=== PATIENT | female | born 1965 | race Caucasian/White ===

== ENCOUNTER 2016-06-10 08:48 | Emergency (ER) | payer BC, OTHER ==
[~2016-06-10] VITALS: Ht 162.6 cm; Wt 107.7 kg
[~2016-06-10 08:48] MED LIST: ALBU0.5N2 NEB; ASPI81TA28 PO; CRAN1CAP15 PO; CRG25 PO; HYDR12.55 PO; LEVO175T PO; LSN40 PO; METF750T PO; OMEP20CA9 PO; VALA1TAB31 PO
[2016-06-10 08:51] VITALS: TEMP 37.2; Ht 162.6 cm; Wt 107.7 kg
[2016-06-10] MEDS ORDERED: LSN20 PO (09:28)
[2016-06-10] MEDS ORDERED: CARV12.5 PO (09:28)
[2016-06-10] MEDS ORDERED: HYDR25TA4 PO (09:28)
[2016-06-10] MEDS ORDERED: DSY/150 PO (09:28)
[2016-06-10] MEDS ORDERED: SERT50TA PO (09:28)
[2016-06-10] MEDS ORDERED: SULFAMETHOXAZOLE/TRIMETHOPRIM DS 800/160MG TAB PO ONE (09:30)
[2016-06-10] MEDS ORDERED: CEPHALEXIN MONOHYDRATE 250 MG CAP PO ONE (09:30)
[2016-06-10] MEDS ORDERED: SULF800T23 PO (09:39)
[2016-06-10] MEDS ORDERED: CEPH500C PO (09:39)
[2016-06-10 10:02] VITALS: BP 125/81; PULSE 73; O2SAT 95
[2016-06-10 10:13] LABS: URINE APPEARANCE CLEAR (CLEAR); URINE BILIRUBIN NEG (NEG); URINE COLOR DK YELLOW; URINE EPITHELIAL CELL AUTO >30 /lpf (0-5); URINE NITRITE NEG (NEG); URINE PH 8.5 (4.5-7.5); URINE SPECIFIC GRAVITY 1.024 (1.000-1.030); UROBILINOGEN NEG (NEG); ZZUR CULT IF INDIC CLEAN CATCH NO
[2016-06-10 10:14] LABS: MANUAL MICROSCOPIC REQUIRED? NO; REVIEW REQ? NO
[2016-06-10] MEDS ORDERED: PRED20TA PO (15:43)
[2016-06-10] MEDS ORDERED: DOXY100C PO (15:43)
--- NOTE | 2016-06-10 16:44 | EMERGENCY ROOM VISIT NOTE ---
History First contact with patient: 09:03 Chief Complaint: INFECTION Stated Complaint: OPEN CUT ON RIGHT SIDE Nursing Triage Summary: Pt presents with c/o abscess to right side of abd x 5-6 days, states open now. States she also has b/l flank pain and feels like she is getting a sinus infection. Pt states, "I've been having trouble getting rid of UTI's. I have been going more often. I just got done taking meds, but they don't seem to clear up." Pt states she does not think she has one currently, but states, "I've been having some blood on my panty liner. I have also been really tired and fatigued." History of Present Illness The patient is a 51 year old female who presents to the Emergency Room with several complaints. The patient states that she had a boil on the right side of her abdomen that broke open. She states this has been persistently uncomfortable and is now with increasing redness. The patient states that she has had sinus infection symptoms off and on for the past several weeks. She states that she completed a course of Bactrim for UTI about 3 or 4 weeks ago, but continues to have dysuria. The patient is diabetic, but states her sugar has been doing well. She has not taken anything [id number] for her symptoms. Review of Systems More than 10 systems were reviewed and otherwise negative with the exception of history of present illness. Past Medical/Surgical History Medical Problems: (1) Asthma (2) Diab Brit Wo Compl, Type Ii Or Unspec Type, Not Uncntrld (3) Esophageal Reflux (4) Hypertension Nos Family History Patient reports no known family medical history. Social History Smoking Status: Current Every Day Smoker Marital Status: Occupation Status: employed Current/Historical Medications Scheduled Aspirin (Aspirin Ec), 81 MG PO DAILY Carvedilol (Coreg), 12.5 MG PO BID Cephalexin Monohydrate (Keflex), 500 MG PO TID Cranberry-Vitamin C-Vitamin E (Cranberry), 3,600 MG PO DAILY Doxycycline Hyclate (Vibramycin), 100 MG PO BID Hydrochlorothiazide (Hctz), 25 MG PO DAILY Levothyroxine Sodium (Synthroid), 175 MCG PO DAILY Lisinopril (Lisinopril), 20 MG PO DAILY Metformin Hcl (Glucophage Er), 750 MG PO DAILY Omeprazole (Prilosec), 20 MG PO DAILY Prednisone (Prednisone), 0 PO DAILY Sertraline (Zoloft), 50 MG PO DAILY Sulfa/Trimethoprim (Bactrim Ds 800MG/160MG), 1 TAB PO BID Trazodone HCl (Trazodone HCl), 150 MG PO HS Allergies Coded Allergies: Ciprofloxacin (Verified Allergy, Severe, sob, 06/10/16) Quinolones (Verified Allergy, Severe, SOB, 06/10/16) Amoxicillin (Verified Allergy, Mild, HIVES, 06/10/16) Latex1 -Allergic Contact Dermititis (Verified Allergy, Unknown, LATEX GLOVE POWDER, 06/10/16) Sulfa Antibiotics (Unverified Allergy, Unknown, ., 06/10/16) Uncoded Allergies: [place] (Allergy, Unknown, Difficulty breathing., 02/16/14) Reported by PT Physical Exam Vital Signs Date Time Temp Pulse Resp B/P Pulse Ox O2 Delivery O2 Flow Rate FiO2 06/10/16 10:02 73 18 125/81 95 Room Air 06/10/16 08:51 37.2 87 18 142/88 94 Room Air Pain Rating (0-10): 0 Physical Exam VITALS: Vitals are noted on the nurse's note and reviewed by myself. Vital signs stable. GENERAL: Well-developed, well-nourished, white female, who is in no acute distress and resting comfortably. Patient is cooperative with the examination. HEAD: Normocephalic atraumatic. HEART: Regular rate and rhythm without murmurs gallops or rubs. LUNGS: Clear to auscultation bilaterally without wheezes, rales or rhonchi. No retractions or accessory muscle use. ABDOMEN: Positive normal bowel sounds x 4. Soft, nontender, without masses or organomegaly. No guarding or rebound tenderness. There is a small 1 x 1 cm ulceration with surrounding erythema measuring 5-6 cm in diameter around this ulceration. There is no drainage or discharge. No fluctuance. MUSCULOSKELETAL: No muscle atrophy, erythema, or edema noted. Full range of motion without joint tenderness in all extremities. Medical Decision & Procedures Laboratory Results Test 06/10/16 09:50 Urine Color DK YELLOW Urine Appearance CLEAR (CLEAR) Urine pH 8.5 (4.5-7.5) Urine Specific [place] 1.024 (1.000-1.030) Urine Protein NEG (NEG) Urine Glucose (UA) NEG (NEG) Urine Ketones NEG (NEG) Urine Occult Blood NEG (NEG) Urine Nitrite NEG (NEG) Urine Bilirubin NEG (NEG) Urine Urobilinogen NEG (NEG) Urine Leukocyte Esterase TRACE (NEG) Urine WBC (Auto) 1-5 /hpf (0-5) Urine RBC (Auto) 0-4 /hpf (0-4) Urine Hyaline Casts (Auto) 1-5 /lpf (0-5) Urine Epithelial Cells (Auto) >30 /lpf (0-5) Urine Bacteria (Auto) NEG (NEG) Medications Administered Medications (Trade) Dose Ordered Sig/Staci Route Start Time Stop Time Status Last Admin Dose Admin Trimethoprim/ Sulfamethoxazole (Septra Ds 800/ 160MG Tab) 1 tab NOW ONCE PO 06/10/16 09:30 4 09:31 DC 06/10/16 09:50 1 TAB Cephalexin Monohydrate (Keflex Cap) 500 mg NOW ONCE PO 06/10/16 09:30 06/10/16 09:31 DC 06/10/16 09:50 500 MG ED Course Physical exam and history were performed. Nursing notes and EMR were reviewed. Patient appears to have a few different complaints bring her to the ER today. On examination she does not appear to have an abscess, but she does have an ulceration of her right side abdominal wall. This does have a surrounding cellulitis. She reports these symptoms, and has had multiple UTIs in the past. She is diabetic and I discussed options of care with the patient. She will be given a prescription of Bactrim and Keflex the patient is evidently tolerated these medications in the past. The patient will need to follow with her primary care physician for further management. She was otherwise invited back to the ER with any new, worsening, or concerning symptoms. The chart was completed utilizing [employer] Speech Voice Recognition Software. Grammatical errors, random word insertions, pronoun errors, and incomplete sentences are an occasional consequence of this system due to software limitations, ambient noise, and hardware issues. Any formal questions or concerns about the content, text, or information contained within the body of this dictation should be directly addressed to the provider for clarification. . Medical Decision Differential diagnosis: Etiologies such as cellulitis, abscess, MRSA infection, DVT, necrotizing fasciitis, dermatitis, drug eruption, as well as others were entertained.. Impression Primary Impression: Abdominal wall cellulitis Additional Impression: UTI (urinary tract infection) Departure Information Dispostion Home / Self-Care Condition GOOD Prescriptions Cephalexin Monohydrate (Keflex) 500 Mg Cap 500 MG PO TID for 10 Days, #30 CAP Prov: Yon Ross PA-C 06/10/16 Sulfa/Trimethoprim (Bactrim Ds 800MG/160MG) Tab 1 TAB PO BID for 10 Days, #20 TAB Prov: Yon Ross PA-C 06/10/16 Forms HOME CARE DOCUMENTATION FORM, IMPORTANT VISIT INFORMATION Patient Instructions My [facility] Additional Instructions You were seen and evaluated today on an emergency basis only. This is not a substitute for, or an effort to provide, complete comprehensive medical care. It is not possible to recognize and treat all injuries or illnesses in a single emergency department visit. For this reason it is recommended that you followup with your primary care physician in the next 2-3 days for recheck of her condition. Trimethoprim-Sulfamethoxazole(Bactrim DS): Take one pill twice daily for 10 days for your skin infection. All antibiotics can cause diarrhea. If this occurs and you feel worse or it does not resolve in 1-2 days follow up with your doctor or return to the Emergency Department as this could be signs of serious underlying problems. Any medication can cause an allergic reaction, stop the pills immediately and return to the ER for rash, hives, breathing difficulties, or swelling. Cephalexin(Keflex) 500mg: Take one pill 3 times daily for 10 days for your skin infection. All antibiotics can cause diarrhea. If this occurs and you feel worse or it does not resolve in 1-2 days follow up with your doctor or return to the Emergency Department as this could be signs of serious underlying problems. Any medication can cause an allergic reaction, stop the pills immediately and return to the ER for rash, hives, breathing difficulties, or swelling. You are welcome to return to the emergency department anytime with new, worsening, or concerning symptoms. Problem Qualifiers
== END 2016-06-10 10:02 | disposition home or self-care (01) ==
LOC: C.EDB 08:49
DX: L03.311 Cellulitis of abdominal wall (principal); N39.0 Urinary tract infection, site not specified; J45.909 Unspecified asthma, uncomplicated; E11.9 Type 2 diabetes mellitus without complications; I10 Essential (primary) hypertension; K21.9 Gastro-esophageal reflux disease without esophagitis; F17.200 Nicotine dependence, unspecified, uncomplicated; Z79.82 Long term (current) use of aspirin

== ENCOUNTER 2016-06-10 10:19 | Emergency (ER) | payer OTHER ==
[~2016-06-10 10:19] MED LIST changes: +CARV12.5 PO; +CEPH500C PO; +DSY/150 PO; +HYDR25TA4 PO; +LSN20 PO; +SERT50TA PO; +SULF800T23 PO
[2016-06-10 10:23] VITALS: TEMP 36.6; Ht 162.6 cm
[2016-06-10] MEDS ORDERED: DiphenhydrAMINE HCL 50 MG/ML VIAL IV STA (10:29)
[2016-06-10] MEDS ORDERED: METHYLPREDNISOLONE 125 MG VIAL IV STA (10:29)
[2016-06-10] MEDS ORDERED: FAMOTIDINE IV INJ 20 MG in DEXTROSE 5% 100ML 100 ML IV ONE (10:30)
[2016-06-10] MEDS ORDERED: SODIUM CHLORIDE 0.9% 1000ML 1,000 ML IV ONE (10:30)
[2016-06-10 10:40] VITALS: O2SAT 86
[2016-06-10] MEDS ORDERED: EpINEphrine INJ 1MG/ML AMP 1 MG/ML AMP IM STA (10:44)
[2016-06-10] MEDS ORDERED: FAMOTIDINE 20MG/102 ML D5W ONE (10:52)
[2016-06-10] MEDS ORDERED: DOXY100C PO (15:43)
[2016-06-10] MEDS ORDERED: PRED20TA PO (15:43)
[2016-06-10 16:00] VITALS: BP 116/73; PULSE 81; O2SAT 95
--- NOTE | 2016-06-10 17:08 | EMERGENCY ROOM VISIT NOTE ---
History First contact with patient: 10:26 Chief Complaint: ALLERGIC REACTION Stated Complaint: ALLERGIC REACTION TO NEW MEDICATION IN ER Nursing Triage Summary: Pt just d/c from here. Now having lips are itching/numb, pain in vaginal area, nausea, lightheaded, difficulty breathing. Pt states, "we just got on the byass and I had to turn around." Pt states given abx. History of Present Illness The patient is a 51 year old female who presents to the Emergency Room with complaints of flushing, rash, lightheadedness, nausea, difficulty breathing. The patient was just seen and evaluated by myself for an abdominal wall ulceration and cellulitis. She was provided Bactrim and Keflex here in the department, and evidently has tolerated these medications before. The patient was discharged, got in her car, and essentially had immediate symptoms. The patient does appear to be experiencing an allergic reaction. She is able to speak in complete sentences and does not have swelling of her throat. She has not taken anything [id number], as her symptoms just started within the past 15 minutes. Review of Systems More than 10 systems were reviewed and otherwise negative with the exception of history of present illness. Past Medical/Surgical History Medical Problems: (1) Asthma (2) Diab Brit Wo Compl, Type Ii Or Unspec Type, Not Uncntrld (3) Esophageal Reflux (4) Hypertension Nos Family History Patient reports no known family medical history. Social History Smoking Status: Current Every Day Smoker Marital Status: Occupation Status: employed Current/Historical Medications Scheduled Aspirin (Aspirin Ec), 81 MG PO DAILY Carvedilol (Coreg), 12.5 MG PO BID Cephalexin Monohydrate (Keflex), 500 MG PO TID Cranberry-Vitamin C-Vitamin E (Cranberry), 3,600 MG PO DAILY Doxycycline Hyclate (Vibramycin), 100 MG PO BID Hydrochlorothiazide (Hctz), 25 MG PO DAILY Levothyroxine Sodium (Synthroid), 175 MCG PO DAILY Lisinopril (Lisinopril), 20 MG PO DAILY Metformin Hcl (Glucophage Er), 750 MG PO DAILY Omeprazole (Prilosec), 20 MG PO DAILY Prednisone (Prednisone), 0 PO DAILY Sertraline (Zoloft), 50 MG PO DAILY Sulfa/Trimethoprim (Bactrim Ds 800MG/160MG), 1 TAB PO BID Trazodone HCl (Trazodone HCl), 150 MG PO HS Allergies Coded Allergies: Ciprofloxacin (Verified Allergy, Severe, sob, 06/10/16) Quinolones (Verified Allergy, Severe, SOB, 06/10/16) Amoxicillin (Verified Allergy, Mild, HIVES, 06/10/16) Latex1 -Allergic Contact Dermititis (Verified Allergy, Unknown, LATEX GLOVE POWDER, 06/10/16) Sulfa Antibiotics (Unverified Allergy, Unknown, ., 06/10/16) Uncoded Allergies: [place] (Allergy, Unknown, Difficulty breathing., 02/16/14) Reported by PT Physical Exam Vital Signs Date Time Temp Pulse Resp B/P Pulse Ox O2 Delivery O2 Flow Rate FiO2 06/10/16 16:00 81 18 116/73 95 06/10/16 15:38 91 Room Air 06/10/16 15:26 85 06/10/16 14:30 83 16 105/74 91 Nasal Cannula 4.0 06/10/16 13:00 80 17 117/83 90 Nasal Cannula 4.0 06/10/16 11:56 70 17 128/87 93 Nasal Cannula 2.0 06/10/16 11:16 71 06/10/16 11:02 70 18 139/89 97 Nasal Cannula 6.0 06/10/16 10:59 62 20 138/90 Nasal Cannula 6.0 06/10/16 10:58 60 16 143/94 99 Nasal Cannula 6.0 06/10/16 10:46 86 18 118/79 92 Nasal Cannula 6.0 06/10/16 10:44 87 14 114/77 94 Nasal Cannula 6.0 06/10/16 10:40 Nasal Cannula 4.0 06/10/16 10:40 86 Nasal Cannula 2.0 06/10/16 10:39 96 18 114/86 83 Room Air 06/10/16 10:23 36.6 123 18 120/77 94 Room Air 06/10/16 10:22 93 Room Air Pain Rating (0-10): 0 Physical Exam VITALS: Vitals are noted on the nurse's note and reviewed by myself. Vital signs stable. GENERAL: Well-developed, well-nourished, white female who is in mild-to- moderate discomfort secondary to her stated complaint. Patient is cooperative with the examination. HEAD: Normocephalic atraumatic. EARS: External ear normal. External auditory canals clear, tympanic membranes pearly ibanez without erythema or effusion bilaterally. EYES: Pupils equal round and reactive to light and accommodation. Conjunctivae without injection, sclerae without icterus. Extraocular movements intact. NOSE: Patent, turbinates without inflammation or discharge. MOUTH: Mucous membranes moist. Tonsils are not enlarged. Pharynx without erythema, blood, or exudate. Uvula midline. Airway patent. NECK: Supple without nuchal rigidity. No lymphadenopathy. No thyromegaly. Cervical spine is nontender. HEART: Regular rate and rhythm without murmurs gallops or rubs. LUNGS: Coarse breath sounds with scattered wheezing that didn't improve under our care. ABDOMEN: Positive normal bowel sounds x 4. Soft, nontender, without masses or organomegaly. No guarding or rebound tenderness. MUSCULOSKELETAL: No muscle atrophy, erythema, or edema noted. Full range of motion without joint tenderness in all extremities. SKIN: The skin was with urticaria best appreciated on the back and abdomen Medical Decision & Procedures Medications Administered Medications (Trade) Dose Ordered Sig/Staci Route Start Time Stop Time Status Last Admin Dose Admin Diphenhydramine HCl 25 mg 25 mg NOW STAT IV 06/10/16 10:29 06/10/16 10:31 DC 06/10/16 10:29 25 MG Sodium Chloride (Nss 1000ml) 1,000 ml @ 999 mls/hr Q1H1M ONCE IV 06/10/16 10:30 06/10/16 11:30 DC 06/10/16 10:30 999 MLS/HR Methylprednisolone Sodium Succinate 125 mg 125 mg NOW STAT IV 06/10/16 10:29 06/10/16 10:31 DC 06/10/16 10:29 125 MG Famotidine/ Dextrose (Pepcid IV Inj/ D5 100ml) 102 ml @ 200 mls/hr NOW ONCE IV 06/10/16 10:30 06/10/16 11:00 DC 06/10/16 10:30 200 MLS/HR Epinephrine HCl (EpINEphrine INJ 1MG/ML AMP/VIAL) 0.3 mg NOW STAT IM 06/10/16 10:44 06/10/16 10:45 DC 06/10/16 10:44 0.3 MG Prednisone (PredniSONE TAB) 60 mg NOW STAT PO 06/10/16 15:54 06/10/16 15:55 DC 06/10/16 15:59 60 MG ED Course Physical exam and history were performed. Nursing notes and EMR were reviewed. Patient appears to have an allergic reaction to either Bactrim or Keflex that she was provided approximately 30 minutes ago here in the emergency department. On examination the patient does appear with an allergic reaction. IV access was established and the patient was medicated as above. She was given 0.3 mg IM epinephrine. She was placed on the radiographer cardiac catheterization. The patient was monitored very closely over the next 5-1/2 hours. Within the first 15 minutes of epinephrine administration she had almost complete resolution of her symptoms. She was able to rest very comfortably and remain in stable condition. After several hours the patient was able to ambulate without desaturating. She had almost complete resolution of her symptoms, and did not have any rebound reaction appreciated. I discussed options of care with the patient and she has a preference for discharge home. This does seem reasonable. The patient will be given a dose of prednisone to take tonight as well as a prescription for ongoing course. I have asked her to stop the Bactrim and Keflex, as I am unsure which of these caused her reaction. The patient will be given doxycycline for her abdominal wall cellulitis. The patient is to follow closely with her primary care physician in the next 1-2 days. She was otherwise invited back to the ER with any new, worsening, or concerning symptoms. The chart was completed utilizing [employer] Speech Voice Recognition Software. Grammatical errors, random word insertions, pronoun errors, and incomplete sentences are an occasional consequence of this system due to software limitations, ambient noise, and hardware issues. Any formal questions or concerns about the content, text, or information contained within the body of this dictation should be directly addressed to the provider for clarification. . Medical Decision Differential diagnosis: Etiologies such as allergic reaction, anaphylaxis, urticaria, Sanford-Mustapha syndrome, toxic epidermal necrolysis, erythema multiforme, cellulitis, as well as others were entertained. Impression Primary Impression: Adverse reaction to drug Departure Information Dispostion Home / Self-Care Condition GOOD Prescriptions Doxycycline Hyclate (VIBRAMYCIN) 100 Mg Cap 100 MG PO BID for 10 Days, #20 CAP Prov: Yon Ross PA-C 06/10/16 Prednisone (Prednisone) 20 Mg Tab 0 PO DAILY, #18 TAB 3 DAILY FOR 3 DAYS, THEN 2 DAILY FOR 3 DAYS, THEN 1 DAILY FOR 3 DAYS. Prov: Yon Ross PA-C 06/10/16 Referrals Nadine Bustillo PA-C (PCP) Forms HOME CARE DOCUMENTATION FORM, IMPORTANT VISIT INFORMATION Patient Instructions My [facility] Additional Instructions You were seen and evaluated today on an emergency basis only. This is not a substitute for, or an effort to provide, complete comprehensive medical care. It is not possible to recognize and treat all injuries or illnesses in a single emergency department visit. For this reason it is recommended that you followup with your primary care physician in the next 2-3 days for recheck of your condition. Take prednisone as prescribed. Take Benadryl 50 mg every 6-8 hours as needed. You may use gsmj-[id number] Zantac for additional relief of symptoms. Doxycycline twice a day for 10 days. Avoid exposure to the sun/UV light while on this medication or use frequent application of SPF 50 or higher due to increased sensitivity to UV rays and high risk for severe moran. You are welcome to return to the emergency department anytime with new, worsening, or concerning symptoms.
== END 2016-06-10 16:02 | disposition home or self-care (01) ==
LOC: C.EDB 10:21 → C.EDC 16:02
DX: T88.7XXA Unspecified adverse effect of drug or medicament, initial encounter (principal); X58.XXXA Exposure to other specified factors, initial encounter; J45.909 Unspecified asthma, uncomplicated; E11.9 Type 2 diabetes mellitus without complications; K21.9 Gastro-esophageal reflux disease without esophagitis; I10 Essential (primary) hypertension; F17.200 Nicotine dependence, unspecified, uncomplicated; Z79.82 Long term (current) use of aspirin

== ENCOUNTER 2016-11-07 09:43 | Emergency (ER) | payer SELFPAY ==
[~2016-11-07] VITALS: Ht 162.6 cm; Wt 107.9 kg
[~2016-11-07 09:43] MED LIST changes: -ALBU0.5N2 NEB; -CEPH500C PO; -CRG25 PO; -HYDR12.55 PO; -LSN40 PO; +PRED20TA PO; -SULF800T23 PO; -VALA1TAB31 PO
[2016-11-07 09:49] VITALS: TEMP 36.8; Ht 162.6 cm; Wt 107.9 kg
--- NOTE | 2016-11-07 10:49 | DIAGNOSTIC IMAGING REPORT ---
LEFT WRIST 5 VIEWS HISTORY: Left wrist pain. LEFT, FALL 6 WEEKS AGO COMPARISON: None. FINDINGS: There is no fracture or dislocation. Soft tissues are unremarkable. No radiopaque foreign bodies. IMPRESSION: No fractures. Electronically signed by: Wolf Damon M.D. 11/07/2016 10:47 AM Dictated Date/Time: 11/07/2016 10:46 AM
--- NOTE | 2016-11-07 11:34 | EMERGENCY ROOM VISIT NOTE ---
ED Visit Note First contact with patient: 09:53 CHIEF COMPLAINT: Left wrist injury 6 weeks ago Patient is a [id number] 51-year-old white female who presents emergency department for evaluation of left wrist pain 6 weeks. She tripped and fell, landing on her extended left wrist about 6 weeks ago. She noted swelling and bruising in the palmar aspect of her hand, with pain radiating into her wrist after the fall. She states that she applied ice to the area, took Tylenol, and tried to limit use of the wrist, but she continues to note pain. Pain is primarily in the wrist at the base of the thumb, and into the first metacarpal region. REVIEW OF SYSTEMS: Review of systems as per HPI. All other systems reviewed were negative. At least 6 systems reviewed. PMH: Electronic medical records are reviewed and summarized as above/below. See Problem List. SOCIAL HISTORY: Patient lives at home with her spouse. Smoker. PHYSICAL EXAM: Vital Signs: Reviewed Nurse's notes. MENTAL STATUS: Alert and oriented. MUSCULOSKELETAL: T examination of the left wrist does not reveal any obvious deformity. There is no soft tissue swelling, no ecchymosis or outward signs of trauma noted. She is tenderness over the distal radius, and has anatomic snuffbox tenderness. Pain extends into the first metacarpal. There is no pain over the dorsum of the wrist, she has pain with wrist extension and flexion. There is no pain over the proximal radial head. Finger range of motion is full. No deformity. SKIN: Normal and intact. The hand is warm and well perfused and the fingers move normally. EMERGENCY DEPARTMENT COURSE: X-rays of the left wrist were obtained, and did not note any obvious fracture, healing fracture or other bony abnormality. The patient was given a wrist lacer. Differential diagnosis includes fracture, sprain, contusion, among others. She was encouraged to wear a wrist splint for support, and was given contact information for orthopedics if she would like to follow up. Medication reconciliation: I attest that I have personally reviewed the patient' s current medication list. Blood pressure screening : Patient was found to have normal blood pressure on screening and does not require follow-up. LEFT WRIST 5 VIEWS HISTORY: Left wrist pain. LEFT, FALL 6 WEEKS AGO COMPARISON: None. FINDINGS: There is no fracture or dislocation. Soft tissues are unremarkable. No radiopaque foreign bodies. IMPRESSION: No fractures. Problem List Medical Problems: (1) Abdominal pain Status: Resolved (2) Abdominal wall cellulitis Status: Resolved (3) Abdominal wall cellulitis Status: Resolved (4) Adverse reaction to drug Status: Resolved (5) Adverse reaction to drug Status: Resolved (6) Asthma Status: Chronic (7) Asthma exacerbation Status: Resolved (8) Asthma with acute exacerbation Status: Resolved (9) Bronchitis Status: Resolved (10) Diab Brit Wo Compl, Type Ii Or Unspec Type, Not Uncntrld Status: Chronic (11) Esophageal Reflux Status: Chronic (12) Hypertension Nos Status: Chronic (13) Right elbow pain Status: Resolved (14) UTI (urinary tract infection) Status: Resolved (15) UTI (urinary tract infection) Status: Resolved (16) Vaginal pain Status: Resolved Current/Historical Medications Scheduled Aspirin (Aspirin Ec), 81 MG PO DAILY Carvedilol (Coreg), 12.5 MG PO BID Hydrochlorothiazide (Hctz), 25 MG PO DAILY Levothyroxine Sodium (Synthroid), 175 MCG PO DAILY Lisinopril (Lisinopril), 20 MG PO DAILY Metformin Hcl (Glucophage Er), 750 MG PO DAILY Omeprazole (Prilosec), 20 MG PO DAILY Sertraline (Zoloft), 50 MG PO DAILY Trazodone HCl (Trazodone HCl), 150 MG PO HS Allergies Coded Allergies: Ciprofloxacin (Verified Allergy, Severe, sob, 06/10/16) Quinolones (Verified Allergy, Severe, SOB, 06/10/16) Amoxicillin (Verified Allergy, Mild, HIVES, 06/10/16) Latex1 -Allergic Contact Dermititis (Verified Allergy, Unknown, LATEX GLOVE POWDER, 06/10/16) Sulfa Antibiotics (Unverified Allergy, Unknown, ., 06/10/16) Uncoded Allergies: [place] (Allergy, Unknown, Difficulty breathing., 02/16/14) Reported by PT Vital Signs Date Time Temp Pulse Resp B/P (MAP) Pulse Ox O2 Delivery O2 Flow Rate FiO2 11/07/16 11:40 73 20 126/82 95 11/07/16 09:49 36.8 77 18 146/91 92 Room Air Departure Information Impression Primary Impression: Left wrist sprain Referrals Nadine Bustillo PA-C (PCP) Patient Instructions My [facility] Additional Instructions Ibuprofen(Motrin, Advil) may be used for fever or pain. Use 600mg every six hours as needed. Take with food. Avoid using more than 2400mg in a 24 hour period. Do not use 2400mg per day for more than three consecutive days without physician direction. Prolonged inappropriate use can lead to stomach upset or ulcers. This medication can be taken if you need to drive, work, or perform activities which may be dangerous when taking narcotic pain medication. (AND/OR) Acetaminophen(Tylenol) may be used for fever or pain. Use 1000mg every six hours as needed. Avoid using more than 3000mg in a 24 hour period. This medication can be taken if you need to drive, work, or perform activities which may be dangerous when taking narcotic pain medication. Ice compresses for 20 minutes at a time four times daily for 2-3 days. Rest and elevate your injury. Wear the wrist lacer as needed for support. Continue current medications. Return to the ER immediately for any numbness, tingling, severe pain, extreme swelling in the extremity or as needed. Follow-up with orthopedics if you would like your wrist reevaluated. Problem Qualifiers Primary Impression: Left wrist sprain Encounter type: initial encounter Qualified Codes: S63.502A - Unspecified sprain of left wrist, initial encounter
[2016-11-07 11:40] VITALS: BP 126/82; PULSE 73; O2SAT 95
== END 2016-11-07 11:41 | disposition home or self-care (01) ==
LOC: C.EDB 09:43
DX: S63.502A Unspecified sprain of left wrist, initial encounter (principal); W01.0XXA Fall on same level from slipping, tripping and stumbling without subsequent striking against object, initial encounter; I10 Essential (primary) hypertension; E11.9 Type 2 diabetes mellitus without complications; K21.9 Gastro-esophageal reflux disease without esophagitis; J45.909 Unspecified asthma, uncomplicated; F17.200 Nicotine dependence, unspecified, uncomplicated; Z79.82 Long term (current) use of aspirin; Z79.84 Long term (current) use of oral hypoglycemic drugs; Z79.899 Other long term (current) drug therapy; Z88.1 Allergy status to other antibiotic agents; Z88.2 Allergy status to sulfonamides; Z88.8 Allergy status to other drugs, medicaments and biological substances; Z91.040 Latex allergy status

== ENCOUNTER 2022-07-08 13:41 | Inpatient (IN) ==
[2022-07-08] MEDS ORDERED: methylPREDNISolone 125 MG/2 ML VIAL IV STA (13:50)
[2022-07-08] MEDS ORDERED: ALBUT/IPRATROP 3MG/0.5MG NEB 3 ML VIAL NEB STA ×3 (13:50→15:35)
[2022-07-08 14:09] LABS: Base Excess VBG 3.5 mEq/L; HCO3 VBG 28 mmol/L; Oxygen Saturation VBG 87.9 %; PCO2 VBG 40 mmHg (38-50); PO2 VBG 55 mmHg; pH VBG 7.45 (7.36-7.41)
[2022-07-08 14:15] LABS: Basophils # (auto) 0.04 K/uL (0-0.2); Basophils % (auto) 0.7 %; Eosinophils # (auto) 0.01 K/uL (0-0.50); Eosinophils % (auto) 0.2 %; Hematocrit (blood only) 51.2 % (37.0-47.0); Hemoglobin 16.8 g/dl (12.0-16.0); Immature Granulocytes # (auto) 0.03 K/uL (0.01-0.20); Immature Granulocytes % (auto) 0.6 %; Lymphocytes % (auto) 26.2 %; Mean Corpuscular Hemoglobin 28.2 pg (25.0-34.0); Mean Corpuscular Hgb Conc 32.8 g/dL (32.0-36.0); Mean Corpuscular Volume 85.9 fL (80.0-100.0); Mean Platelet Volume 11.3 fL (9.4-12.4); Monocytes # (auto) 0.09 K/uL (0.11-0.59); Monocytes % (auto) 1.7 %; Neutrophils # (auto) 3.77 K/uL (1.40-6.50); Neutrophils % (auto) 70.6 %; Platelet Count 157 K/uL (130-400); RDW Coefficient of Variation 14.1 % (11.5-14.5); Red Blood Count 5.96 M/uL (4.20-5.40); White Blood Count 5.34 K/ul (4.8-10.8)
--- NOTE | 2022-07-08 14:21 | Emergency Department Note ---
History of Present Illness General Chief Complaint: Shortness of Breath/Dyspnea Time Seen by Provider: 07/08/22 13:45 History of Present Illness Provider Complaint: shortness of breath and cough Onset (ago): week(s) (1) Severity: moderate Consistency/Duration: + progressively worsening Relieved By: + rest and + bronchodilators Exacerbated By: + exertion and + coughing Context: no recent illness, no choking/aspiration, no medication noncompliance, no recent travel or no trauma/injury Known history of: COPD and asthma Associated symptoms: + fever, + cough, + wheezing, + sputum production, + syncope and + chest congestion; no hemoptysis Treatment prior to arrival: bronchodilator Related Data Home oxygen amount: none Home Medications Medication Instructions Recorded Confirmed Type albuterol sulfate 90 mcg/actuation 2 puff inhalation QID PRN 08/30/18 07/08/22 History aerosol inhaler (ProAir HFA) Shortness Of Breath aspirin 81 mg tablet,delayed 81 mg PO QAM 08/30/18 07/08/22 History release carvedilol 12.5 mg tablet 12.5 mg PO BID 08/30/18 07/08/22 History hydrochlorothiazide 25 mg tablet 25 mg PO QAM 08/30/18 07/08/22 History insulin glargine 100 unit/mL (3 15 unit subcut HS 08/30/18 07/08/22 History mL) subcutaneous pen (Basaglar KwikPen U-100 Insulin) lisinopril 20 mg tablet 20 mg PO QAM 08/30/18 07/08/22 History omeprazole 20 mg capsule,delayed 20 mg PO QPM 08/30/18 07/08/22 History release azithromycin 250 mg tablet See Rx Instructions .Route .COMPLEX 07/08/22 07/08/22 History cholecalciferol (vitamin D3) 125 5,000 unit PO DAILY 07/08/22 07/08/22 History mcg (5,000 unit) capsule cyanocobalamin (vitamin B-12) 1,000 mcg PO DAILY 07/08/22 07/08/22 History 1,000 mcg tablet empagliflozin 25 mg tablet 25 mg PO DAILY 07/08/22 07/08/22 History (Jardiance) levalbuterol HCl 1.25 mg/3 mL 1.25 mg inhalation Q4H PRN 07/08/22 07/08/22 History solution for nebulization Shortness Of Breath Or Wheezing levothyroxine 175 mcg tablet 175 mcg PO DAILY 07/08/22 07/08/22 History metformin 500 mg tablet,extended 1,000 mg PO DAILY 07/08/22 07/08/22 History release 24 hr prednisone 20 mg tablet 40 mg PO DAILY 07/08/22 07/08/22 History trazodone 150 mg tablet 150 mg PO HS 07/08/22 07/08/22 History venlafaxine 75 mg capsule,extended 75 mg PO DAILY 07/08/22 07/08/22 History release 24 hr Allergies Allergy/AdvReac Type Severity Reaction Status Date / Time Cipro Allergy Severe sob Verified 06/10/16 09:25 ciprofloxacin Allergy Severe sob Verified 08/30/18 14:22 Quinolones Allergy Severe SOB Verified 08/30/18 14:22 amoxicillin Allergy Mild HIVES Verified 08/30/18 14:22 latex Allergy Unknown LATEX Verified 08/30/18 14:22 GLOVE POWDER Sulfa (Sulfonamide Allergy Unknown . Unverified 08/30/18 14:22 Antibiotics) [place] Allergy Unknown Difficulty Uncoded 08/30/18 14:22 breathing. Past Med/Surg History Medical History (Updated 07/08/22 @ 17:28 by Keegan Titus MD) COPD (chronic obstructive pulmonary disease) Diabetes mellitus, type II Hypothyroidism Mood disorder Surgical History No pertinent past surgical history Family History Other No pertinent family history Social History Smoking Status: Current every day smoker Tobacco Type: Cigarettes Preferred Language: Russian marital status: current occupational status: unemployed Feels Safe at Home: Yes Physical Exam 2 Vital Signs: Vital Signs - 24 hr 07/08/22 13:29 07/08/22 13:29 07/08/22 13:29 Temperature 36.6 C Temperature Source Oral Pulse Rate 78 Pulse Rate [Apical ] 77 Pulse Rate from Sp O2 Sensor Respiratory Rate 18 16 Blood Pressure 125/82 Blood Pressure [Le ft Arm] 125/82 Blood Pressure Sherice n 96 Blood Pressure Sherice n [Left Arm] 96 Pulse Oximetry 92 91 Oxygen Delivery Me thod Room Air Room Air Room Air Oxygen Flow Rate Sepsis Recent Feve r Within 48 Hours No Sepsis New/Unexpla ined Change in Men deniz Status N/A Sepsis Action Take n by Nursing No Action Required Oxygen Flow Rate - Titration Pulse Oximetry Pos t Tiitration 07/08/22 13:51 07/08/22 14:30 07/08/22 14:55 Temperature Temperature Source Pulse Rate 76 75 Pulse Rate [Apical ] Pulse Rate from Sp O2 Sensor Respiratory Rate Blood Pressure Blood Pressure [Le ft Arm] Blood Pressure Sherice n Blood Pressure Sherice n [Left Arm] Pulse Oximetry 90 85 L Oxygen Delivery Me thod Nasal Cannula Oxygen Flow Rate 0 Sepsis Recent Feve r Within 48 Hours Sepsis New/Unexpla ined Change in Men deniz Status Sepsis Action Take n by Nursing Oxygen Flow Rate - Titration 2 Pulse Oximetry Pos t Tiitration 90 07/08/22 14:56 07/08/22 14:20 07/08/22 15:00 Temperature Temperature Source Pulse Rate 72 69 Pulse Rate [Apical ] 74 Pulse Rate from Sp O2 Sensor 71 Respiratory Rate 18 13 17 Blood Pressure 130/76 Blood Pressure [Le ft Arm] 110/76 Blood Pressure Sherice n 94 Blood Pressure Sherice n [Left Arm] 87 Pulse Oximetry 92 98 90 Oxygen Delivery Me thod Nasal Cannula Nasal Cannula Oxygen Flow Rate 2 2 Sepsis Recent Feve r Within 48 Hours Sepsis New/Unexpla ined Change in Men deniz Status Sepsis Action Take n by Nursing Oxygen Flow Rate - Titration Pulse Oximetry Pos t Tiitration 07/08/22 15:42 07/08/22 16:00 07/08/22 16:30 Temperature Temperature Source Pulse Rate 68 65 68 Pulse Rate [Apical ] Pulse Rate from Sp O2 Sensor Respiratory Rate 22 13 12 Blood Pressure 104/62 105/61 99/68 L Blood Pressure [Le ft Arm] Blood Pressure Sherice n 76 75 78 Blood Pressure Sherice n [Left Arm] Pulse Oximetry 92 94 98 Oxygen Delivery Me thod Nasal Cannula Nebulizer Nebulizer Oxygen Flow Rate 2 6 6 Sepsis Recent Feve r Within 48 Hours Sepsis New/Unexpla ined Change in Men deniz Status Sepsis Action Take n by Nursing Oxygen Flow Rate - Titration Pulse Oximetry Pos t Tiitration 07/08/22 17:02 07/08/22 17:11 07/08/22 17:00 Temperature Temperature Source Pulse Rate 67 Pulse Rate [Apical ] Pulse Rate from Sp O2 Sensor Respiratory Rate 15 Blood Pressure 116/64 Blood Pressure [Le ft Arm] Blood Pressure Sherice n 81 Blood Pressure Sherice n [Left Arm] Pulse Oximetry 83 L 88 L Oxygen Delivery Me thod Nasal Cannula Nasal Cannula Oxygen Flow Rate 0 2 Sepsis Recent Feve r Within 48 Hours Sepsis New/Unexpla ined Change in Men deniz Status Sepsis Action Take n by Nursing Oxygen Flow Rate - Titration 2 3 Pulse Oximetry Pos t Tiitration 90 92 Physical Exam: Physical Exam GENERAL: She is oriented to person, place, and time. She appears well-developed and well-nourished. HENT: Exam performed. -Head: Normocephalic and atraumatic. -Right Ear: External ear normal. No mastoid erythema -Left Ear: External ear normal. No mastoid erythema -Mouth/Throat: The oropharynx is clear and moist. No trismus in the jaw. No dental abscesses or uvula swelling. No oropharyngeal exudate or tonsillar abscesses. EYES: Conjunctivae and EOM are normal. Right eye exhibits no discharge. Left eye exhibits no discharge. No scleral icterus. NECK: Normal range of motion. Neck supple. No JVD present. No spinous process tenderness present. No tracheal deviation and normal range of motion present. CV: Normal rate, regular rhythm, normal heart sounds and intact distal pulses. There is no peripheral edema. Palpable radial pulses bue. PULM/CHEST: Expiratory wheezes bilaterally. Rhonchi bilaterally. ABD: The abdomen is soft. There is no tenderness. There is no rebound, no guard ing. MUSC/SKEL: Normal range of motion. There is no peripheral edema, tenderness or deformity. LYMPH: No cervical adenopathy. NEURO: She is alert and oriented to person, place, and time. She has normal strength. No cranial nerve deficit or sensory deficit. Coordination and gait normal. GCS eye subscore is 4. GCS verbal subscore is 5. GCS motor subscore is 6. Cerebellar tests wnl. SKIN: Skin is warm and dry. She is not diaphoretic. PSYCH: She has a normal mood and affect. Behavior is normal. Judgment and thought content normal. Course Course 1345: The patient was evaluated in room A2. A complete history and physical exam was performed Cardiac monitoring: An order was placed for continuous cardiac monitoring. The monitor shows a rate of 80 with sinus rhythm interpreted by me 1455: Patient was found to be hypoxic on room air placed on supplemental oxygen via nasal cannula. 1600: Vital signs stable on supplemental oxygen via nasal cannula. Patient still having wheezing status post breathing treatment. Patient will be admitted to the [facility] hospitalist team for COPD exacerbation. Administered Medications Discontinued Medications Albuterol (Albut/Ipratrop 3mg/0.5mg Neb 3 Ml Vial) 3 ml NEB NOW STA; Protocol Stop: 07/08/22 13:51 Last Admin: 07/08/22 14:12 Dose: 3 ml Documented By: YING Albuterol (Albut/Ipratrop 3mg/0.5mg Neb 3 Ml Vial) 3 ml NEB NOW STA; Protocol Stop: 07/08/22 15:35 Last Admin: 07/08/22 16:08 Dose: 3 ml Documented By: KELLY Albuterol (Albut/Ipratrop 3mg/0.5mg Neb 3 Ml Vial) 3 ml NEB NOW STA; Protocol Stop: 07/08/22 15:36 Last Admin: 07/08/22 15:42 Dose: 3 ml Documented By: KELLY Azithromycin (Azithromycin 250 Mg Tab) 500 mg PO NOW ONE Stop: 07/08/22 15:57 Last Admin: 07/08/22 16:07 Dose: 500 mg Documented By: KELLY Methylprednisolone (Methylprednisolone 125 Mg/2 Ml Vial) 125 mg IV NOW STA Stop: 07/08/22 13:51 Last Admin: 07/08/22 14:12 Dose: 125 mg Documented By: YING Medical Decision Making Laboratory Data Attestation: I reviewed the patient's lab results. 07/08/22 13:54 07/08/22 13:54 Lab Results 07/08/22 07/08/22 07/08/22 Range/Units 13:54 13:54 13:54 WBC 5.34 (4.8-10.8) K/ul RBC 5.96 H (4.20-5.40) M/uL Hgb 16.8 H (12.0-16.0) g/dl Hct 51.2 H (37.0-47.0) % MCV 85.9 (80.0-100.0) fL MCH 28.2 (25.0-34.0) pg MCHC 32.8 (32.0-36.0) g/dL RDW Std Deviation 44.0 (36.4-46.3) fL RDW Coeff of [place] 14.1 (11.5-14.5) % Plt Count 157 (130-400) K/uL MPV 11.3 (9.4-12.4) fL Immature Gran % (Auto) 0.6 % Neut % (Auto) 70.6 % Lymph % (Auto) 26.2 % [place] % (Auto) 1.7 % Eos % (Auto) 0.2 % Baso % (Auto) 0.7 % Neut # (Auto) 3.77 (1.40-6.50) K/uL Lymph # (Auto) 1.40 (1.2-3.4) K/uL [place] # (Auto) 0.09 L (0.11-0.59) K/uL Eos # (Auto) 0.01 (0-0.50) K/uL Baso # (Auto) 0.04 (0-0.2) K/uL Immature Gran # (Auto) 0.03 (0.01-0.20) K/uL VBG pH 7.45 H (7.36-7.41) VBG pCO2 40 (38-50) mmHg VBG pO2 55 mmHg VBG HCO3 28 mmol/L VBG O2 Saturation 87.9 % VBG Base Excess 3.5 mEq/L Sodium 138 (136-145) mmol/L Potassium 3.8 (3.5-5.1) mmol/L Chloride 101 (98-107) mmol/L Carbon Dioxide 28 (21-32) mmol/L Anion Gap 9 (3-11) BUN 14 (6-23) mg/dl Creatinine 0.99 (0.6-1.2) mg/dl Est Cr Clr Drug Dosing 69.9 ml/min Est GFR ( Amer) 74.4 ml/min Est GFR (Non-Af Amer) 64.2 ml/min BUN/Creatinine Ratio 14.1 (10-20) Glucose 256 H (70-99(Fasting)) mg/dl Calcium 9.8 (8.6-10.3) mg/dl Troponin I High Sens 2.7 (0-14) pg/ml Lipase 49 (11-82) U/L SARS-CoV-2 (PCR) (Negative) Influenza Type A (PCR) (Neg) Influenza Type B (PCR) (Neg) RSV (RT-PCR) (Neg) 07/08/22 Range/Units 13:54 WBC (4.8-10.8) K/ul RBC (4.20-5.40) M/uL Hgb (12.0-16.0) g/dl Hct (37.0-47.0) % MCV (80.0-100.0) fL MCH (25.0-34.0) pg MCHC (32.0-36.0) g/dL RDW Std Deviation (36.4-46.3) fL RDW Coeff of [place] (11.5-14.5) % Plt Count (130-400) K/uL MPV (9.4-12.4) fL Immature Gran % (Auto) % Neut % (Auto) % Lymph % (Auto) % [place] % (Auto) % Eos % (Auto) % Baso % (Auto) % Neut # (Auto) (1.40-6.50) K/uL Lymph # (Auto) (1.2-3.4) K/uL [place] # (Auto) (0.11-0.59) K/uL Eos # (Auto) (0-0.50) K/uL Baso # (Auto) (0-0.2) K/uL Immature Gran # (Auto) (0.01-0.20) K/uL VBG pH (7.36-7.41) VBG pCO2 (38-50) mmHg VBG pO2 mmHg VBG HCO3 mmol/L VBG O2 Saturation % VBG Base Excess mEq/L Sodium (136-145) mmol/L Potassium (3.5-5.1) mmol/L Chloride (98-107) mmol/L Carbon Dioxide (21-32) mmol/L Anion Gap (3-11) BUN (6-23) mg/dl Creatinine (0.6-1.2) mg/dl Est Cr Clr Drug Dosing ml/min Est GFR ( Amer) ml/min Est GFR (Non-Af Amer) ml/min BUN/Creatinine Ratio (10-20) Glucose (70-99(Fasting)) mg/dl Calcium (8.6-10.3) mg/dl Troponin I High Sens (0-14) pg/ml Lipase (11-82) U/L SARS-CoV-2 (PCR) NEGATIVE (Negative) Influenza Type A (PCR) Negative (Neg) Influenza Type B (PCR) Negative (Neg) RSV (RT-PCR) Negative (Neg) Imaging Data Attestation: I personally reviewed and interpreted this imaging study as follows: My Impression: Chest x-ray negative. Airway clear. No pneumothorax. No consolidation. No cardiomegaly or cephalization.. No free air under the diaphragm. No fractures of the skeletal structures. Radiologist's Impression: Chest X-Ray 07/08/22 13:51 SINGLE VIEW CHEST CLINICAL HISTORY: Atypical chest pain. FINDINGS: An AP, portable, upright chest radiograph is compared to study dated 08/30/2018 and correlated with chest CT dated 10/31/2017. The examination is d egraded by portable technique and apical lordotic positioning. The cardiomediastinal silhouette is unremarkable. Chronic interstitial thickening is similar to previous. There is bibasilar scarring/atelectasis. The lungs and pleural spaces are otherwise clear. No pneumothorax is seen. The skeletal st ructures are osteopenic. The bony thorax is grossly intact. IMPRESSION: No acute cardiopulmonary abnormality. ACT 112: Negative or not required by law. Electronically signed by: Abram Carter M.D. 07/08/2022 2:[address] 07/08/22 14:08 CT SCAN OF THE BRAIN WITHOUT IV CONTRAST CLINICAL HISTORY: Syncope. COMPARISON STUDY: CT of the brain dated 03/24/2019. TECHNIQUE: Unenhanced axial CT scan of the brain is performed from the vertex to the skull base. A dose lowering technique was utilized adhering to the principles of ALARA. CT DOSE: 625.80 mGy.cm FINDINGS: Brain parenchyma: There is minimal microangiopathic change. There is no hemor rhage, mass effect, or evidence of acute territorial ischemia by CT criteria. Mathew-white matter differentiation is preserved. No extra-axial fluid collection is seen. Ventricles, sulci, cisterns: Normal in configuration. Intracranial vasculature: The visualized intracranial vasculature at the skull base is normal in appearance. Calvarium: Unremarkable. Sinuses and mastoids: There is evidence of previous paranasal sinus surgery. Mild mucosal thickening is seen within the frontal and sphenoid sinuses. There is trace mucosal thickening within the ethmoid resection cavity. The mastoid air cells are well pneumatized. Orbits: The bony orbits are grossly intact. IMPRESSION: There is no hemorrhage, mass effect, or evidence of acute territorial ischemia by CT criteria. ACT 112: Negative or not required by law. Electronically signed by: Abram Carter M.D. 07/08/2022 3:27 PM ECG Data Attestation: I personally reviewed and interpreted this ECG as follows: Interpretation: Sinus rhythm with a rate of 79. [place] QRS and QTc intervals within normal limits. No ST elevation or ST depression. Baseline wander and artifact MDM Narrative 1345: The patient was evaluated in room A2. A complete history and physical exam was performed Cardiac monitoring: An order was placed for continuous cardiac monitoring. The monitor shows a rate of 80 with sinus rhythm interpreted by me 1455: Patient was found to be hypoxic on room air placed on supplemental oxygen via nasal cannula. 1600: Vital signs stable on supplemental oxygen via nasal cannula. Patient still having wheezing status post breathing treatment. [facility]. Impression & Plan Hypoxia, COPD exacerbation Critical Care Time Critical Care Time: Yes Total Critical Care Time: 52 I have personally spent greater than 52 minutes of critical care time in the direct management of this patient. This includes bedside care, interpretation of diagnostic studies, and testing, discussion with consultants, patient, and family members, and other required patient management activities. This 52 minutes is in excess of all separately billable procedures. Discharge Plan Visit Data Chief Complaint: Shortness of Breath/Dyspnea ED Provider: Keegan Titus Discharge Problem: Hypoxia, COPD exacerbation Patient Disposition: Admitted As Inpatient Forms Stand Alone Forms: Work/School Release (ED), My [facility] Prescriptions Prescriptions: No Action carvedilol 12.5 mg tablet 12.5 mg PO BID lisinopril 20 mg tablet 20 mg PO QAM aspirin 81 mg Tablet,Delayed Release (Dr/Ec) 81 mg PO QAM omeprazole 20 mg capsule,delayed release(DR/EC) 20 mg PO QPM hydrochlorothiazide 25 mg tablet 25 mg PO QAM albuterol sulfate [ProAir HFA] 90 mcg/actuation Hfa Aerosol Inhaler 2 puff INHALATION QID PRN (Reason: Shortness Of Breath) insulin glargine [Basaglar KwikPen U-100 Insulin] 100 unit/mL (3 mL) insulin pen 15 unit subcut HS levothyroxine 175 mcg tablet 175 mcg PO DAILY trazodone 150 mg tablet 150 mg PO HS metformin 500 mg tablet extended release 24 hr 1,000 mg PO DAILY cholecalciferol (vitamin D3) 125 mcg (5,000 unit) capsule 5,000 unit PO DAILY levalbuterol HCl 1.25 mg/3 mL solution for nebulization 1.25 mg INHALATION Q4H PRN (Reason: Shortness Of Breath Or Wheezing) Jardiance 25 mg tablet 25 mg PO DAILY venlafaxine 75 mg capsule,extended release 24hr 75 mg PO DAILY cyanocobalamin (vitamin B-12) 1,000 mcg tablet 1,000 mcg PO DAILY azithromycin 250 mg tablet See Rx Instructions .ROUTE .COMPLEX Rx Instructions: 500mg day 1 followed by 250mg x 4 day prednisone 20 mg tablet 40 mg PO DAILY Rx Instructions: prescribed prednisone 40mg x 5 day course Referrals Referrals: PCP,NO [Physician] -
[2022-07-08 14:40] LABS: BUN Creatinine Ratio 14.1 (10-20); Calcium 9.8 mg/dl (8.6-10.3); Creatinine Clr Calc Pharmacy 69.9 ml/min; Est GFR (African American) 74.4 ml/min; Est GFR (Non-African American) 64.2 ml/min; Potassium 3.8 mmol/L (3.5-5.1)
--- NOTE | 2022-07-08 14:40 | XRay Report ---
SINGLE VIEW CHEST CLINICAL HISTORY: Atypical chest pain. FINDINGS: An AP, portable, upright chest radiograph is compared to study dated 08/30/2018 and correlate d with chest CT dated 10/31/2017. The examination is degraded by portable technique and apical lordotic positioning. The cardiomediastinal silhouette is unremarkable. Chronic interstitial thickening is si milar to previous. There is bibasilar scarring/atelectasis. The lungs and pleural spaces are otherwis e clear. No pneumothorax is seen. The skeletal structures are osteopenic. The bony thorax is grossly intact. IMPRESSION: No acute cardiopulmonary abnormality. ACT 112: Negative or not required by law. Electronically signed by: Abram Carter M.D. 07/08/2022 2:39 PM
[2022-07-08 14:47] LABS: Troponin I High Sensitivity 2.7 pg/ml (0-14)
[2022-07-08 15:22] LABS: Influenza A virus by PCR Negative (Neg); Influenza B virus by PCR Negative (Neg); RSV by PCR Negative (Neg); SARS CoV2 RNA(COVID-19) Ceph NEGATIVE (Negative)
--- NOTE | 2022-07-08 15:28 | CT Scan Report ---
CT SCAN OF THE BRAIN WITHOUT IV CONTRAST CLINICAL HISTORY: Syncope. COMPARISON STUDY: CT of the brain dated 03/24/2019. TECHNIQUE: Unenhanced axial CT scan of the brain is performed from the vertex to the skull base. A d ose lowering technique was utilized adhering to the principles of ALARA. CT DOSE: 625.80 mGy.cm FINDINGS: Brain parenchyma: There is minimal microangiopathic change. There is no hemorrhage, mass effect, or e vidence of acute territorial ischemia by CT criteria. Mathew-white matter differentiation is preserved. No extra-axial fluid collection is seen. Ventricles, sulci, cisterns: Normal in configuration. Intracranial vasculature: The visualized intracranial vasculature at the skull base is normal in appe arance. Calvarium: Unremarkable. Sinuses and mastoids: There is evidence of previous paranasal sinus surgery. Mild mucosal thickening is seen within the frontal and sphenoid sinuses. There is trace mucosal thickening within the ethmoid resection cavity. The mastoid air cells are well pneumatized. Orbits: The bony orbits are grossly intact. IMPRESSION: There is no hemorrhage, mass effect, or evidence of acute territorial ischemia by CT kassandra hinton. ACT 112: Negative or not required by law. Electronically signed by: Abram Carter M.D. 07/08/2022 3:27 PM
[2022-07-08] MEDS ORDERED: AZITHROMYCIN 250 MG TAB PO ONE (15:56)
--- NOTE | 2022-07-08 16:08 | History & Physical Report ---
Date of Service July 08, 2022 Assessment & Plan (1) Acute respiratory failure with hypoxia: (2) COPD exacerbation: (3) Diabetes mellitus, type II: (4) HTN (hypertension): (5) Mood disorder: (6) Hypothyroidism: (7) HLD (hyperlipidemia): Plan This is a 57-year-old female with PMH of COPD, ongoing tobacco use, type 2 diabetes, hypothyroidism, dyslipidemia, hypertension, mood disorder and other medical problems listed below who presents with worsening shortness of breath and was found to have COPD exacerbation. Acute hypoxic respiratory failure COPD exacerbation Recent URI, started on prednisone and Z yasmin yesterday but found to be hypoxic, lethargic this AM Hypoxic at 85% on room air, improved to 94% on 2L NC Afebrile, no leukocytosis, no acidosis on VBG, PCR negative for covid, RSV, flu Continue prednisone taper, azithromycin, nebs QIDR, supplemental O2 as needed Possible Syncopal episodes Daughter states patient had unresponsive episodes during phone call, concern she was losing consciousness Has not recurred since arrival Monitor on tele, obtain, orthostatic vitals, no ECG changes or CP, will obtain 2D echo for completeness DM II A1c 8.5 in April 2022 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 Continue venlafaxine, trazodone HS Hypothyroidism Continue levothyroxine HLD Continue statin DVT Ppx: SQ lovenox Code status: FULL PCP: MACKENZIE Mayes Dispo: Admitted to PCU Patient seen in collaboration with Dr. Todd. Please see addendum. I spent a total of 75 minutes coordinating, documenting, and providing care for this patient excluding time spent in the performance of separately billed services. History of Present Illness Chief Complaint: Shortness of breath Primary Care Provider: NO PCP This is a 57-year-old female with PMH of COPD, ongoing tobacco use, type 2 diabetes, hypothyroidism, dyslipidemia, hypertension, mood disorder and other medical problems listed below who presents with worsening shortness of breath. Has been feeling extremely fatigued and slept most of the day yesterday. Had a virtual appointment with PCP yesterday for shortness of breath, cough and congestion and was started on prednisone and azithromycin course as well as continued Xopenex nebulizers every 4 as needed. Continued to feel poorly and daughter, who is a nurse, called her and stated she was "passing out" over the phone so ambulance was called. Uses as needed nebulizer but no daily inhalers. Still smoking 1/2 ppd. States she commonly has an exacerbation of COPD in setting of viral infection. No fever, chills, lightheadedness, CP, N/V, abdominal pain, dysuria, diarrhea or constipation. Allergies Allergy/AdvReac Type Severity Reaction Status Date / Time Cipro Allergy Severe sob Verified 06/10/16 09:25 ciprofloxacin Allergy Severe sob Verified 08/30/18 14:22 Quinolones Allergy Severe SOB Verified 08/30/18 14:22 amoxicillin Allergy Mild HIVES Verified 08/30/18 14:22 latex Allergy Unknown LATEX Verified 08/30/18 14:22 GLOVE POWDER Sulfa (Sulfonamide Allergy Unknown . Unverified 08/30/18 14:22 Antibiotics) [place] Allergy Unknown Difficulty Uncoded 08/30/18 14:22 breathing. Home Medications Medication Instructions Recorded Confirmed Type albuterol sulfate 90 mcg/actuation 2 puff inhalation QID PRN 08/30/18 07/08/22 History aerosol inhaler (ProAir HFA) Shortness Of Breath aspirin 81 mg tablet,delayed 81 mg PO QAM 08/30/18 07/08/22 History release carvedilol 12.5 mg tablet 12.5 mg PO BID 08/30/18 07/08/22 History hydrochlorothiazide 25 mg tablet 25 mg PO QAM 08/30/18 07/08/22 History insulin glargine 100 unit/mL (3 15 unit subcut HS 08/30/18 07/08/22 History mL) subcutaneous pen (Basaglar KwikPen U-100 Insulin) lisinopril 20 mg tablet 20 mg PO QAM 08/30/18 07/08/22 History omeprazole 20 mg capsule,delayed 20 mg PO QPM 08/30/18 07/08/22 History release azithromycin 250 mg tablet See Rx Instructions .Route .COMPLEX 07/08/22 07/08/22 History cholecalciferol (vitamin D3) 125 5,000 unit PO DAILY 07/08/22 07/08/22 History mcg (5,000 unit) capsule cyanocobalamin (vitamin B-12) 1,000 mcg PO DAILY 07/08/22 07/08/22 History 1,000 mcg tablet empagliflozin 25 mg tablet 25 mg PO DAILY 07/08/22 07/08/22 History (Jardiance) levalbuterol HCl 1.25 mg/3 mL 1.25 mg inhalation Q4H PRN 07/08/22 07/08/22 History solution for nebulization Shortness Of Breath Or Wheezing levothyroxine 175 mcg tablet 175 mcg PO DAILY 07/08/22 07/08/22 History metformin 500 mg tablet,extended 1,000 mg PO DAILY 07/08/22 07/08/22 History release 24 hr prednisone 20 mg tablet 40 mg PO DAILY 07/08/22 07/08/22 History trazodone 150 mg tablet 150 mg PO HS 07/08/22 07/08/22 History venlafaxine 75 mg capsule,extended 75 mg PO DAILY 07/08/22 07/08/22 History release 24 hr Past Med/Surg History Medical History (Updated 07/08/22 @ 17:44 by Gris Villasenor PA-C) COPD (chronic obstructive pulmonary disease) Diabetes mellitus, type II Hypothyroidism Mood disorder Surgical History (Updated 07/08/22 @ 17:42 by Gris Villasenor PA-C) S/P removal of left ovary S/P tonsillectomy and adenoidectomy Family History (Updated 07/08/22 @ 17:43 by Gris Villasenor PA-C) Other Cancer Diabetes Hypertension Social History (Updated 07/08/22 @ 17:43 by Gris Villasenor PA-C) Smoking Status: Current every day smoker Tobacco Type: Cigarettes packs per day: 0.5; Hx Alcohol Use: No Hx Substance Use: No Preferred Language: [place] marital status: current occupational status: unemployed Feels Safe at Home: Yes Review of Systems Review of Systems: At least ten systems reviewed and negative except as noted in the HPI. Physical Exam Physical Exam: Please see Dr. Todd's addendum for physical exam. Results & Data Results & Data Vital Signs (Past 12 Hours) Vital Signs Temp Pulse Pulse Resp BP BP Pulse Ox 07/08/22 15:42 68 22 104/62 92 07/08/22 15:00 69 17 130/76 90 07/08/22 14:20 72 13 98 07/08/22 14:56 74 18 110/76 92 07/08/22 14:55 85 L 07/08/22 14:30 75 07/08/22 13:51 76 90 07/08/22 13:29 07/08/22 13:29 77 16 125/82 91 07/08/22 13:29 36.6 C 78 18 125/82 92 O2 Del Method O2 Flow Rate 07/08/22 15:42 Nasal Cannula 2 07/08/22 15:00 Nasal Cannula 2 07/08/22 14:20 07/08/22 14:56 Nasal Cannula 2 07/08/22 14:55 Nasal Cannula 0 07/08/22 14:30 07/08/22 13:51 07/08/22 13:29 Room Air 07/08/22 13:29 Room Air 07/08/22 13:29 Room Air Laboratory Results Short CBC 07/08/22 Range/Units 13:54 WBC 5.34 (4.8-10.8) K/ul Hgb 16.8 H (12.0-16.0) g/dl Hct 51.2 H (37.0-47.0) % Plt Count 157 (130-400) K/uL BMP 07/08/22 13:54 Sodium 138 Potassium 3.8 Chloride 101 Carbon Dioxide 28 BUN 14 Creatinine 0.99 Glucose 256 H Calcium 9.8 Diagnostic Findings Chest X-Ray 07/08/22 13:51 SINGLE VIEW CHEST CLINICAL HISTORY: Atypical chest pain. FINDINGS: An AP, portable, upright chest radiograph is compared to study dated 08/30/2018 and correlated with chest CT dated 10/31/2017. The examination is degraded by portable technique and apical lordotic positioning. The cardiomediastinal silhouette is unremarkable. Chronic interstitial thickening is similar to previous. There is bibasilar scarring/atelectasis. The lungs and pleural spaces are otherwise clear. No pneumothorax is seen. The skeletal structures are osteopenic. The bony thorax is grossly intact. IMPRESSION: No acute cardiopulmonary abnormality. ACT 112: Negative or not required by law. Electronically signed by: Abram Carter M.D. 07/08/2022 2:[address] 07/08/22 14:08 CT SCAN OF THE BRAIN WITHOUT IV CONTRAST CLINICAL HISTORY: Syncope. COMPARISON STUDY: CT of the brain dated 03/24/2019. TECHNIQUE: Unenhanced axial CT scan of the brain is performed from the vertex to the skull base. A dose lowering technique was utilized adhering to the principles of ALARA. CT DOSE: 625.80 mGy.cm FINDINGS: Brain parenchyma: There is minimal microangiopathic change. There is no hemorrhage, mass effect, or evidence of acute territorial ischemia by CT criteria. Mathew-white matter differentiation is preserved. No extra-axial fluid collection is seen. Ventricles, sulci, cisterns: Normal in configuration. Intracranial vasculature: The visualized intracranial vasculature at the skull base is normal in appearance. Calvarium: Unremarkable. Sinuses and mastoids: There is evidence of previous paranasal sinus surgery. Mild mucosal thickening is seen within the frontal and sphenoid sinuses. There is trace mucosal thickening within the ethmoid resection cavity. The mastoid air cells are well pneumatized. Orbits: The bony orbits are grossly intact. IMPRESSION: There is no hemorrhage, mass effect, or evidence of acute t erritorial ischemia by CT criteria. ACT 112: Negative or not required by law. Electronically signed by: Abram Carter M.D. 07/08/2022 3:27 PM ECG Additional Comments: EKG reviewed- NSR, no significant changes compared to previous, qtc [id number] Supervising Physician Co-Signing Physician Notes Pt is a 57 y/o F with hx of COPD, IDDM, Hypothyroidism, HTN, psychogenic syncope, Depression/anxiety admitted for acute hypoxic respiratory failure 2/2 COPD exacerbation. PE: NAD, well developed Lungs: fair air movement b/l with exp wheezing in the lower lobes Cardiac: Normal S1/S2, no murmur Abd: obese abd, ND, NT, soft MSK: no LE edema Psych: AAOx3, normal affect A/P: Acute respiratory failure 2/2 COPD exacerbation: -able to wean her off of oxygen --- pt was saturating at 90-92% at room air -due to wheezing and hypoxia will do prednisone burst with zpak - q4hr nebs -CXR: normal -COVID/Flu/RSV: neg -per daughter pt had a syncopal episode --- pt does have chronic hx of syncope but will get an echo and admit to tele -CT head: no acute finding -per pt she does not take any daily inhaler ---- will consider discharging on Spiriva Agree with A/P by Gris Villasenor PA-C
[2022-07-08] MEDS ORDERED: ACETAMINOPHEN 325 MG TAB PO PRN (18:31)
[2022-07-08] MEDS ORDERED: GLUCOSE 10 TAB/TUBE PO PRN (18:31)
[2022-07-08] MEDS ORDERED: GLUCAGON FOR INJ 1 MG VIAL SQ PRN (18:31)
[2022-07-08] MEDS ORDERED: GLUCOSE 40% GEL 15 GM TUBE PO PRN (18:31)
[2022-07-08] MEDS ORDERED: POLYETHYLENE (MIRALAX) 17 GM PACK PO PRN (18:31)
[2022-07-08] MEDS ORDERED: ALBUTEROL HFA 8 GM INHALER INH PRN (18:31)
[2022-07-08] MEDS ORDERED: DEXTROSE 50% 50 ML SYRINGE IV PRN (18:31)
[2022-07-08] MEDS ORDERED: CARBOHYDRATES FOR HYPOGLYCEMIA PO PRN (18:31)
[2022-07-08] MEDS ORDERED: ENOXAPARIN INJ 40 MG/0.4 ML SYR SQ SCH (19:00)
[2022-07-08] MEDS: ALBUT/IPRATROP 3MG/0.5MG NEB 3 ML VIAL NEB SCH ×2 (19:10→22:53)
[2022-07-08] MEDS: INSULIN ASPART PER UNIT CHARGE SC SCH ×2 (20:07→20:46)
--- NOTE | 2022-07-08 20:28 | Electrocardiogram Report ---
Test Reason : Blood Pressure : / mmHG Vent. Rate : 079 BPM Atrial Rate : 079 BPM P-R Int : 158 ms QRS Dur : 088 ms QT Int : 398 ms P-R-T Axes : 038 017 062 degrees QTc Int : 456 ms Normal sinus rhythm Normal ECG When compared with ECG of 30-AUG-2018 12:35, No significant change was found Confirmed by Storm Vazquez ([id number]) on 07/08/2022 8:28:04 PM Referred By: Confirmed By:Dominic Vazquez
[2022-07-08] MEDS: carvediloL 12.5 MG TAB PO SCH (20:44)
[2022-07-08] MEDS: LANTUS PER UNIT CHARGE SQ SCH (20:45)
[2022-07-08] MEDS ORDERED: PANTOprazole 40 MG TAB PO SCH (21:00)
[2022-07-08] MEDS ORDERED: traZODone HCL 50 MG TAB PO SCH (21:00)
[2022-07-09] MEDS: ALBUT/IPRATROP 3MG/0.5MG NEB 3 ML VIAL NEB SCH ×4 (02:47→14:53)
[2022-07-09] MEDS ORDERED: LEVOTHYROXINE SODIUM 175 MCG TABLET PO SCH (06:30)
[2022-07-09 07:23] LABS: Hematocrit (blood only) 47.1 % (37.0-47.0); Hemoglobin 15.5 g/dl (12.0-16.0); Mean Corpuscular Hemoglobin 28.1 pg (25.0-34.0); Mean Corpuscular Hgb Conc 32.9 g/dL (32.0-36.0); Mean Corpuscular Volume 85.5 fL (80.0-100.0); Mean Platelet Volume 11.3 fL (9.4-12.4); Platelet Count 161 K/uL (130-400); RDW Coefficient of Variation 13.9 % (11.5-14.5); RDW Standard Deviation 43.6 fL (36.4-46.3); Red Blood Count 5.51 M/uL (4.20-5.40); White Blood Count 13.88 K/ul (4.8-10.8)
[2022-07-09 07:44] LABS: BUN Creatinine Ratio 32.8 (10-20); Calcium 9.6 mg/dl (8.6-10.3); Creatinine Clr Calc Pharmacy 107.9 ml/min; Est GFR (African American) 118.3 ml/min; Est GFR (Non-African American) 102.1 ml/min; Potassium 3.6 mmol/L (3.5-5.1)
[2022-07-09] MEDS: INSULIN ASPART PER UNIT CHARGE SC SCH ×4 (08:01→16:59)
[2022-07-09] MEDS: LANTUS PER UNIT CHARGE SQ SCH (08:02)
[2022-07-09] MEDS: carvediloL 12.5 MG TAB PO SCH (08:09)
[2022-07-09] MEDS ORDERED: CYANOCOBALAMIN (B-12) 500 MCG TABLET PO SCH (09:00)
[2022-07-09] MEDS ORDERED: CHOLECALCIFEROL 5,000 UNITS 125 MCG TAB PO SCH (09:00)
[2022-07-09] MEDS ORDERED: VENLAFAXINE HCL XR 75 MG CAPXR PO SCH (09:00)
[2022-07-09] MEDS ORDERED: predniSONE 20 MG TAB PO SCH (09:00)
[2022-07-09] MEDS ORDERED: hydroCHLOROthiazide 25 MG TAB PO SCH (09:00)
[2022-07-09] MEDS ORDERED: lisinopril 20 MG TAB PO SCH (09:00)
[2022-07-09] MEDS ORDERED: ASPIRIN 81 MG ECTAB PO SCH (09:00)
[2022-07-09] MEDS ORDERED: AZITHROMYCIN 250 MG in DEXTROSE 5% 250 ML IV SCH (14:00)
--- NOTE | 2022-07-09 14:56 | Discharge Summary ---
Date of Service July 09, 2022 Admission HPI Per Admitting Provider This is a 57-year-old female with PMH of COPD, ongoing tobacco use, type 2 diabetes, hypothyroidism, dyslipidemia, hypertension, mood disorder and other medical problems listed below who presents with worsening shortness of breath. Has been feeling extremely fatigued and slept most of the day yesterday. Had a virtual appointment with PCP yesterday for shortness of breath, cough and congestion and was started on prednisone and azithromycin course as well as continued Xopenex nebulizers every 4 as needed. Continued to feel poorly and daughter, who is a nurse, called her and stated she was "passing out" over the phone so ambulance was called. Uses as needed nebulizer but no daily inhalers. Still smoking 1/2 ppd. States she commonly has an exacerbation of COPD in setting of viral infection. No fever, chills, lightheadedness, CP, N/V, abdominal pain, dysuria, diarrhea or constipation. Admission Exam Per Admitting Provider NAD, well developed Lungs: fair air movement b/l with exp wheezing in the lower lobes Cardiac: Normal S1/S2, no murmur Abd: obese abd, ND, NT, soft MSK: no LE edema Psych: AAOx3, normal affect Principal Diagnosis COPD exacerbation Tobacco abuse Weakness Discharge Exam GENERAL: Alert and oriented x3. NAD, on 2L NC O2. HEENT: No pallor, no icterus. Pupils equal, round and reactive to light. Oral mucosa moist. NECK: No JVD, no neck masses. HEART: S1 and S2 heard. Regular rate and rhythm. No murmur, no gallop. RESPIRATORY SYSTEM: Normal AP diameter. No accessory muscle use. No wheezing, no crackles. ABDOMEN: Soft, bowel sounds present, nontender, no distention. CENTRAL NERVOUS SYSTEM: No facial droop. Speech is clear. Obeys simple commands. Moves extremities. EXTREMITIES: No edema, no erythema seen. Discharge Data Allergies Allergy/AdvReac Type Severity Reaction Status Date / Time Cipro Allergy Severe sob Verified 06/10/16 09:25 ciprofloxacin Allergy Severe sob Verified 08/30/18 14:22 Quinolones Allergy Severe SOB Verified 08/30/18 14:22 amoxicillin Allergy Mild HIVES Verified 08/30/18 14:22 latex Allergy Unknown LATEX Verified 08/30/18 14:22 GLOVE POWDER Sulfa (Sulfonamide Allergy Unknown . Unverified 08/30/18 14:22 Antibiotics) [place] Allergy Unknown Difficulty Uncoded 08/30/18 14:22 breathing. Consultations 07/08/22 15:57 ED Decision to Admit Stat Ordered Studies 07/08/22 14:08 CT head/brain wo con Stat Hospital Course (1) Acute respiratory failure with hypoxia: (2) COPD exacerbation: (3) Diabetes mellitus, type II: (4) HTN (hypertension): (5) Mood disorder: (6) Hypothyroidism: (7) HLD (hyperlipidemia): Plan Per prior attending with addendum: This is a 57-year-old female with PMH of COPD, ongoing tobacco use, type 2 diabetes, hypothyroidism, dyslipidemia, hypertension, mood disorder and other medical problems listed below who presents with worsening shortness of breath and was found to have COPD exacerbation. Acute hypoxic respiratory failure COPD exacerbation Recent URI, started on prednisone and Z yasmin yesterday but found to be hypoxic, lethargic this AM Hypoxic at 85% on room air, improved to 94% on 2L NC Afebrile, no leukocytosis, no acidosis on VBG, PCR negative for covid, RSV, flu Continue prednisone taper, azithromycin, nebs QIDR, supplemental O2 as needed Possible Syncopal episodes Daughter states patient had unresponsive episodes during phone call, concern she was losing consciousness Has not recurred since arrival Monitor on tele, obtain, orthostatic vitals, no ECG changes or CP, will obtain 2D echo for completeness DM II A1c 8.5 in April 2022 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 Continue venlafaxine, trazodone HS Hypothyroidism Continue levothyroxine HLD Continue statin DVT Ppx: SQ lovenox Code status: FULL PCP: MACKENZIE Mayes Addendum: Patient noted to be on 2 L oxygen via nasal cannula, not on oxygen at home, reports having very good night yesterday, denies any shortness of breath, reports improving cough and wheezing, reports feeling her strength back to her baseline. Patient's at bedside, they would like to go home today. No wheezing on exam. RN to wean down O2 and once on RA and tolerating we will plan for DC later in the evening. Ortho vitals negative. Patient hemodynamically stable and will be discharged with following instruction at the point of discharge: Follow-up with your primary care physician within a week time and likely you will need labs CBC/CMP/magnesium. As discussed at the bedside, complete the course of azithromycin [2 more doses at home], complete the tapering dose of prednisone. Take your medications as prescribed. Please make sure that you are able to get your medications today by calling your pharmacy before you leave the hospital so that your treatment continuity is not broken. Home Health Attestation I certify that this patient is under my care and that I, or a physicians real estate executive assistant working with me, had a face to-face encounter that meets the home health [id number] encounter requirements with this patient. The encounter with the patient was in whole, or in part, for the following medical condition, which is the primary reason for home health care (list medical condition): I certify that, based on my findings, the following services are medically necessary home health services: My clinical findings support the need for the above services because: Further, I certify that my clinical findings support that this patient is homebound (i.e. absences from home require considerable and taxing effort and are for medical reasons or mandaeism services or infrequently or of short duration when for other reasons) because: Certification for Home Health Services: Based on the above findings, I certify that this patient is confined to the home and needs intermittent half-way care, physical therapy and/or speech therapy or continues to need occupational therapy. The patient is under my care, and I have initiated the establishment of the plan of care. This patient will be followed by a physician who will periodically review the plan of care. Total Time Total Time Spent Total Time Spent (In Minutes): 45 Discharge Plan Discharge Items Patient Disposition: Home - Self-Care Reason For Visit: COPD EXACERBATION Discharge Diagnosis: COPD exacerbation Tobacco abuse Weakness Activity: Resume your previous activity Non-emergency contact: Primary Care Provider Call non-emergency contact if: you have any medication questions, your symptoms worsen and your temperature is above 101 Follow-up/Referrals: Bryanna Mayes PA-C [Primary Care Provider] - Diet: Carb Consistent or DM2 and Heart Healthy Addtl Attending Provider Instructions: Follow-up with your primary care physician within a week time and likely you will need labs CBC/CMP/magnesium. As discussed at the bedside, complete the course of azithromycin [2 more doses at home], complete the tapering dose of prednisone. Take your medications as prescribed. Please make sure that you are able to get your medications today by calling your pharmacy before you leave the hospital so that your treatment continuity is not broken. Pending Studies at Discharge: No Stand-Alone Forms: My [facility] [address], Smoking Cessation Medications and DC Order Prescriptions: New prednisone 20 mg tablet 20 mg PO DAILY 5 Days Qty: 5 0RF Rx Instructions: 20mg daily starting 07/12/22. Continued carvedilol 12.5 mg tablet 12.5 mg PO BID lisinopril 20 mg tablet 20 mg PO QAM aspirin 81 mg Tablet,Delayed Release (Dr/Ec) 81 mg PO QAM omeprazole 20 mg capsule,delayed release(DR/EC) 20 mg PO QPM hydrochlorothiazide 25 mg tablet 25 mg PO QAM albuterol sulfate [ProAir HFA] 90 mcg/actuation Hfa Aerosol Inhaler 2 puff INHALATION QID PRN (Reason: Shortness Of Breath) insulin glargine [Basaglar KwikPen U-100 Insulin] 100 unit/mL (3 mL) insulin pen 15 unit subcut HS levothyroxine 175 mcg tablet 175 mcg PO DAILY trazodone 150 mg tablet 150 mg PO HS metformin 500 mg tablet extended release 24 hr 1,000 mg PO DAILY cholecalciferol (vitamin D3) 125 mcg (5,000 unit) capsule 5,000 unit PO DAILY levalbuterol HCl 1.25 mg/3 mL solution for nebulization 1.25 mg INHALATION Q4H PRN (Reason: Shortness Of Breath Or Wheezing) Jardiance 25 mg tablet 25 mg PO DAILY venlafaxine 75 mg capsule,extended release 24hr 75 mg PO DAILY cyanocobalamin (vitamin B-12) 1,000 mcg tablet 1,000 mcg PO DAILY azithromycin 250 mg tablet See Rx Instructions .ROUTE .COMPLEX Rx Instructions: 500mg day 1 followed by 250mg x 4 day prednisone 20 mg tablet 40 mg PO DAILY Rx Instructions: prescribed prednisone 40mg x 5 day course Discharge Orders: Discharge Order (Routine); Ordered 07/09/22 Ordered By: Ashli Perez Admission Data Admit Date/Time: 07/08/22 16:21 Attending Provider: Ashli Perez Admit Provider: Isaac Todd Primary Care Provider: Bryanna Mayes Other Providers: Isaac Todd
== END 2022-07-09 18:04 | disposition home or self-care (01) | DRG 189 ==
LOC: ED 13:41 → SUATTDRO 16:21 → 2S 16:21

== ENCOUNTER 2023-05-07 14:21 | Inpatient (IN) ==
[2023-05-07 15:02] LABS: Hematocrit (blood only) 53.4 % (37.0-47.0); Hemoglobin 18.2 g/dl (12.0-16.0); Mean Corpuscular Hemoglobin 28.3 pg (25.0-34.0); Mean Corpuscular Hgb Conc 34.1 g/dL (32.0-36.0); Mean Corpuscular Volume 83.2 fL (80.0-100.0); Mean Platelet Volume 10.2 fL (9.4-12.4); Platelet Count 269 K/uL (130-400); RDW Coefficient of Variation 13.8 % (11.5-14.5); RDW Standard Deviation 41.6 fL (36.4-46.3); Red Blood Count 6.42 M/uL (4.20-5.40); White Blood Count 17.37 K/ul (4.8-10.8)
--- NOTE | 2023-05-07 15:02 | Emergency Department Note ---
Impression & Plan Abdominal pain, UTI (urinary tract infection), Leukocytosis, Acute hypotension ED Provider Note NAME: ISAURO GARCIA AGE: 58 SEX: F : 1965 ARRIVES VIA: Ambulance INFORMANT: Patient ED PROVIDER(S): Sumit Ingram DO CHIEF COMPLAINT: abdominal pain and confusion HPI: Patient is a 58-year-old female with a past medical history of mood disorder, COPD, diabetes, hypertension, hyperlipidemia, who presents to the ER for abdominal pain associated with vomiting which has been present for the past 3 days. She notes has been unable to keep anything down. She denies any headache or change in vision. No chest pain or shortness of breath. No dysuria, urgency, or frequency. She denies all other complaints. She did inform nursing that she had some left calf pain. She notes that there was swelling but that has resolved. who provides additional history and notes that the patient was confused for short period of time after vomiting. He notes that she did know who everyone well is what was going on. ADDITIONAL HISTORY OBTAINED: Per HPI Chronic Medical/Social Conditions Affecting Care: Per HPI PAST MEDICAL HISTORY:See Below PAST SURGICAL HISTORY:See Below FAMILY HISTORY:See Below SOCIAL HISTORY:See Below HOME MEDICATIONS:See Below ALLERGIES:See Below VITALS:See Below PHYSICAL EXAMINATION: GENERAL: Sitting up in bed, alert, well appearing, well nourished, no distress, non-toxic EYE EXAM: normal conjunctiva. PERRL and EOM's intact. OROPHARYNX: no exudate, no erythema, lips, buccal mucosa, and tongue normal and mucous membranes are moist NECK: supple, no nuchal rigidity, no adenopathy, non-tender LUNGS: Clear to auscultation. Normal chest wall mechanics HEART: no murmurs, S1 normal and S2 normal ABDOMEN: abdomen soft, non-tender, normo-active bowel sounds, no masses, no rebound or guarding. BACK: Back is symmetrical on inspection and there is no deformity, no midline tenderness, no CVA tenderness. SKIN: no rashes and no bruising UPPER EXTREMITIES: upper extremities are grossly normal. LOWER EXTREMITIES: No pitting edema. NEURO EXAM: Normal sensorium, cranial nerves II-XII intact, normal speech, no weakness of arms, no weakness of legs. No drift. Finger to nose intact. Gross sensation intact. MEDICAL DECISION MAKING: Patient is a 58-year-old female who presents the ER for abdominal pain associate with nausea vomiting. IV was established blood work was obtained. Patient was found to be slightly hypotensive. Leukocytosis of 17,000. INR unremarkable. BMP along with LFTs bilirubin and hCG was unremarkable. UA was consistent with a clear UTI. Patient was given IV fluids, Zofran and IV antibiotics. CT abdomen pelvis shows distal esophagitis. Updated bedside discussed case with the hospitalist admitted for further workup. Consults/Care Managements Discussions: Per [facility] Triage Nursing notes reviewed. Limited review of prior medical records performed Vital Signs: reviewed and remarkable for no significant abnormalities Differential diagnosis: Differential diagnoses includes but is not limited to toxic, metabolic, infectious, traumatic, cardiac, neurologic, hematologic, psychiatric and inflammatory etiologies. ER treatment provided: See below Diagnostics interpreted by me include EKG and cardiac monitoring as listed below: -Cardiac Monitoring: An order was placed for continuous cardiac monitoring. The monitor shows a rate of 80 with sinus rhythm. -ECG: none -Laboratory studies:Interpreted by me as stated above in MDM and shown below. Imaging studies: Xrays: As interpreted by me: Portable AP upright 1 view of the chest shows no focal Lutrate CTs show: CT abdomen pelvis as described above Venous duplex shows no DVT Procedures:none Critical Care: None Past Med/Surg History Medical History (Updated 05/07/23 @ 20:53 by Sumit Ingram DO) Hypothyroidism Mood disorder Diabetes mellitus, type II COPD (chronic obstructive pulmonary disease) Surgical History (Updated 07/08/22 @ 17:42 by Gris Villasenor PA-C) S/P tonsillectomy and adenoidectomy S/P removal of left ovary Family History (Updated 07/08/22 @ 17:43 by Gris Villasenor PA-C) Other Cancer Diabetes Hypertension Social History (Updated 07/08/22 @ 17:43 by Gris Villasenor PA-C) Smoking Status: Current every day smoker Tobacco Type: Cigarettes packs per day: 0.5; Cigarettes Per Day: 1 PACK/DAY; Second Hand Exposure: No; Do You Dip or Chew Tobacco: No; Hx Alcohol Use: No Hx Substance Use: No Preferred Language: Swedish Communication Ability: Effective Foreclosure Specialist Required: No Beliefs That Will Affect Care: None marital status: Current Living Situation: Spouse current occupational status: unemployed Feels Safe at Home: Yes Assistive Devices: Denture - Upper and Glasses Allergies Allergies Allergy/AdvReac Type Severity Reaction Status Date / Time Cipro Allergy Severe sob Verified 06/10/16 09:25 ciprofloxacin Allergy Severe sob Verified 05/07/23 20:08 Quinolones Allergy Severe SOB Verified 05/07/23 20:08 amoxicillin Allergy Mild HIVES Verified 05/07/23 20:08 latex Allergy Unknown LATEX Verified 05/07/23 20:08 GLOVE POWDER Sulfa (Sulfonamide Allergy Unknown . Unverified 05/07/23 20:08 Antibiotics) AKUTAN Allergy Unknown Difficulty Uncoded 05/07/23 20:08 breathing. Home Meds Home Medications Medication Instructions Recorded Confirmed albuterol sulfate 90 mcg/actuation 2 puff inhalation QID PRN 08/30/18 05/07/23 aerosol inhaler (ProAir HFA) Shortness Of Breath aspirin 81 mg tablet,delayed 81 mg PO QAM 08/30/18 05/07/23 release carvedilol 12.5 mg tablet 12.5 mg PO BID 08/30/18 05/07/23 lisinopril 20 mg tablet 20 mg PO QAM 08/30/18 05/07/23 omeprazole 20 mg capsule,delayed 20 mg PO QAM 08/30/18 05/07/23 release cholecalciferol (vitamin D3) 125 5,000 unit PO DAILY 07/08/22 05/07/23 mcg (5,000 unit) capsule cyanocobalamin (vitamin B-12) 1,000 mcg PO DAILY 07/08/22 05/07/23 1,000 mcg tablet empagliflozin 25 mg tablet 25 mg PO DAILY 07/08/22 05/07/23 (Jardiance) levalbuterol HCl 1.25 mg/3 mL 1.25 mg inhalation Q4H PRN 07/08/22 05/07/23 solution for nebulization Shortness Of Breath Or Wheezing levothyroxine 175 mcg tablet 175 mcg PO DAILY 07/08/22 05/07/23 metformin 500 mg tablet,extended 1,000 mg PO BID 07/08/22 05/07/23 release 24 hr trazodone 150 mg tablet 150 mg PO HS 07/08/22 05/07/23 venlafaxine 75 mg capsule,extended 75 mg PO DAILY 07/08/22 05/07/23 release 24 hr atorvastatin 40 mg tablet 40 mg PO QAM 05/07/23 05/07/23 dulaglutide 3 mg/0.5 mL 3 mg subcut .QSUN 05/07/23 05/07/23 [facility] fluticasone fur. 100 mcg-umeclid 1 inh inhalation DAILY 05/07/23 05/07/23 62.5 mcg-vilant 25 mcg inhalat.powder (Trelegy Ellipta) hydrochlorothiazide 12.5 mg tablet 12.5 mg PO DAILY 05/07/23 05/07/23 Results & Data (ED) Vital Signs Vital Signs - 24 hr 05/07/23 14:27 05/07/23 16:55 05/07/23 19:30 Temperature 36.8 C Temperature Source Oral Pulse Rate 85 Pulse Rate [Finger] 72 69 Pulse Rhythm Regular Pulse Strength Normal Respiratory Rate 18 16 16 Respiratory Effort / Characteristics Non-Labored Respiratory Depth Normal Respiratory Pattern Regular Blood Pressure 106/72 Blood Pressure [Right Arm] 106/67 101/64 Blood Pressure Mean 83 Blood Pressure Mean [Right Arm] 80 76 Blood Pressure Position Sitting Pulse Oximetry 92 92 97 Oxygen Delivery Method Room Air Nasal Cannula Room Air Oxygen Flow Rate 2 Sepsis Recent Fever Within 48 Hours No Sepsis New/Unexplained Change in Mental Status No Sepsis Action Taken by Nursing No Action Required Laboratory Data 05/07/23 14:40 05/07/23 14:40 Lab Results 05/07/23 05/07/23 05/07/23 Range/Units 14:28 14:40 14:45 WBC 17.37 H (4.8-10.8) K/ul RBC 6.42 H (4.20-5.40) M/uL Hgb 18.2 H (12.0-16.0) g/dl Hct 53.4 H (37.0-47.0) % MCV 83.2 (80.0-100.0) fL MCH 28.3 (25.0-34.0) pg MCHC 34.1 (32.0-36.0) g/dL RDW Std Deviation 41.6 (36.4-46.3) fL RDW Coeff of Musa 13.8 (11.5-14.5) % Plt Count 269 (130-400) K/uL MPV 10.2 (9.4-12.4) fL Neutrophils % (Manual) 58 % Lymphocytes % (Manual) 18 % Monocytes % (Manual) 4 % Eosinophils % (Manual) 4 % Neutrophils # (Manual) 10.07 H (1.40-6.50) K/uL Total Absolute Neuts 10.07 H (1.4-6.5) K/uL Lymphocytes # (Manual) 3.13 (1.2-3.4) K/uL Total Abs Lymphocytes 5.91 H (1.2-3.4) K/uL Monocytes # (Manual) 0.69 H (0.11-0.59) K/uL Eosinophils # (Manual) 0.69 H (0-0.50) K/uL Large Granular Lymphs 16 % # Lrg Granular Lymphs 2.78 K/uL PT Cancelled INR Cancelled Sodium 138 (136-145) mmol/L Potassium 3.8 (3.5-5.1) mmol/L Chloride 99 (98-107) mmol/L Carbon Dioxide 29 (21-32) mmol/L Anion Gap 10 (3-11) BUN 13 (6-23) mg/dl Creatinine 0.60 (0.6-1.2) mg/dl Est Cr Clr Drug Dosing 103.2 ml/min Est GFR ( Amer) 118.1 ml/min Est GFR (Non-Af Amer) 101.9 ml/min BUN/Creatinine Ratio 21.7 H (10-20) Glucose 106 H (70-99(Fasting)) mg/dl POC Glucose 117 H (70-99) mg/dl Calcium 10.2 (8.6-10.3) mg/dl Total Bilirubin 0.8 (0.2-1.0) mg/dl AST 19 (13-39) U/L ALT 12 (7-52) U/L Alkaline Phosphatase 95 (34-104) U/L Troponin I High Sens 3.6 (0-14) pg/ml Total Protein 7.3 (6.0-8.3) gm/dl Albumin 4.7 (3.4-5.0) gm/dl Globulin 2.6 (2.5-4.0) gm/dl Albumin/Globulin Ratio 1.8 (0.9-2) Lipase 45 (11-82) U/L HCG, Qual Negative (Negative) Urine Color Dark Yellow Urine Appearance Clear (Clear) Urine pH 6.0 (4.5-7.5) Ur Specific [place] 1.038 H (1.000-1.030) Urine Protein Negative (Negative) Urine Glucose (UA) 3+ H (Negative) Urine Ketones 1+ H (Negative) Urine Blood Negative (Negative) Urine Nitrite Positive A (Negative) Urine Bilirubin Negative (Negative) Urine Urobilinogen Negative (Negative) Ur Leukocyte Esterase Negative (Negative) Urine WBC (Auto) 10-30 H (0-5) /hpf Urine RBC (Auto) 0-4 (0-4) /hpf U Hyaline Cast (Auto) 5-10 H (0-5) /lpf U Epithel Cells (Auto) 5-10 H (0-5) /lpf Urine Bacteria (Auto) 4+ H (Negative) 05/07/23 Range/Units 16:54 WBC (4.8-10.8) K/ul RBC (4.20-5.40) M/uL Hgb (12.0-16.0) g/dl Hct (37.0-47.0) % MCV (80.0-100.0) fL MCH (25.0-34.0) pg MCHC (32.0-36.0) g/dL RDW Std Deviation (36.4-46.3) fL RDW Coeff of Musa (11.5-14.5) % Plt Count (130-400) K/uL MPV (9.4-12.4) fL Neutrophils % (Manual) % Lymphocytes % (Manual) % Monocytes % (Manual) % Eosinophils % (Manual) % Neutrophils # (Manual) (1.40-6.50) K/uL Total Absolute Neuts (1.4-6.5) K/uL Lymphocytes # (Manual) (1.2-3.4) K/uL Total Abs Lymphocytes (1.2-3.4) K/uL Monocytes # (Manual) (0.11-0.59) K/uL Eosinophils # (Manual) (0-0.50) K/uL Large Granular Lymphs % # Lrg Granular Lymphs K/uL PT 12.1 H INR 1.1 Sodium (136-145) mmol/L Potassium (3.5-5.1) mmol/L Chloride (98-107) mmol/L Carbon Dioxide (21-32) mmol/L Anion Gap (3-11) BUN (6-23) mg/dl Creatinine (0.6-1.2) mg/dl Est Cr Clr Drug Dosing ml/min Est GFR ( Amer) ml/min Est GFR (Non-Af Amer) ml/min BUN/Creatinine Ratio (10-20) Glucose (70-99(Fasting)) mg/dl POC Glucose (70-99) mg/dl Calcium (8.6-10.3) mg/dl Total Bilirubin (0.2-1.0) mg/dl AST (13-39) U/L ALT (7-52) U/L Alkaline Phosphatase (34-104) U/L Troponin I High Sens (0-14) pg/ml Total Protein (6.0-8.3) gm/dl Albumin (3.4-5.0) gm/dl Globulin (2.5-4.0) gm/dl Albumin/Globulin Ratio (0.9-2) Lipase (11-82) U/L HCG, Qual (Negative) Urine Color Urine Appearance (Clear) Urine pH (4.5-7.5) Ur Specific [place] (1.000-1.030) Urine Protein (Negative) Urine Glucose (UA) (Negative) Urine Ketones (Negative) Urine Blood (Negative) Urine Nitrite (Negative) Urine Bilirubin (Negative) Urine Urobilinogen (Negative) Ur Leukocyte Esterase (Negative) Urine WBC (Auto) (0-5) /hpf Urine RBC (Auto) (0-4) /hpf U Hyaline Cast (Auto) (0-5) /lpf U Epithel Cells (Auto) (0-5) /lpf Urine Bacteria (Auto) (Negative) Administered Medications Pantoprazole Sodium 40 mg/ (Syringe) 10 mls @ 5 mls/min IV BID SHARI Stop: 06/06/23 17:59 Last Admin: 05/07/23 18:11 Dose: 5 mls/min Documented By: NICOLEK Potassium Chloride/Sodium Chloride (Normal Saline W/20 Meq Kcl) 20 meq in 1,000 mls @ 80 mls/hr IV .[id number] SHARI Stop: 06/06/23 17:59 Last Admin: 05/07/23 18:11 Dose: 80 mls/hr Documented By: NICOLEK Nicotine (Nicotine 21 Mg/24 Hr Tdsy) 21 mg TD QAM SHARI Stop: 06/06/23 17:29 Last Admin: 05/07/23 17:24 Dose: 21 mg Documented By: MASOOD Discontinued Medications Sodium Chloride (Nss) 1,000 mls @ 999 mls/hr IV .[id number] SHARI Stop: 05/07/23 17:00 Last Infusion: 05/07/23 18:17 Dose: Infused Documented By: Admin: 05/07/23 16:52 Dose: 999 mls/hr Documented By: Infusion: 05/07/23 16:15 Dose: Infused Documented By: Admin: 05/07/23 15:14 Dose: 999 mls/hr Documented By: JIGAR Ceftriaxone Sodium (Rocephin) 2,000 mg in 50 mls @ 100 mls/hr IV NOW STA Stop: 05/07/23 17:38 Last Infusion: 05/07/23 18:17 Dose: Infused Documented By: Admin: 05/07/23 17:29 Dose: 100 mls/hr Documented By: MASOOD Ioversol (Optiray 320 100ml) 89 ml IV ONCE ONE Stop: 05/07/23 16:27 Last Admin: 05/07/23 16:26 Dose: 89 ml Documented By: MAMIE Ondansetron HCl (Ondansetron Inj 2 Mg/Ml 2 Ml Vial) 4 mg IV NOW STA Stop: 05/07/23 14:52 Last Admin: 05/07/23 15:14 Dose: 4 mg Documented By: JIGAR Imaging Data Radiologist's Impression: Abdomen/Pelvis CT 05/07/23 14:[address] WITH IV CONTRAST HISTORY: Acute generalized abdominal pain abd pain TECHNIQUE: Multiaxial CT images of the abdomen and pelvis were performed following the IV administration of 89 cc of Optiray, A dose lowering technique was utilized adhering to the principles of ALARA. COMPARISON STUDY: 09/25/2014 FINDINGS: Extensive coronary artery calcifications. Clear lung bases. No free air. Mild splenomegaly, 13 cm. 5 mm hypodense lesion of the superior spleen that is too small to characterize, likely benign. Unremarkable pancreas and right adrenal gland. Partially calcified 1.8 cm left adrenal gland lesion measuring 1.9 cm is likely benign and similar to prior. Mildly contracted gallbladder with cholelithiasis. No CT evidence of acute cholecystitis or biliary ductal dilation. Hepatic steatosis. Patent portal vein. No hydronephrosis. Partially decompressed urinary bladder. Heterogeneous uterus. Mild periportal lymphadenopathy measures up to 1.4 x 1.7 cm, similar to prior and favored to be benign. No bowel obstruction or bowel wall thickening. Mild distal esophageal wall thickening with adjacent inflammatory stranding. Mild colonic diverticulosis. Unremarkable soft tissues. No acute fracture. IMPRESSION: 1. Findings suggestive of a distal esophagitis. Correlation with endoscopy recommended. 2. No bowel obstruction or bowel wall thickening. 3. Mild splenomegaly. 4. Hepatic steatosis. 5. Extensive coronary arterial calcifications. 6. Additional findings as above. ACT 112: Negative or not required by law. The above report was generated using voice recognition software. It may contain grammatical, syntax or spelling errors. Electronically signed by: Torsten Peters M.D. 05/07/2023 5:[address] 05/07/23 14:59 CT OF THE HEAD WITHOUT CONTRAST CLINICAL HISTORY: Altered mental status. COMPARISON STUDY: MRI of the brain June 07, 2008. Head CT July 08, 2022. CT DOSE: 1731.38 mGy.cm TECHNIQUE: Helical axial images of the head were obtained without IV contrast. Automated exposure control was utilized for the study. A dose lowering technique was utilized adhering to the principles of ALARA. FINDINGS: No acute intracranial hemorrhage, midline shift or mass effect is present. White matter hypodensities are unchanged. The ventricular system is unremarkable. The basal cisterns are patent. No extra-axial collections are present. There are no findings to suggest acute dural sinus thrombosis or acute territorial infarct. There are no calvarial fractures. There are postoperative findings within the sinuses. Small air-fluid levels within the sphenoid sinuses with secretions are present. IMPRESSION: 1. No acute intracranial findings. 2. Small air-fluid levels with secretions within the sphenoid sinuses. ACT 112: Negative or not required by law. Electronically signed by: Lenny Munson M.D. 05/07/2023 4:44 PM Venous Doppler Study 05/07/23 14:59 LEFT LOWER EXTREMITY VENOUS DOPPLER CLINICAL HISTORY: Left lower extremity pain. COMPARISON STUDY: No previous studies for comparison. TECHNIQUE: Sonography of the deep venous system of the left lower extremity was performed. Compression and augmentation were evaluated. FINDINGS: The left common femoral, superficial femoral and popliteal veins were compressible. Augmentation was normal. Flow was shown within the deep calf vessels. Note is made of a 14.1 x 1.2 x 4 cm complex elongated fluid collection which extends from the popliteal fossa to mid calf. IMPRESSION: 1. No evidence of deep venous thrombus within the left lower extremity. 2. 14.1 x 1.2 x 4 cm complex elongated fluid collection which extends from the left popliteal fossa to mid calf. This could reflect a hematoma or ruptured popliteal cyst. ACT 112: Negative or not required by law. Electronically signed by: Lenny Munson M.D. 05/07/2023 4:18 PM Chest X-Ray 05/07/23 17:47 XR chest 1V portable CLINICAL HISTORY: hypoxia, vomiting COMPARISON STUDY: Chest CT October 31, 2017. Chest radiograph July 08, 2022. FINDINGS: Lung volumes are normal. Lungs are clear. There is no pneumothorax or pleural effusion. Cardiac size is normal. Mediastinal contours are normal. There is no evidence for pulmonary edema. IMPRESSION: No acute cardiopulmonary findings. ACT 112: Negative or not required by law. Electronically signed by: Lenny Munson M.D. 05/07/2023 6:36 PM Discharge Plan Visit Data Chief Complaint: Vomiting Stated Complaint: VOMITTING ED Provider: Sumit Ingram Discharge Problem: Abdominal pain, UTI (urinary tract infection), Leukocytosis, Acute hypotension Forms Stand Alone Forms: [facility] Prescriptions Prescriptions: No Action carvedilol 12.5 mg tablet 12.5 mg PO BID lisinopril 20 mg tablet 20 mg PO QAM aspirin 81 mg Tablet,Delayed Release (Dr/Ec) 81 mg PO QAM omeprazole 20 mg capsule,delayed release(DR/EC) 20 mg PO QAM albuterol sulfate [ProAir HFA] 90 mcg/actuation Hfa Aerosol Inhaler 2 puff INHALATION QID PRN (Reason: Shortness Of Breath) levothyroxine 175 mcg tablet 175 mcg PO DAILY trazodone 150 mg tablet 150 mg PO HS metformin 500 mg tablet extended release 24 hr 1,000 mg PO BID cholecalciferol (vitamin D3) 125 mcg (5,000 unit) capsule 5,000 unit PO DAILY levalbuterol HCl 1.25 mg/3 mL solution for nebulization 1.25 mg INHALATION Q4H PRN (Reason: Shortness Of Breath Or Wheezing) Jardiance 25 mg tablet 25 mg PO DAILY venlafaxine 75 mg capsule,extended release 24hr 75 mg PO DAILY cyanocobalamin (vitamin B-12) 1,000 mcg tablet 1,000 mcg PO DAILY atorvastatin 40 mg tablet 40 mg PO QAM hydrochlorothiazide 12.5 mg tablet 12.5 mg PO DAILY Trelegy Ellipta 100-62.5-25 mcg blister with device 1 inh INHALATION DAILY Trulicity 3 mg/0.5 mL pen injector 3 mg SUBCUT .QSUN Referrals Referrals: Bryanna Mayes PA-C [Primary Care Provider] - Discharge Problem: Abdominal pain Qualifiers: Abdominal location: unspecified location Qualified Code(s): R10.9 - Unspecified abdominal pain UTI (urinary tract infection) Qualifiers: Urinary tract infection type: site unspecified Hematuria presence: without hematuria Qualified Code(s): N39.0 - Urinary tract infection, site not specified Leukocytosis Qualifiers: Leukocytosis type: unspecified Qualified Code(s): D72.829 - Elevated white blood cell count, unspecified
[2023-05-07] MEDS: SODIUM CHLORIDE 0.9% 1,000 ML IV SCH (15:14)
[2023-05-07] MEDS: ONDANSETRON INJ 2 MG/ML 2 ML VIAL IV STA (15:14)
[2023-05-07 15:18] LABS: Pregnancy Test, Serum Negative (Negative)
[2023-05-07 15:21] LABS: Appearance Urine Clear (Clear); Bacteria Urine Automated 4+ (Negative); Bilirubin Urine Negative (Negative); Blood Urine Negative (Negative); Color Urine Dark Yellow; Glucose Urine UA 3+ (Negative); Ketones Urine 1+ (Negative); Leukocyte Esterase Urine Negative (Negative); Nitrite Urine Positive (Negative); Protein Urine Negative (Negative); RBC Urine Automated 0-4 /hpf (0-4); Specific Gravity Urine 1.038 (1.000-1.030); Urobilinogen Urine Negative (Negative)
[2023-05-07 15:42] LABS: Albumin Level 4.7 gm/dl (3.4-5.0); Bilirubin,Total 0.8 mg/dl (0.2-1.0); Calcium 10.2 mg/dl (8.6-10.3); Potassium 3.8 mmol/L (3.5-5.1)
[2023-05-07 15:48] LABS: Albumin Globulin Ratio 1.8 (0.9-2); BUN Creatinine Ratio 21.7 (10-20); Creatinine Clr Calc Pharmacy 103.2 ml/min; Est GFR (African American) 118.1 ml/min; Est GFR (Non-African American) 101.9 ml/min; Globulin 2.6 gm/dl (2.5-4.0); Total Protein 7.3 gm/dl (6.0-8.3)
[2023-05-07 16:01] LABS: ALC (manual) 5.91 K/uL (1.2-3.4); ANC (manual) 10.07 K/uL (1.4-6.5); Eosinophils # (manual) 0.69 K/uL (0-0.50); Eosinophils % (manual) 4 %; Large Granular Lymph # (manua 2.78 K/uL; Large Granular Lymph % (manual) 16 %; Lymphocytes # (manual) 3.13 K/uL (1.2-3.4); Lymphocytes % (manual) 18 %; Monocytes # (manual) 0.69 K/uL (0.11-0.59); Monocytes % (manual) 4 %; Neutrophils # (manual) 10.07 K/uL (1.40-6.50); Neutrophils % (manual) 58 %
[2023-05-07 16:13] LABS: Troponin I High Sensitivity 3.6 pg/ml (0-14)
--- NOTE | 2023-05-07 16:19 | Ultrasound Report ---
LEFT LOWER EXTREMITY VENOUS DOPPLER CLINICAL HISTORY: Left lower extremity pain. COMPARISON STUDY: No previous studies for comparison. TECHNIQUE: Sonography of the deep venous system of the left lower extremity was performed. Compressi on and augmentation were evaluated. FINDINGS: The left common femoral, superficial femoral and popliteal veins were compressible. Augmen tation was normal. Flow was shown within the deep calf vessels. Note is made of a 14.1 x 1.2 x 4 cm c omplex elongated fluid collection which extends from the popliteal fossa to mid calf. IMPRESSION: 1. No evidence of deep venous thrombus within the left lower extremity. 2. 14.1 x 1.2 x 4 cm complex elongated fluid collection which extends from the left popliteal fossa t o mid calf. This could reflect a hematoma or ruptured popliteal cyst. ACT 112: Negative or not required by law. Electronically signed by: Lenny Munson M.D. 05/07/2023 4:18 PM
[2023-05-07] MEDS: OPTIRAY 320 100ml IV ONE (16:26)
--- NOTE | 2023-05-07 16:45 | CT Scan Report ---
CT OF THE HEAD WITHOUT CONTRAST CLINICAL HISTORY: Altered mental status. COMPARISON STUDY: MRI of the brain June 07, 2008. Head CT July 08, 2022. CT DOSE: 1731.38 mGy.cm TECHNIQUE: Helical axial images of the head were obtained without IV contrast. Automated exposure con trol was utilized for the study. A dose lowering technique was utilized adhering to the principles o f ALARA. FINDINGS: No acute intracranial hemorrhage, midline shift or mass effect is present. White matter hyp odensities are unchanged. The ventricular system is unremarkable. The basal cisterns are patent. No e xtra-axial collections are present. There are no findings to suggest acute dural sinus thrombosis or acute territorial infarct. There are no calvarial fractures. There are postoperative findings within the sinuses. Small air-fluid levels within the sphenoid sinuses with secretions are present. IMPRESSION: 1. No acute intracranial findings. 2. Small air-fluid levels with secretions within the sphenoid sinuses. ACT 112: Negative or not required by law. Electronically signed by: Lenny Munson M.D. 05/07/2023 4:44 PM
--- NOTE | 2023-05-07 17:05 | CT Scan Report ---
ABDOMEN AND PELVIS CT WITH IV CONTRAST HISTORY: Acute generalized abdominal pain abd pain TECHNIQUE: Multiaxial CT images of the abdomen and pelvis were performed following the IV administrat ion of 89 cc of Optiray, A dose lowering technique was utilized adhering to the principles of ALARA. COMPARISON STUDY: 09/25/2014 FINDINGS: Extensive coronary artery calcifications. Clear lung bases. No free air. Mild splenomegaly, 13 cm. 5 mm hypodense lesion of the superior spleen that is too small to characterize, likely benign . Unremarkable pancreas and right adrenal gland. Partially calcified 1.8 cm left adrenal gland lesion measuring 1.9 cm is likely benign and similar to prior. Mildly contracted gallbladder with cholelith iasis. No CT evidence of acute cholecystitis or biliary ductal dilation. Hepatic steatosis. Patent po rtal vein. No hydronephrosis. Partially decompressed urinary bladder. Heterogeneous uterus. Mild periportal lymp hadenopathy measures up to 1.4 x 1.7 cm, similar to prior and favored to be benign. No bowel obstruct ion or bowel wall thickening. Mild distal esophageal wall thickening with adjacent inflammatory stran ding. Mild colonic diverticulosis. Unremarkable soft tissues. No acute fracture. IMPRESSION: 1. Findings suggestive of a distal esophagitis. Correlation with endoscopy recommended. 2. No bowel obstruction or bowel wall thickening. 3. Mild splenomegaly. 4. Hepatic steatosis. 5. Extensive coronary arterial calcifications. 6. Additional findings as above. ACT 112: Negative or not required by law. The above report was generated using voice recognition software. It may contain grammatical, syntax o r spelling errors. Electronically signed by: Torsten Peters M.D. 05/07/2023 5:03 PM
[2023-05-07] MEDS ORDERED: NICOTINE POLACRILEX 2 MG GUM MT PRN (17:19)
[2023-05-07] MEDS: NICOTINE 21 MG/24 HR TDSY TD SCH (17:24)
[2023-05-07] MEDS: cefTRIAXone SODIUM 2,000 MG/50 ML BAG IV STA (17:29)
[2023-05-07] MEDS ORDERED: ONDANSETRON INJ 2 MG/ML 2 ML VIAL IV PRN (17:41)
[2023-05-07] MEDS ORDERED: ACETAMINOPHEN 325 MG TAB PO PRN (17:41)
--- NOTE | 2023-05-07 17:41 | History & Physical Report ---
Date of Service May 07, 2023 Assessment & Plan (1) UTI (urinary tract infection): Plan: WBC elevated Pt presents w/ abd. pain and vomiting Reports eating lunchmeat and developed vomiting -> possibly secondary to that ? - not able to have po intake - cont. supportive measures, IVF CT abd. pelvis obtained - c/w distal esophagitis, No bowel obstruction or bowel wall thickening UA c/w UTI Ucultx pending Started empirically on rocephin in ED, will continue blood cultx ordered Pt has hx of GERD w/ esophagitis per outpt record - on omeprazole - will start IV PPI BID - pt will need to follow up w/ outpt providers (2) Hypothyroidism: Plan: - cont. home levothyroxine (3) Diabetes mellitus, type II: Plan: - on metformin, jardiance, trulicity - hold while inpt - cont. with insulin while inpt - npo -> clear liquid if tolerated (4) Mood disorder: Plan: - cont. home venlafaxine, trazodone (5) HTN (hypertension): Plan: - coreg, lisinopril, hctz - hold diuretics for now as BP on lower side and pt dehydrated (6) HLD (hyperlipidemia): Plan: - atorvastatin (7) COPD (chronic obstructive pulmonary disease): Plan: - group B, by GOLD criteria - on trelegy , albuterol/ levalbuterol prn - cont. trelegy - CXR clear, pt is on 2L currently - says at home uses oxygen as needed, no exacerbation at this time - current smoker - cont. nicotine patch - counseling provided History of Present Illness Chief Complaint: vomiting Primary Care Provider: Bryanna Mayes PA-C 58 yo F with hypertension, HLD, COPD group B, diabetes mellitus type 2, hypothyroidism, GERD with esophagitis, depression/anxiety who presents with vomiting. Patient says she has been vomiting for the past 3 days. Both her and her started to be sick some days ago when they had a lunchmeat, patient says her was sick only for a day or so, however she continued to be sick still. She vomited this morning, after just eating toast. Denies fevers chills chest pain shortness of breath. Denies abdominal pain or diarrhea. Not able to have any p.o. intake, she is not sure if she has any urinary symptoms. She is unaware of any dysuria, or frequency. Says she had UTI before, usually she would feel pressure, no dysuria. Reports breathing is at her baseline, uses oxygen at home as needed. She is a current smoker. Received IV fluids and IV antibiotics in the ED, says that currently she feels better, however she has not tried to take much p.o. yet. Allergies Allergy/AdvReac Type Severity Reaction Status Date / Time Cipro Allergy Severe sob Verified 06/10/16 09:25 ciprofloxacin Allergy Severe sob Verified 05/07/23 20:08 Quinolones Allergy Severe SOB Verified 05/07/23 20:08 amoxicillin Allergy Mild HIVES Verified 05/07/23 20:08 latex Allergy Unknown LATEX Verified 05/07/23 20:08 GLOVE POWDER Sulfa (Sulfonamide Allergy Unknown . Unverified 05/07/23 20:08 Antibiotics) SOLOMON Allergy Unknown Difficulty Uncoded 05/07/23 20:08 breathing. Home Medications Medication Instructions Recorded Confirmed Type albuterol sulfate 90 mcg/actuation 2 puff inhalation QID PRN 08/30/18 05/07/23 History aerosol inhaler (ProAir HFA) Shortness Of Breath aspirin 81 mg tablet,delayed 81 mg PO QAM 08/30/18 05/07/23 History release carvedilol 12.5 mg tablet 12.5 mg PO BID 08/30/18 05/07/23 History lisinopril 20 mg tablet 20 mg PO QAM 08/30/18 05/07/23 History omeprazole 20 mg capsule,delayed 20 mg PO QAM 08/30/18 05/07/23 History release cholecalciferol (vitamin D3) 125 5,000 unit PO DAILY 07/08/22 05/07/23 History mcg (5,000 unit) capsule cyanocobalamin (vitamin B-12) 1,000 mcg PO DAILY 07/08/22 05/07/23 History 1,000 mcg tablet empagliflozin 25 mg tablet 25 mg PO DAILY 07/08/22 05/07/23 History (Jardiance) levalbuterol HCl 1.25 mg/3 mL 1.25 mg inhalation Q4H PRN 07/08/22 05/07/23 History solution for nebulization Shortness Of Breath Or Wheezing levothyroxine 175 mcg tablet 175 mcg PO DAILY 07/08/22 05/07/23 History metformin 500 mg tablet,extended 1,000 mg PO BID 07/08/22 05/07/23 History release 24 hr trazodone 150 mg tablet 150 mg PO HS 07/08/22 05/07/23 History venlafaxine 75 mg capsule,extended 75 mg PO DAILY 07/08/22 05/07/23 History release 24 hr atorvastatin 40 mg tablet 40 mg PO QAM 05/07/23 05/07/23 History dulaglutide 3 mg/0.5 mL 3 mg subcut .QSUN 05/07/23 05/07/23 History subcutaneous pen injector (Trulicity) fluticasone fur. 100 mcg-umeclid 1 inh inhalation DAILY 05/07/23 05/07/23 History 62.5 mcg-vilant 25 mcg inhalat.powder (Trelegy Ellipta) hydrochlorothiazide 12.5 mg tablet 12.5 mg PO DAILY 05/07/23 05/07/23 History Past Med/Surg History Medical History (Updated 05/07/23 @ 20:53 by Sumit Ingram DO) Hypothyroidism Mood disorder Diabetes mellitus, type II COPD (chronic obstructive pulmonary disease) Surgical History (Updated 07/08/22 @ 17:42 by Gris Villasenor PA-C) S/P tonsillectomy and adenoidectomy S/P removal of left ovary Family History (Updated 07/08/22 @ 17:43 by Gris Villasenor PA-C) Other Cancer Diabetes Hypertension Social History (Updated 07/08/22 @ 17:43 by Gris Villasenor PA-C) Smoking Status: Light tobacco smoker Tobacco Type: Cigarettes packs per day: 0.5; Cigarettes Per Day: 1 PACK/DAY; Second Hand Exposure: No; Do You Dip or Chew Tobacco: No; Hx Alcohol Use: No Hx Substance Use: No Preferred Language: Polish Communication Ability: Effective Environmental Protection Geologist Required: No Beliefs That Will Affect Care: None marital status: Current Living Situation: Spouse current occupational status: unemployed Feels Safe at Home: Yes Safety Concerns: Feels Safe At This Time Assistive Devices: Oxygen - at Night Review of Systems Review of Systems: All systems reviewed & are unremarkable except as noted in Subjective Physical Exam Constitutional: WD/WN, vitals as above Eyes: PERRL, conjunctivae normal, anicteric sclerae ENMT: external ear and nose normal, oropharynx normal Neck: normal visual inspection Respiratory: normal respiratory effort, lungs clear to auscultation Cardiovascular: RRR, no murmur, no edema Chest (Breasts): Chest: normal inspection of chest Gastrointestinal (Abdomen): normal bowel sounds, soft, nontender, no hepatosplenomegaly Musculoskeletal: no cyanosis or clubbing, extremities motor strength 5/5 Skin: no rashes, warm and dry Neurologic: PERRL, EOMI, accommodation nl, no face palsy, no dysarthria Psychiatric: A+Ox3, euthymic affect Results & Data Results & Data Vital Signs (Past 12 Hours) Vital Signs Temp Pulse Pulse Resp BP BP Pulse Ox 05/07/23 16:55 72 16 106/67 92 05/07/23 14:27 36.8 C 85 18 /72 92 O2 Del Method O2 Flow Rate 05/07/23 16:55 Nasal Cannula 2 05/07/23 14:27 Room Air Laboratory Results 05/07/23 05/07/23 05/07/23 Range/Units 14:45 14:40 14:28 WBC 17.37 H (4.8-10.8) K/ul RBC 6.42 H (4.20-5.40) M/uL Hgb 18.2 H (12.0-16.0) g/dl Hct 53.4 H (37.0-47.0) % MCV 83.2 (80.0-100.0) fL MCH 28.3 (25.0-34.0) pg MCHC 34.1 (32.0-36.0) g/dL RDW Std Deviation 41.6 (36.4-46.3) fL RDW Coeff of [place] 13.8 (11.5-14.5) % Plt Count 269 (130-400) K/uL MPV 10.2 (9.4-12.4) fL Neutrophils % (Manual) 58 % Lymphocytes % (Manual) 18 % Monocytes % (Manual) 4 % Eosinophils % (Manual) 4 % Neutrophils # (Manual) 10.07 H (1.40-6.50) K/uL Total Absolute Neuts 10.07 H (1.4-6.5) K/uL Lymphocytes # (Manual) 3.13 (1.2-3.4) K/uL Total Abs Lymphocytes 5.91 H (1.2-3.4) K/uL Monocytes # (Manual) 0.69 H (0.11-0.59) K/uL Eosinophils # (Manual) 0.69 H (0-0.50) K/uL Large Granular Lymphs 16 % # Lrg Granular Lymphs 2.78 K/uL Blood Smear Review Pending PT Cancelled INR Cancelled Sodium 138 (136-145) mmol/L Potassium 3.8 (3.5-5.1) mmol/L Chloride 99 (98-107) mmol/L Carbon Dioxide 29 (21-32) mmol/L Anion Gap 10 (3-11) BUN 13 (6-23) mg/dl Creatinine 0.60 (0.6-1.2) mg/dl Est Cr Clr Drug Dosing 103.2 ml/min Est GFR ( Amer) 118.1 ml/min Est GFR (Non-Af Amer) 101.9 ml/min BUN/Creatinine Ratio 21.7 H (10-20) Glucose 106 H (70-99(Fasting)) mg/dl POC Glucose 117 H (70-99) mg/dl Calcium 10.2 (8.6-10.3) mg/dl Total Bilirubin 0.8 (0.2-1.0) mg/dl AST 19 (13-39) U/L ALT 12 (7-52) U/L Alkaline Phosphatase 95 (34-104) U/L Troponin I High Sens 3.6 (0-14) pg/ml Total Protein 7.3 (6.0-8.3) gm/dl Albumin 4.7 (3.4-5.0) gm/dl Globulin 2.6 (2.5-4.0) gm/dl Albumin/Globulin Ratio 1.8 (0.9-2) Lipase 45 (11-82) U/L HCG, Qual Negative (Negative) Urine Color Dark Yellow Urine Appearance Clear (Clear) Urine pH 6.0 (4.5-7.5) Ur Specific [place] 1.038 H (1.000-1.030) Urine Protein Negative (Negative) Urine Glucose (UA) 3+ H (Negative) Urine Ketones 1+ H (Negative) Urine Blood Negative (Negative) Urine Nitrite Positive A (Negative) Urine Bilirubin Negative (Negative) Urine Urobilinogen Negative (Negative) Ur Leukocyte Esterase Negative (Negative) Urine WBC (Auto) 10-30 H (0-5) /hpf Urine RBC (Auto) 0-4 (0-4) /hpf U Hyaline Cast (Auto) 5-10 H (0-5) /lpf U Epithel Cells (Auto) 5-10 H (0-5) /lpf Urine Bacteria (Auto) 4+ H (Negative) Diagnostic Findings CT abdomen/ pelvis FINDINGS: Extensive coronary artery calcifications. Clear lung bases. No free air. Mild splenomegaly, 13 cm. 5 mm hypodense lesion of the superior spleen that is too small to characterize, likely benign. Unremarkable pancreas and right adrenal gland. Partially calcified 1.8 cm left adrenal gland lesion measuring 1.9 cm is likely benign and similar to prior. Mildly contracted gallbladder with cholelithiasis. No CT evidence of acute cholecystitis or biliary ductal dilation. Hepatic steatosis. Patent portal vein. No hydronephrosis. Partially decompressed urinary bladder. Heterogeneous uterus. Mild periportal lymphadenopathy measures up to 1.4 x 1.7 cm, similar to prior and favored to be benign. No bowel obstruction or bowel wall thickening. Mild distal esophageal wall thickening with adjacent inflammatory stranding. Mild colonic diverticulosis. Unremarkable soft tissues. No acute fracture. IMPRESSION: 1. Findings suggestive of a distal esophagitis. Correlation with endoscopy recommended. 2. No bowel obstruction or bowel wall thickening. 3. Mild splenomegaly. 4. Hepatic steatosis. 5. Extensive coronary arterial calcifications. 6. Additional findings as above. Doppler LLE IMPRESSION: 1. No evidence of deep venous thrombus within the left lower extremity. 2. 14.1 x 1.2 x 4 cm complex elongated fluid collection which extends from the left popliteal fossa to mid calf. This could reflect a hematoma or ruptured popliteal cyst.
[2023-05-07] MEDS ORDERED: ALBUT/IPRATROP 3MG/0.5MG NEB 3 ML VIAL NEB PRN (17:54)
[2023-05-07 18:08] LABS: INR 1.1 (0.9-1.1); Prothrombin Time 12.1 Seconds (9.0-12.0)
[2023-05-07] MEDS: PANTOprazole 40 MG in SYRINGE 0 ML IV SCH (18:11)
[2023-05-07] MEDS: NSS + 20MEQ KCL 20 MEQ/1,000 ML BAG IV SCH (18:11)
--- NOTE | 2023-05-07 18:37 | XRay Report ---
XR chest 1V portable CLINICAL HISTORY: hypoxia, vomiting COMPARISON STUDY: Chest CT October 31, 2017. Chest radiograph July 08, 2022. FINDINGS: Lung volumes are normal. Lungs are clear. There is no pneumothorax or pleural effusion. Car diac size is normal. Mediastinal contours are normal. There is no evidence for pulmonary edema. IMPRESSION: No acute cardiopulmonary findings. ACT 112: Negative or not required by law. Electronically signed by: Lenny Munson M.D. 05/07/2023 6:36 PM
[2023-05-07] MEDS: ENOXAPARIN INJ 40 MG/0.4 ML SYR SQ SCH (22:00)
[2023-05-08 05:09] LABS: Hematocrit (blood only) 43.9 % (37.0-47.0); Hemoglobin 14.1 g/dl (12.0-16.0); Mean Corpuscular Hemoglobin 27.7 pg (25.0-34.0); Mean Corpuscular Hgb Conc 32.1 g/dL (32.0-36.0); Mean Corpuscular Volume 86.2 fL (80.0-100.0); Platelet Count 161 K/uL (130-400); RDW Coefficient of Variation 13.7 % (11.5-14.5); RDW Standard Deviation 43.2 fL (36.4-46.3); Red Blood Count 5.09 M/uL (4.20-5.40); White Blood Count 10.11 K/ul (4.8-10.8)
[2023-05-08 05:21] LABS: BUN Creatinine Ratio 22.4 (10-20); Calcium 8.3 mg/dl (8.6-10.3); Creatinine Clr Calc Pharmacy 106.8 ml/min; Est GFR (African American) 119.4 ml/min; Magnesium 1.9 mg/dl (1.7-2.4); Phosphorus 3.9 mg/dl (2.5-4.9); Potassium 3.6 mmol/L (3.5-5.1)
[2023-05-08] MEDS ORDERED: GLUCOSE 40% GEL 15 GM TUBE PO PRN (07:45)
[2023-05-08] MEDS ORDERED: DEXTROSE 50% 50 ML SYRINGE IV PRN (07:45)
[2023-05-08] MEDS ORDERED: GLUCAGON FOR INJ 1 MG VIAL IM PRN (07:45)
[2023-05-08] MEDS ORDERED: CARBOHYDRATES FOR HYPOGLYCEMIA PO PRN (07:45)
[2023-05-08] MEDS ORDERED: GLUCOSE 10 TAB/TUBE PO PRN (07:45)
[2023-05-08] MEDS: UMECLIDINIUM/VILANTEROL 62.5/25MCG 7 PUFFS/INHALER INH SCH (08:12)
[2023-05-08] MEDS: ASPIRIN 81 MG ECTAB PO SCH (08:13)
[2023-05-08] MEDS: carvediloL 12.5 MG TAB PO SCH (08:13)
[2023-05-08] MEDS: LEVOTHYROXINE SODIUM 175 MCG TABLET PO SCH (08:13)
[2023-05-08] MEDS: VENLAFAXINE HCL XR 75 MG CAPXR PO SCH (08:13)
[2023-05-08] MEDS: FLUTICASONE FUROATE 100MCG 14 PUFFS/INHALER INH SCH (08:13)
[2023-05-08] MEDS: LANTUS PER UNIT CHARGE SQ SCH (09:11)
--- NOTE | 2023-05-08 12:30 | Discharge Summary ---
Discharge Summary Date of Service May 08, 2023 Notes For Next Care Provider UTI Medication Changes From Visit Cefdinir 300mg by mouth twice daily x 4 days for UTI. Admission HPI Per Admitting Provider 58 yo F with hypertension, HLD, COPD group B, diabetes mellitus type 2, hypothyroidism, GERD with esophagitis, depression/anxiety who presents with vo miting. Patient says she has been vomiting for the past 3 days. Both her and her started to be sick some days ago when they had a lunchmeat, patient says her was sick only for a day or so, however she continued to be sick still. She vomited this morning, after just eating toast. Denies fevers chills chest pain shortness of breath. Denies abdominal pain or diarrhea. Not able to have any p.o. intake, she is not sure if she has any urinary symptoms. She is unaware of any dysuria, or frequency. Says she had UTI before, usually she would feel pressure, no dysuria. Reports breathing is at her baseline, uses oxygen at home as needed. She is a current smoker. Received IV fluids and IV antibiotics in the ED, says that currently she feels better, however she has not tried to take much p.o. yet. Admission Exam Per Admitting Provider Constitutional: WD/WN, vitals as above Eyes: PERRL, conjunctivae normal, anicteric sclerae ENMT: external ear and nose normal, oropharynx normal Neck: normal visual inspection Respiratory: normal respiratory effort, lungs clear to auscultation Cardiovascular: RRR, no murmur, no edema Chest (Breasts): Chest: normal inspection of chest Gastrointestinal (Abdomen): normal bowel sounds, soft, nontender, no hepatosplenomegaly Musculoskeletal: no cyanosis or clubbing, extremities motor strength 5/5 Skin: no rashes, warm and dry Neurologic: PERRL, EOMI, accommodation nl, no face palsy, no dysarthria Psychiatric: A+Ox3, euthymic affect Principal Dx & Hospital Course #1 = Principal Diagnosis (1) UTI (urinary tract infection): WBC elevated Pt presents w/ abd. pain and vomiting Reports eating lunchmeat and developed vomiting -> possibly secondary to that ? - not able to have po intake - cont. supportive measures, IVF CT abd. pelvis obtained - c/w distal esophagitis, No bowel obstruction or bowel wall thickening UA c/w UTI Ucultx pending Started empirically on rocephin in ED, will continue blood cultx ordered Pt has hx of GERD w/ esophagitis per outpt record - on omeprazole - will start IV PPI BID - pt will need to follow up w/ outpt providers (2) Hypothyroidism: (3) Diabetes mellitus, type II: (4) Mood disorder: (5) HTN (hypertension): (6) HLD (hyperlipidemia): (7) COPD (chronic obstructive pulmonary disease): Plan This is a 58 yo F with hypertension, HLD, COPD group B, diabetes mellitus type 2, hypothyroidism, GERD with esophagitis, depression/anxiety who presents with vomiting. Preliminary urine culture growing gram-negative bacilli, final culture pending. Blood cultures pending. Feeling significantly better today. Last vomited yesterday morning. Tolerating diet without issue. Will discharge on p.o. antibiotic course PCP to follow-up on final culture results. Initial CBC with differential showing elevated total absolute neutrophil count and total absolute lymphocyte count. Difficult to interpret due to acute illness but recommend PCP repeat outpatient CBC for follow-up. CT admission with findings of distal esophagitis. Already on omeprazole and no increased GERD symptoms. Recommend follow-up with outpatient providers. Comfortable and hemodynamically stable at time of discharge home. Discharge Exam Gen: WD/WN, NAD, sitting up in bed, A&Ox3 HEENT: Normocephalic, atraumatic, conjunctivae moist, sclerae anicteric, mucous membranes moist Lung: Clear to Auscultation bilaterally, no wheezes/rales/rhonchi Heart: Regular rate, regular rhythm, no murmurs, rubs, or gallops Abdomen: Soft, NT, ND +BS x 4 Extremities: no edema Skin: Warm, no rash Updated Medication List Medication Instructions Recorded Confirmed Type albuterol sulfate 90 mcg/actuation 2 puff inhalation QID PRN 08/30/18 05/07/23 History aerosol inhaler (ProAir HFA) Shortness Of Breath aspirin 81 mg tablet,delayed 81 mg PO QAM 08/30/18 05/07/23 History release carvedilol 12.5 mg tablet 12.5 mg PO BID 08/30/18 05/07/23 History lisinopril 20 mg tablet 20 mg PO QAM 08/30/18 05/07/23 History omeprazole 20 mg capsule,delayed 20 mg PO QAM 08/30/18 05/07/23 History release cholecalciferol (vitamin D3) 125 5,000 unit PO DAILY 07/08/22 05/07/23 History mcg (5,000 unit) capsule cyanocobalamin (vitamin B-12) 1,000 mcg PO DAILY 07/08/22 05/07/23 History 1,000 mcg tablet empagliflozin 25 mg tablet 25 mg PO DAILY 07/08/22 05/07/23 History (Jardiance) levalbuterol HCl 1.25 mg/3 mL 1.25 mg inhalation Q4H PRN 07/08/22 05/07/23 Hist ory solution for nebulization Shortness Of Breath Or Wheezing levothyroxine 175 mcg tablet 175 mcg PO DAILY 07/08/22 05/07/23 History metformin 500 mg tablet,extended 1,000 mg PO BID 07/08/22 05/07/23 History release 24 hr trazodone 150 mg tablet 150 mg PO HS 07/08/22 05/07/23 History venlafaxine 75 mg capsule,extended 75 mg PO DAILY 07/08/22 05/07/23 History release 24 hr atorvastatin 40 mg tablet 40 mg PO QAM 05/07/23 05/07/23 History dulaglutide 3 mg/0.5 mL 3 mg subcut .QSUN 05/07/23 05/07/23 History subcutaneous pen injector (Trulicity) fluticasone fur. 100 mcg-umeclid 1 inh inhalation DAILY 05/07/23 05/07/23 History 62.5 mcg-vilant 25 mcg inhalat.powder (Trelegy Ellipta) hydrochlorothiazide 12.5 mg tablet 12.5 mg PO DAILY 05/07/23 05/07/23 History cefdinir 300 mg capsule 300 mg PO BID 4 days #8 caps 05/08/23 Rx Hospital Stay Data Consultations 05/07/23 17:30 ED Decision to Admit Stat Diagnostic Imagining Performed 05/07/23 14:52 CT abd pelvis IV con only Stat 05/07/23 14:59 CT head/brain wo con Stat US venous doppler LE LT Stat Pending Results Patient Have Any Pending Studies at Discharge: Yes Discharge Instructions Given to Patient (Per Discharging Provider) MEDICATION CHANGES: Cefdinir 300mg by mouth twice daily x 4 days for UTI. PENDING TEST RESULTS: Preliminary urine culture growing gram negative bacilli. Final culture pending - PCP to follow up RECOMMENDATIONS FOR FOLLOW-UP: Follow up with PCP as scheduled. Complete antibiotic in its entirety. Continue medication regimen as scheduled aside from changes noted above. OTHER INSTRUCTIONS: Seek medical attention if you have: * temperature above 101 * chest pain or trouble breathing * abdominal pain, nausea, vomiting * diarrhea, dark stools or bloody stools * any unanswered questions or concerns Call 911 if symptoms are severe. Please take good care of yourself. Call if you have any questions or problems. You can reach a [facility] hospitalist on duty at [facility] 24 hours a day by calling [phone]. Gris Villasenor PA-C [facility] Hospitalist Total Time Total Time Spent Total Time Spent (In Minutes): 40 Supervising Physician Co-Signing Physician Notes Pt seen and examined by me, care coordinated w/ Mazin Villasenor PA-C, pls refer to her note above for further detail. Pt admitted yesterday with nausea and vomiting, urine cultx concerning for UTI. She was given IV fluids and antibiotics. She is currently feeling much better, she is tolerating PO intake and would like to be discharged. urine cultx positive for gram negative bacilli, will empirically treat with PO anribiotics, she will need to follow up with her pcp. Currently sitting up in bed, in no acute distress. She is awake alert oriented answering appropriately. She is feeling well, no chest pain shortness of breath, no fevers chills, no abdominal pain. Lungs are clear to auscultation, heart sounds regular, abdomen soft nontender nondistended. MD Mckenna
[2023-05-08] MEDS ORDERED: cefTRIAXone SODIUM 2,000 MG in DEXTROSE 5 % MINI-B 50 ML IV SCH (18:00)
--- OUTSIDE RECORDS SUMMARY | 2023-05-08 20:34 | External Medical Summary | Summary of Care ---
Author Name Unknown Organization [facility] Address [address] [place] [address] Phone [phone] Care Team Providers Care Day Care Supervisor Name Role Phone Jeb Queen MD Primary Care Provider [phone] Reason for Visit * Reason Comments Appointment Encounter Details Date Type Department Care Team (Late st Contact Info) Description 03/18/2023 6:10 PM [facility] Pharmacy, [facility] [address] [facility] [place] [address] Pharmacist1, [facility] [address] [facility] [place] [address] Type 2 diabetes mellitus with hemoglobin A1c goal of less than 7.0% ([facility])* Allergies Active Allergy Reactions Criticality Noted Date Comments Amoxicillin 07/11/2015 Rash per pt Sulfamethoxazole-Trimethopri m Hives 07/11/2015 Ciprofloxacin 01/04/2020 SOB Cephalexin 07/11/2015 Trouble breathing per pt Latex 07/11/2015 Pt reports allergy is the powder that is in latex gloves. Quinolones 01/30/1998 nausea,sweating and lightheaded Cipro - ? Trouble breathing documented as of this encounter (statuses as of 03/18/2023) Medications Medication Sig Dispensed Refills Start Date End Date Status Aspirin 81 MG Tablet Take 1 Tablet by mouth in the morning. 0 Active BD Pen Needle Delaney U/F 32G X 4 MM (Insulin Pen Needle)Indications:Ty pe 2 diabetes mellitus with hemoglobin A1c goal of less than 7.0% (HCC) Use up to 4 times daily with insulin 100 Each 5 12/06/2021 Active Glucose Blood In Vitro StripIndications:Type 2 diabetes mellitus with hemoglobin A1c goal of less than 7.0% ([facility]) Use as directed. 100 Strip 11 07/15/2022 Active Compressor NebulizerIndications: COPD, group A, by GOLD 2017 classification ([facility]) Inhale via nebulizer. Use as directed. 1 Each 1 07/22/2022 Active Vitamin B-12 1000 MCG Oral Tablet (Cyanocobalamin) TAKE 1 TABLET BY MOUTH EVERY DAY IN THE MORNING 90 Tablet 1 08/12/2022 Active Vitamin D3 125 MCG (5000 UT) Oral Capsule TAKE 1 CAPSULE BY MOUTH EVERY MORNING 90 Capsule 1 08/12/2022 Active Albuterol Sulfate HFA 108 (90 Base) MCG/ACT Inhalation Aerosol SolutionIndications:[place] INHALE 2 PUFFS BY MOUTH 4 TIMES DAILY 18 g 2 08/15/2022 Active Levalbuterol HCl 1.25 MG/3ML Inhalation Nebulization Solution (Xopenex)Indications: COPD, group A, by GOLD 2017 classification ([facility]) Inhale 1 Ampule via nebulizer every 4 hours as needed for Wheezing. 810 mL 3 09/01/2022 Active Atorvastatin Calcium 40 MG Oral Tablet (Lipitor)Indications: Type 2 diabetes mellitus with hemoglobin A1c goal of less than 7.0% ([facility]) Take 1 Tablet by mouth in the morning. 90 Tablet 3 09/30/2022 Active metFORMIN HCl ER 500 MG Oral Tablet Extended Release 24 Hour (Glucophage XR)Indications:Type 2 diabetes mellitus with hemoglobin A1c goal of less than 7.0% ([facility]) TAKE 2 TABLETS BY MOUTH TWICE A DAY WITH MORNING AND EVENING MEAL 360 Tablet 1 11/17/2022 Active Venlafaxine HCl ER 75 MG Oral Capsule Extended Release 24 Hour (Effexor XR) TAKE 1 CAPSULE BY MOUTH IN THE MORNING. DO NOT CUT, CRUSH OR CHEW. 90 Capsule 2 11/27/2022 Active traZODone HCl 150 MG Oral Tablet (Desyrel)Indications: Panic disorder,Persistent insomnia TAKE 1 TABLET BY MOUTH DAILY AT BEDTIME BY MOUTH 90 Tablet 2 11/27/2022 Active Trelegy Ellipta 100-62.5-25 MCG/ACT Aerosol Powder Breath Activated (Fluticasone-Umeclidi nium-Vilanterol)Indic ations:COPD, group B, by GOLD 2017 classification ([facility]) Inhale 1 Puff by mouth in the morning. 180 Each 3 01/07/2023 Active hydroCHLOROthiazide 12.5 MG Oral Tablet (Hydrodiuril)Indicati ons:HTN, goal below 130/80 Take 1 Tablet by mouth in the morning. 90 Tablet 3 01/07/2023 Active Dulaglutide 3 MG/0.5ML Subcutaneous Solution Pen-injector (Trulicity)Indication s:Type 2 diabetes mellitus with hemoglobin A1c goal of less than 7.0% ([facility]) Inject 3 mg under the skin once a week. 6 mL 3 01/11/2023 Active Omeprazole 20 MG Oral Capsule Delayed Release (PriLOSEC) TAKE 1 CAPSULE BY MOUTH EVERY DAY IN THE MORNING 90 Capsule 1 02/09/2023 Active Jardiance 25 MG Oral Tablet (Empagliflozin) TAKE 1 TABLET BY MOUTH EVERY DAY IN THE MORNING 90 Tablet 1 02/09/2023 Active Carvedilol 12.5 MG Oral Tablet (Coreg) TAKE 1 TABLET BY MOUTH TWICE A DAY WITH BREAKFAST AND DINNER 180 Tablet 3 02/13/2023 Active Levothyroxine Sodium 175 MCG Oral Tablet (Levoxyl)Indications: Acquired hypothyroidism TAKE ONE- Half Tablet by mouth on Sundays, take one tablet by mouth all other days AT LEAST 30 MIN BEFORE BREAKFAST OR OTHER MEDICATION 90 Tablet 0 02/13/2023 Active Lisinopril 20 MG Oral Tablet (Prinivil) TAKE 1 TABLET BY MOUTH EVERY DAY IN THE MORNING 90 Tablet 3 02/13/2023 Active Hospital, Clinic, or Other Facility Administered Medication Ordered Dose Route Frequency Start Date End Date Status Albuterol Sulfate (Proventil) (5 MG/ML) 0.5% *conc* inhalation solution 2.5 mgIndications:History of tobacco abuse 2.5 mg NEBULIZER PRN 07/24/2022 07/24/2023 Active Albuterol Sulfate (Proventil) (2.5 MG/3ML) 0.083% inhalation solution 2.5 mgIndications:History of tobacco abuse 2.5 mg NEBULIZER PRN 07/24/2022 07/24/2023 Active documented as of this encounter (statuses as of 03/18/2023) Active Problems Problem Noted Date Diagnosed Date COPD, group B, by GOLD 2017 classification 11/03 Overview: Per COPD GOLD Classification Recurrent major depressive disorder 07/07/2022 Type 2 diabetes mellitus with diabetic polyneuro trudi 07/07/2022 Food insecurity 06/02/2022 Overview: Per [facility] Protocol Acquired hypothyroidism 02/22/2019 Depression with anxiety 02/22/2019 HTN, goal below 130/80 02/22/2019 Dyslipidemia 02/22/2019 Psychogenic syncope 02/22/2019 Overview: Work up negative as of 02/22/19 Type 2 diabetes mellitus wit h hemoglobin A1c goal of less than 7.0% 10/12/2017 Gastroesophageal reflux disease with esophagitis Panic disorder documented as of this encounter (statuses as of 03/18/2023) Resolved Problems Problem Noted Date Diagnosed Date Resolved Date COPD, group A, by GOLD 2017 classification 06/02/2022 11/06/2022 Overview: Per COPD GOLD Classification Morbid obesity due to excess calories 05/26/2022 05/26/2022 COPD, severity to be determined 02/22/2019 06/05/2022 Overview: Per COPD GOLD Classification Routine general medical exam ination at a health care facility 12/29/2013 02/22/2019 Overview: 12/29-PCP ran late-pt unable to stay for appt Asthma with severity to be determined 08/16/2009 02/22/2019 Overview: Per Asthma Taxonomy ICD-10 update of inactive term Asthma, non-allergic 03/18/2007 010 NONALLERGIC RHINITIS 03/18/2007 019 Chronic sinusitis 03/18/2007 02/22/2019 SKIN SENSATION DISTURB 03/04/199902/22 Major depressive disorder 01/30/1998 Overview: ICD-10 update of inactive term CLASSICAL MIGRAINE WITHOU ME NTION OF INTRACTABLE MIGRAINE 02/22/2019 Asthma with severity to be determined 03/18/2007 Overview: ICD-10 update of inactive term documented as of this encounter (statuses as of 03/18/2023) Immunizations Name Administration Dates Next Due COVID-19 mRNA, LNP-s, No Pre serve, 2-Dose Series (Pfizer) 07/11/2020,06/20/2020 Hepatitis B, 20+ yrs 10/11/2018,05/18/2018,04/09 Pneumococcal Conjugate Vacci ne, 20-valent ([id number]) 09/30/2022 Pneumococcal Polysaccharide PPV23 (Pneumovax) 01/23/2007 Seasonal Influenza, PF, 6 M & above, IM , (FluLaval or Fluzone) 01/07/2023,11/24/2020,01/17/2020 TDAP (age 10 and older)(Boostrix) 01/17/2020 TDAP (age 11 and older)(Adacel) 12/20/2010 Zoster Vaccine Recombinant (Shingrix) 05/14/2021 ,01/04/2020 documented as of this encounter Social History Tobacco Use Types Packs/Day Years Used Date Smoking Tobacco: Every Day Cigarettes 1 30 Passive Smoke Exposure: Never Smokeless Tobacco: Never Alcohol Use Standard Drinks/Week Comments No 0 (1 standard drink = 0.6 oz pur e alcohol) PHQ-2 Answer Date Recorded PHQ Adult Total Score 2 09/30/2022 Hunger Vital Sign Answer Date Recorded Within the past 12 months, y ou worried that your food would run out before you got the money to buy more. Often true 09/17/19 23 Within the past 12 months, t he food you bought just didn't last and you didn't have money to get more. Often true 09/16/2022 Sex and Gender Information Value Date Recorded Sex Assigned at Female 07/10/2022 5:57 PM EDT Gender Identity Female 07/10/2022 5:57 PM EDT Sexual Orientation Straight 07/10/2022 5: 57 PM EDT Job Start Date Occupation Industry Not on file Not on file Not on file documented as of this encounter Progress Notes * Gris Gaines, director of clinical trials - 03/18/2023 8:56 AM EST Patient Phone Numbers Spoke to patient to schedule [facility] appointment for diabetes management. Patient declined to reschedule, discharging from [facility] services at this time. Thank you, Gris Gaines Bank Cashier [facility] ([facility]) (formerly Telepharmacy) [phone] 03/18/2023,8:56 AM documented in this encounter Plan of Treatment Upcoming Encounters Date Type Department Care Team (Late st Contact Info) Description 07/13/2023 4:40 PM EDT Office Visit [facility] [address] [place] [address] June, Jeb Barker MD [address] [place] [address] Health Maintenance Due Date Last Done Comments DISCUSS TOBACCO CESSATION (REFER TO SMARTSET #7330) 1967 HIV Screening 1982 Alpha-1 Antitrypsin 1985 Hepatitis C Screening 1985 HPV/Co-Test 1997 Colonoscopy 2012 Fecal Occult Blood Test 2012 Sigmoidoscopy 2012 Cervical Cancer Screening 07/18/2018 Pap Smear 07/18/2018 07/19/2015, 05/06/1999 Mammogram 10/23/2019 10/22/2018, 09/22/2017 Diabetic Eye Exam 09/28/2022 09/28/2021, , 10/27/2017 COVID-19 Vaccine ( season) 2022 07/11/2020, 06/20/2020, 05/31/2020 HbA1c 07/08/2023 01/07/2023, 08/24, 05/09/2022, Additional history exists B-12 09/12/2023 09/11/2022, 04/23, 02/14/2021, Additional history exists Depression Screening 10/01/2023 09/30/2022 Diabetic Foot Exam 10/01/2023 09/30/2022, 0 05/14/2021, 04/05/2020, Additional history exists Albumin/Creatinine Ratio 01/08/2024 023, 10/14/2021, 01/04/2020, Additional history exists GFR 01/08/2024 01/07/2023, 06/24, 05/09/2022, Additional history exists O2 ASSESSMENT COMPLETED IN PAST YEAR FOR COPD 01/08/2024 01/07/2023 TSH 01/08/2024 01/07/2023, 03/27, 02/04/2022, Additional history exists Cologuard 06/05/2024 06/05/2021, 04/0 06/2021, 05/28/2021 Colorectal Cancer Screening 06/05/2024 Lipid Panel 01/08/2028 01/07/2023, 04/23, 02/14/2021, Additional history exists DTaP,Tdap,and Td Vaccines (3 - Td or Tdap) 01/16/2030 01/17/2020, 12/20/2010 Hepatitis B Completed 10/11/2018, 04/24, 04/09/2018 Zoster Vaccines Completed 05/14/2021, 01/04/2020 LUNG CANCER SCREENING - USE SMARTSET 87204 Completed 08/01/2022, 10/31/2017 Pneumococcal Vaccine: Pediatrics (0 to 5 Years) and At-Risk Patients (6 to 64 Years) Completed 09/30/2022, 12/12/2014, 01/23/2007 Influenza Vaccine (FLU shot) Completed , 11/24/2020, 01/17/2020 GARDASIL-HPV IMMUNIZATION SERIES Aged Out No longer eligible based on patient's age to complete this topic MENINGOCOCCAL (MENACTRA/MENVEO) Aged Out No longer eligible based on patient's age to complete this topic documented as of this encounter Medical Devices Not on filedocumented as of this encounter Visit Diagnoses Diagnosis Type 2 diabetes mellitus with hemoglobin A1c goal of less than 7.0% (HCC)- Primary documented in this encounter Care Teams Day Care Supervisor Relationship Specialty Start Date End Date June, Jeb Barker MD [address] [place] [address] PCP - General Family Medicine 08/05/22 documented as of this encounter
--- OUTSIDE RECORDS SUMMARY | 2023-05-08 20:34 | External Medical Summary | Summary of Care ---
Author Name Unknown Organization [facility] Address [address] [place] [address] Phone [phone] Care Team Providers Care Motor And Generator Brush Cutter Name Role Phone Jeb Woody MD Primary Care Provider [phone] Reason for Visit * Reason Comments eRx-Medication Refill Encounter Details Date Type Department Care Team (Late st Contact Info) Description 02/12/2023 Refill [facility] [address] [place] [address] Bryanna Mayes PA-C [address] [place] [address] Encounter for long-term (current) use of other medications*; Acquired hypothyroidism Allergies Active Allergy Reactions Criticality Noted Date Comments Amoxicillin 07/11/2015 Rash per pt Sulfamethoxazole-Trimethopri m Hives 07/11/2015 Ciprofloxacin 01/04/2020 SOB Cephalexin 07/11/2015 Trouble breathing per pt Latex 07/11/2015 Pt reports allergy is the powder that is in latex gloves. Quinolones 01/30/1998 nausea,sweating and lightheaded Cipro - ? Trouble breathing documented as of this encounter (statuses as of 02/20/2023) Medications Medication Sig Dispensed Refills Start Date End Date Status Aspirin 81 MG Tablet Take 1 Tablet by mouth in the morning. 0 Active BD Pen Needle Delaney U/F 32G X 4 MM (Insulin Pen Needle)Indications: Type 2 diabetes mellitus with hemoglobin A1c goal of less than 7.0% (HCC) Use up to 4 times daily with insulin 100 Each 5 2 Active Glucose Blood In Vitro StripIndications:Ty pe 2 diabetes mellitus with hemoglobin A1c goal of less than 7.0% ([facility]) Use as directed. 100 Strip 11 3 Active Compressor NebulizerIndication s:COPD, group A, by GOLD 2017 classification ([facility]) Inhale via nebulizer. Use as directed. 1 Each 1 3 Active Vitamin B-12 1000 MCG Oral Tablet (Cyanocobalamin) TAKE 1 TABLET BY MOUTH EVERY DAY IN THE MORNING 90 Tablet 1 3 Active Vitamin D3 125 MCG (5000 UT) Oral Capsule TAKE 1 CAPSULE BY MOUTH EVERY MORNING 90 Capsule 1 3 Active Albuterol Sulfate HFA 108 (90 Base) MCG/ACT Inhalation Aerosol SolutionIndications :Cough INHALE 2 PUFFS BY MOUTH 4 TIMES DAILY 18 g 2 3 Active Levalbuterol HCl 1.25 MG/3ML Inhalation Nebulization Solution (Xopenex)Indication s:COPD, group A, by GOLD 2017 classification ([facility]) Inhale 1 Ampule via nebulizer every 4 hours as needed for Wheezing. 810 mL 3 3 Active Atorvastatin Calcium 40 MG Oral Tablet (Lipitor)Indication s:Type 2 diabetes mellitus with hemoglobin A1c goal of less than 7.0% ([facility]) Take 1 Tablet by mouth in the morning. 90 Tablet 3 3 Active metFORMIN HCl ER 500 MG Oral Tablet Extended Release 24 Hour (Glucophage XR)Indications:Type 2 diabetes mellitus with hemoglobin A1c goal of less than 7.0% ([facility]) TAKE 2 TABLETS BY MOUTH TWICE A DAY WITH MORNING AND EVENING MEAL 360 Tablet 1 3 Active Venlafaxine HCl ER 75 MG Oral Capsule Extended Release 24 Hour (Effexor XR) TAKE 1 CAPSULE BY MOUTH IN THE MORNING. DO NOT CUT, CRUSH OR CHEW. 90 Capsule 2 3 Active traZODone HCl 150 MG Oral Tablet (Desyrel)Indication s:Panic disorder,Persistent insomnia TAKE 1 TABLET BY MOUTH DAILY AT BEDTIME BY MOUTH 90 Tablet 2 3 Active Trelegy Ellipta 100-62.5-25 MCG/ACT Aerosol Powder Breath Activated (Fluticasone-Umecli dinium-Vilanterol)I ndications:COPD, group B, by GOLD 2017 classification ([facility]) Inhale 1 Puff by mouth in the morning. 180 Each 3 3 Active hydroCHLOROthiazide 12.5 MG Oral Tablet (Hydrodiuril)Indica tions:HTN, goal below 130/80 Take 1 Tablet by mouth in the morning. 90 Tablet 3 3 Active Dulaglutide 3 MG/0.5ML Subcutaneous Solution Pen-injector (Trulicity)Indicati ons:Type 2 diabetes mellitus with hemoglobin A1c goal of less than 7.0% ([facility]) Inject 3 mg under the skin once a week. 6 mL 3 3 Active Omeprazole 20 MG Oral Capsule Delayed Release (PriLOSEC) TAKE 1 CAPSULE BY MOUTH EVERY DAY IN THE MORNING 90 Capsule 1 3 Active Jardiance 25 MG Oral Tablet (Empagliflozin) TAKE 1 TABLET BY MOUTH EVERY DAY IN THE MORNING 90 Tablet 1 3 Active Carvedilol 12.5 MG Oral Tablet (Coreg) TAKE 1 TABLET BY MOUTH TWICE A DAY WITH BREAKFAST AND DINNER 180 Tablet 3 3 Active Levothyroxine Sodium 175 MCG Oral Tablet (Levoxyl)Indication s:Acquired hypothyroidism TAKE ONE- Half Tablet by mouth on Sundays, take one tablet by mouth all other days AT LEAST 30 MIN BEFORE BREAKFAST OR OTHER MEDICATION 90 Tablet 0 3 Active Lisinopril 20 MG Oral Tablet (Prinivil) TAKE 1 TABLET BY MOUTH EVERY DAY IN THE MORNING 90 Tablet 3 3 Active Levothyroxine Sodium 175 MCG Oral Tablet (Levoxyl)Indication s:Acquired hypothyroidism TAKE 1 TABLET BY MOUTH EVERY DAY AT LEAST 30 MIN BEFORE BREAKFAST OR OTHER MEDICATION - PLEASE DC 200mg dose 90 Tablet 0 3 02/14/20 23 Discontinued Hospital, Clinic, or Other Facility Administered Medication [...] as of this encounter (statuses as of 02/20/2023) Active Problems Problem Noted Date Diagnosed Date [...] as of this encounter (statuses as of 02/20/2023) Resolved Problems Problem Noted Date Diagnosed Date [...] as of this encounter (statuses as of 02/20/2023) Immunizations Name Administration Dates Next Due COVID-19 mRNA, LNP-s, No Pre serve, 2-Dose Series (Pfizer) 07/11/2020,06/20/2020 Hepatitis B, 20+ yrs 10/11/2018,05/18/2018,04/09 Pneumococcal Conjugate Vacci ne, 20-valent ([id number]) 09/30/2022 Pneumococcal Polysaccharide PPV23 (Pneumovax) 01/23/2007 Seasonal [...] on file documented as of this encounter Miscellaneous Notes * Telephone Encounter - Ko De Los Santos RPh - 02/20/2023 4:23 PM EST Spoke to patient and informed of dose decrease as noted below. Additionally reviewed other labs as patient was not yet informed of results. All other labs stable and at goal. Patient noted that she did not receive lab results or call regarding results. Reviewed Doctor Bernice's previous message as well: " A1C significantly improved to 6.2. Increased dose of trulicity sent to [facility] in [place]. Once higher dose has started, can stop insulin glargine altogether. " Patient states she is finishing up left over trulicity at this time, reiterated above note, patientverbalized understanding with no further questions at this time. Asked patient to call back should any arise. Thanks, Ko De Los Santos Rph, Pharm D. Clinical Pharmacist [facility] (Formerly Telepharmacy)/[facility] [phone] 02/20/2023,4:32 PM * Telephone Encounter - Ko De Los Santos RPh - 02/19/2023 3:38 PM EST My G has not yet been read by patient, called to discuss dose decrease, no answer, No VM. Should patient call back please transfer to next available [facility] to discuss dose change as noted below. Thanks, Ko De Los Santos Rph, Pharm D. Clinical Pharmacist [facility] (Formerly Telepharmacy)/[facility] [phone] 02/19/2023,3:40 PM * Telephone Encounter - Jeb Woody MD - 02/13/2023 5:03 PM ESTSigned Prescriptions: Disp Refills Levothyroxine Sodium 175 MCG Oral Tablet (*90 Tab*0 Sig: TAKE ONE- Half Tablet by mouth on Sundays, take one tablet by mouth all other days AT LEAST 30 MIN BEFORE BREAKFAST OR OTHER MEDICATIONAuthorizing Provider: JEB WOODY * Telephone Encounter - Jeb Woody MD - 02/13/2023 5:03 PM EST Agree with change. Order signed. Jeb Woody MD * Telephone Encounter - Ko De Los Santos [facility] - 02/13/2023 3:25 PM ESTPending Prescriptions: Disp Refills Levothyroxine Sodium 175 MCG Oral Tablet (*90 Tab*0 Sig: TAKE ONE- Half Tablet by mouth on Sundays, take one tablet by mouth all other days AT LEAST 30 MIN BEFORE BREAKFAST OR OTHER MEDICATION * Telephone Encounter - Ko De Los Santos [facility] - 02/13/2023 3:02 PM EST Pharmacy requesting refills of levothyroxine, however most recent labs from December show Elevated T4 and suppressed TSH, does not appear these results have been addressed. Please review and consider dose reduction of levothyroxine if appropriate. As TSH/T4 has fluctuated previously based on the below values would suggest remaining on current dose but taking only half-tablet 1 day per week and rechecking Thyroid levels in 6-8 weeks (ordered). I have pended this dose reduction, please route back to me if approved so I may inform the patient. TSH Results: Lab Results Component Value Date/Time TSH - [facility] 0.11 (L) 01/07/2023 04:14 PM TSH - [facility] 1.19 04/17/2022 02:26 PM TSH - [facility] 17.10 (H) 02/04/2022 02:49 PM T4 Results: Lab Results Component Value Date/Time T4, FREE - [facility] 2.5 (H) 01/07/2023 04:14 PM T4, FREE - [facility] 1.5 02/04/2022 02:49 PM T4, FREE - [facility] 0.6 (L) 01/11/2022 10:43 AM T3 Results: Lab Results Component Value Date/Time T3, FREE - [facility] 3.5 01/07/2023 04:14 PM T3, FREE - [facility] 1.2 (L) 01/11/2022 10:43 AM Ko [place] Rph, Pharm D. Clinical Pharmacist Centralized Clinical Pharmacy Services (Formerly Telepharmacy)/[facility] [phone] 02/13/2023,3:19 PM documented in this encounter Plan of Treatment Upcoming Encounters Date Type Department Care Team (Late st Contact Info) Description 03/18/2023 6:10 PM EST Pharmacy Pharmacy, [facility] [address] [place] [address] Pharmacist1, [facility] [address] [place] [address] 07/13/2023 4:40 PM EDT Office Visit [facility] [address] [place] [facility] [place] [id number] June, Jeb Barker MD [address] [place] [address] Scheduled Orders Name Type Priority Associated Diagnoses Orde r Schedule TSH WITH FREE T4 IF INDICATED Lab Routine Acquired hypothyroidism Encounter for long-term (current) use of other medications Expected: 02/20/2023 (Approximate), Expires: 02/14/2024 Health Maintenance Due Date Last Done Comments DISCUSS TOBACCO CESSATION (REFER TO SMARTSET #7401) 1965 HIV Screening 1982 Alpha-1 Antitrypsin 1985 [...] 01/04/2020 LUNG CANCER SCREENING - USE SMARTSET 55204 Completed 08/01/2022, 10/31/2017 Pneumococcal Vaccine: Pediatrics (0 [...] as of this encounter Visit Diagnoses Diagnosis Encounter for long-term (current) use of other medications- Primary Acquired hypothyroidism Unspecified hypothyroidism documented in this encounter Care Teams Motor And Generator Brush Cutter Relationship Specialty Start Date End Date June, Jeb Barker MD [address] [place] [address] PCP - General Family Medicine 08/05/22 documented as of this encounter
--- OUTSIDE RECORDS SUMMARY | 2023-05-08 20:34 | External Medical Summary | Summary of Care ---
Author Name Unknown Organization [facility] Address [address] [facility] [place] [address] Phone [phone] Care Team Providers Care Carton Stamper Name Role Phone Jeb Queen MD Primary Care Provider [phone] Reason for Visit * Reason Onset Date Comments Appointment 02/09/2023 Encounter Details Date Type Department Care Team (Late st Contact Info) Description 02/09/2023 Telephone Sleep Disorders Ctr [facility] [address] [place] [address] Dori Francis DO [address] [place] [address] Appointment Allergies Active Allergy Reactions Criticality Noted Date Comments Amoxicillin 07/11/2015 Rash per pt Sulfamethoxazole-Trimethopri m Hives 07/11/2015 Ciprofloxacin 01/04/2020 SOB Cephalexin 07/11/2015 Trouble breathing per pt Latex 07/11/2015 Pt reports allergy is the powder that is in latex gloves. Quinolones 01/30/1998 nausea,sweating and lightheaded Cipro - ? Trouble breathing documented as of this encounter (statuses as of 05/01/2023) Medications Medication Sig Dispensed Refills Start Date End Date Status Aspirin 81 MG Tablet Take 1 Tablet by mouth in the morning. 0 Active BD Pen Needle Delaney U/F 32G X 4 MM (Insulin Pen Needle)Indications:Ty pe 2 diabetes mellitus with hemoglobin A1c goal of less than 7.0% ([facility]) Use up to 4 times daily with insulin 100 Each 5 12/06/2021 Active Glucose Blood In Vitro StripIndications:Type 2 diabetes mellitus with hemoglobin A1c goal of less than 7.0% ([facility]) Use as directed. 100 Strip 11 07/15/2022 Active Compressor NebulizerIndications: COPD, group A, by GOLD 2017 classification ([facility]) Inhale via nebulizer. Use as directed. [...] 108 (90 Base) MCG/ACT Inhalation Aerosol SolutionIndications:C ough INHALE 2 PUFFS BY MOUTH 4 TIMES DAILY 18 g 2 08/15/2022 Active Levalbuterol HCl 1.25 MG/3ML Inhalation Nebulization Solution (Xopenex)Indications: COPD, group A, by GOLD 2017 classification ([facility]) Inhale 1 Ampule via nebulizer every 4 hours as needed for Wheezing. 810 mL 3 09/01/2022 Active Atorvastatin Calcium 40 MG Oral Tablet (Lipitor)Indications: Type 2 diabetes mellitus with hemoglobin A1c goal of less than 7.0% ([facility]) Take 1 Tablet by mouth in the morning. 90 Tablet 3 09/30/2022 Active metFORMIN HCl ER 500 MG Oral Tablet Extended Release 24 Hour (Glucophage XR)Indications:Type 2 diabetes mellitus with hemoglobin A1c goal of less than 7.0% ([facility]) TAKE 2 TABLETS BY MOUTH TWICE [...] ations:COPD, group B, by GOLD 2017 classification ([facility]) Inhale 1 Puff by mouth in the morning. 180 Each 3 01/07/2023 Active hydroCHLOROthiazide 12.5 MG Oral Tablet (Hydrodiuril)Indicati ons:HTN, goal below 130/80 Take 1 Tablet by mouth in the morning. 90 Tablet 3 01/07/2023 Active Dulaglutide 3 MG/0.5ML Subcutaneous Solution Pen-injector (Trulicity)Indication s:Type 2 diabetes mellitus with hemoglobin A1c goal of less than 7.0% ([facility]) Inject 3 mg under the skin once a week. 6 mL 3 01/11/2023 Active Hospital, Clinic, or Other Facility Administered [...] as of this encounter (statuses as of 05/01/2023) Active Problems Problem Noted Date Diagnosed Date COPD, group B, by GOLD 2017 classification 11/03 Overview: Per COPD GOLD Classification Recurrent major depressive disorder 07/07/2022 Type 2 diabetes mellitus with diabetic polyneuro trudi 07/07/2022 Food insecurity 06/02/2022 Overview: Per [facility] Protocol Acquired hypothyroidism 02/22/2019 Depression with anxiety 02/22/2019 HTN, goal below 130/80 02/22/2019 Dyslipidemia 02/22/2019 Psychogenic syncope 02/22/2019 Overview: Work up negative as of 02/22/19 Type 2 diabetes mellitus wit h hemoglobin A1c goal of less than 7.0% 10/12/2017 Gastroesophageal reflux disease with esophagitis Panic disorder documented as of this encounter (statuses as of 05/01/2023) Resolved Problems Problem Noted Date Diagnosed Date [...] as of this encounter (statuses as of 05/01/2023) Immunizations Name Administration Dates Next Due COVID-19 mRNA, LNP-s, No Pre serve, 2-Dose Series ([employer]) 07/11/2020,06/20/2020 Hepatitis B, 20+ yrs 10/11/2018,05/18/2018,04/09 Pneumococcal Conjugate Vacci ne, 20-valent ([id number]) 09/30/2022 Pneumococcal Polysaccharide PPV23 (Pneumovax) 01/23/2007 Seasonal [...] encounter Miscellaneous Notes * Telephone Encounter - Leslie Bailey, RODGER - 05/01/2023 3:43 PM EST Spoke with pt. She accepted an apt with Dr Francis on 05/14/23 at 2 PM by video. Pt reports she returned her Cpap because it did not fit. She would like to discuss other options. * Telephone Encounter - Leslie Bailey, RODGER - 04/23/2023 6:40 PM EST My G message sent to pt to schedule apt. * Telephone Encounter - Dori Francis, DO - 02/09/2023 10:18 AM EST Needs soon f/u appt for first CPAP check. Can use close-release f/u appt or break a templated new appt slot if needed. Received notification from [facility] of insufficient compliance at 45 days. Will address compliance atthat appt. documented in this encounter Plan of Treatment Upcoming Encounters Date Type Department Care Team (Late st Contact Info) Description 05/14/2023 2:00 PM EDT Telemedicine Sleep Disorders Ctr [facility] [address] [place] [phone] Dori Francis DO [address] [place] [address] 07/13/2023 4:40 PM EDT Office Visit [facility] [address] [place] [facility] [place] [id number] June, Jeb Barker MD [address], [place] [id number] Health Maintenance Due Date Last Done Comments DISCUSS TOBACCO CESSATION (REFER TO SMARTSET #7101) 1965 HIV Screening 1982 Alpha-1 Antitrypsin 1985 [...] 02/04/2022, Additional history exists Cologuard 06/05/2024 06/05/2021, 040 06/2021, 05/28/2021 Colorectal Cancer Screening 06/05/2024 Lipid Panel 01/08/2028 01/07/2023, 04/23, 02/14/2021, Additional history exists DTaP,Tdap,and Td Vaccines (3 - Td or Tdap) 01/16/2030 01/17/2020, 12/20/2010 Hepatitis B Completed 10/11/2018, 04/24, 04/09/2018 Zoster Vaccines Completed 05/14/2021, 01/04/2020 LUNG CANCER SCREENING - USE SMARTSET 12275 Completed 08/01/2022, 10/31/2017 Pneumococcal Vaccine: Pediatrics (0 [...] Not on filedocumented as of this encounter Care Teams Carton Stamper Relationship Specialty Start Date End Date June, Jeb Barker MD [address] [place] [address] PCP - General Family Medicine 08/05/22 documented as of this encounter
--- OUTSIDE RECORDS SUMMARY | 2023-05-08 20:35 | External Medical Summary | Summary of Care ---
Author Name Unknown Organization [facility] Address [address] [facility] [place] [address] Phone [phone] Care Team Providers Care Outpatient Physical Therapist Assistant Name Role Phone Geremias Woody MD Primary Care Provider [phone] Reason for Visit * Reason Comments eRx-Medication Refill Encounter Details Date Type Department Care Team (Late st Contact Info) Description 02/12/2023 Refill [facility] [address] [place] [address] Bryanan Mayes PA-C [address] [place] [address] Encounter for long-term (current) use [...] as of this encounter (statuses as of 02/19/2023) Medications Medication Sig Dispensed Refills Start Date [...] hemoglobin A1c goal of less than 7.0% ([facility]) Use as directed. 100 Strip 11 3 Active Compressor NebulizerIndication s:COPD, group A, by GOLD 2017 classification ([facility]) Inhale via nebulizer. Use as directed. 1 [...] s:COPD, group A, by GOLD 2017 classification ([facility]) Inhale 1 Ampule via nebulizer every 4 hours as needed for Wheezing. 810 mL 3 3 Active Atorvastatin Calcium 40 MG Oral Tablet (Lipitor)Indication s:Type 2 diabetes mellitus with hemoglobin A1c goal of less than 7.0% ([facility]) Take 1 Tablet by mouth in the morning. 90 Tablet 3 3 Active metFORMIN HCl ER 500 MG Oral Tablet Extended Release 24 Hour (Glucophage XR)Indications:Type 2 diabetes mellitus with hemoglobin A1c goal of less than 7.0% ([facility]) TAKE 2 TABLETS BY MOUTH TWICE A [...] ndications:COPD, group B, by GOLD 2017 classification ([facility]) Inhale 1 Puff by mouth in the morning. 180 Each 3 3 Active hydroCHLOROthiazide 12.5 MG Oral Tablet (Hydrodiuril)Indica tions:HTN, goal below 130/80 Take 1 Tablet by mouth in the morning. 90 Tablet 3 3 Active Dulaglutide 3 MG/0.5ML Subcutaneous Solution Pen-injector (Trulicity)Indicati ons:Type 2 diabetes mellitus with hemoglobin A1c goal of less than 7.0% ([facility]) Inject 3 mg under the skin once [...] as of this encounter (statuses as of 02/19/2023) Active Problems Problem Noted Date Diagnosed Date [...] as of this encounter (statuses as of 02/19/2023) Resolved Problems Problem Noted Date Diagnosed Date [...] as of this encounter (statuses as of 02/19/2023) Immunizations Name Administration Dates Next Due COVID-19 mRNA, LNP-s, No Pre serve, 2-Dose Series (Pfizer) 07/11/2020,06/20/2020 Hepatitis B, 20+ yrs 10/11/2018,05/18/2018,04/09 Pneumococcal Conjugate Vacci ne, 20-valent ([id number]) 09/30/2022 Pneumococcal Polysaccharide PPV23 (Pneumovax) 01/23/2007 Seasonal [...] call back please transfer to next available [facility] to discuss dose change as noted below. Thanks, Ko De Los Santos [facility], Pharm D. Clinical Pharmacist [facility]ized Clinical [facility] [phone] 02/19/2023,3:40 PM * Telephone Encounter - Geremias Woody MD - 02/13/2023 5:03 PM ESTSigned Prescriptions: Disp Refills Levothyroxine Sodium 175 MCG Oral Tablet (*90 Tab*0 Sig: TAKE ONE- Half Tablet by mouth on Sundays, take one tablet by mouth all other days AT LEAST 30 MIN BEFORE BREAKFAST OR OTHER MEDICATIONAuthorizing Provider: GEREMIAS WOODY * Telephone Encounter - Geremias Woody MD - 02/13/2023 5:03 PM EST Agree with change. Order signed. Geremias Woody MD * Telephone Encounter - Ko De Los Santos RPh - 02/13/2023 3:25 PM ESTPending Prescriptions: Disp Refills Levothyroxine Sodium 175 MCG Oral Tablet (*90 Tab*0 Sig: TAKE ONE- Half Tablet by mouth on Sundays, take one tablet by mouth all other days AT LEAST 30 MIN BEFORE BREAKFAST OR OTHER MEDICATION * Telephone Encounter - Ko De Los Santos RPh - 02/13/2023 3:02 PM EST Pharmacy requesting [...] Clinical Pharmacist [facility] [phone] 02/13/2023,3:19 PM documented in this encounter Plan of Treatment Upcoming Encounters Date Type Department Care Team (Late st Contact Info) Description 02/19/2023 6:10 PM EST Pharmacy Pharmacy, [facility] [address] [place] [address] Pharmacist1, [facility] [address] [facility] [place] [address] Type 2 diabetes mellitus with hemoglobin A1c goal of less than 7.0% (HCC)* 03/18/2023 6:10 PM EST Pharmacy Pharmacy, [facility] [address] [place] [address] Pharmacist1, [facility] [address] [place] [address] 07/13/2023 4:40 PM EDT Office Visit [facility] [address] [place] [address] JuneGeremias MD [address] [place], [place] [phone] Scheduled Orders Name Type Priority Associated Diagnoses Orde r Schedule TSH WITH FREE T4 IF INDICATED Lab Routine Acquired hypothyroidism Encounter for long-term (current) use of other medications Expected: 02/20/2023 (Approximate), Expires: 02/14/2024 Health Maintenance Due Date Last Done Comments DISCUSS TOBACCO CESSATION (REFER TO SMARTSET #0234) 1965 HIV Screening 1982 Alpha-1 Antitrypsin 1985 [...] 01/04/2020 LUNG CANCER SCREENING - USE SMARTSET 86337 Completed 08/01/2022, 10/31/2017 Pneumococcal Vaccine: Pediatrics (0 [...] other medications- Primary Acquired hypothyroidism Unspecified hypothyroidism Type 2 diabetes mellitus with hemoglobin A1c goal of less than 7.0% ([facility])- Primary documented in this encounter Care Teams Outpatient Physical Therapist Assistant Relationship Specialty Start Date End Date June, Geremias Barker MD [address] [facility] [place] [address] PCP - General Family Medicine 08/05/22 documented as of this encounter
--- OUTSIDE RECORDS SUMMARY | 2023-05-08 20:35 | External Medical Summary | Summary of Care ---
Author Name Unknown Organization [facility] Address [address] [place] [place] [facility] [place] [address] Phone [phone] Care Team Providers Care Scrap Breaker Name Role Phone Jeb Queen MD Primary Care Provider [phone] Reason for Visit * Reason Comments eRx-Medication Refill Encounter Details Date Type Department Care Team (Late st Contact Info) Description 02/11/2023 Refill [facility] [address] [place] [address] Bryanna Mayes PA-C [address] [place] [address] Type 2 diabetes mellitus with hemoglobin A1c goal of less than 7.0% ([facility]) Allergies Active Allergy Reactions Criticality Noted Date Comments Amoxicillin 07/11/2015 Rash per pt Sulfamethoxazole-Trimethopri m Hives 07/11/2015 Ciprofloxacin 01/04/2020 SOB Cephalexin 07/11/2015 Trouble breathing per pt Latex 07/11/2015 Pt reports allergy is the powder that is in latex gloves. Quinolones 01/30/1998 nausea,sweating and lightheaded Cipro - ? Trouble breathing documented as of this encounter (statuses as of 02/11/2023) Medications Medication Sig Dispensed Refills Start Date End Date Status Aspirin 81 MG Tablet Take 1 Tablet by mouth in the morning. 0 Active BD Pen Needle Delaney U/F 32G X 4 MM (Insulin Pen Needle)Indications:Ty pe 2 diabetes mellitus with hemoglobin A1c goal of less than 7.0% ([facility]) Use up to 4 times daily with insulin 100 Each 5 12/06/2021 Active Glucose Blood In Vitro StripIndications:Type 2 diabetes mellitus with hemoglobin A1c goal of less than 7.0% ([facility]) Use as directed. 100 Strip 11 07/15/2022 Active Compressor NebulizerIndications: COPD, group A, by GOLD 2017 classification ([facility]) Inhale via nebulizer. Use as directed. 1 Each 1 07/22/2022 Active Lisinopril 20 MG Oral Tablet (Prinivil) TAKE 1 TABLET BY MOUTH EVERY DAY IN THE MORNING 90 Tablet 1 08/07/2022 Active Carvedilol 12.5 MG Oral Tablet (Coreg) TAKE 1 TABLET BY MOUTH TWICE A DAY WITH BREAKFAST AND DINNER 180 Tablet 1 08/12/2022 Active Vitamin B-12 1000 MCG Oral Tablet [...] TIMES DAILY 18 g 2 08/15/2022 Active Levothyroxine Sodium 175 MCG Oral Tablet (Levoxyl)Indications: Acquired hypothyroidism TAKE 1 TABLET BY MOUTH EVERY DAY AT LEAST 30 MIN BEFORE BREAKFAST OR OTHER MEDICATION - PLEASE DC 200mg dose 90 Tablet 0 08/16/2022 Active Levalbuterol HCl 1.25 MG/3ML Inhalation Nebulization Solution (Xopenex)Indications: COPD, group A, by GOLD 2017 classification ([facility]) Inhale 1 Ampule via nebulizer every 4 hours as needed for Wheezing. 810 mL 3 09/01/2022 Active Atorvastatin Calcium 40 MG Oral Tablet (Lipitor)Indications: Type 2 diabetes mellitus with hemoglobin A1c goal of less than 7.0% ([facility]) Take 1 Tablet by mouth in the morning. 90 Tablet 3 09/30/2022 Active metFORMIN HCl ER 500 MG Oral Tablet Extended Release 24 Hour (Glucophage XR)Indications:Type 2 diabetes mellitus with hemoglobin A1c goal of less than 7.0% ([facility]) TAKE 2 TABLETS BY MOUTH TWICE [...] ations:COPD, group B, by GOLD 2017 classification ([facility]) Inhale 1 Puff by mouth in the morning. 180 Each 3 01/07/2023 Active hydroCHLOROthiazide 12.5 MG Oral Tablet (Hydrodiuril)Indicati ons:HTN, goal below 130/80 Take 1 Tablet by mouth in the morning. 90 Tablet 3 01/07/2023 Active Dulaglutide 3 MG/0.5ML Subcutaneous Solution Pen-injector ([facility])Indication s:Type 2 diabetes mellitus with hemoglobin A1c goal of less than 7.0% ([facility]) Inject 3 mg under the skin once a week. 6 mL 3 01/11/2023 Active Omeprazole 20 MG Oral Capsule Delayed Release (PriLOSEC) TAKE 1 CAPSULE BY MOUTH EVERY DAY IN THE MORNING 90 Capsule 1 02/09/2023 Active Jardiance 25 MG Oral Tablet (Empagliflozin) TAKE 1 TABLET BY MOUTH EVERY DAY IN THE MORNING 90 Tablet 1 02/09/2023 Active Hospital, Clinic, or Other Facility Administered [...] as of this encounter (statuses as of 02/11/2023) Active Problems Problem Noted Date Diagnosed Date [...] as of this encounter (statuses as of 02/11/2023) Resolved Problems Problem Noted Date Diagnosed Date [...] as of this encounter (statuses as of 02/11/2023) Immunizations Name Administration Dates Next Due COVID-19 mRNA, LNP-s, No Pre serve, 2-Dose Series ([employer]) 07/11/2020,06/20/2020 Hepatitis B, 20+ yrs 10/11/2018,05/18/2018,04/09 Pneumococcal Conjugate Vacci ne, 20-valent ([id number]) 09/30/2022 Pneumococcal Polysaccharide PPV23 (Pneumovax) 01/23/2007 Seasonal [...] encounter Miscellaneous Notes * Telephone Encounter - Teresita Thornton RP - 02/11/2023 4:03 PM ESTRefused Prescriptions: Disp Refills Insulin Glargine Solostar 100 UNIT/ML Subc*15 mL 1 Sig: INJECT 13 UNITS UNDER THE SKIN EVERY NIGHT AT BEDTIME.Refused By: Jt THORNTONon for Refusal: Course oftreatment complete documented in this encounter Plan of Treatment Upcoming Encounters Date Type Department Care Team (Late st Contact Info) Description 02/19/2023 6:10 PM EST Pharmacy Pharmacy, [facility] [address] [facility] [place] [address] Pharmacist1, [facility] [address] [facility] [place] [address] 07/13/2023 4:40 PM EDT Office Visit [facility] [address] [place] [address] JuneJeb MD [address] [place] [address] Health Maintenance Due Date Last Done Comments DISCUSS TOBACCO CESSATION (REFER TO SMARTSET #2086) 1965 HIV Screening 1980 Alpha-1 Antitrypsin 1985 [...] 01/04/2020 LUNG CANCER SCREENING - USE SMARTSET [id number] Completed 08/01/2022, 10/31/2017 Pneumococcal Vaccine: Pediatrics (0 [...] A1c goal of less than 7.0% (HCC) documented in this encounter Care Teams Scrap Breaker Relationship Specialty Start Date End Date June, Jeb Barker MD [address] [place] [facility] [place] [address] PCP - General Family Medicine 08/05/22 documented as of this encounter
--- OUTSIDE RECORDS SUMMARY | 2023-05-08 20:35 | External Medical Summary | Summary of Care ---
Author Name Unknown Organization [facility] Address [address] [place] [facility] [place] [address] Phone [phone] Care Team Providers Care Grain Loader Name Role Phone Geremias Woody MD Primary Care Provider [phone] Reason for Visit * Reason Comments eRx-Medication Refill Encounter Details Date Type Department Care Team (Late st Contact Info) Description 02/12/2023 Refill [facility] [address] [place] [address] Bryanna Mayes PA-C [address] [place] [address] Encounter for long-term (current) use [...] as of this encounter (statuses as of 02/13/2023) Medications Medication Sig Dispensed Refills Start Date [...] hemoglobin A1c goal of less than 7.0% ([facility]) Use as directed. 100 Strip 11 3 Active Compressor NebulizerIndication s:COPD, group A, by GOLD 2017 classification ([facility]) Inhale via nebulizer. Use as [...] s:COPD, group A, by GOLD 2017 classification ([facility]) Inhale 1 Ampule via nebulizer every 4 hours as needed for Wheezing. 810 mL 3 3 Active Atorvastatin Calcium 40 MG Oral Tablet (Lipitor)Indication s:Type 2 diabetes mellitus with hemoglobin A1c goal of less than 7.0% ([facility]) Take 1 Tablet by mouth in the morning. 90 Tablet 3 3 Active metFORMIN HCl ER 500 MG Oral Tablet Extended Release 24 Hour (Glucophage XR)Indications:Type 2 diabetes mellitus with hemoglobin A1c goal of less than 7.0% ([facility]) TAKE 2 TABLETS BY MOUTH [...] ndications:COPD, group B, by GOLD 2017 classification ([facility]) Inhale 1 Puff by mouth in the morning. 180 Each 3 3 Active hydroCHLOROthiazide 12.5 MG Oral Tablet (Hydrodiuril)Indica tions:HTN, goal below 130/80 Take 1 Tablet by mouth in the morning. 90 Tablet 3 3 Active Dulaglutide 3 MG/0.5ML Subcutaneous Solution Pen-injector (Trulicity)Indicati ons:Type 2 diabetes mellitus with hemoglobin A1c goal of less than 7.0% ([facility]) Inject 3 mg under the [...] as of this encounter (statuses as of 02/13/2023) Active Problems Problem Noted Date Diagnosed Date [...] as of this encounter (statuses as of 02/13/2023) Resolved Problems Problem Noted Date Diagnosed Date [...] as of this encounter (statuses as of 02/13/2023) Immunizations Name Administration Dates Next Due COVID-19 mRNA, LNP-s, No Pre serve, 2-Dose Series ([employer]izer) 07/11/2020,06/20/2020 Hepatitis B, 20+ yrs 10/11/2018,05/18/2018,04/09 Pneumococcal Conjugate Vacci ne, 20-valent ([id number]) 09/30/2022 Pneumococcal Polysaccharide PPV23 (Pneumovax) 01/23/2007 Seasonal [...] encounter Miscellaneous Notes * Telephone Encounter - Geremias Woody MD [...] - [facility] 1.2 (L) 01/11/2022 10:43 AM ThanksKo Rph, Pharm D. Clinical Pharmacist Centralized Clinical Pharmacy Services (Formerly Tele[facility])/[facility] [phone] 02/13/2023,3:19 PM documented in this encounter Plan of Treatment Upcoming Encounters Date Type Department Care Team (Late st Contact Info) Description 02/19/2023 6:10 PM EST Pharmacy Pharmacy, [employer] [address] [place] [address] Pharmacist1, [facility] [address] [facility] [place] [address] 07/13/2023 4:40 PM EDT Office Visit [facility] [address] [address] May, Geremias Barker MD [address] [address] Scheduled Orders Name Type Priority Associated Diagnoses Orde r Schedule TSH WITH FREE T4 IF INDICATED Lab Routine Acquired hypothyroidism Encounter for long-term (current) use of other medications Expected: 02/20/2023 (Approximate), Expires: 02/14/2024 Health Maintenance Due Date Last Done Comments DISCUSS TOBACCO CESSATION (REFER TO SMARTSET #7606) 1965 HIV Screening 1980 Alpha-1 Antitrypsin 1985 [...] 01/04/2020 LUNG CANCER SCREENING - USE SMARTSET 37142 Completed 08/01/2022, 10/31/2017 Pneumococcal Vaccine: Pediatrics (0 [...] hypothyroidism documented in this encounter Care Teams Grain Loader Relationship Specialty Start Date End Date June, Geremias Barker MD [address] [place] [address] PCP - General Family Medicine 08/05/22 documented as of this encounter
--- OUTSIDE RECORDS SUMMARY | 2023-05-08 20:35 | External Medical Summary | Summary of Care ---
Author Name Unknown Organization [facility] Address [address] [facility] [place] [address] Phone [phone] Care Team Providers Care Roofing Layer Name Role Phone Jeb Queen MD Primary Care Provider [phone] Reason for Visit * Reason Onset Date Comments Follow Up Follow up Removi ng tag on pt' bottomLab work Medication Administration 01/07/2023 Flu an d/or Pneumo Inj Encounter Details Date Type Department Care Team (Latest Contact Info) Description 01/07/2023 3:20 PM EST Office Visit [facility] [address] [place] [address] Jeb Queen MD [address] [place] [address] DM type 2 nursing care encounter (HCC)*; Type 2 diabetes mellitus with hemoglobin A1c goal of less than 7.0% ([facility]); COPD, group B, by GOLD 2017 classification ([facility]); HTN, goal below 130/80; Skin tag; Need for prophylactic vaccination and inoculation against influenza Allergies Active Allergy Reactions Criticality Noted Date Comments Amoxicillin 07/11/2015 Rash per pt Sulfamethoxazole-Trimethopri m Hives 07/11/2015 Ciprofloxacin 01/04/2020 SOB Cephalexin 07/11/2015 Trouble breathing per pt Latex 07/11/2015 Pt reports allergy is the powder that is in latex gloves. Quinolones 01/30/1998 nausea,sweating and lightheaded Cipro - ? Trouble breathing documented as of this encounter (statuses as of 01/07/2023) Medications Medication Sig Dispensed Refills Start Date End Date Status Aspirin 81 MG Tablet Take 1 Tablet by mouth in the morning. 0 Active BD Pen Needle Delaney U/F 32G X 4 MM (Insulin Pen Needle)Indications: Type 2 diabetes mellitus with hemoglobin A1c goal of less than 7.0% ([facility]) Use up to 4 times daily with insulin 100 Each 5 12/06/2021 Active Glucose Blood In Vitro StripIndications:Ty pe 2 diabetes mellitus with hemoglobin A1c goal of less than 7.0% ([facility]) Use as directed. 100 Strip 11 07/15/2022 Active Compressor NebulizerIndication s:COPD, group A, by GOLD 2017 classification ([facility]) Inhale via nebulizer. Use as directed. 1 Each 1 07/22/2022 Active Jardiance 25 MG Oral Tablet (Empagliflozin) TAKE 1 TABLET BY MOUTH EVERY DAY IN THE MORNING 90 Tablet 1 08/07/2022 Active Lisinopril 20 MG Oral Tablet (Prinivil) TAKE 1 TABLET BY MOUTH EVERY DAY IN THE MORNING 90 Tablet 1 08/07/2022 Active Omeprazole 20 MG Oral Capsule Delayed Release (PriLOSEC) TAKE 1 CAPSULE BY MOUTH EVERY MORNING 90 Capsule 1 08/07/2022 Active Carvedilol 12.5 MG Oral [...] s:COPD, group A, by GOLD 2017 classification ([facility]) Inhale 1 Ampule via nebulizer every 4 hours as needed for Wheezing. 810 mL 3 09/01/2022 Active Insulin Glargine Solostar 100 UNIT/ML Subcutaneous Solution Pen-injectorIndicat ions:Type 2 diabetes mellitus with hemoglobin A1c goal of less than 7.0% ([facility]) INJECT 13 UNITS UNDER THE SKIN EVERY NIGHT AT BEDTIME. 15 mL 3 09/18/2022 Active Dulaglutide 1.5 MG/0.5ML Subcutaneous Solution Pen-injector (Trulicity)Indicati ons:Type 2 diabetes mellitus with hemoglobin A1c goal of less than 7.0% ([facility]) Inject 1.5 mg under the skin once a week. 6 mL 3 09/18/2022 Active Atorvastatin Calcium 40 MG Oral Tablet (Lipitor)Indication s:Type 2 diabetes mellitus with hemoglobin A1c goal of less than 7.0% ([facility]) Take 1 Tablet by mouth in the morning. 90 Tablet 3 09/30/2022 Active metFORMIN HCl ER 500 MG Oral Tablet Extended Release 24 Hour (Glucophage XR)Indications:Type 2 diabetes mellitus with hemoglobin A1c goal of less than 7.0% ([facility]) TAKE 2 TABLETS BY MOUTH TWICE A [...] ndications:COPD, group B, by GOLD 2017 classification ([facility]) Inhale 1 Puff by mouth in the morning. 180 Each 3 01/07/2023 Active hydroCHLOROthiazide 12.5 MG Oral Tablet (Hydrodiuril)Indica tions:HTN, goal below 130/80 Take 1 Tablet by mouth in the morning. 90 Tablet 3 01/07/2023 Active Trelegy Ellipta 100-62.5-25 MCG/ACT Aerosol Powder Breath Activated (Fluticasone-Umecli dinium-Vilanterol) Inhale 1 Puff by mouth in the morning. 180 Each 0 07/24/2022 3 Discontinue d(Refill) hydroCHLOROthiazide 25 MG Oral Tablet (Hydrodiuril)Indica tions:HTN, goal below 130/80 TAKE 1 TABLET BY MOUTH EVERY DAY IN THE MORNING 90 Tablet 2 11/27/2022 3 Discontinue d(Refill) Hospital, Clinic, or Other Facility Administered Medication [...] as of this encounter (statuses as of 01/07/2023) Active Problems Problem Noted Date Diagnosed Date [...] as of this encounter (statuses as of 01/07/2023) Resolved Problems Problem Noted Date Diagnosed Date [...] as of this encounter (statuses as of 01/07/2023) Immunizations Name Administration Dates Next Due COVID-19 mRNA, LNP-s, No Pre serve, 2-Dose Series (DNA Response) 07/11/2020,06/20/2020 Hepatitis B, 20+ yrs 10/11/2018,05/18/2018,04/09 Pneumococcal Conjugate Vacci ne, 20-valent (Mnxpnkn40) 09/30/2022 Pneumococcal Polysaccharide PPV23 (Pneumovax) 01/23/2007 SEASONAL INFLUENZA, PF, 6 M & Above, IM , (FLULAVAL or FLUZONE) 01/07/2023,11/24/2020,01/17/2020 TDAP (age 10 and older)(Boostrix) 01/17/2020 TDAP (age 11 and older)(Adacel) 12/20/2010 Zoster Vaccine Recombinant (Shingrix) 05/14/2021 ,01/04/2020 documented as of this encounter Social History Tobacco Use Types Packs/Day Years Used Date Smoking Tobacco: Every Day Cigarettes 1 30 Passive Smoke Exposure: Never Smokeless Tobacco: Never Tobacco Cessation:Ready to Q uit: Not Asked; Counseling Given: Not Answered Alcohol Use Standard Drinks/Week Comments No 0 [...] on file documented as of this encounter Last Filed Vital Signs Vital Sign Reading Time Taken Comments Blood Pressure 100/60 01/07/2023 2:37 PM EST Pulse 74 01/07/2023 2:37 PM EST Temperature - - Respiratory Rate 18 01/07/2023 2:37 PM EST Oxygen Saturation 92% 01/07/2023 2:37 PM EST Inhaled Oxygen Concentration - - Weight - - Height - - Body Mass Index - - documented in this encounter Patient Instructions * Patient Instructions* Thea Salter LPN - 01/07/2023 2:37 PM EST Images from the original note were not included. Dear Lisa Zambrano, The care of your Diabetes is very important to us. A yearly diabetic eye exam is important to protect your vision. If youre getting an eye exam done outside of [facility] please tell your Eye Doctor to fax or mail us the results of your Diabetic Eye Exam at your next visit. Our Address and Fax Number are listed below to help. Thank you for helping us to improve your Diabetes Care Our Office Address and Fax Number: Jeb Queen MD [address] [address] Diabetic Retinopathy: Evaluating Your Eyes Diabetic retinopathy is a condition that happens when diabetes damages blood vessels in the rear ofthe eye. It can lead to vision loss. To help catch it early, have a complete dilated eye exam at least once a year. During the exam, the eye healthcare provider will review your medical history, examine your eyes, and check your vision. Women who are and have pre-existing type 1 or type 2 diabetes have an increased risk of retinopathy. Women with diabetes should have an eye exam before or in the first trimester. They should continue to be monitored every trimester and for 1 year after delivery, depending on the severity of the retinopathy. The retina is the light-sensitive part of the eye that allows you to see. High blood sugar can damage blood vessels of the retina and cause them to leak or bleed. This damage can lead to abnormal blood vessel growth. This condition is called diabetic retinopathy. You may not have symptoms early in the disease. Later, there may be floaters, blurred vision, or poor night vision. There may also be partial or complete vision loss. Early cases of diabetic retinopathy can be treated by carefully controlling blood sugar, blood pressure, and cholesterol. Surgery or laser treatments may help restore lost vision. Laser surgery can shrink abnormal blood vessels or close ones that are leaking. Medicines injected in the eye can help decrease swelling of the retina. Home care Take all medicines, including insulin or oral diabetic medicine, exactly as prescribed. Follow the diet advised by your healthcare provider. If you have high cholesterol, follow a low-fat, low-cholesterol diet. Monitor blood sugars as advised. Try to achieve your ideal weight. If you smoke, quit smoking. Tobacco use worsens the effect of diabetes on your blood vessels. If you have high blood pressure, consider buying an automatic blood pressure machine. These are available at most pharmacies. Use this to monitor your blood pressure. Report your blood pressure readings to your healthcare provider. Exercise regularly. Follow-up care Follow up with your healthcare provider, or as advised. You must have a complete eye exam at least once a year, more often if needed. Untreated diabetic retinopathy can lead to complete loss of vision. Occupational therapists can help you adapt to any vision loss you have, including learning techniques to safely administer insulin. When to seek medical advice Call your healthcare provider right away if any of these occur. Increasing blurriness or any sudden changes in your vision Sudden flashes of light inside your eye New floaters (small dots or strings that seem to be moving across your field of vision) Eye pain, redness, or discharge from your eyelid New dark spots appearing in your field of vision Halos around lights Dimness of vision Partial or complete loss of vision Women with diabetes should have a complete eye exam before becoming , or as soon as possible when they find out they are . Retinopathy sometimes worsens during . Your eye exam Your eye healthcare provider uses an eye chart and other tools to check your vision. Then he or sheexamines your eyes for signs of disease. You are given eye drops to widen (dilate) your pupils. Youmay have one or more of the following tests: Tonometry to measure fluid pressure inside the eye. Slit lamp exam to allow the healthcare provider to view the structures of your eye. Ultrasound to create an image of the eye using sound waves. Ultrasound may be used if blood is found in the clear gel that fills the eye (vitreous). Ocular coherence tomography (OCT) to create an image of the retina using light waves. This shows ifthere is fluid leaking into certain parts of the eye. It can also measure the thickness of the retina. Fluorescein angiography This test may be done to check the health of the inside lining of the eye (retina). It also checks the tiny blood vessels (capillaries) that carry blood to the retina. During the test: Photographs are taken of the retina. A dye is then injected into the bloodstream through the arm or hand. The dye travels to the capillaries in the eye. More photographs are taken of the retina. The dye causes the capillaries to stand out on the photographs. You may feel brief nausea during the procedure. For a few hours after the test, your skin, eyes, and urine may appear yellow. Talk with your healthcare provider for more information about this test. Date Last Reviewed: 07/25/201519990879-7701 [employer]. [address] [place] [address], [place] [address]. All rights reserved. This information is not intended as a substitute for professional medical care. Always follow your healthcare professional's instructions. ~~PATIENT INSTRUCTIONS FOR FLU SHOT~~ Possible side effects of influenza vaccine, (flu shot), are usually mild and include: 1. Soreness or redness at injection site 2. Low grade fever 3. Body aches You may use Tylenol/Acetaminophen as needed for these symptoms. LET YOUR DOCTOR KNOW IMMEDIATELY IF YOU HAVE DIFFICULTY BREATHING OR SWALLOWING, EXPERIENCE ITCHINGOF FEET OR HANDS, HAVE SWELLING OF EYES, FACE OR INSIDE OF NOSE. documented in this encounter Progress Notes * Jeb Queen MD - 01/07/2023 7:27 PM EST Lisa Zambrano is a 57 year old female patient. Patient presents for skin tag removal. Single pedunculated grape-sized skin tag on the left buttocks. Verbal consent obtained after discussing risks/benefits including bleeding and infection. Area cleaned with alcohol prep pad and 1% lidocaine without epinephrine injected for anesthesia. Skin tag easily removed using scissors. Bleeding stopped with silver nitrate stick. Band-aid applied. Patient tolerated the procedure well. ICD-10-CM 1. DM type 2 nursing care encounter ([facility]) E11.9 2. Type 2 diabetes mellitus with hemoglobin A1c goal of less than 7.0% ([facility]) E11.9 3. COPD, group B, by GOLD 2017 classification ([facility]) J44.9 4. HTN, goal below 130/80 I10 5. Skin tag L91.8 6. Need for prophylactic vaccination and inoculation against influenza Z23 Past Medical History: Diagnosis Date Acquired hypothyroidism Anxiety Asthma, severity to be determined COPD, severity to be determined ([facility]) 02/22/2019 Depression Depression with anxiety 02/22/2019 Diabetes ([facility]) DM type 2, goal: symptom mgmt ([facility]) 10/12/2017 Dyslipidemia 02/22/2019 HTN (hypertension) HTN, goal below 130/80 02/22/2019 Blood pressure 100/60, pulse 74, resp. rate 18, last menstrual period 04/15/1999, SpO2 92%. Jeb Queen MD 01/07/2023 * Bernice, Jeb Barker MD - 01/07/2023 5:50 PM EST Images from the original note were not included. Assessment and Plan 1. Type 2 diabetes mellitus with hemoglobin A1c goal of less than 7.0% ([facility]) Suboptimally controlled with A1C 7.8. Plan to increase trulicity and decrease/stop insulin based onlab results. 2. COPD, group B, by GOLD 2017 classification ([facility]) Not currently taking trelegy. 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 Some cost concerns. - Trelegy Ellipta 100-62.5-25 MCG/ACT Aerosol Powder Breath Activated (Wkhbphogqpc-Iczpbscknuru-Trsgyelgcp); Inhale 1 Puff by mouth in the morning. Dispense: 180 Each; Refill: 3 3. HTN, goal below 130/80 Blood pressure low normal after weight loss. Decrease HCTZ to 12.5 mg daily. - hydroCHLOROthiazide 12.5 MG Oral Tablet (Hydrodiuril); Take 1 Tablet by mouth in the morning. Dispense: 90 Tablet; Refill: 3 4. Skin tag See separate procedure note. - REMOVAL OF SKIN TAGS, UP TO 15 5. Need for prophylactic vaccination and inoculation against influenza - INFLUENZA VACC, QUAD, PF, 6 MONTHS & UP, 0.5 ML, IM 6. DM type 2 nursing care encounter ([facility]) Wrap-Up Follow up in 6 months. History of Present Illness The patient is a 57-year-old female with past medical history of type 2 diabetes, acquired hypothyroidism, dyslipidemia, hypertension, COPD who presents for follow up and for removal of skin tag. Patient was seen by pulmonology for COPD. Recommendation was made to optimize treatment with Trelegy in addition to albuterol as needed. She states that she never was able to warehouse order picker the Trelegy. Shedoes note she continues to take the albuterol inhaler and has not had issues with her respiratory status over the last number of months. Patient also has type 2 diabetes. Last A1c was 7.8 in August 2022. Diabetes meds currently include Trulicity 1.5 mL, Jardiance 25 mg daily, metformin 2000 mg daily, glargine 13 units nightly. Does not check home blood sugars. Due for lab work that is ordered and ready to be collected. Blood pressure is 100/60 currently taking HCTZ 25 mg daily and lisinopril 20 mg daily. Has lost 15 pounds intentionally in the last year. Asking about decreasing medication dosing. Skin tag to be removed today. Physical Exam Vitals: 01/07/23 1437 Pulse: 74 Resp: 18 SpO2: 92% BP: 100/60 Physical Exam Physical Exam Vitals reviewed. Constitutional: General: She is not in acute distress. Cardiovascular: Rate and Rhythm: Normal rate and regular rhythm. Heart sounds: No murmur heard. Pulmonary: Effort: Pulmonary effort is normal. No respiratory distress. Breath sounds: Normal breath sounds. No wheezing. Skin: Comments: Pedunculated grape sized skin tag on the left buttocks. Neurological: General: No focal deficit present. Mental Status: She is alert. * Thea Salter LPN - 01/07/2023 2:37 PM EST The importance of having a yearly diabetic eye exam has been discussed with patient. Order and/or Referral placed along with patient instructions. Provider made aware. Thea Salter LPN PRE - ADMINISTRATION DOCUMENTATION Are you experiencing any cold symptoms or fever? No Have you had Guillain-[place] Syndrome (an illness that causes paralysis) within the last 6 weeks? No Have you had the flu shot in the past? YES Have you ever had a reaction to the flu shot? No Thea Salter LPN, 01/07/2023 3:53 PM Immunization Administration Documentation Time Out Procedure Performed: Yes Patient Identified (Ask Name/Date of ): Yes Does the patient have a fever greater than 101 degrees today? No Patient allergic to latex? No VFC Stock: No Immunization(s) verified: Yes, Immunization Name: Flu, VIS Sheet(s) given: Yes Verified Side and Site: Yes Verified Shot(s) with Parent(s)/Patient: Yes documented in this encounter Nursing Notes * Thea Salter LPN - 01/07/2023 2:34 PM EST Chief Complaint Patient presents with Follow Up Follow up Removing tag on pt' bottom Lab work documented in this encounter Plan of Treatment Upcoming Encounters Date Type Department Care Team (Late st Contact Info) Description 01/22/2023 1:00 PM EST Imaging Radiology [facility] [address] [facility] [address] [facility] [place] [id number] 01/22/2023 1:30 PM EST Imaging Radiology [facility] [address] [facility] [place] [id number] 07/13/2023 4:40 PM EDT Office Visit [facility] [address] [place] [id number] JuneJeb MD [address] [place] [address] Scheduled Orders Name Type Priority Associated Diagnoses Orde r Schedule REMOVAL OF SKIN TAGS, UP TO 15 Procedures Routine Skin tag Ordered: 01/07/2023 Health Maintenance Due Date Last Done Comments DISCUSS TOBACCO CESSATION (REFER TO SMARTSET #[id number]) 1967 HIV Screening 1982 Alpha-1 Antitrypsin 1985 Hepatitis C Screening 1985 HPV/Co-Test 1997 Colonoscopy 2012 Fecal Occult Blood Test 2012 Sigmoidoscopy 2012 Cervical Cancer Screening 07/18/2018 Pap Smear 07/18/2018 07/19/2015, 05/06/1999 Mammogram 10/23/2019 10/22/2018, 09/22/2017 Diabetic Eye Exam 09/28/2022 09/28/2021, , 10/27/2017 Albumin/Creatinine Ratio 10/14/2022 022, 01/04/2020, 09/17/2017 COVID-19 Vaccine ( season) 2022 07/11/2020, 06/20/2020, 05/31/2020 HbA1c 03/14/2023 09/11/2022, 04/23, 01/11/2022, Additional history exists TSH 04/17/2023 04/17/2022, 01/23, 01/11/2022, Additional history exists GFR 07/16/2023 07/15/2022, 04/23, 02/14/2021, Additional history exists B-12 09/12/2023 09/11/2022, 04/23, 02/14/2021, Additional history exists Depression Screening 10/01/2023 09/30/2022 Diabetic Foot Exam 10/01/2023 09/30/2022, 0 05/14/2021, 04/05/2020, Additional history exists O2 ASSESSMENT COMPLETED IN PAST YEAR FOR COPD 10/01/2023 01/07/2023 Cologuard 06/05/2024 06/05/2021, 04/0 06/2021, 05/28/2021 Colorectal Cancer Screening 06/05/2024 Lipid Panel 05/10/2027 05/09/2022, 01/24, 01/04/2020, Additional history exists DTaP,Tdap,and Td Vaccines (3 - Td or Tdap) 01/16/2030 01/17/2020, 12/20/2010 Hepatitis B Completed 10/11/2018, 04/24, 04/09/2018 Zoster Vaccines Completed 05/14/2021, 01/04/2020 LUNG CANCER SCREENING - USE SMARTSET [id number] Completed 08/01/2022, 10/31/2017 Pneumococcal Vaccine: Pediatrics (0 [...] as of this encounter Visit Diagnoses Diagnosis DM type 2 nursing care encounter (HCC)- Primary Type II or unspecified type diabetes mellitus without mention of complication, not stated as uncontrolled Type 2 diabetes mellitus with hemoglobin A1c goal of less than 7.0% (HCC) COPD, group B, by GOLD 2017 classification ([facility]) HTN, goal below 130/80 Unspecified essential hypertension Skin tag Unspecified hypertrophic and atrophic condition of skin Need for prophylactic vaccination and inoculation against influenza documented in this encounter Care Teams Roofing Layer Relationship Specialty Start Date End Date June, Jeb Barker MD [address] [place] [address] PCP - General Family Medicine 08/05/22 documented as of this encounter
--- OUTSIDE RECORDS SUMMARY | 2023-05-08 20:35 | External Medical Summary | Summary of Care ---
Author Name Unknown Organization [facility] Address [address] [place] [address] Phone [phone] Care Team Providers Care Knitter Helper Name Role Phone Geremias Woody MD Primary Care Provider [phone] Reason for Visit * Reason Comments eRx-Medication Refill Encounter Details Date Type Department Care Team (Late st Contact Info) Description 02/12/2023 Refill [facility] [address] [place] [address] Geremias Woody MD [address] [place] [address] Type 2 diabetes mellitus with hemoglobin A1c goal of less than 7.0% ([facility]) Allergies Active Allergy Reactions Criticality Noted [...] hemoglobin A1c goal of less than 7.0% ([facility]) Use as directed. 100 Strip 11 3 Active Compressor NebulizerIndication s:COPD, group A, by GOLD 2017 classification ([facility]) Inhale via nebulizer. Use as directed. [...] TIMES DAILY 18 g 2 3 Active Levothyroxine Sodium 175 MCG Oral Tablet (Levoxyl)Indication s:Acquired hypothyroidism TAKE 1 TABLET BY MOUTH EVERY DAY AT LEAST 30 MIN BEFORE BREAKFAST OR OTHER MEDICATION - PLEASE DC 200mg dose 90 Tablet 0 3 Active Levalbuterol HCl 1.25 MG/3ML Inhalation Nebulization Solution (Xopenex)Indication s:COPD, group A, by GOLD 2017 classification ([facility]) Inhale 1 Ampule via nebulizer every 4 hours as needed for Wheezing. 810 mL 3 3 Active Atorvastatin Calcium 40 MG Oral Tablet (Lipitor)Indication s:Type 2 diabetes mellitus with hemoglobin A1c goal of less than 7.0% ([facility]) Take 1 Tablet by mouth in the morning. 90 Tablet 3 3 Active metFORMIN HCl ER 500 MG Oral Tablet Extended Release 24 Hour (Glucophage XR)Indications:Type 2 diabetes mellitus with hemoglobin A1c goal of less than 7.0% ([facility]) TAKE 2 TABLETS BY MOUTH TWICE [...] ndications:COPD, group B, by GOLD 2017 classification ([facility]) Inhale 1 Puff by mouth in the morning. 180 Each 3 3 Active hydroCHLOROthiazide 12.5 MG Oral Tablet (Hydrodiuril)Indica tions:HTN, goal below 130/80 Take 1 Tablet by mouth in the morning. 90 Tablet 3 3 Active Dulaglutide 3 MG/0.5ML Subcutaneous Solution Pen-injector (TrLa Más Mona)Indicati ons:Type 2 diabetes mellitus with hemoglobin A1c goal of less than 7.0% ([facility]) Inject 3 mg under the skin [...] AND DINNER 180 Tablet 3 3 Active Lisinopril 20 MG Oral Tablet (Prinivil) TAKE 1 TABLET BY MOUTH EVERY DAY IN THE MORNING 90 Tablet 3 3 Active Lisinopril 20 MG Oral Tablet (Prinivil) TAKE 1 TABLET BY MOUTH EVERY DAY IN THE MORNING 90 Tablet 1 3 02/14/20 23 Discontinued Carvedilol 12.5 MG Oral Tablet (Coreg) TAKE 1 TABLET BY MOUTH TWICE A DAY WITH BREAKFAST AND DINNER 180 Tablet 1 3 02/14/20 23 Discontinued Hospital, Clinic, or [...] yrs 10/11/2018,05/18/2018,04/09 Pneumococcal Conjugate Vacci ne, 20-valent ([id number]) 09/30/2022 Pneumococcal Polysaccharide PPV23 (Pneumovax) 01/23/2007 Seasonal [...] encounter Miscellaneous Notes * Telephone Encounter - Micki Hayes RPh - 02/13/2023 11:44 AM EST Signed Prescriptions: Disp Refills Carvedilol 12.5 MG Oral Tablet (Coreg) 180 Ta*3 Sig: TAKE 1 TABLET BY MOUTH TWICE A DAY WITH BREAKFAST AND DINNERAuthorizing Provider: GEREMIAS WOODY User: MICKI HAYES Lisinopril 20 MG Oral Tablet (Prinivil) 90 Tab*3 Sig: TAKE 1 TABLET BY MOUTH EVERY DAY IN THE MORNINGAuthorizing Provider: GEREMIAS WOODY User: MICKI HAYESRefused Prescriptions: Disp Refills metFORMIN HCl ER 500 MG Oral Tablet Extend*360 Ta*1 Sig: TAKE 2 TABLETS BY MOUTH TWICE A DAY WITH MORNING AND EVENING MEALRefused By: MICKI HAYESReason for Refusal: Too soon documented in this encounter Plan of Treatment Upcoming Encounters Date Type Department Care Team (Late st Contact Info) Description 02/19/2023 6:10 PM EST Pharmacy Pharmacy, [facility] [place] [address] [place] [address] Pharmacist1, [facility] [address] [place] [address] 07/13/2023 4:40 PM EDT Office Visit [facility] [address] [place] [phone] eGremias Woody MD [address] [place] [address] Health Maintenance Due Date Last Done Comments DISCUSS TOBACCO CESSATION (REFER TO SMARTSET #8777) 1965 HIV Screening 1982 Alpha-1 Antitrypsin 1985 [...] 01/04/2020 LUNG CANCER SCREENING - USE SMARTSET [id number] Completed 08/01/2022, 10/31/2017 Pneumococcal Vaccine: Pediatrics (0 [...] (HCC) documented in this encounter Care Teams Knitter Helper Relationship Specialty Start Date End Date June, Geremias Barker MD [address] [place] [address] PCP - General Family Medicine 08/05/22 documented as of this encounter
--- OUTSIDE RECORDS SUMMARY | 2023-05-08 20:35 | External Medical Summary | Summary of Care ---
Author Name Unknown Organization [facility] Address [address] [place] [facility] [place] [address] Phone [phone] Care Team Providers Care Shear Operator Name Role Phone Geremias Woody MD Primary Care Provider [phone] Reason for Visit * Reason Comments Outpatient Testing Encounter Details Date Type Department Care Team (Late st Contact Info) Description 01/07/2023 2:00 PM EST Laboratory [facility], [place] [address] [place] [address] [place] [address] [place] [address] Type 2 diabetes mellitus with hemoglobin A1c goal of less than 7.0% ([facility]); Acquired hypothyroidism Allergies Active Allergy Reactions Criticality Noted Date Comments Amoxicillin 07/11/2015 Rash per pt Sulfamethoxazole-Trimethopri m Hives 07/11/2015 Ciprofloxacin 01/04/2020 SOB Cephalexin 07/11/2015 Trouble breathing per pt Latex 07/11/2015 Pt reports allergy is the powder that is in latex gloves. Quinolones 01/30/1998 nausea,sweating and lightheaded Cipro - ? Trouble breathing documented as of this encounter (statuses as of 01/11/2023) Medications Medication Sig Dispensed Refills Start Date End Date Status Aspirin 81 MG Tablet Take 1 Tablet by mouth in the morning. 0 Active BD Pen Needle Delaney U/F 32G X 4 MM (Insulin Pen Needle)Indications :Type 2 diabetes mellitus with hemoglobin A1c goal of less than 7.0% ([facility]) Use up to 4 times daily with insulin 100 Each 5 2 Active Glucose Blood In Vitro StripIndications:T ype 2 diabetes mellitus with hemoglobin A1c goal of less than 7.0% ([facility]) Use as directed. 100 Strip 11 3 Active Compressor NebulizerIndicatio ns:COPD, group A, by GOLD 2017 classification ([facility]) Inhale via nebulizer. Use as directed. 1 Each 1 3 Active Jardiance 25 MG Oral Tablet (Empagliflozin) TAKE 1 TABLET BY MOUTH EVERY DAY IN THE MORNING 90 Tablet 1 3 Active Lisinopril 20 MG Oral Tablet (Prinivil) TAKE 1 TABLET BY MOUTH EVERY DAY IN THE MORNING 90 Tablet 1 3 Active Omeprazole 20 MG Oral Capsule Delayed Release (PriLOSEC) TAKE 1 CAPSULE BY MOUTH EVERY MORNING 90 Capsule 1 3 Active Carvedilol 12.5 MG Oral Tablet (Coreg) TAKE 1 TABLET BY MOUTH TWICE A DAY WITH BREAKFAST AND DINNER 180 Tablet 1 3 Active Vitamin B-12 1000 MCG Oral Tablet (Cyanocobalamin) TAKE 1 TABLET BY MOUTH EVERY DAY IN THE MORNING 90 Tablet 1 3 Active Vitamin D3 125 MCG (5000 UT) Oral Capsule TAKE 1 CAPSULE BY MOUTH EVERY MORNING 90 Capsule 1 3 Active Albuterol Sulfate HFA 108 (90 Base) MCG/ACT Inhalation Aerosol SolutionIndication s:Cough INHALE 2 PUFFS BY MOUTH 4 TIMES DAILY 18 g 2 3 Active Levothyroxine Sodium 175 MCG Oral Tablet (Levoxyl)Indicatio ns:Acquired hypothyroidism TAKE 1 TABLET BY MOUTH EVERY DAY AT LEAST 30 MIN BEFORE BREAKFAST OR OTHER MEDICATION - PLEASE DC 200mg dose 90 Tablet 0 3 Active Levalbuterol HCl 1.25 MG/3ML Inhalation Nebulization Solution (Xopenex)Indicatio ns:COPD, group A, by GOLD 2017 classification ([facility]) Inhale 1 Ampule via nebulizer every 4 hours as needed for Wheezing. 810 mL 3 3 Active Atorvastatin Calcium 40 MG Oral Tablet (Lipitor)Indicatio ns:Type 2 diabetes mellitus with hemoglobin A1c goal of less than 7.0% ([facility]) Take 1 Tablet by mouth in the morning. 90 Tablet 3 08/08/202 3 Active metFORMIN HCl ER 500 MG Oral Tablet Extended Release 24 Hour (Glucophage XR)Indications:Typ e 2 diabetes mellitus with hemoglobin A1c goal of less than 7.0% (HCC) TAKE 2 TABLETS BY MOUTH TWICE A DAY WITH MORNING AND EVENING MEAL 360 Tablet 1 3 Active Venlafaxine HCl ER 75 MG Oral Capsule Extended Release 24 Hour (Effexor XR) TAKE 1 CAPSULE BY MOUTH IN THE MORNING. DO NOT CUT, CRUSH OR CHEW. 90 Capsule 2 3 Active traZODone HCl 150 MG Oral Tablet (Desyrel)Indicatio ns:Panic disorder,Persisten t insomnia TAKE 1 TABLET BY MOUTH DAILY AT BEDTIME BY MOUTH 90 Tablet 2 3 Active Trelegy Ellipta 100-62.5-25 MCG/ACT Aerosol Powder Breath Activated (Fluticasone-Umecl idinium-Vilanterol )Indications:COPD, group B, by GOLD 2017 classification ([facility]) Inhale 1 Puff by mouth in the morning. 180 Each 3 3 Active hydroCHLOROthiazid e 12.5 MG Oral Tablet (Hydrodiuril)Indic ations:HTN, goal below 130/80 Take 1 Tablet by mouth in the morning. 90 Tablet 3 3 Active Dulaglutide 3 MG/0.5ML Subcutaneous Solution Pen-injector (Trulicity)Indicat ions:Type 2 diabetes mellitus with hemoglobin A1c goal of less than 7.0% (HCC) Inject 3 mg under the skin once a week. 6 mL 3 3 Active Insulin Glargine Solostar 100 UNIT/ML Subcutaneous Solution Pen-injectorIndica tions:Type 2 diabetes mellitus with hemoglobin A1c goal of less than 7.0% (HCC) INJECT 13 UNITS UNDER THE SKIN EVERY NIGHT AT BEDTIME. 15 mL 3 3 01/12/20 23 Discontinued(Me dication/Dose Changed) Dulaglutide 1.5 MG/0.5ML Subcutaneous Solution Pen-injector (Trulicity)Indicat ions:Type 2 diabetes mellitus with hemoglobin A1c goal of less than 7.0% (HCC) Inject 1.5 mg under the skin once a week. 6 mL 3 3 01/12/20 23 Discontinued Hospital, Clinic, or Other Facility [...] as of this encounter (statuses as of 01/11/2023) Active Problems Problem Noted Date Diagnosed Date [...] as of this encounter (statuses as of 01/11/2023) Resolved Problems Problem Noted Date Diagnosed Date [...] as of this encounter (statuses as of 01/11/2023) Immunizations Name Administration Dates Next Due COVID-19 mRNA, LNP-s, No Pre serve, 2-Dose Series (Reble) 07/11/2020,06/20/2020 Hepatitis B, 20+ yrs 10/11/2018,05/18/2018,04/09 Pneumococcal Conjugate Vacci ne, 20-valent ([id number]) 09/30/2022 Pneumococcal Polysaccharide PPV23 (Pneumovax) 01/23/2007 SEASONAL [...] as of this encounter Miscellaneous Notes * Addendum Note - Geremias Woody MD - 01/11/2023 8:14 PM ESTAddended by: GEREMIAS WOODY on: 01/11/2023 08:14 PM Modules accepted: Orders documented in this encounter Plan of Treatment Upcoming Encounters Date Type Department Care Team (Late st Contact Info) Description 01/22/2023 1:00 PM EST Imaging Radiology [facility] [address] [place] [address] 01/22/2023 1:30 PM EST Imaging Radiology [address] [place] [address] 07/13/2023 4:40 PM EDT Office Visit [facility] [address] [place] [phone] Geremias Woody MD [address] [place] [address] Health Maintenance Due Date Last Done Comments DISCUSS TOBACCO CESSATION (REFER TO SMARTSET #0311) 1965 HIV Screening 1982 Alpha-1 Antitrypsin 1985 [...] 01/04/2020 LUNG CANCER SCREENING - USE SMARTSET [id number] Completed 08/01/2022, 10/31/2017 Pneumococcal Vaccine: Pediatrics (0 [...] Not on filedocumented as of this encounter Procedures Procedure Name Priority Date/Time Associated Diagnosis Comments ALBUMIN / CREATININE RATIO, URINE Routine 01/07/2023 4:30 PM EST Type 2 diabetes mellitus with hemoglobin A1c goal of less than 7.0% (HCC) LIPID PANEL WITH DIRECT LDL IF TG IS HIGH Routine 01/07/2023 4:14 PM EST Type 2 diabetes mellitus with hemoglobin A1c goal of less than 7.0% (HCC) HEMOGLOBIN A1C Routine 01/07/2023 4:14 PM EST Type 2 diabetes mellitus with hemoglobin A1c goal of less than 7.0% (HCC) COMPREHENSIVE METABOLIC PANEL Routine 01/07/2023 4:14 PM EST Type 2 diabetes mellitus with hemoglobin A1c goal of less than 7.0% (HCC) THYROID ANTIBODY AND TPO ANTIBODY Routine 01/07/2023 4:14 PM EST Acquired hypothyroidism T3, FREE Routine 01/07/2023 4:14 PM EST Acquired hypothyroidism TSH Routine 01/07/2023 4:14 PM EST Acquired hypothyroidism T4, FREE Routine 01/07/2023 4:14 PM EST Acquired hypothyroidism documented in this encounter Results * ALBUMIN / CREATININE RATIO, URINE (01/07/2023 4:30 PM EST) Albumin, Random Urine <1.20 mg/dL 01/08/2023 12:04 AM EST LABORATORY [facility] Creatinine, Random Urine 69 mg/dL 01/08/2023 12:04 AM EST LAB[facility]ATORY [facility] Albumin / Creatinine Ratio, Urine <17 <30 mg/g Creat 01/08/2023 12:04 AM EST LABORATORY [facility] Urine Urine specimen obtained by clean catch procedure / Unknown Non-blood Collection / Unknown 01/07/2023 4:30 PM EST 01/07/2023 4:30 PM EST Narrative LABORATORY [facility] - 01/08/2023 12:04 AM EST Normal: <30 mg/g creatinine High: 30-300 mg/g creatinine Very High: >300 mg/g creatinine Nephrotic: >2200 mg/g creatinine Geremias Woody MD LAB URINE ORDERABLES Performing Organization Address City/[facility]/ZIP Co de Phone Number LABORATORY [address] [address] * (ABNORMAL) THYROID ANTIBODY AND TPO ANTIBODY (01/07/2023 4:14 PM EST) Thyroid Peroxidase Antibody 390.3(H) <34.0 IU/mL 01/08/2023 3:08 AM EST LABORATORY [facility] Thyroglobulin Antibody 1,112.0(H ) <115.0 IU/mL 01/08/2023 3:08 AM EST LABORATORY [facility] Blood Venous blood specimen / Unknown Venipuncture / Unknown 01/07/2023 4:14 PM EST 01/07/2023 4:18 PM EST Bryanna Mayes PA-C LAB BLOOD ORDERAB LES Performing Organization Address City/[facility]/ZIP Co de Phone Number LABORATORY [place] [address] [place] [address] * (ABNORMAL) T4, FREE (01/07/2023 4:14 PM EST) T4, Free 2.5(H) 0.9 - 1.7 ng/dL 01/08/2023 3:08 AM EST LABORATORY [facility] Blood Venous blood specimen / Unknown Venipuncture / Unknown 01/07/2023 4:14 PM EST 01/07/2023 4:18 PM EST Bryanna A Mingear PA-C LAB BLOOD ORDERAB LES Performing Organization Address City/[facility]/ZIP Co de Phone Number LABORATORY [facility] [address] [place] [address] * T3, FREE (01/07/2023 4:14 PM EST) T3, Free 3.5 2.5 - 4.3 pg/mL 01/08/2023 3:08 AM EST [facility] Blood Venous blood specimen / Unknown Venipuncture / Unknown 01/07/2023 4:14 PM EST 01/07/2023 4:18 PM EST Bryanna A Mingear PA-C LAB BLOOD ORDERAB LES Performing Organization Address [facility] Co de Phone Number LABORATORY [facility] [address] [place] [address] * (ABNORMAL) TSH (01/07/2023 4:14 PM EST) TSH 0.11(L) 0.27 - 4.20 uIU/mL 01/08/2023 3:08 AM EST [facility] Blood Venous blood specimen / Unknown Venipuncture / Unknown 01/07/2023 4:14 PM EST 01/07/2023 4:18 PM EST Bryanna A Ivonear PA-C LAB BLOOD ORDERAB LES Performing Organization Address [facility]/ZIP Co de Phone Number LABORATORY [facility] [address] [place] [address] * (ABNORMAL) COMPREHENSIVE METABOLIC PANEL (01/07/2023 4:14 PM EST) BUN 10 6 - 20 mg/dL 01/08/2023 12:57 AM EST [facility] Creatinine 0.6 0.5 - 1.0 mg/dL 01/08/2023 12:57 AM EST [facility] Estimated Glomerular Filtration Rate >90 >=60 mL/min 01/08/2023 12:57 AM EST LAB[facility] Comment:eGFR is calculated b ased on the CKD-EPI 2020 equation Sodium 140 135 - 146 mmol/L 01/08/2023 12:57 AM EST LAB[facility] Potassium 3.6 3.5 - 5.1 mmol/L 01/08/2023 12:57 AM EST LABORATORY C Chloride 97(L) 98 - 107 mmol/L 01/08/2023 12:57 AM EST [facility] CO2 30 22 - 32 mmol/L 01/08/2023 12:57 AM EST LABORATORY C Anion Gap 13 7 - 15 mmol/L 01/08/2023 12:57 AM EST LABORATORY C Glucose 88 70 - 120 mg/dL 01/08/2023 12:57 AM EST [facility] Albumin 4.7 3.8 - 5.0 g/dL 01/08/2023 12:57 AM EST [facility] AST 29 10 - 35 U/L 01/08/2023 12:57 AM EST LABORATORY [facility] Alkaline Phosphatase 73 35 - 130 U/L 01/08/2023 12:57 AM EST LABORATORY [facility] Bilirubin, Total 0.7 <=1.2 mg/dL 01/08/2023 12:57 AM EST LABORATORY [facility] Calcium 10.1 8.4 - 10.2 mg/dL 01/08/2023 12:57 AM EST LABORATORY C Protein 6.9 6.0 - 8.3 g/dL 01/08/2023 12:57 AM EST LABORATORY [facility] ALT 23 10 - 35 U/L 01/08/2023 12:57 AM EST LABORATORY [facility] Blood Venous blood specimen / Unknown Venipuncture / Unknown 01/07/2023 4:14 PM EST 01/07/2023 4:18 PM EST Geremias Woody MD LAB BLOOD ORDERABLES LABORATORY [facility] [address] [place] [address] * (ABNORMAL) LIPID PANEL WITH DIRECT LDL IF TG IS HIGH (01/07/2023 4:14 PM EST) Triglycerides 145 <=174 mg/dL 01/08/2023 12:57 AM EST [facility] Comment: Triglyceride Reference Ranges (mg/dL): <150 Acceptable 150-174 Borderline high 175-499 High >=500 Very high Cholesterol 86 <200 mg/dL 01/08/2023 12:57 AM EST LABORATORY [facility] Comment: Total Cholesterol Reference Ranges (mg/dL): <200 Desirable 200-239 Borderline high >=240 High HDL Cholesterol 26(L) >49 mg/dL 12:57 AM EST LABORATORY [facility] Comment: HDL Cholesterol Reference Ranges (mg/dL): >=60 High (Desirable) <50 Low (Undesirable) For Females <40 Low (Undesirable) For Males Non-HDL Cholesterol 60 <=159 mg/dL 01/08/2023 12:57 AM EST LABORATORY [facility] Comment: Non-HDL Cholesterol Reference Range (mg/dL): <100 Target level for high risk ASCVD patient <130 Optimal for general population 130-159 Near optimal for general population 160-189 Borderline High 190-219 High >=220 Very High LDL Cholesterol 31 <=129 mg/dL 01/08/2023 12:57 AM EST LABORATORY [facility] Comment: LDL Cholesterol Reference Ranges (mg/dL): <70 Target level for high risk ASCVD patient <100 Optimal for general population 100-129 Near optimal for general population 130-159 Borderline high 160-189 High >=190 Very high Blood Venous blood specimen / Unknown Venipuncture / Unknown 01/07/2023 4:14 PM EST 01/07/2023 4:18 PM EST Geremias Woody MD LAB BLOOD ORDERABLES LABORATORY [facility] [address] [place] [address] * (ABNORMAL) HEMOGLOBIN A1C (01/07/2023 4:14 PM EST) Pathologist [facility] Hemoglobin A1C 6.2(H) 4.0 - 5.6 % 01/08/2023 1:00 AM EST LABORATORY [facility] Comment:The use of HbA1c to monitor glycemic status is based on normal hemoglobin and HbA composition. This test should not be used in patients with abnormal hemoglobin that affects the half life of the red blood cell or the in vivo glycation rates. Estimated Average Glucose 131(H) <126 mg/dL 01/08/2023 1:00 AM EST LABORATORY [facility] Blood Venous blood specimen / Unknown Venipuncture / Unknown 01/07/2023 4:14 PM EST 01/07/2023 4:18 PM EST Geremias Woody MD LAB BLOOD ORDERABLES LABORATORY [facility] [address] [place] [address] documented in this encounter Visit Diagnoses Diagnosis Type 2 diabetes mellitus with hemoglobin A1c goal of less than 7.0% (HCC) Acquired hypothyroidism Unspecified hypothyroidism documented in this encounter Care Teams Shear Operator Relationship Specialty Start Date End Date June, Geremias Barker MD [address] [place] [address] PCP - General Family Medicine 08/05/22 documented as of this encounter
--- OUTSIDE RECORDS SUMMARY | 2023-05-08 20:35 | External Medical Summary | Summary of Care ---
Author Name Unknown Organization [facility] Address [address] [place] [address] Phone [phone] Care Team Providers Care Senior Telecommunications Specialist Name Role Phone Jeb Queen MD Primary Care Provider [phone] Encounter Details Date Type Department Care Team (Late st Contact Info) Description 02/09/2023 Orders Only Outcomes Research Department [address] [place] [address] Pepper Meyer CHRA MyCode Research Other*[id number] Allergies Active Allergy Reactions Criticality Noted Date Comments Amoxicillin 07/11/2015 Rash per pt Sulfamethoxazole-Trimethopri m Hives 07/11/2015 Ciprofloxacin 01/04/2020 SOB Cephalexin 07/11/2015 Trouble breathing per pt Latex 07/11/2015 Pt reports allergy is the powder that is in latex gloves. Quinolones 01/30/1998 nausea,sweating and lightheaded Cipro - ? Trouble breathing documented as of this encounter (statuses as of 02/09/2023) Medications Medication Sig Dispensed Refills Start Date End Date Status Aspirin 81 MG Tablet Take 1 Tablet by mouth in the morning. 0 Active BD Pen Needle Delaney U/F 32G X 4 MM (Insulin Pen Needle)Indications:Ty pe 2 diabetes mellitus with hemoglobin A1c goal of less than 7.0% ([facility]) Use up to 4 times daily with insulin 100 Each 5 12/06/2021 Active Glucose Blood In Vitro StripIndications:Type 2 diabetes mellitus with hemoglobin A1c goal of less than 7.0% ([facility]) Use as directed. 100 Strip 11 07/15/2022 Active Compressor NebulizerIndications: COPD, group A, by GOLD 2017 classification ([facility]) Inhale via nebulizer. Use as [...] COPD, group A, by GOLD 2017 classification ([facility]) Inhale 1 Ampule via nebulizer every 4 hours as needed for Wheezing. 810 mL 3 09/01/2022 Active Atorvastatin Calcium 40 MG Oral Tablet (Lipitor)Indications: Type 2 diabetes mellitus with hemoglobin A1c goal of less than 7.0% ([facility]) Take 1 Tablet by mouth in the morning. 90 Tablet 3 09/30/2022 Active metFORMIN HCl ER 500 MG Oral Tablet Extended Release 24 Hour (Glucophage XR)Indications:Type 2 diabetes mellitus with hemoglobin A1c goal of less than 7.0% ([facility]) TAKE 2 TABLETS BY MOUTH [...] ations:COPD, group B, by GOLD 2017 classification ([facility]) Inhale 1 Puff by mouth in the morning. 180 Each 3 01/07/2023 Active hydroCHLOROthiazide 12.5 MG Oral Tablet (Hydrodiuril)Indicati ons:HTN, goal below 130/80 Take 1 Tablet by mouth in the morning. 90 Tablet 3 01/07/2023 Active Dulaglutide 3 MG/0.5ML Subcutaneous Solution Pen-injector ([facility])Indication s:Type 2 diabetes mellitus with hemoglobin A1c goal of less than 7.0% ([facility]) Inject 3 mg under the [...] as of this encounter (statuses as of 02/09/2023) Active Problems Problem Noted Date Diagnosed Date [...] as of this encounter (statuses as of 02/09/2023) Resolved Problems Problem Noted Date Diagnosed Date [...] as of this encounter (statuses as of 02/09/2023) Immunizations Name Administration Dates Next Due COVID-19 mRNA, LNP-s, No Pre serve, 2-Dose Series ([employer]) 07/11/2020,06/20/2020 Hepatitis B, 20+ yrs 10/11/2018,05/18/2018,04/09 Pneumococcal Conjugate Vacci ne, 20-valent ([id number]) 09/30/2022 Pneumococcal Polysaccharide PPV23 (Pneumovax) 01/23/2007 Seasonal [...] on file documented as of this encounter Plan of Treatment Upcoming Encounters Date Type Department Care Team (Late st Contact Info) Description 02/19/2023 6:10 PM EST Pharmacy Pharmacy, [facility] [address] [place] [address] Pharmacist1, [facility] [address] [place] [address] 07/13/2023 4:40 PM EDT [address] [place] [address] Jeb Queen MD [address], [place] [id number] Scheduled Orders Name Type Priority Associated Diagnoses Orde r Schedule MYCODE SUBSEQUENT ADULT Lab Routine MyCode Research Other*[id number] Every 6 Months for 2 Occurrences starting 02/09/2023 until 02/29/2024 Health Maintenance Due Date Last Done Comments DISCUSS TOBACCO CESSATION (REFER TO SMARTSET #1091) 1965 HIV Screening 1982 Alpha-1 Antitrypsin 1985 [...] 01/04/2020 LUNG CANCER SCREENING - USE SMARTSET 51381 Completed 08/01/2022, 10/31/2017 Pneumococcal Vaccine: Pediatrics (0 [...] as of this encounter Visit Diagnoses Diagnosis MyCode Research Other*[id number] documented in this encounter Care Teams Senior Telecommunications Specialist Relationship Specialty Start Date End Date June, Jeb Barker MD [address] [place] [address] PCP - General Family Medicine 08/05/22 documented as of this encounter
--- OUTSIDE RECORDS SUMMARY | 2023-05-08 20:35 | External Medical Summary | Summary of Care ---
Author Name Unknown Organization [facility] Address [address] [facility] [place] [address] Phone [phone] Care Team Providers Care Medical And Health Services Manager Name Role Phone Geremias Woody MD Primary Care Provider [phone] Reason for Visit * Reason Comments eRx-Medication Refill Encounter Details Date Type Department Care Team (Late st Contact Info) Description 02/12/2023 Refill [facility] [address] [place] [address] Bryanna Mayes PA-C [address] [place] [address] Encounter for long-term (current) use [...] as of this encounter (statuses as of 02/17/2023) Medications Medication Sig Dispensed Refills Start Date [...] hemoglobin A1c goal of less than 7.0% ([facility]) Use as directed. 100 Strip 11 3 Active Compressor NebulizerIndication s:COPD, group A, by GOLD 2017 classification ([facility]) Inhale via nebulizer. Use as directed. 1 [...] s:COPD, group A, by GOLD 2017 classification ([facility]) Inhale 1 Ampule via nebulizer every 4 hours as needed for Wheezing. 810 mL 3 3 Active Atorvastatin Calcium 40 MG Oral Tablet (Lipitor)Indication s:Type 2 diabetes mellitus with hemoglobin A1c goal of less than 7.0% ([facility]) Take 1 Tablet by mouth in the morning. 90 Tablet 3 3 Active metFORMIN HCl ER 500 MG Oral Tablet Extended Release 24 Hour (Glucophage XR)Indications:Type 2 diabetes mellitus with hemoglobin A1c goal of less than 7.0% ([facility]) TAKE 2 TABLETS BY MOUTH TWICE A [...] ndications:COPD, group B, by GOLD 2017 classification ([facility]) Inhale 1 Puff by mouth in the morning. 180 Each 3 3 Active hydroCHLOROthiazide 12.5 MG Oral Tablet (Hydrodiuril)Indica tions:HTN, goal below 130/80 Take 1 Tablet by mouth in the morning. 90 Tablet 3 3 Active Dulaglutide 3 MG/0.5ML Subcutaneous Solution Pen-injector (Trulicity)Indicati ons:Type 2 diabetes mellitus with hemoglobin A1c goal of less than 7.0% ([facility]) Inject 3 mg under the skin once [...] as of this encounter (statuses as of 02/17/2023) Active Problems Problem Noted Date Diagnosed Date [...] as of this encounter (statuses as of 02/17/2023) Resolved Problems Problem Noted Date Diagnosed Date [...] as of this encounter (statuses as of 02/17/2023) Immunizations Name Administration Dates Next Due COVID-19 mRNA, LNP-s, No Pre serve, 2-Dose Series ([employer]) 07/11/2020,06/20/2020 Hepatitis B, 20+ yrs 10/11/2018,05/18/2018,04/09 Pneumococcal Conjugate Vacci ne, 20-valent ([id number]) 09/30/2022 Pneumococcal Polysaccharide PPV23 (Pneumovax) 01/23/2007 Seasonal [...] Clinical Pharmacist Centralized Clinical Pharmacy Services (Formerly Telepharmacy)/[facility] [phone] 02/13/2023,3:19 PM documented in this encounter Plan of Treatment Upcoming Encounters Date Type Department Care Team (Late st Contact Info) Description 02/19/2023 6:10 PM EST Pharmacy Pharmacy, [place] [employer] [address] [place] [address] Pharmacist1, [facility] [address] [facility] [place] [address] 07/13/2023 4:40 PM EDT Office Visit [facility] [address] [facility] [address] May, Geremias Barker MD [address] [address] Scheduled Orders Name Type Priority Associated Diagnoses Orde r Schedule TSH WITH FREE T4 IF INDICATED Lab Routine Acquired hypothyroidism Encounter for long-term (current) use of other medications Expected: 02/20/2023 (Approximate), Expires: 02/14/2024 Health Maintenance Due Date Last Done Comments DISCUSS TOBACCO CESSATION (REFER TO SMARTSET #4596) 1965 HIV Screening 1982 Alpha-1 Antitrypsin 1985 [...] 01/04/2020 LUNG CANCER SCREENING - USE SMARTSET 83101 Completed 08/01/2022, 10/31/2017 Pneumococcal Vaccine: Pediatrics (0 [...] hypothyroidism documented in this encounter Care Teams Medical And Health Services Manager Relationship Specialty Start Date End Date June, Geremias Barker MD [address] [place] [address] PCP - General Family Medicine 08/05/22 documented as of this encounter
--- OUTSIDE RECORDS SUMMARY | 2023-05-08 20:35 | External Medical Summary | Summary of Care ---
Author Name Unknown Organization [facility] Address [address] [facility] [place] [address] Phone [phone] Care Team Providers Care Switchboard Operator Name Role Phone Jeb Queen MD Primary Care Provider [phone] Reason for Visit * Reason Comments Appointment Encounter Details Date Type Department Care Team (Late st Contact Info) Description 02/19/2023 6:10 PM [facility] Pharmacy Pharmacy, [facility] [address] [facility] [place] [address] Pharmacist1, [facility] [address] [facility] [place] [address] Type 2 diabetes mellitus with hemoglobin A1c goal of less than 7.0% ([facility])* Allergies Active Allergy Reactions Criticality Noted Date Comments Amoxicillin 07/11/2015 Rash per pt Sulfamethoxazole-Trimethopri m Hives 07/11/2015 Ciprofloxacin 01/04/2020 SOB Cephalexin 07/11/2015 Trouble breathing per pt Latex 07/11/2015 Pt reports allergy is the powder that is in latex gloves. Quinolones 01/30/1998 nausea,sweating and lightheaded Cipro - ? Trouble breathing documented as of this encounter (statuses as of 02/18/2023) Medications Medication Sig Dispensed Refills Start Date [...] goal of less than 7.0% ([facility]) Use as directed. 100 Strip 11 07/15/2022 Active Compressor NebulizerIndications: COPD, group A, by GOLD 2017 classification ([facility]) Inhale via nebulizer. Use as directed. 1 [...] COPD, group A, by GOLD 2017 classification ([facility]) Inhale 1 Ampule via nebulizer every 4 hours as needed for Wheezing. 810 mL 3 09/01/2022 Active Atorvastatin Calcium 40 MG Oral Tablet (Lipitor)Indications: Type 2 diabetes mellitus with hemoglobin A1c goal of less than 7.0% ([facility]) Take 1 Tablet by mouth in the morning. 90 Tablet 3 09/30/2022 Active metFORMIN HCl ER 500 MG Oral Tablet Extended Release 24 Hour (Glucophage XR)Indications:Type 2 diabetes mellitus with hemoglobin A1c goal of less than 7.0% ([facility]) TAKE 2 TABLETS BY MOUTH TWICE A [...] ations:COPD, group B, by GOLD 2017 classification ([facility]) Inhale 1 Puff by mouth in the morning. 180 Each 3 01/07/2023 Active hydroCHLOROthiazide 12.5 MG Oral Tablet (Hydrodiuril)Indicati ons:HTN, goal below 130/80 Take 1 Tablet by mouth in the morning. 90 Tablet 3 01/07/2023 Active Dulaglutide 3 MG/0.5ML Subcutaneous Solution Pen-injector (Trulicity)Indication s:Type 2 diabetes mellitus with hemoglobin A1c goal of less than 7.0% ([facility]) Inject 3 mg under the skin once [...] as of this encounter (statuses as of 02/18/2023) Active Problems Problem Noted Date Diagnosed Date [...] as of this encounter (statuses as of 02/18/2023) Resolved Problems Problem Noted Date Diagnosed Date [...] as of this encounter (statuses as of 02/18/2023) Immunizations Name Administration Dates Next Due COVID-19 mRNA, LNP-s, No Pre serve, 2-Dose Series ([employer]) 07/11/2020,06/20/2020 Hepatitis B, 20+ yrs 10/11/2018,05/18/2018,04/09 Pneumococcal Conjugate Vacci ne, 20-valent ([id number]) 09/30/2022 Pneumococcal Polysaccharide PPV23 (Pneumovax) 01/23/2007 Seasonal [...] as of this encounter Progress Notes * Taina Hwang, field service technician - 02/18/2023 3:44 PM EST Patient Phone Numbers Attempted to reach pt, no answer / no VM, to schedule MTDM appointment for DM management. [facility] message sent --no Clinic will follow up again in 4 week(s). [Attempt # 2] Thank you, Taina Hwang Trials Manager Centralized Clinical Pharmacy Services ([facility]) (Formerly Telepharmacy) 02/18/2023, 3:45 PM documented in this encounter Plan of Treatment Upcoming Encounters Date Type Department Care Team (Late st Contact Info) Description 03/18/2023 6:10 PM EST Pharmacy Pharmacy, [facility] [address] [facility] [place] [address] Pharmacist1, [facility] [address] [facility] [place] [address] 07/13/2023 4:40 PM EDT Office Visit [facility] [address] [place] [address] June, Jeb Barker MD [address] [place] [address] Health Maintenance Due Date Last Done Comments DISCUSS TOBACCO CESSATION (REFER TO SMARTSET #6231) 1965 HIV Screening 1982 Alpha-1 Antitrypsin 1985 [...] 01/04/2020 LUNG CANCER SCREENING - USE SMARTSET 43079 Completed 08/01/2022, 10/31/2017 Pneumococcal Vaccine: Pediatrics (0 [...] Primary documented in this encounter Care Teams Switchboard Operator Relationship Specialty Start Date End Date June, Jeb Barker MD [address] [address] PCP - General Family Medicine 08/05/22 documented as of this encounter
--- OUTSIDE RECORDS SUMMARY | 2023-05-08 20:35 | External Medical Summary | Summary of Care ---
Author Name Unknown Organization [facility] Address [address] [place] [place] [address] Phone [phone] Care Team Providers Care Commercial Loan Manager Name Role Phone Geremias Woody MD Primary Care Provider [phone] Reason for Visit * Reason Comments eRx-Medication Refill Encounter Details Date Type Department Care Team (Late st Contact Info) Description 02/08/2023 Refill [facility] [address] [place] [address] Geremias Woody MD [address] [place] [address] Allergies Active Allergy Reactions Criticality Noted Date [...] A1c goal of less than 7.0% ([facility]) Use up to 4 times daily with insulin 100 Each 5 2 Active Glucose Blood In Vitro StripIndications:Ty pe 2 diabetes mellitus with hemoglobin A1c goal of less than 7.0% ([facility]) Use as directed. 100 Strip 11 3 Active Compressor NebulizerIndication s:COPD, group A, by GOLD 2017 classification ([facility]) Inhale via nebulizer. Use as directed. 1 Each 1 3 Active Lisinopril 20 MG Oral [...] group A, by GOLD 2017 classification ([facility]) Inhale 1 Ampule via nebulizer every 4 hours as needed for Wheezing. 810 mL 3 3 Active Atorvastatin Calcium 40 MG Oral Tablet (Lipitor)Indication s:Type 2 diabetes mellitus with hemoglobin A1c goal of less than 7.0% ([facility]) Take 1 Tablet by mouth in the morning. 90 Tablet 3 3 Active metFORMIN HCl ER 500 MG Oral Tablet Extended Release 24 Hour (Glucophage XR)Indications:Type 2 diabetes mellitus with hemoglobin A1c goal of less than 7.0% ([facility]) TAKE 2 TABLETS BY MOUTH TWICE [...] group B, by GOLD 2017 classification ([facility]) Inhale 1 Puff by mouth in the morning. 180 Each 3 3 Active hydroCHLOROthiazide 12.5 MG Oral Tablet (Hydrodiuril)Indica tions:HTN, goal below 130/80 Take 1 Tablet by mouth in the morning. 90 Tablet 3 3 Active Dulaglutide 3 MG/0.5ML Subcutaneous Solution Pen-injector (Trulicity)Indicati ons:Type 2 diabetes mellitus with hemoglobin A1c goal of less than 7.0% ([facility]) Inject 3 mg under the skin once a week. 6 mL 3 3 Active Omeprazole 20 MG Oral Capsule Delayed Release (PriLOSEC) TAKE 1 CAPSULE BY MOUTH EVERY DAY IN THE MORNING 90 Capsule 1 3 Active Jardiance 25 MG Oral Tablet (Empagliflozin) TAKE 1 TABLET BY MOUTH EVERY DAY IN THE MORNING 90 Tablet 1 3 Active Jardiance 25 MG Oral Tablet (Empagliflozin) TAKE 1 TABLET BY MOUTH EVERY DAY IN THE MORNING 90 Tablet 1 3 02/10/20 23 Discontinued Omeprazole 20 MG Oral Capsule Delayed Release (PriLOSEC) TAKE 1 CAPSULE BY MOUTH EVERY MORNING 90 Capsule 1 3 02/10/20 23 Discontinued Hospital, Clinic, or Other Facility [...] yrs 10/11/2018,05/18/2018,04/09 Pneumococcal Conjugate Vacci ne, 20-valent ([id number]) 09/30/2022 Pneumococcal Polysaccharide PPV23 (Pneumovax) 01/23/2007 Seasonal [...] encounter Miscellaneous Notes * Telephone Encounter - Torsten Dahl RPh - 02/09/2023 12:26 PM ESTSigned Prescriptions: Disp Refills Omeprazole 20 MG Oral Capsule Delayed Rele*90 Cap*1 Sig: TAKE 1 CAPSULE BY MOUTH EVERY DAY IN THE MORNINGAuthorizing Provider: GEREMIAS WOODY User: TORSTEN DAHL Jardiance 25 MG Oral Tablet (Empagliflozin)90 Tab*1 Sig: TAKE 1 TABLET BY MOUTH EVERY DAY IN THE MORNINGAuthorizing Provider: GEREMIAS WOODY User: TORSTEN DAHL documented in this encounter Plan of Treatment Upcoming Encounters Date Type Department Care Team (Late st Contact Info) Description 02/19/2023 6:10 PM EST Pharmacy Pharmacy, [facility] [address] [facility] [place] [address] Pharmacist1, [facility] [address] [facility] [place] [address] 07/13/2023 4:40 PM EDT Office Visit [place] [address] [place] [phone] JuneGeremias MD [address] [place] [address] Health Maintenance Due Date Last Done Comments DISCUSS TOBACCO CESSATION (REFER TO SMARTSET #5732) 1965 HIV Screening 1982 Alpha-1 Antitrypsin 1985 [...] 01/04/2020 LUNG CANCER SCREENING - USE SMARTSET 52813 Completed 08/01/2022, 10/31/2017 Pneumococcal Vaccine: Pediatrics (0 [...] filedocumented as of this encounter Care Teams Commercial Loan Manager Relationship Specialty Start Date End Date June, Geremias Barker MD [address] [place] [address] PCP - General Family Medicine 08/05/22 documented as of this encounter
--- OUTSIDE RECORDS SUMMARY | 2023-05-08 20:36 | External Medical Summary ---
Author Name Unknown Address Unknown Organization K01:[facility] [address] [place] [address] Laboratory Report Ordering Provider Test Date Status TOM ROBERTS 01/07/2023 16:14:39 Final Observation Date Value Abnormality Reference (Units ) Status Thyroperoxidase Ab [Units/volume] in Serum or Plasma by Immunoassay 01/07/2023 16:14:39 390.3 Above high normal <34.0 (IU/mL) Final Thyroglobulin Ab 01/07/2023 16:14:39 1112.0 Above high normal <115.0 (IU/mL) Final Performing Location [facility] - [facility] [place] [address]
--- OUTSIDE RECORDS SUMMARY | 2023-05-08 20:36 | External Medical Summary | Summary of Care ---
Author Name Unknown Organization [facility] Address [address] [facility] [address] Phone [phone] Care Team Providers Care Medical Coder Name Role Phone Jeb Queen MD Primary Care Provider [phone] Reason for Visit * Reason Onset Date Comments Administrative Follow-Up 11/28/2022 DME ord er-CPAP Encounter Details Date Type Department Care Team Description 11/28/2022 Telephone Sleep Disorders Ctr [facility] [address] [place] [address] Dori Francis DO [address] [place] [address] Administrative Follow-Up (DME order-CPAP) Allergies Active Allergy Reactions Severity Noted Date Comments Amoxicillin 07/11/2015 Rash per pt Sulfamethoxazole-Trimethoprim Hives 2015 Ciprofloxacin 01/04/2020 SOB Cephalexin 07/11/2015 Trouble breathing per pt Latex 07/11/2015 Pt reports allergy is the powder that is in latex gloves. Quinolones 01/30/1998 nausea,sweating and lightheaded Cipro - ? Trouble breathing documented as of this encounter (statuses as of 11/28/2022) Medications Medication Sig Dispensed Refills Start Date End Date Status Aspirin 81 MG Tablet Take 1 Tablet by mouth in the morning. 0 Active BD Pen Needle Delaney U/F 32G X 4 MM (Insulin Pen Needle)Indications:Ty pe 2 diabetes mellitus with hemoglobin A1c goal of less than 7.0% ([facility]) Use up to 4 times daily with insulin 100 Each 5 12/06/2021 Active Glucose Blood In Vitro StripIndications:Type 2 diabetes mellitus with hemoglobin A1c goal of less than 7.0% ([facility]) Use as directed. 100 Strip 11 07/15/2022 Active Compressor NebulizerIndications: COPD, group A, by GOLD 2017 classification ([facility]) Inhale via nebulizer. Use as directed. 1 Each 1 07/22/2022 Active Trelegy Ellipta 100-62.5-25 MCG/ACT Aerosol Powder Breath Activated (Fluticasone-Umeclidi nium-Vilanterol) Inhale 1 Puff by mouth in the morning. 180 Each 0 07/24/2022 Active Jardiance 25 MG Oral Tablet (Empagliflozin) [...] A, by GOLD 2017 classification ([facility]) Inhale 1 Ampule via nebulizer every 4 hours as needed for Wheezing. 810 mL 3 09/01/2022 Active Insulin Glargine Solostar 100 UNIT/ML Subcutaneous Solution Pen-injectorIndicatio ns:Type 2 diabetes mellitus with hemoglobin A1c goal of less than 7.0% (HCC) INJECT 13 UNITS UNDER THE SKIN EVERY NIGHT AT BEDTIME. 15 mL 3 09/18/2022 Active Dulaglutide 1.5 MG/0.5ML Subcutaneous Solution Pen-injector (Trulicity)Indication s:Type 2 diabetes mellitus with hemoglobin A1c goal of less than 7.0% (HCC) Inject 1.5 mg under the skin once a week. 6 mL 3 09/18/2022 Active Atorvastatin Calcium 40 MG Oral Tablet (Lipitor)Indications: Type 2 diabetes mellitus with hemoglobin A1c goal of less than 7.0% (HCC) Take 1 Tablet by mouth in the [...] OR CHEW. 90 Capsule 2 11/27/2022 Active hydroCHLOROthiazide 25 MG Oral Tablet (Hydrodiuril)Indicati ons:HTN, goal below 130/80 TAKE 1 TABLET BY MOUTH EVERY DAY IN THE MORNING 90 Tablet 2 11/27/2022 Active traZODone HCl 150 MG Oral Tablet (Desyrel)Indications: Panic disorder,Persistent insomnia TAKE 1 TABLET BY MOUTH DAILY AT BEDTIME BY MOUTH 90 Tablet 2 11/27/2022 Active Hospital, Clinic, or Other Facility Administered [...] as of this encounter (statuses as of 11/28/2022) Active Problems Problem Noted Date COPD, group B, by GOLD 2017 classificati on 11/03/2022 Overview: Per COPD GOLD Classification Recurrent major depressive disorder 06/23 Type 2 diabetes mellitus with diabetic p olyneuropathy 07/07/2022 Food insecurity 06/02/2022 Overview: Per [facility] Protocol Acquired hypothyroidism 02/22/2019 Depression with anxiety 02/22/2019 HTN, goal below 130/80 02/22/2019 Dyslipidemia 02/22/2019 Psychogenic syncope 02/22/2019 Overview: Work up negative as of 02/22/19 Type 2 diabetes mellitus with hemoglobin A1c goal of less than 7.0% 10/12/2017 Gastroesophageal reflux disease with eso phagitis Panic disorder documented as of this encounter (statuses as of 11/28/2022) Resolved Problems Problem Noted Date Resolved Date COPD, group A, by GOLD 2017 classification 06/0211/06/2022 Overview: Per COPD GOLD Classification Morbid obesity [...] update of inactive term Asthma, non-allergic 03/18/2007 08/16/2009 NONALLERGIC RHINITIS 03/18/2007 02/22/2019 Chronic sinusitis 03/18/2007 02/22/2019 SKIN SENSATION DISTURB 03/04/1999 9 Major depressive disorder 01/30/19982018 Overview: ICD-10 update of inactive term CLASSICAL MIGRAINE WITHOU MENTION OF INTRACTABLE MIGRAINE 02/22/2019 Asthma with severity to be determined 03/18/2007 Overview: ICD-10 update of inactive term documented as of this encounter (statuses as of 11/28/2022) Immunizations Name Administration Dates Next Due COVID-19 mRNA, LNP-s, No Pre serve, 2-Dose Series (Pfizer) 07/11/2020,06/20/2020 Hepatitis B, 20+ yrs 10/11/2018,05/18/2018,04/09 Pneumococcal Conjugate Vacci ne, 20-valent ([id number]) 09/30/2022 Pneumococcal Polysaccharide PPV23 (Pneumovax) 01/23/2007 SEASONAL INFLUENZA, PF, 6 M & Above, IM , (FLULAVAL or FLUZONE) 11/24/2020,01/17/2020 TDAP (age 10 and older)(Boostrix) 01/17/2020 TDAP (age 11 and older)(Adacel) 12/20/2010 Zoster Vaccine Recombinant (Shingrix) 05/14/2021 ,01/04/2020 documented as of this encounter Social History Tobacco Use Types Packs/Day Years Used Date Smoking Tobacco: Every Day Cigarettes 1 30 Smokeless Tobacco: Never Alcohol Use Standard Drinks/Week Comments No 0 (1 standard drink = 0.6 oz pur e alcohol) Food Insecurity Answer Date Recorded Within the past 12 months, y ou worried that your food would run out before you got money to buy more. Often true 09/16/2022 Within the past 12 months, t he food you bought just didn't last and you didn't have money to get more. Often true 09/16/2022 Sex Assigned at Date Recorded Female 07/10/2022 5:57 PM E DT Job Start Date Occupation Industry Not on file Not on file Not on file documented as of this encounter Miscellaneous Notes * Telephone Encounter - Dena Murillo LPN - 11/28/2022 10:01 AM EDT OV notes from Dr. Queen's 07/15/22 & 09/30/22 visits prior to the sleep study faxed to [employer] at [phone]. Faxed confirmation of receipt received. documented in this encounter Plan of Treatment Upcoming Encounters Date Type Specialty Care Team Description 12/31/2022 Office Visit Family Medicine Jeb Queen MD [address] [place] [address] 01/08/2023 Telemedicine Pharmacy Pharmacist1, [facility] [address] [place] [address] Health Maintenance Due Date Last Done Comments DISCUSS TOBACCO CESSATION (REFER TO SMARTSET #2174) 1967 HIV Screening 1982 Alpha-1 Antitrypsin 1985 Hepatitis C Screening 1985 HPV/Co-Test 1997 Colonoscopy 2012 Fecal Occult Blood Test 2012 Sigmoidoscopy 2012 Cervical Cancer Screening 07/18/2018 Pap Smear 07/18/2018 07/19/2015, 05/06/1999 Mammogram 10/23/2019 10/22/2018, 09/22/2017 DIABETES-EYE EXAM 09/28/2022 09/28/2021, , 10/27/2017 Albumin/Creatinine Ratio 10/14/20222 022, 01/04/2020, 09/17/2017 COVID-19 Vaccine ( season) 2022 07/11/2020, 06/20/2020, 05/31/2020 Influenza Vaccine (FLU shot) (#1) 2022 11/24/2020, 01/17/2020 HbA1c 03/14/2023 09/11/2022, 04/23, 01/11/2022, Additional history exists TSH 04/17/2023 04/17/2022, 01/23, 01/11/2022, Additional history exists GFR 07/16/2023 07/15/2022, 04/23, 02/14/2021, Additional history exists B-12 09/12/2023 09/11/2022, 04/23, 02/14/2021, Additional history exists Depression Screening 10/01/2023 09/30/2022 Diabetic Foot Exam 10/01/2023 09/30/2022, 0 05/14/2021, 04/05/2020, Additional history exists O2 ASSESSMENT COMPLETED IN PAST YEAR FOR COPD 10/01/2023 09/30/2022 Cologuard 06/05/2024 06/05/2021, 04/0 06/2021, 05/28/2021 Colorectal Cancer Screening 06/05/2024 Lipid Panel 05/10/2027 05/09/2022, 01/24, 01/04/2020, Additional history exists DTaP,Tdap,and Td Vaccines (3 - Td or Tdap) 01/16/2030 01/17/2020, 12/20/2010 Hepatitis B Completed 10/11/2018, 04/24, 04/09/2018 Zoster Vaccines Completed 05/14/2021, 01/04/2020 LUNG CANCER SCREENING - USE SMARTSET [id number] Completed 08/01/2022, 10/31/2017 Pneumococcal Vaccine: Pediatrics (0 to 5 Years) and At-Risk Patients (6 to 64 Years) Completed 09/30/2022, 01/23/2007 GARDASIL-HPV IMMUNIZATION SERIES Aged Out No longer eligible based on patient's age to complete this topic MENINGOCOCCAL (MENACTRA/MENVEO) Aged Out No longer eligible based on patient's age to complete this topic documented as of this encounter Medical Devices Not on filedocumented as of this encounter Care Teams Medical Coder Relationship Specialty Start Date End Date June, Jeb Barker MD [address] [facility] [place] [address] PCP - General Family Medicine 08/05/22 documented as of this encounter
--- OUTSIDE RECORDS SUMMARY | 2023-05-08 20:36 | External Medical Summary ---
Author Name Unknown Address Unknown Organization [id number]:[facility] [address] [place] [address] Laboratory Report Ordering Provider Test Date Status 01/07/2023 16:14:39 Final Observation Date Value Abnormality Reference (Units ) Status HbA1C 01/07/2023 16:14:39 6.2 Above high normal 4. 0-5.6 (%) Final The use of HbA1c to monitor glycemic status is based on normal hemoglobin and HbA composition. This test should not be used in patients with abnormal hemoglobin that affects the half life of the red blood cell or the in vivo glycation rates. Glucose, estimated average 01/07/2023 16:14:39 131 Above high normal <126 (mg/dL) Fin delfino Performing Location [facility] [place] [address] [place] [address]
--- OUTSIDE RECORDS SUMMARY | 2023-05-08 20:36 | External Medical Summary | Summary of Care ---
Author Name Unknown Organization [facility] Address [address] [place] [facility] [place] [address] Phone [phone] Care Team Providers Care Senior Software Development Manager Name Role Phone Jeb Queen MD Primary Care Provider [phone] Reason for Visit * Reason Comments Outpatient Testing Encounter Details Date Type Department Care Team (Late st Contact Info) Description 01/07/2023 2:00 PM EST Laboratory Laboratory, [place] [address] [place] [address] [facility] [address] [place] [address] Type 2 diabetes mellitus with hemoglobin A1c goal of less than 7.0% ([facility]); Acquired hypothyroidism Allergies Active Allergy Reactions Criticality [...] 7.0% ([facility]) INJECT 13 UNITS UNDER THE SKIN EVERY NIGHT AT BEDTIME. 15 mL 3 09/18/2022 Active Dulaglutide 1.5 MG/0.5ML Subcutaneous Solution Pen-injector (Trulicity)Indication s:Type 2 diabetes mellitus with hemoglobin A1c goal of less than 7.0% ([facility]) Inject 1.5 mg under the skin once a week. 6 mL 3 09/18/2022 Active Atorvastatin Calcium 40 MG Oral Tablet (Lipitor)Indications: Type 2 diabetes mellitus with hemoglobin A1c goal of less than 7.0% ([facility]) Take 1 Tablet by mouth in the morning. 90 Tablet 3 09/30/2022 Active metFORMIN HCl ER 500 MG Oral Tablet Extended Release 24 Hour (Glucophage XR)Indications:Type 2 diabetes mellitus with hemoglobin A1c goal of less than 7.0% ([facility]) TAKE 2 TABLETS BY MOUTH TWICE A [...] B, by GOLD 2017 classification ([facility]) Inhale 1 Puff by mouth in the morning. 180 Each 3 01/07/2023 Active hydroCHLOROthiazide 12.5 MG Oral Tablet (Hydrodiuril)Indicati ons:HTN, goal below 130/80 Take 1 Tablet by mouth in the morning. 90 Tablet 3 01/07/2023 Active Hospital, Clinic, or Other Facility Administered [...] yrs 10/11/2018,05/18/2018,04/09 Pneumococcal Conjugate Vacci ne, 20-valent ([id number]) 09/30/2022 Pneumococcal Polysaccharide PPV23 (Pneumovax) 01/23/2007 SEASONAL [...] Description 01/22/2023 1:00 PM EST Imaging Radiology [facility] [address] [place] [address] 01/22/2023 1:30 PM EST Imaging Radiology [facility] [address] [place] [address] 07/13/2023 4:40 PM EDT Office Visit [facility] [address] [place] [phone] June, Jeb Barker MD [address], [place] [phone] Pending Results Name Type Priority Associated Diagnoses Date /Time HEMOGLOBIN A1C Lab Routine Type 2 diabetes mellitus with hemoglobin A1c goal of less than 7.0% ([facility]) 01/07/2023 4:14 PM EST LIPID PANEL WITH DIRECT LDL IF TG IS HIGH Lab Routine Type 2 diabetes mellitus with hemoglobin A1c goal of less than 7.0% ([facility]) 01/07/2023 4:14 PM EST COMPREHENSIVE METABOLIC PANEL Lab Routine Type 2 diabetes mellitus with hemoglobin A1c goal of less than 7.0% ([facility]) 01/07/2023 4:14 PM EST TSH Lab Routine Acquired hypothyroidism 01/07/2023 4:14 PM EST T3, FREE Lab Routine Acquired hypothyroidism 01/07/2023 4:14 PM EST T4, FREE Lab Routine Acquired hypothyroidism 01/07/2023 4:14 PM EST THYROID ANTIBODY AND TPO ANTIBODY Lab Routine Acquired hypothyroidism 01/07/2023 4:14 PM EST ALBUMIN / CREATININE RATIO, URINE Lab Routine Type 2 diabetes mellitus with hemoglobin A1c goal of less than 7.0% ([facility]) 01/07/2023 4:30 PM EST Health Maintenance Due Date Last Done Comments DISCUSS TOBACCO CESSATION (REFER TO SMARTSET #7341) 1965 HIV Screening 1982 Alpha-1 Antitrypsin 1985 [...] 01/04/2020 LUNG CANCER SCREENING - USE SMARTSET [id number] Completed 08/01/2022, 10/31/2017 Pneumococcal Vaccine: Pediatrics (0 [...] hypothyroidism documented in this encounter Care Teams Senior Software Development Manager Relationship Specialty Start Date End Date June, Jeb Barker MD [address] [place] [address] PCP - General Family Medicine 08/05/22 documented as of this encounter
--- OUTSIDE RECORDS SUMMARY | 2023-05-08 20:36 | External Medical Summary | Summary of Care ---
Author Name Unknown Organization [facility] Address [address] [facility] [place] [address] Phone [phone] Care Team Providers Care Ad Operations Coordinator Name Role Phone Jeb Queen MD Primary Care Provider [phone] Encounter Details Date Type Department Care Team (Late st Contact Info) Description 07/14/2022 Population Health External Data Unspecified Department Allergies Active Allergy Reactions Criticality Noted Date Comments Amoxicillin 07/11/2015 Rash per pt Sulfamethoxazole-Trimethopri m Hives 07/11/2015 Ciprofloxacin 01/04/2020 SOB Cephalexin 07/11/2015 Trouble breathing per pt Latex 07/11/2015 Pt reports allergy is the powder that is in latex gloves. Quinolones 01/30/1998 nausea,sweating and lightheaded Cipro - ? Trouble breathing documented as of this encounter (statuses as of 01/05/2023) Medications Medication Sig Dispensed Refills Start Date End Date Status Aspirin 81 MG Tablet Take 1 Tablet by mouth in the morning. 0 Active BD Pen Needle Delaney U/F 32G X 4 MM (Insulin Pen Needle)Indications:Ty pe 2 diabetes mellitus with hemoglobin A1c goal of less than 7.0% ([facility]) Use up to 4 times daily with insulin 100 Each 5 12/06/2021 Active documented as of this encounter (statuses as of 01/05/2023) Active Problems Problem Noted Date Diagnosed Date [...] as of this encounter (statuses as of 01/05/2023) Resolved Problems Problem Noted Date Diagnosed Date [...] as of this encounter (statuses as of 01/05/2023) Immunizations Name Administration Dates Next Due COVID-19 mRNA, LNP-s, No Pre serve, 2-Dose Series (Pfizer) 07/11/2020,06/20/2020 Hepatitis B, 20+ yrs 10/11/2018,05/18/2018,04/09 Pneumococcal Polysaccharide PPV23 (Pneumovax) 01/23/2007 SEASONAL INFLUENZA, PF, 6 M & Above, IM , (FLULAVAL or FLUZONE) 11/24/2020,01/17/2020 TDAP (age 10 and older)(Boostrix) 01/17/2020 TDAP (age 11 and older)(Adacel) 12/20/2010 Zoster Vaccine Recombinant (Shingrix) 05/14/2021 ,01/04/2020 documented as of this encounter Social History Tobacco Use Types Packs/Day Years Used Date Smoking Tobacco: Every Day Cigarettes 1 20 Smokeless Tobacco: Never Alcohol Use Standard Drinks/Week [...] Team (Late st Contact Info) Description 01/07/2023 3:20 PM EST Office Visit [facility] [address] [place] [phone] JuneJeb MD [address] [place] [address] 01/22/2023 1:00 PM EST Imaging Radiology [address], [address] [place] [address] 01/22/2023 1:30 PM EST Imaging Radiology [facility] [address] [facility] [place] [address] Health Maintenance Due Date Last Done Comments DISCUSS TOBACCO CESSATION (REFER TO SMARTSET #8719) 1965 HIV Screening 1982 Alpha-1 Antitrypsin 1985 [...] 01/04/2020 LUNG CANCER SCREENING - USE SMARTSET [id number] Completed 08/01/2022, 10/31/2017 Pneumococcal Vaccine: Pediatrics (0 [...] filedocumented as of this encounter Care Teams Ad Operations Coordinator Relationship Specialty Start Date End Date June, Jeb Barker MD [address] [place] [address] PCP - General Family Medicine 08/05/22 documented as of this encounter
--- OUTSIDE RECORDS SUMMARY | 2023-05-08 20:36 | External Medical Summary ---
Author Name Unknown Address Unknown Organization [id number][place] [place] [address] [facility] [place] [address] Laboratory Report Ordering Provider Test Date Status 01/07/2023 16:14:39 Final Observation Date Value Abnormality Reference (Units ) Status Triglyceride 01/07/2023 16:14:39 145 <=174 ( mg/dL) Final Triglyceride Reference Range s (mg/dL):
<150 Acceptable
150-174 Borderline high
175-499 High
>=500 Very high Cholesterol 01/07/2023 16:14:39 86 <200 (mg /dL) Final Total Cholesterol Reference Ranges (mg/dL):
<200 Desirable
200-239 Borderline high
>=240 High HDL 01/07/2023 16:14:39 26 Below low normal >49 (mg/dL) Final HDL Cholesterol Reference Ra nges (mg/dL):
>=60 High (Desirable)
<50 Low (Undesirable) For Females
<40 Low (Undesirable) For Males NON-HDL CHOLESTEROL 01/07/2023 16:14:39 60 <=159 (mg/dL) Final Non-HDL Cholesterol Referenc e Range (mg/dL):
<100 Target level for high risk ASCVD patient
<130 Optimal for general population
130-159 Near optimal for general population
160-189 Borderline High
190-219 High
>=220 Very High LDL, (calculated) 01/07/2023 16:14:39 31 <= 129 (mg/dL) Final LDL Cholesterol Reference Ra nges (mg/dL):
<70 Target level for high risk ASCVD patient
<100 Optimal for general population
100-129 Near optimal for general population
130-159 Borderline high
160-189 High
>=190 Very high Performing Location [facility] [place] [address] [place] [address]
--- OUTSIDE RECORDS SUMMARY | 2023-05-08 20:36 | External Medical Summary ---
Author Name Unknown Address Unknown Organization K01:[facility] - [address] [place] [address] Laboratory Report Ordering Provider Test Date Status TOM ROBERTS 01/07/2023 16:14:39 Final Observation Date Value Abnormality Reference (Units ) Status T3, Free 01/07/2023 16:14:39 3.5 2.5-4.3 (p g/mL) Final Performing Location LABORATORY [facility] - [address] [place] [address]
--- OUTSIDE RECORDS SUMMARY | 2023-05-08 20:36 | External Medical Summary ---
Author Name Unknown Address Unknown Organization [id number]:[facility] [place] [address] [place] [address] Laboratory Report Ordering Provider Test Date Status 01/07/2023 16:30:11 Final Normal: <30 mg/g creatinine< br/>High: 30-300 mg/g creatinine
Very High: >300 mg/g creatinine
Nephrotic: >2200 mg/g creatinine Observation Date Value Abnormality Reference (Units ) Status Albumin, Urine 01/07/2023 16:30:11 <1.20 (mg/dL) Final Creatinine, Urine 01/07/2023 16:30:11 69 (mg/dL) Final Albumin/Creatinine [Mass Ratio] in Urine 01/07/2023 16:30:11 <17 <30 (mg/g Creat) Final Performing Location [facility] [place] [address] [place] [address]
--- OUTSIDE RECORDS SUMMARY | 2023-05-08 20:36 | External Medical Summary | Summary of Care ---
Author Name Unknown Organization [facility] Address [address] [facility] [address] Phone [phone] Care Team Providers Care Braille Operator Name Role Phone Jeb Queen MD Primary Care Provider [phone] Encounter Details Date Type Department Care Team Description 11/24/2022 Telephone Pulmonary Medicine, [facility] [address] [place] [address] Dori Francis, [address] [place] [address] Allergies Active Allergy Reactions Severity Noted Date Comments Amoxicillin 07/11/2015 Rash per pt Sulfamethoxazole-Trimethoprim Hives 2015 Ciprofloxacin 01/04/2020 SOB Cephalexin 07/11/2015 Trouble breathing per pt Latex 07/11/2015 Pt reports allergy is the powder that is in latex gloves. Quinolones 01/30/1998 nausea,sweating and lightheaded Cipro - ? Trouble breathing documented as of this encounter (statuses as of 11/24/2022) Medications Medication Sig Dispensed Refills Start Date End Date Status Aspirin 81 MG Tablet Take 1 Tablet by mouth in the morning. 0 Active hydroCHLOROthiazide 25 MG Oral Tablet (Hydrodiuril)Indicati ons:HTN, goal below 130/80 Take by mouth 1 Tablet in the morning. 90 Tablet 3 12/06/2021 Active BD Pen Needle Delaney U/F 32G X 4 MM (Insulin Pen Needle)Indications:Ty pe 2 diabetes mellitus with hemoglobin A1c goal of less than 7.0% ([facility]) Use up to 4 times daily with insulin 100 Each 5 12/06/2021 Active traZODone HCl 150 MG Oral Tablet (Desyrel)Indications: Panic disorder,Persistent insomnia ONCE A DAY AT BEDTIME BY MOUTH 90 Tablet 1 05/10/2022 Active Venlafaxine HCl ER 75 MG Oral Capsule Extended Release 24 Hour (Effexor XR) Take 1 Capsule by mouth in the morning. Do not cut, crush or chew. 90 Capsule 1 06/13/2022 Active Glucose Blood In Vitro StripIndications:Type 2 [...] 7.0% ([facility]) INJECT 13 UNITS UNDER THE SKIN EVERY NIGHT AT BEDTIME. 15 mL 3 09/18/2022 Active Dulaglutide 1.5 MG/0.5ML Subcutaneous Solution Pen-injector (Trulicity)Indication s:Type 2 diabetes mellitus with hemoglobin A1c goal of less than 7.0% ([facility]) Inject 1.5 mg under the skin once [...] EVENING MEAL 360 Tablet 1 11/17/2022 Active Hospital, Clinic, or Other Facility Administered [...] as of this encounter (statuses as of 11/24/2022) Active Problems Problem Noted Date COPD, group [...] as of this encounter (statuses as of 11/24/2022) Resolved Problems Problem Noted Date Resolved Date [...] as of this encounter (statuses as of 11/24/2022) Immunizations Name Administration Dates Next Due COVID-19 mRNA, LNP-s, No Pre serve, 2-Dose Series (Pfizer) 07/11/2020,06/20/2020 Hepatitis B, 20+ yrs 10/11/2018,05/18/2018,04/09 Pneumococcal Conjugate Vacci ne, 20-valent ([id number]) 09/30/2022 Pneumococcal Polysaccharide PPV23 (Pneumovax) 01/23/2007 SEASONAL [...] encounter Miscellaneous Notes * Telephone Encounter - Alonso Jewell - 11/24/2022 9:54 AM EDT Orders in 11/24 new cpap rotech documented in this encounter Plan of Treatment Upcoming Encounters Date Type Specialty Care Team Description 12/31/2022 Office Visit Family Medicine Jeb Queen MD [address] [place] [address] 01/08/2023 Telemedicine Pharmacy Pharmacist1, [facility] [address] [place] [address] Health Maintenance Due Date Last Done Comments DISCUSS TOBACCO CESSATION (REFER TO SMARTSET #4518) 1967 HIV Screening 1982 Alpha-1 Antitrypsin 1985 Hepatitis C Screening 1985 HPV/Co-Test 1997 Colonoscopy 2012 Fecal Occult Blood Test 2012 Sigmoidoscopy 2012 Cervical Cancer Screening 07/18/2018 Pap Smear 07/18/2018 07/19/2015, 05/06/1999 Mammogram 10/23/2019 10/22/2018, 09/22/2017 COVID-19 Vaccine (4 - Pfizer series) 09/05/2020 07/11/2020, 06/20/2020, 05/31/2020 DIABETES-EYE EXAM 09/28/2022 09/28/2021, , 10/27/2017 Albumin/Creatinine Ratio 10/14/20222 022, 01/04/2020, 09/17/2017 Influenza Vaccine (FLU shot) (#1) 2022 11/24/2020, [...] 01/04/2020 LUNG CANCER SCREENING - USE SMARTSET 21110 Completed 08/01/2022, 10/31/2017 Pneumococcal Vaccine: Pediatrics (0 [...] filedocumented as of this encounter Care Teams Braille Operator Relationship Specialty Start Date End Date June, Jeb Barker MD [address] [place] [address] PCP - General Family Medicine 08/05/22 documented as of this encounter
--- OUTSIDE RECORDS SUMMARY | 2023-05-08 20:36 | External Medical Summary | Summary of Care ---
Author Name Unknown Organization [facility] Address [address] [facility] [place] [address] Phone [phone] Care Team Providers Care Bike Assembler Name Role Phone Jeb Queen MD Primary Care Provider [phone] Reason for Visit * Reason Comments Outpatient Testing Encounter Details Date Type Department Care Team (Late st Contact Info) Description 01/07/2023 2:00 PM EST Laboratory Laboratory, [place] [address] [place] [address] [place] [address] [place] [address] Type 2 diabetes mellitus with hemoglobin A1c goal of less than 7.0% ([facility]); Acquired hypothyroidism Allergies Active Allergy Reactions Criticality [...] goal of less than 7.0% ([facility]) Use as directed. 100 Strip 11 07/15/2022 Active Compressor NebulizerIndications: COPD, group A, by GOLD 2017 classification ([facility]) Inhale via nebulizer. Use as [...] A, by GOLD 2017 classification ([facility]) Inhale 1 Ampule via nebulizer every 4 hours as needed for Wheezing. 810 mL 3 09/01/2022 Active Insulin Glargine Solostar 100 UNIT/ML Subcutaneous Solution Pen-injectorIndicatio ns:Type 2 diabetes mellitus with hemoglobin A1c goal of less than 7.0% ([facility]) INJECT 13 UNITS UNDER THE SKIN EVERY NIGHT AT BEDTIME. 15 mL 3 09/18/2022 Active Dulaglutide 1.5 MG/0.5ML Subcutaneous Solution Pen-injector (Trulicity)Indication s:Type 2 diabetes mellitus with hemoglobin A1c goal of less than 7.0% ([facility]) Inject 1.5 mg under the skin once a week. 6 mL 3 09/18/2022 Active Atorvastatin Calcium 40 MG Oral Tablet (Lipitor)Indications: Type 2 diabetes mellitus with hemoglobin A1c goal of less than 7.0% ([facility]) Take 1 Tablet by mouth in the morning. 90 Tablet 3 09/30/2022 Active metFORMIN HCl ER 500 MG Oral Tablet Extended Release 24 Hour (Glucophage XR)Indications:Type 2 diabetes mellitus with hemoglobin A1c goal of less than 7.0% ([facility]) TAKE 2 TABLETS BY MOUTH [...] B, by GOLD 2017 classification ([facility]) Inhale 1 Puff by mouth [...] yrs 10/11/2018,05/18/2018,04/09 Pneumococcal Conjugate Vacci ne, 20-valent ([id number]) 09/30/2022 Pneumococcal Polysaccharide PPV23 (Pneumovax) 01/23/2007 SEASONAL [...] Description 01/22/2023 1:00 PM EST Imaging Radiology [facility] [address] [place] [address] 01/22/2023 1:30 PM EST Imaging Radiology [facility] [address] [place] [address] 07/13/2023 4:40 PM EDT Office Visit [facility] [address] [place] [id number] June, Jeb Barker MD [address], [place] [phone] Pending Results Name Type Priority Associated Diagnoses Date /Time HEMOGLOBIN A1C Lab Routine Type 2 diabetes mellitus with hemoglobin A1c goal of less than 7.0% ([facility]) 01/07/2023 4:14 PM EST LIPID PANEL WITH DIRECT LDL IF TG IS HIGH Lab Routine Type 2 diabetes mellitus with hemoglobin A1c goal of less than 7.0% ([facility]) 01/07/2023 4:14 PM EST COMPREHENSIVE METABOLIC PANEL Lab Routine Type 2 diabetes mellitus with hemoglobin A1c goal of less than 7.0% ([facility]) 01/07/2023 4:14 PM EST TSH Lab Routine [...] goal of less than 7.0% ([facility]) 01/07/2023 4:30 PM EST Health Maintenance Due Date Last Done Comments DISCUSS TOBACCO CESSATION (REFER TO SMARTSET #2171) 1967 HIV Screening 1982 Alpha-1 Antitrypsin 1985 [...] 01/04/2020 LUNG CANCER SCREENING - USE SMARTSET [id number] Completed 08/01/2022, 10/31/2017 Pneumococcal Vaccine: Pediatrics (0 [...] hypothyroidism documented in this encounter Care Teams Bike Assembler Relationship Specialty Start Date End Date June, Jeb Barker MD [address] [place] [address] PCP - General Family Medicine 08/05/22 documented as of this encounter
--- OUTSIDE RECORDS SUMMARY | 2023-05-08 20:36 | External Medical Summary | Summary of Care ---
Author Name Unknown Organization [facility] Address [address] [place] [address] Phone [phone] Care Team Providers Care Egg Pasteurizer Name Role Phone Jeb Queen MD Primary Care Provider [phone] Encounter Details Date Type Department Care Team Description 11/13/2022 Orders Only [facility] [place] [address] [place] [address] Bryanna Mayes PAChalinoC [address] [place] [address] Acquired hypothyroidism* Allergies Active Allergy Reactions Severity Noted Date Comments Amoxicillin 07/11/2015 Rash per pt Sulfamethoxazole-Trimethoprim Hives 2015 Ciprofloxacin 01/04/2020 SOB Cephalexin 07/11/2015 Trouble breathing per pt Latex 07/11/2015 Pt reports allergy is the powder that is in latex gloves. Quinolones 01/30/1998 nausea,sweating and lightheaded Cipro - ? Trouble breathing documented as of this encounter (statuses as of 11/13/2022) Medications Medication Sig Dispensed Refills Start Date [...] hemoglobin A1c goal of less than 7.0% ([facility]) Use up to 4 times daily with insulin 100 Each 5 12/06/2021 Active traZODone HCl 150 MG Oral Tablet (Desyrel)Indications: Panic disorder,Persistent insomnia ONCE A DAY AT BEDTIME BY MOUTH 90 Tablet 1 05/10/2022 Active metFORMIN HCl ER 500 MG Oral Tablet Extended Release 24 Hour (Glucophage XR)Indications:Type 2 diabetes mellitus with hemoglobin A1c goal of less than 7.0% ([facility]) Take 2 Tablets by mouth 2 times a day with morning and evening meals. 360 Tablet 1 05/20/2022 Active Venlafaxine HCl ER 75 MG Oral Capsule Extended Release 24 Hour (Effexor XR) Take 1 Capsule by mouth in the morning. Do not cut, crush or chew. 90 Capsule 1 06/13/2022 Active Glucose Blood In Vitro StripIndications:Type 2 diabetes mellitus with hemoglobin A1c goal of less than 7.0% ([facility]) Use as directed. 100 Strip 11 07/15/2022 Active Compressor NebulizerIndications: COPD, group A, by GOLD 2017 classification ([facility]) Inhale via nebulizer. Use as directed. 1 [...] CAPSULE BY MOUTH EVERY MORNING 90 Capsule 08/07/2022 Active Carvedilol 12.5 MG Oral Tablet [...] COPD, group A, by GOLD 2017 classification ([facility]) Inhale 1 Ampule via nebulizer every 4 hours as needed for Wheezing. 810 mL 3 09/01/2022 Active Insulin Glargine Solostar 100 UNIT/ML Subcutaneous Solution Pen-injectorIndicatio ns:Type 2 diabetes mellitus with hemoglobin A1c goal of less than 7.0% ([facility]) INJECT 13 UNITS UNDER THE SKIN EVERY NIGHT AT BEDTIME. 15 mL 3 09/18/2022 Active Dulaglutide 1.5 MG/0.5ML Subcutaneous Solution Pen-injector (Trulicity)Indication s:Type 2 diabetes mellitus with hemoglobin A1c goal of less than 7.0% ([facility]) Inject 1.5 mg under the skin once a week. 6 mL 3 09/18/2022 Active Atorvastatin Calcium 40 MG Oral Tablet (Lipitor)Indications: Type 2 diabetes mellitus with hemoglobin A1c goal of less than 7.0% ([facility]) Take 1 Tablet by mouth in the morning. 90 Tablet 3 09/30/2022 Active Hospital, Clinic, or Other Facility Administered [...] as of this encounter (statuses as of 11/13/2022) Active Problems Problem Noted Date COPD, group [...] as of this encounter (statuses as of 11/13/2022) Resolved Problems Problem Noted Date Resolved Date [...] as of this encounter (statuses as of 11/13/2022) Immunizations Name Administration Dates Next Due COVID-19 mRNA, LNP-s, No Pre serve, 2-Dose Series (Pfizer) 07/11/2020,06/20/2020 Hepatitis B, 20+ yrs 10/11/2018,05/18/2018,04/09 Pneumococcal Conjugate Vacci ne, 20-valent ([id number]) 09/30/2022 Pneumococcal Polysaccharide PPV23 (Pneumovax) 01/23/2007 Seasonal Influenza, PF, 6 mo ns & Above, IM , (Flulaval) 11/24/2020,01/17/2020 TDAP (age 10 and older)(Boostrix) 01/17/2020 [...] Encounters Date Type Specialty Care Team Description 11/21/2022 Telemedicine Sleep Disorders Dori Francis DO [address] [place] [address] 12/31/2022 Office Visit Family Medicine Jeb Queen MD [address] [facility] [place] [id number] 01/08/2023 Telemedicine Pharmacy Pharmacist1, [facility] [address] [facility] [place] [address] Scheduled Orders Name Type Priority Associated Diagnoses Orde r Schedule TSH Lab Routine Acquired hypothyroidism Expected: 11/13/2022 (Approximate), Expires: 11/13/2023 T3, FREE Lab Routine Acquired hypothyroidism Expected: 11/13/2022 (Approximate), Expires: 11/13/2023 T4, FREE Lab Routine Acquired hypothyroidism Expected: 11/13/2022 (Approximate), Expires: 11/13/2023 THYROID ANTIBODY AND TPO ANTIBODY Lab Routine Acquired hypothyroidism Expected: 11/13/2022 (Approximate), Expires: 11/13/2023 Health Maintenance Due Date Last Done Comments DISCUSS TOBACCO CESSATION (REFER TO SMARTSET #7711) 1965 HIV Screening 1982 Alpha-1 Antitrypsin 1985 [...] 01/04/2020 LUNG CANCER SCREENING - USE SMARTSET [id number] Completed 08/01/2022, 10/31/2017 Pneumococcal Vaccine: Pediatrics (0 [...] as of this encounter Visit Diagnoses Diagnosis Acquired hypothyroidism- Primary Unspecified hypothyroidism documented in this encounter Care Teams Egg Pasteurizer Relationship Specialty Start Date End Date June, Jeb Barker MD [address] [place] [address] PCP - General Family Medicine 08/05/22 documented as of this encounter
--- OUTSIDE RECORDS SUMMARY | 2023-05-08 20:36 | External Medical Summary ---
Author Name Unknown Address Unknown Organization K01:[facility] [place] [address] [place] [address] Laboratory Report Ordering Provider Test Date Status TOM ROBERTS 01/07/2023 16:14:39 Final Observation Date Value Abnormality Reference (Units ) Status TSH 01/07/2023 16:14:39 0.11 Below low normal 0.2 7-4.20 (uIU/mL) Final Performing Location LAB[facility]ATORY [facility] - [address] [place] [address]
--- OUTSIDE RECORDS SUMMARY | 2023-05-08 20:36 | External Medical Summary | Summary of Care ---
Author Name Unknown Organization [facility] Address [address] [place] [address] Phone [phone] Care Team Providers Care Division Traffic Superintendent Name Role Phone Jeb Queen MD Primary Care Provider [phone] Encounter Details Date Type Department Care Team Description 12/12/2022 Exercise Science Instructor Care Coordination [address] [place] [address] Paige Rodriguez RN [address], [place] [id number] COPD, group A, by GOLD 2017 classification ([facility])* Allergies Active Allergy Reactions Severity Noted Date Comments Amoxicillin 07/11/2015 Rash per pt Sulfamethoxazole-Trimethoprim Hives 2015 Ciprofloxacin 01/04/2020 SOB Cephalexin 07/11/2015 Trouble breathing per pt Latex 07/11/2015 Pt reports allergy is the powder that is in latex gloves. Quinolones 01/30/1998 nausea,sweating and lightheaded Cipro - ? Trouble breathing documented as of this encounter (statuses as of 12/12/2022) Medications Medication Sig Dispensed Refills Start Date [...] COPD, group A, by GOLD 2017 classification ([facility] [...] COPD, group A, by GOLD 2017 classification ([facility] [...] as of this encounter (statuses as of 12/12/2022) Active Problems Problem Noted Date COPD, group [...] as of this encounter (statuses as of 12/12/2022) Resolved Problems Problem Noted Date Resolved Date [...] as of this encounter (statuses as of 12/12/2022) Immunizations Name Administration Dates Next Due COVID-19 mRNA, LNP-s, No Pre serve, 2-Dose Series (Pfizer) 07/11/2020,06/20/2020 Hepatitis B, 20+ yrs 10/11/2018,05/18/2018,04/09 Pneumococcal Conjugate Vacci ne, 20-valent ([id number]) 09/30/2022 Pneumococcal Polysaccharide PPV23 (Pneumovax) 01/23/2007 SEASONAL [...] as of this encounter Progress Notes * Paige Rodriguez RN - 12/12/2022 2:34 PM EDT CM Transition/Closure: Review of current patient status: Patient denies SOB, cough or angina Using O2 at 2 liters at night Has a good appetite, denies bowel/bladder complaints No complaints of pain A1C has improved to 7.8, patient continues to work with MTM Patient independent with ambulation & ADL's SNP LOB: no Outstanding Goals: NONE Current Status of Advanced Care Planning: ACP conversation initiated, referred to physician for continuation of conversation. (see ACP activity for specifics) Medications: Medications Reviewed and Optimized Current Exacerbation Plan: call PCP if she has increased SOB, cough, fever, chills Community Resource Needs: All necessary community resource needs met/in place. Future Appointments Scheduled: Future Appointments-next 60 days Date/Time Provider Specialty Dept Phone 12/31/2022 2:00 PM (Arrive by 1:45 PM) Jeb Queen MD Family Medicine [phone] 01/08/2023 8:00 AM [facility] Pharmacist1 Pharmacy [phone] No Appointment needed at this time. Health Plan Benefits assessed: yes Pt. Has had no utilization for a period of 5 months. Upon review of patient status plan to close patient from Outpatient Case Management services.. Reinforced CM contact information as well as PCP office contact information for any change in status or questions. Pt. made aware of this transition. Warm Hand-off: This note serves as written notification of Transition/Closure plan as well as handoff details. Warm hand-off conducted: No. Paige Rodriguez RN Outpatient Case Management documented in this encounter Plan of Treatment Upcoming Encounters Date Type Specialty Care Team Description 12/31/2022 Office Visit Family Medicine Jeb Queen MD [address] [place] [address] 01/08/2023 Telemedicine Pharmacy Pharmacist1, [facility] [place] [address] Health Maintenance Due Date Last Done Comments DISCUSS TOBACCO CESSATION (REFER TO SMARTSET #9877) 1965 HIV Screening 1982 Alpha-1 Antitrypsin 1985 Hepatitis C Screening 1985 HPV/Co-Test 1997 Colonoscopy 2012 Fecal Occult Blood Test 2012 Sigmoidoscopy 2012 Cervical Cancer Screening 07/18/2018 Pap Smear 07/18/2018 07/19/2015, 05/06/1999 Mammogram 10/23/2019 10/22/2018, 09/22/2017 DIABETES-EYE EXAM 09/28/2022 09/28/2021, , 10/27/2017 Albumin/Creatinine Ratio 10/14/2022 [...] 01/04/2020 LUNG CANCER SCREENING - USE SMARTSET [id number] Completed 08/01/2022, 10/31/2017 Pneumococcal Vaccine: Pediatrics (0 [...] as of this encounter Visit Diagnoses Diagnosis COPD, group A, by GOLD 2017 classification ([facility])- Primary documented in this encounter Care Teams Division Traffic Superintendent Relationship Specialty Start Date End Date June, Jeb Barker MD [address] [place] [address] PCP - General Family Medicine 08/05/22 documented as of this encounter
--- OUTSIDE RECORDS SUMMARY | 2023-05-08 20:36 | External Medical Summary | Summary of Care ---
Author Name Unknown Organization [facility] Address [address] [facility] [place] [address] Phone [phone] Care Team Providers Care Employee'S Representative Name Role Phone Geremias Woody MD Primary Care Provider [phone] Reason for Visit * Reason Comments eRx-Medication Refill Encounter Details Date Type Department Care Team Description 11/27/2022 Refill [facility] [address] [place] [address] Christian Harrell MD [address] [place] [address] Allergies Active Allergy Reactions Severity Noted Date Comments Amoxicillin 07/11/2015 Rash per pt Sulfamethoxazole-Trimethoprim Hives 2015 Ciprofloxacin 01/04/2020 SOB Cephalexin 07/11/2015 Trouble breathing per pt Latex 07/11/2015 Pt reports allergy is the powder that is in latex gloves. Quinolones 01/30/1998 nausea,sweating and lightheaded Cipro - ? Trouble breathing documented as of this encounter (statuses as of 11/27/2022) Medications Medication Sig Dispensed Refills Start Date [...] hemoglobin A1c goal of less than 7.0% ([facility]) Use as directed. 100 Strip 11 3 Active Compressor NebulizerIndication s:COPD, group A, by GOLD 2017 classification ([facility]) Inhale via nebulizer. Use as directed. 1 Each 1 3 Active Trelegy Ellipta 100-62.5-25 MCG/ACT Aerosol Powder Breath Activated (Fluticasone-Umecli dinium-Vilanterol) Inhale 1 Puff by mouth in the morning. 180 Each 0 3 Active Jardiance 25 MG Oral Tablet [...] s:COPD, group A, by GOLD 2017 classification ([facility]) Inhale 1 Ampule via nebulizer every 4 hours as needed for Wheezing. 810 mL 3 3 Active Insulin Glargine Solostar 100 UNIT/ML Subcutaneous Solution Pen-injectorIndicat ions:Type 2 diabetes mellitus with hemoglobin A1c goal of less than 7.0% ([facility]) INJECT 13 UNITS UNDER THE SKIN EVERY NIGHT AT BEDTIME. 15 mL 3 3 Active Dulaglutide 1.5 MG/0.5ML Subcutaneous Solution Pen-injector (Trulicity)Indicati ons:Type 2 diabetes mellitus with hemoglobin A1c goal of less than 7.0% ([facility]) Inject 1.5 mg under the skin once a week. 6 mL 3 3 Active Atorvastatin Calcium 40 [...] OR CHEW. 90 Capsule 2 3 Active hydroCHLOROthiazide 25 MG Oral Tablet (Hydrodiuril)Indica tions:HTN, goal below 130/80 Take by mouth 1 Tablet in the morning. 90 Tablet 3 2 11/28/19 23 Discontinued traZODone HCl 150 MG Oral Tablet (Desyrel)Indication s:Panic disorder,Persistent insomnia ONCE A DAY AT BEDTIME BY MOUTH 90 Tablet 1 3 11/28/19 23 Discontinued Venlafaxine HCl ER 75 MG Oral Capsule Extended Release 24 Hour (Effexor XR) Take 1 Capsule by mouth in the morning. Do not cut, crush or chew. 90 Capsule 1 3 11/28/19 23 Discontinued Hospital, Clinic, or Other Facility [...] as of this encounter (statuses as of 11/27/2022) Active Problems Problem Noted Date COPD, group [...] as of this encounter (statuses as of 11/27/2022) Resolved Problems Problem Noted Date Resolved Date [...] as of this encounter (statuses as of 11/27/2022) Immunizations Name Administration Dates Next Due COVID-19 mRNA, LNP-s, No Pre serve, 2-Dose Series (Pfizer) 07/11/2020,06/20/2020 Hepatitis B, 20+ yrs 10/11/2018,05/18/2018,04/09 Pneumococcal Conjugate Vacci ne, 20-valent ([id number]) 09/30/2022 Pneumococcal Polysaccharide PPV23 (Pneumovax) 01/23/2007 SEASONAL [...] encounter Miscellaneous Notes * Telephone Encounter - Kelvin Rousseau, [facility] - 11/27/2022 4:38 PM EDT Signed Prescriptions: Disp Refills Venlafaxine HCl ER 75 MG Oral Capsule Exte*90 Cap*2 Sig: TAKE 1 CAPSULE BY MOUTH IN THE MORNING. DO NOT CUT, CRUSH OR CHEW.Authorizing Provider: GEREMIAS WOODY User: KELVIN ROUSSEAU documented in this encounter Plan of Treatment Upcoming Encounters Date Type Specialty Care Team Description 12/31/2022 Office Visit Family Medicine Geremias Woody MD [address] [place] [address] 01/08/2023 Telemedicine Pharmacy Pharmacist1, [facility] [address] [address] Health Maintenance Due Date Last Done Comments DISCUSS TOBACCO CESSATION (REFER TO SMARTSET #0292) 1965 HIV Screening 1982 Alpha-1 Antitrypsin 1985 [...] 01/04/2020 LUNG CANCER SCREENING - USE SMARTSET [id number] Completed 08/01/2022, 10/31/2017 Pneumococcal Vaccine: Pediatrics (0 [...] filedocumented as of this encounter Care Teams Employee'S Representative Relationship Specialty Start Date End Date June, Geremias Barker MD [address] [place] [address] PCP - General Family Medicine 08/05/22 documented as of this encounter
--- OUTSIDE RECORDS SUMMARY | 2023-05-08 20:36 | External Medical Summary | Summary of Care ---
Author Name Unknown Organization [facility] Address [address] [place] [address] Phone [phone] Care Team Providers Care State Superintendent Of [employer] Name Role Phone Jeb Queen MD Primary Care Provider [phone] Reason for Visit * Reason Comments NEW PATIENT * Evaluate & Treat - Unlimited Visits (Within 10 days (routine)) - Authorized Specialty Diagnoses / Procedures Referred By Contalex t Referred To Contact Sleep Medicine / Sleep Disorders Diagnoses RODGER (obstructive sleep apnea) Jeb Queen MD [address] [place] [address] Referral ID Status Reason Start Date Expiration Date Visits Requested Visits Authorized [id number] Authorized Specialty Services Required 11/03/2022 2 2 Encounter Details Date Type Department Care Team Description 11/21/2022 Telemedicine Sleep Disorders Ctr [facility] [address] [facility] [place] [id number] Dori Francis DO [address] [facility] [place] [address] Obstructive sleep apnea*; Nocturnal hypoxemia; HTN, goal below 130/80 Allergies Active Allergy Reactions Severity Noted Date Comments Amoxicillin 07/11/2015 Rash per pt Sulfamethoxazole-Trimethoprim Hives 2015 Ciprofloxacin 01/04/2020 SOB Cephalexin 07/11/2015 Trouble breathing per pt Latex 07/11/2015 Pt reports allergy is the powder that is in latex gloves. Quinolones 01/30/1998 nausea,sweating and lightheaded Cipro - ? Trouble breathing documented as of this encounter (statuses as of 11/21/2022) Medications Medication Sig Dispensed Refills Start Date [...] than 7.0% ([facility]) INJECT 13 UNITS UNDER THE SKIN EVERY NIGHT AT BEDTIME. 15 mL 3 09/18/2022 Active Dulaglutide 1.5 MG/0.5ML Subcutaneous Solution Pen-injector (Trulicity)Indication s:Type 2 diabetes mellitus with hemoglobin A1c goal of less than 7.0% ([facility]) Inject 1.5 mg under the skin once [...] as of this encounter (statuses as of 11/21/2022) Active Problems Problem Noted Date COPD, group [...] as of this encounter (statuses as of 11/21/2022) Resolved Problems Problem Noted Date Resolved Date [...] as of this encounter (statuses as of 11/21/2022) Immunizations Name Administration Dates Next Due COVID-19 mRNA, LNP-s, No Pre serve, 2-Dose Series (LeadGenius) 07/11/2020,06/20/2020 Hepatitis B, 20+ yrs 10/11/2018,05/18/2018,04/09 Pneumococcal Conjugate Vacci ne, 20-valent (Oosmdtr31) 09/30/2022 Pneumococcal Polysaccharide PPV23 (Pneumovax) 01/23/2007 SEASONAL [...] Sign Reading Time Taken Comments Blood Pressure - - Pulse - - Temperature - - Respiratory Rate - - Oxygen Saturation - - Inhaled Oxygen Concentration - - Weight - - Height 162.6 cm (5' 4") 11/20/2022 9:12 AM EDT Body Mass Index - - documented in this encounter Progress Notes * Dori Francis, DO - 11/21/2022 10:28 AM EDT Sleep Medicine Evaluation [facility] [address] [place] [address] Patient location: HOME. I was in a hospital or clinic location. After connecting through televideo,patient was verified with two unique identifiers. Patient (or authorized legal security representative) was then informed that this was a Telemedicine visit and being conducted confidentially over secure lines. Methods to assure confidentiality were taken. Patient acknowledged consent and understanding of pr ivacy and security of the Telemedicine visit. The patient agreed to participate. Time dedicated to today's appointment: 35 minutes Consultation was requested by: Jeb Queen MD for: RODGER management and a copy of this report is being sent to the provider electronically. Relevant available records reviewed. HPI: Lisa Zambrano is a(n) 57 year old female presenting for evaluation and management of RODGER. Seen by me 10/08/2018 with snoring, nocturia, fatigue without significant daytime sleepiness, syncopal episodes. + SO insomnia, insufficient nightly sleep time, daytime napping. Poca 4, FOSQ 30. PSG was ordered, but was canceled by patient. In the interim, had nocturnal oximetry through Pulmonary and started on oxygen with sleep. Nocturnal oximetry 08/04/22 on room air: SpO2 rosibel 77%, basal 86.6%, time <= 88% 7h 39m (of 9h 14m recorded time). 3% SHAVONNE 29. Using oxygen 2 L/min with sleep. Home sleep apnea test had been ordered by PCP due to daytime sleepiness HST 10/17/22 (on room air): TIB 309.5 min, TITO 7.8, SpO2 rosibel 72%, time <89% 303.9 min. She did not sleep very well that night. She was started on a sleeping pill to help her sleep better through the night. She does sleep more solidly with the medication. Trazodone 150 mg, taken about 20 minutes before bedtime. Patient reports a typical bedtime of 9-11 pm. It takes not long to fall asleep. Patient awakens once overnight to urinate. It takes not long to return to sleep. Patient awakens for the day at 3-5 AM, feeling still a little groggy, but okay once she is up and going. Patient does get sleepy or tired during the day, especially around noon-2 PM she gets sleepy. Patient does typically take a nap in the noon-2pm time frame, often for 45-60 minutes, refreshing. Patient does use caffeine, coffee in the morning. The patient reports having ("+" indicates reports, "-" indicates denies): + Snoring, per - Observed apneas - Choking/gasping awakenings - Mouth breathing + Nocturia x1 - Morning headaches She seems to sleep better with the oxygen. Restless Legs Syndrome Symptoms ("+" indicates reports, "-" indicates denies): - Urge to move legs at night Parasomnias Symptoms ("+" indicates reports, "-" indicates denies): - Sleepwalking - Dream-enactment Excessive Daytime Sleepiness: Poca Sleepiness Scale 5 Modified F.O.S.Q. 37 - Drowsy driving sometimes Sleepy with sedentary activity (around noon-2pm) Poca Sleepiness Scale Question 11/20/2022 9:15 AM EDT - Filed by Leslie Marvin LPN What is the chance you will doze off in the following situation? Sitting and reading Slight chance of dozing Watching TV Slight chance of dozing Sitting inactive in a public place, such as a theater or meeting No chance of dozing As a passenger in a car for an hour without a break No chance of dozing Lying down to rest in the afternoon when circumstances permit High chance of dozing When sitting and talking to someone No chance of dozing When sitting quietly after lunch without alcohol No chance of dozing In a car, while stopped for a few minutes in traffic No chance of dozing Score (range: 0 - 24) 5 Functional Outcomes Of Sleep Question 11/20/2022 9:16 AM EDT - Filed by Leslie L Yon, DATABASE ADMINISTRATION PROJECT MANAGER Please complete the following questions. Do you have difficulty concentrating because you are sleepy or tired? Yes, a little Do you have difficulty remembering things because you are sleepy or tired? Yes, a little Do you have difficulty operating a motor vehicle for short distances (less than 100 miles) because you become sleepy? No Do you have difficulty operating a motor vehicle for long distances (more than 100 miles) because you become sleepy? No Do you have difficulty visiting family or friends in their home because you become sleepy or tired?No Has your relationship with family, friends, or work colleagues been affected because you are sleepyor tired? No Do you have difficulty watching a movie or video because you become sleepy or tired? No Do you have difficulty being as active as you want to be in the evening because you are tired or sleepy? Yes, a little Do you have difficulty being as active as you want to be in the morning because you are tired or sleepy? No Has your mood been affected because you are sleepy or tired? No Score (range: 10 - 40) 37 PMH: Past Medical History: Diagnosis Date Acquired hypothyroidism Anxiety Asthma, severity to be determined COPD, severity to be determined ([facility]) 02/22/2019 Depression Depression with anxiety 02/22/2019 Diabetes ([facility]) DM type 2, goal: symptom mgmt ([facility]) 10/12/2017 Dyslipidemia 02/22/2019 HTN (hypertension) HTN, goal below 130/80 02/22/2019 Past Surgical History: Procedure Laterality Date LIGATE/CUT OVIDUCT(S) 1992 Tubal Ligation REMOVAL OF OVARY(S) left REMOVE TONSILS & ADENOIDS, UNDER 12 Tonsillectomy/Adenoids,<14 Y/O SINUS SURGERY PROCEDURE NEC ALLERGIES: Review of patient's allergies indicates: Allergen Reactions Amoxicillin Rash per pt Bactrim [Sulfamethoxazole-Trimethoprim] Hives Ciprofloxacin SOB Keflex [Cephalexin] Trouble breathing per pt Latex Pt reports allergy is the powder that is in latex gloves. Quinolones nausea,sweating and lightheaded Cipro - ? Trouble breathing MEDS: Outpatient Medications Marked as Taking for the 11/21/22 encounter (Telemedicine) with Dori Francis, DO Medication Sig metFORMIN HCl ER 500 MG Oral Tablet Extended Release 24 Hour (Glucophage XR) TAKE 2 TABLETS BY MOUTH TWICE A DAY WITH MORNING AND EVENING MEAL Atorvastatin Calcium 40 MG Oral Tablet (Lipitor) Take 1 Tablet by mouth in the morning. Dulaglutide 1.5 MG/0.5ML Subcutaneous Solution Pen-injector (Trulicity) Inject 1.5 mg under the skin once a week. Insulin Glargine Solostar 100 UNIT/ML Subcutaneous Solution Pen-injector INJECT 13 UNITS UNDER THE SKIN EVERY NIGHT AT BEDTIME. Levalbuterol HCl 1.25 MG/3ML Inhalation Nebulization Solution (Xopenex) Inhale 1 Ampule via nebulizer every 4 hours as needed for Wheezing. Levothyroxine Sodium 175 MCG Oral Tablet (Levoxyl) TAKE 1 TABLET BY MOUTH EVERY DAY AT LEAST 30 MINBEFORE BREAKFAST OR OTHER MEDICATION - PLEASE DC 200mg dose Albuterol Sulfate HFA 108 (90 Base) MCG/ACT Inhalation Aerosol Solution INHALE 2 PUFFS BY MOUTH 4 TIMES DAILY Carvedilol 12.5 MG Oral Tablet (Coreg) TAKE 1 TABLET BY MOUTH TWICE A DAY WITH BREAKFAST AND DINNER Vitamin B-12 1000 MCG Oral Tablet (Cyanocobalamin) TAKE 1 TABLET BY MOUTH EVERY DAY IN THE MORNING Vitamin D3 125 MCG (5000 UT) Oral Capsule TAKE 1 CAPSULE BY MOUTH EVERY MORNING Jardiance 25 MG Oral Tablet (Empagliflozin) TAKE 1 TABLET BY MOUTH EVERY DAY IN THE MORNING Lisinopril 20 MG Oral Tablet (Prinivil) TAKE 1 TABLET BY MOUTH EVERY DAY IN THE MORNING Omeprazole 20 MG Oral Capsule Delayed Release (PriLOSEC) TAKE 1 CAPSULE BY MOUTH EVERY MORNING Trelegy Ellipta 100-62.5-25 MCG/ACT Aerosol Powder Breath Activated (Laugivndifu-Xovnirvbeaig-Fiiyitlzft) Inhale 1 Puff by mouth in the morning. Compressor Nebulizer Inhale via nebulizer. Use as directed. Glucose Blood In Vitro Strip Use as directed. Venlafaxine HCl ER 75 MG Oral Capsule Extended Release 24 Hour (Effexor XR) Take 1 Capsule by mouthin the morning. Do not cut, crush or chew. traZODone HCl 150 MG Oral Tablet (Desyrel) ONCE A DAY AT BEDTIME BY MOUTH BD Pen Needle Delaney U/F 32G X 4 MM (Insulin Pen Needle) Use up to 4 times daily with insulin hydroCHLOROthiazide 25 MG Oral Tablet (Hydrodiuril) Take by mouth 1 Tablet in the morning. Aspirin 81 MG Tablet Take 1 Tablet by mouth in the morning. Current Facility-Administered Medications for the 11/21/22 encounter (Telemedicine) with Dori Francis DO Medication Albuterol Sulfate (Proventil) (2.5 MG/3ML) 0.083% inhalation solution 2.5 mg Albuterol Sulfate (Proventil) (5 MG/ML) 0.5% *conc* inhalation solution 2.5 mg Social hx: Tobacco Use: High Risk Smoking Tobacco Use: Every Day Smokeless Tobacco Use: Never Passive Exposure: Not on file PE: VITAL SIGNS: Filed Vitals: 11/20/22 0912 Height: 1.626 m (5' 4") Body mass index is 32.44 kg/m. PE limited due to telemedicine. Patient does not appear to be in distress. No rash on visible skin on face. Breathing does not appear to be labored. No audible stridor. Speech is clear and appropriate. Appropriate affect. IMPRESSION/RECOMMENDATIONS: Obstructive sleep apnea - mild by AHI criteria, associated with nocturnal hypoxemia, hx HTN - treatment options discussed, especially CPAP vs OAT vs eXciteOSA - Patient elects to begin treatment with CPAP. Will begin autotitrating CPAP at 5-20 cmH2O. DME: [employer] (as they currently manage her oxygen). CPAP machine, supplies, and mask fitting ordered. - Patient was encouraged to use CPAP whenever sleeping - Follow up to evaluate tolerance, adherence, and efficacy of PAP treatment. - Patient should continue to avoid driving while sleepy/drowsy. Continue oxygen at 2 L/min via CPAP, as I suspect much of the hypoxia to be related to COPD (HST showed low baseline SpO2 for most of the study, with additional desaturations in association with respiratory events). Follow Up: Return in about 2 months (around 01/21/2023) for first CPAP check. | For: first CPAP check Dori Francis DO documented in this encounter Nursing Notes * Leslie Marvin LPN - 11/20/2022 9:16 AM EDT New pt video visit to review results of recent HST. Poca Sleepiness Scale Question 11/20/2022 9:15 AM EDT - Filed by Leslie Marvin LPN What is the chance you will doze off in the following situation? Sitting and reading Slight chance of dozing Watching TV Slight chance of dozing Sitting inactive in a public place, such as a theater or meeting No chance of dozing As a passenger in a car for an hour without a break No chance of dozing Lying down to rest in the afternoon when circumstances permit High chance of dozing When sitting and talking to someone No chance of dozing When sitting quietly after lunch without alcohol No chance of dozing In a car, while stopped for a few minutes in traffic No chance of dozing Score (range: 0 - 24) 5 Functional Outcomes Of Sleep Question 11/20/2022 9:16 AM EDT - Filed by Leslie Marvin LPN Please complete the following questions. Do you have difficulty concentrating because you are sleepy or tired? Yes, a little Do you have difficulty remembering things because you are sleepy or tired? Yes, a little Do you have difficulty operating a motor vehicle for short distances (less than 100 miles) because you become sleepy? No Do you have difficulty operating a motor vehicle for long distances (more than 100 miles) because you become sleepy? No Do you have difficulty visiting family or friends in their home because you become sleepy or tired?No Has your relationship with family, friends, or work colleagues been affected because you are sleepyor tired? No Do you have difficulty watching a movie or video because you become sleepy or tired? No Do you have difficulty being as active as you want to be in the evening because you are tired or sleepy? Yes, a little Do you have difficulty being as active as you want to be in the morning because you are tired or sleepy? No Has your mood been affected because you are sleepy or tired? No Score (range: 10 - 40) 37 documented in this encounter Plan of Treatment Upcoming Encounters Date Type Specialty Care Team Description 12/31/2022 Office Visit Family Medicine Jeb Queen MD [address] [place] [address] 01/08/2023 Telemedicine Pharmacy Pharmacist1, [facility] [address] [place] [address] Health Maintenance Due Date Last Done Comments DISCUSS TOBACCO CESSATION (REFER TO SMARTSET #6336) 1967 HIV Screening 1982 Alpha-1 Antitrypsin 1985 Hepatitis C Screening 1985 HPV/Co-Test 1997 Colonoscopy 2012 Fecal Occult Blood Test 2012 Sigmoidoscopy 2012 Cervical Cancer Screening 07/18/2018 Pap Smear 07/18/2018 07/19/2015, 05/06/1999 Mammogram 10/23/2019 10/22/2018, 09/22/2017 COVID-19 Vaccine (4 - Pfizer series) 09/05/2020 07/11/2020, 06/20/2020, 05/31/2020 DIABETES-EYE EXAM 09/28/2022 09/28/2021, , 10/27/2017 Albumin/Creatinine Ratio 10/14/2022 022, 01/04/2020, 09/17/2017 Influenza Vaccine (FLU shot) [...] 01/04/2020 LUNG CANCER SCREENING - USE SMARTSET 32807 Completed 08/01/2022, 10/31/2017 Pneumococcal Vaccine: Pediatrics (0 [...] as of this encounter Visit Diagnoses Diagnosis Obstructive sleep apnea- Primary Obstructive sleep apnea (adult) (pediatric) Nocturnal hypoxemia Hypoxemia HTN, goal below 130/80 Unspecified essential hypertension documented in this encounter Care Teams State Superintendent Of [employer] Relationship Specialty Start Date End Date June, Jeb Barker MD [address] [place] [address] [phone] PCP - General Family Medicine 08/05/22 documented as of this encounter
--- OUTSIDE RECORDS SUMMARY | 2023-05-08 20:36 | External Medical Summary | Summary of Care ---
Author Name Unknown Organization [facility] Address [address] [place] [address] Phone [phone] Care Team Providers Care Programmer Analyst Consultant Name Role Phone Geremias Woody MD Primary Care Provider [phone] Reason for Visit * Reason Comments eRx-Medication Refill Encounter Details Date Type Department Care Team Description 11/17/2022 Refill [facility] [address] [place] [address] Geremias Woody MD [address] [place] [address] Type 2 diabetes mellitus with hemoglobin A1c goal of less than 7.0% ([facility]) Allergies Active Allergy Reactions Severity Noted Date Comments Amoxicillin 07/11/2015 Rash per pt Sulfamethoxazole-Trimethoprim Hives 2015 Ciprofloxacin 01/04/2020 SOB Cephalexin 07/11/2015 Trouble breathing per pt Latex 07/11/2015 Pt reports allergy is the powder that is in latex gloves. Quinolones 01/30/1998 nausea,sweating and lightheaded Cipro - ? Trouble breathing documented as of this encounter (statuses as of 11/17/2022) Medications Medication Sig Dispensed Refills Start Date End Date Status Aspirin 81 MG Tablet Take 1 Tablet by mouth in the morning. 0 Active hydroCHLOROthiazide 25 MG Oral Tablet (Hydrodiuril)Indica tions:HTN, goal below 130/80 Take by mouth 1 Tablet in the morning. 90 Tablet 3 2 Active BD Pen Needle Delaney U/F 32G X 4 MM (Insulin Pen Needle)Indications: Type 2 diabetes mellitus with hemoglobin A1c goal of less than 7.0% ([facility]) Use up to 4 times daily with insulin 100 Each 5 2 Active traZODone HCl 150 MG Oral Tablet (Desyrel)Indication s:Panic disorder,Persistent insomnia ONCE A DAY AT BEDTIME BY MOUTH 90 Tablet 1 3 Active Venlafaxine HCl ER 75 MG Oral Capsule Extended Release 24 Hour (Effexor XR) Take 1 Capsule by mouth in the morning. Do not cut, crush or chew. 90 Capsule 1 3 Active Glucose Blood In Vitro StripIndications:Ty pe 2 diabetes mellitus with hemoglobin A1c goal of less than 7.0% ([facility]) Use as directed. 100 Strip 11 3 Active Compressor NebulizerIndication s:COPD, group A, by GOLD 2017 classification ([facility]) Inhale via nebulizer. Use as directed. [...] s:COPD, group A, by GOLD 2017 classification ([facility]) Inhale 1 Ampule via nebulizer every 4 hours as needed for Wheezing. 810 mL 3 3 Active Insulin Glargine Solostar 100 UNIT/ML Subcutaneous Solution Pen-injectorIndicat ions:Type 2 diabetes mellitus with hemoglobin A1c goal of less than 7.0% ([facility]) INJECT 13 UNITS UNDER THE SKIN EVERY NIGHT AT BEDTIME. 15 mL 3 3 Active Dulaglutide 1.5 MG/0.5ML Subcutaneous Solution Pen-injector (Trulicity)Indicati ons:Type 2 diabetes mellitus with hemoglobin A1c goal of less than 7.0% ([facility]) Inject 1.5 mg under the skin once a week. 6 mL 3 3 Active Atorvastatin Calcium 40 MG Oral Tablet (Lipitor)Indication s:Type 2 diabetes mellitus with hemoglobin A1c goal of less than 7.0% ([facility]) Take 1 Tablet by mouth in the morning. 90 Tablet 3 3 Active metFORMIN HCl ER 500 MG Oral Tablet Extended Release 24 Hour (Glucophage XR)Indications:Type 2 diabetes mellitus with hemoglobin A1c goal of less than 7.0% ([facility]) TAKE 2 TABLETS BY MOUTH TWICE A DAY WITH MORNING AND EVENING MEAL 360 Tablet 1 3 Active metFORMIN HCl ER 500 MG Oral Tablet Extended Release 24 Hour (Glucophage XR)Indications:Type 2 diabetes mellitus with hemoglobin A1c goal of less than 7.0% ([facility]) Take 2 Tablets by mouth 2 times a day with morning and evening meals. 360 Tablet 1 3 11/18/19 23 Discontinued Hospital, Clinic, or Other Facility [...] as of this encounter (statuses as of 11/17/2022) Active Problems Problem Noted Date COPD, group [...] as of this encounter (statuses as of 11/17/2022) Resolved Problems Problem Noted Date Resolved Date [...] as of this encounter (statuses as of 11/17/2022) Immunizations Name Administration Dates Next Due COVID-19 mRNA, LNP-s, No Pre serve, 2-Dose Series ([employer] Estimate) 07/11/2020,06/20/2020 Hepatitis B, 20+ yrs 10/11/2018,05/18/2018,04/09 Pneumococcal Conjugate Vacci ne, 20-valent (Fnvanar18) 09/30/2022 Pneumococcal Polysaccharide PPV23 (Pneumovax) 01/23/2007 Seasonal [...] encounter Miscellaneous Notes * Telephone Encounter - Cooper Moreno, [facility] - 11/17/2022 4:11 PM EDTSigned Prescriptions: Disp Refills metFORMIN HCl ER 500 MG Oral Tablet Extend*360 Ta*1 Sig: TAKE 2 TABLETS BY MOUTH TWICE A DAY WITH MORNING AND EVENING MEALAuthorizing Provider: GEREMIAS WOODY User: COOPER MCCAULEY documented in this encounter Plan of Treatment Upcoming Encounters Date Type Specialty Care Team Description 11/21/2022 Telemedicine Sleep Disorders Dori Francis DO [address] [place] [address] 12/31/2022 Office Visit Family Medicine Geremias Woody MD [address] [place] [address] 01/08/2023 Telemedicine Pharmacy Pharmacist1, [facility] [address] [place], [place] [id number] Health Maintenance Due Date Last Done Comments DISCUSS TOBACCO CESSATION (REFER TO SMARTSET #3981) 1967 HIV Screening 1982 Alpha-1 Antitrypsin 1985 [...] 01/04/2020 LUNG CANCER SCREENING - USE SMARTSET [id number] Completed 08/01/2022, 10/31/2017 Pneumococcal Vaccine: Pediatrics (0 [...] (HCC) documented in this encounter Care Teams Programmer Analyst Consultant Relationship Specialty Start Date End Date June, Geremias Barker MD [address] [place] [address] PCP - General Family Medicine 08/05/22 documented as of this encounter
--- OUTSIDE RECORDS SUMMARY | 2023-05-08 20:36 | External Medical Summary ---
Author Name Unknown Address Unknown Organization K01:[facility] [place] [address] [place] [address] Laboratory Report Ordering Provider Test Date Status 01/07/2023 16:14:39 Final Observation Date Value Abnormality Reference (Units ) Status BUN 01/07/2023 16:14:39 10 6-20 (mg/dL) Final Creatinine 01/07/2023 16:14:39 0.6 0.5-1.0 (mg/dL) Final Glomerular filtration rate/1.73 sq M.predicted [Volume Rate/Area] in Serum, Plasma or Blood by Creatinine-based formula (CKD-EPI) 01/07/2023 16:14:39 >90 >=60 (mL/min) Final eGFR is calculated based on the CKD-EPI 2020 equation SODIUM 01/07/2023 16:14:39 140 135-146 (m mol/L) Final Potassium 01/07/2023 16:14:39 3.6 3.5-5.1 (m mol/L) Final Cl 01/07/2023 16:14:39 97 Below low normal 98- 107 (mmol/L) Final CO2 01/07/2023 16:14:39 30 22-32 (mmo l/L) Final Anion gap 01/07/2023 16:14:39 13 7-15 (mmol /L) Final Glucose 01/07/2023 16:14:39 88 70-120 (mg /dL) Final Albumin 01/07/2023 16:14:39 4.7 3.8-5.0 (g /dL) Final AST (Aspartate aminotransferase) 01/07/2023 16:14:39 29 10-35 (U/L) Fin al Alk Phos 01/07/2023 16:14:39 73 35-130 (U/ L) Final Bilirubin, Total 01/07/2023 16:14:39 0.7 <=1 .2 (mg/dL) Final Calcium 01/07/2023 16:14:39 10.1 8.4-10.2 ( mg/dL) Final Protein 01/07/2023 16:14:39 6.9 6.0-8.3 (g /dL) Final ALT (Alanine aminotransferase) 01/07/2023 16:14:39 23 10-35 (U/L) Luke saleh Performing Location [facility] [place] [address] [facility] [address]
--- OUTSIDE RECORDS SUMMARY | 2023-05-08 20:36 | External Medical Summary | Summary of Care ---
Author Name Unknown Organization [facility] Address [address] [facility] [address] Phone [phone] Care Team Providers Care Commercial Agent Name Role Phone Jeb Queen MD Primary Care Provider Reason for Visit * Reason Comments eRx-Medication Refill Encounter Details Date Type Department Care Team Description 11/27/2022 Refill [facility] [address] [place] [address] Bryanna Mayes PA-C [address] [place] [address] HTN, goal below 130/80; Panic disorder; Persistent insomnia Allergies Active Allergy Reactions Severity Noted Date [...] DAY IN THE MORNING 90 Tablet 2 3 Active traZODone HCl 150 MG Oral Tablet (Desyrel)Indication s:Panic disorder,Persistent insomnia TAKE 1 TABLET BY MOUTH DAILY AT BEDTIME BY MOUTH 90 Tablet 2 3 Active hydroCHLOROthiazide 25 MG Oral Tablet (Hydrodiuril)Indica tions:HTN, goal below 130/80 Take by mouth 1 Tablet in the morning. 90 Tablet 3 2 11/28/19 23 Discontinued traZODone HCl 150 MG Oral Tablet (Desyrel)Indication s:Panic disorder,Persistent insomnia ONCE A DAY AT BEDTIME BY MOUTH 90 Tablet 1 3 11/28/19 23 Discontinued Hospital, Clinic, [...] mRNA, LNP-s, No Pre serve, 2-Dose Series (Brain Parade) 07/11/2020,06/20/2020 Hepatitis B, 20+ yrs 10/11/2018,05/18/2018,04/09 Pneumococcal Conjugate Vacci ne, 20-valent ([id number]) 09/30/2022 Pneumococcal Polysaccharide PPV23 (Pneumovax) 01/23/2007 SEASONAL [...] Miscellaneous Notes * Telephone Encounter - Kelvin Rousseau [facility] - 11/27/2022 4:39 PM EDT Signed Prescriptions: Disp Refills hydroCHLOROthiazide 25 MG Oral Tablet (Hyd*90 Tab*2 Sig: TAKE 1 TABLET BY MOUTH EVERY DAY IN THE MORNINGAuthorizing Provider: BRYANNA MAYES User: KELVIN ROUSSEAU traZODone HCl 150 MG Oral Tablet (Desyrel) 90 Tab*2 Sig: TAKE 1 TABLET BY MOUTH DAILY AT BEDTIME BY MOUTHAuthorizing Provider: BRYANNA MAYES User: KELVIN ROUSSEAU---- documented in this encounter Plan of Treatment Upcoming Encounters Date Type Specialty Care Team Description 12/31/2022 Office Visit Family Medicine MayJeb MD [address], [place] [id number] 01/08/2023 Telemedicine Pharmacy Pharmacist1, [facility] [address] [place] [address] Health Maintenance Due Date Last Done Comments DISCUSS TOBACCO CESSATION (REFER TO SMARTSET #1399) 1967 HIV Screening 1982 Alpha-1 Antitrypsin 1985 [...] 01/04/2020 LUNG CANCER SCREENING - USE SMARTSET 17508 Completed 08/01/2022, 10/31/2017 Pneumococcal Vaccine: Pediatrics (0 [...] as of this encounter Visit Diagnoses Diagnosis HTN, goal below 130/80 Unspecified essential hypertension Panic disorder Panic disorder without agoraphobia Persistent insomnia Persistent disorder of initiating or maintaining sleep documented in this encounter Care Teams Commercial Agent Relationship Specialty Start Date End Date June, Jeb Barker MD [address] [place] [address] PCP - General Family Medicine 08/05/22 documented as of this encounter
--- OUTSIDE RECORDS SUMMARY | 2023-05-08 20:36 | External Medical Summary ---
Author Name Unknown Address Unknown Organization [id number]:[facility] [place] [address] [place] [address] Laboratory Report Ordering Provider Test Date Status JESSICA ROBERTSFARZANA 01/07/2023 16:14:39 Final Observation Date Value Abnormality Reference (Units ) Status T4, Free 01/07/2023 16:14:39 2.5 Above high normal 0. 9-1.7 (ng/dL) Final Performing Location [facility] - [address] [place] [address]
[2023-05-08] MEDS ORDERED: traZODone HCL 50 MG TAB PO SCH (21:00)
== END 2023-05-08 12:51 | disposition home or self-care (01) | DRG 690 ==
LOC: ED 14:21 → EDINP 17:41

== ENCOUNTER 2024-03-29 10:06 | Inpatient (IN) ==
[2024-03-29] MEDS: ALBUT/IPRATROP 3MG/0.5MG NEB 3 ML VIAL INH STA (10:41)
[2024-03-29 10:51] LABS: Appearance Urine Clear (Clear); Bilirubin Urine Negative (Negative); Blood Urine Negative (Negative); Color Urine Yellow; Glucose Urine UA 3+ (Negative); Ketones Urine Negative (Negative); Leukocyte Esterase Urine Negative (Negative); Nitrite Urine Negative (Negative); Protein Urine Negative (Negative); Specific Gravity Urine 1.036 (1.000-1.030); Urobilinogen Urine Negative (Negative)
--- NOTE | 2024-03-29 10:53 | XRay Report ---
XR chest 1V portable CLINICAL HISTORY: Dyspnea COMPARISON STUDY: 11/14/2023 FINDINGS: Heart size and pulmonary vasculature are normal. There is stable mild stranding opacity at the left lung base. No new consolidation or pleural effusion. No pneumothorax. IMPRESSION: Stable exam. ACT 112: Negative or not required by law. Electronically signed by: Mj Nguyen M.D. 03/29/2024 10:52 AM
[2024-03-29 10:57] LABS: Hematocrit (blood only) 47.6 % (37.0-47.0); Hemoglobin 15.7 g/dl (12.0-16.0); Mean Corpuscular Hemoglobin 27.5 pg (25.0-34.0); Mean Corpuscular Volume 83.5 fL (80.0-100.0); Mean Platelet Volume 9.8 fL (9.4-12.4); Platelet Count 271 K/uL (130-400); RDW Coefficient of Variation 13.4 % (11.5-14.5); RDW Standard Deviation 40.6 fL (36.4-46.3); White Blood Count 18.26 K/ul (4.8-10.8)
[2024-03-29] MEDS: methylPREDNISolone 125 MG/2 ML VIAL IV STA (11:05)
[2024-03-29 11:16] LABS: Albumin Globulin Ratio 1.4 (0.9-2); Albumin Level 4.3 gm/dl (3.4-5.0); BUN Creatinine Ratio 28.3 (10-20); Bilirubin,Total 0.5 mg/dl (0.2-1.0); Calcium 9.9 mg/dl (8.6-10.3); Creatinine Clr Calc Pharmacy 114.2 ml/min; Total Protein 7.3 gm/dl (6.0-8.3)
[2024-03-29 11:22] LABS: Troponin I High Sensitivity 4.3 pg/ml (0-14)
[2024-03-29 11:41] LABS: Adenovirus PCR Not Detected (NotDetected); Bordetella parapertussis PCR Not Detected (NotDetected); Bordetella pertussis PCR Not Detected (NotDetected); Chlamydia pneumoniae PCR Not Detected (NotDetected); Coronavirus 229E PCR Not Detected (NotDetected); Coronavirus CoV-2 (COVID19)PCR Not Detected (NotDetected); Coronavirus HKU1 PCR Not Detected (NotDetected); Coronavirus NL63 PCR Not Detected (NotDetected); Coronavirus OC43PCR Not Detected (NotDetected); Human Metapneumovirus PCR Not Detected (NotDetected); Influenza A PCR Not Detected (NotDetected); Influenza B PCR Not Detected (NotDetected); Mycoplasma pneumoniae PCR Not Detected (NotDetected); Parainfluenza Virus 1 PCR Not Detected (NotDetected); Parainfluenza Virus 2 PCR Not Detected (NotDetected); Parainfluenza Virus 3 PCR Not Detected (NotDetected); Parainfluenza Virus 4 PCR Not Detected (NotDetected); Respiratory Syncytial VirusPCR Not Detected (NotDetected); Rhinovirus/Enterovirus PCR Not Detected (NotDetected)
[2024-03-29 11:54] LABS: Basophils # (auto) 0.08 K/uL (0.00-0.20); Basophils % (auto) 0.4 %; Eosinophils # (auto) 0.27 K/uL (0.00-0.50); Eosinophils % (auto) 1.5 %; Immature Granulocytes % (auto) 1.1 %; Lymphocytes # (auto) 5.76 K/uL (1.20-3.40); Lymphocytes % (auto) 31.5 %; Monocytes % (auto) 4.4 %; Neutrophils # (auto) 11.15 K/uL (1.40-6.50); Neutrophils % (auto) 61.1 %
[2024-03-29 11:59] LABS: D Dimer 420 ug/L FEU (0-500)
--- NOTE | 2024-03-29 12:14 | Emergency Department Note ---
ED Provider Note History of Present Illness Chief Complaint: Flu Like Symptoms Stated Complaint: SOB, WEAK, COUGH Time Seen by Provider: 03/29/24 10:19 Source: patient Mode of arrival: ambulatory Limitations: no limitations Patient is a 58-year-old female who presents to the emergency department with complaints of shortness of breath, congestion, weakness, and cough. Patient states that she was seen by her primary care physician who sent her to the emergency department for a breathing treatment and workup. Patient states that she has a history of COPD and is supposed to use oxygen at night but notes that she does not. Patient denies any chest pain at this time. Home Medications Medication Instructions Recorded Confirmed Type albuterol sulfate 90 mcg/actuation 2 puff inhalation QID PRN 08/30/18 03/29/24 History aerosol inhaler (ProAir HFA) Shortness Of Breath aspirin 81 mg tablet,delayed 81 mg PO QAM 08/30/18 03/29/24 History release carvedilol 12.5 mg tablet 12.5 mg PO BID 08/30/18 03/29/24 History lisinopril 20 mg tablet 20 mg PO QAM 08/30/18 03/29/24 History omeprazole 20 mg capsule,delayed 20 mg PO QAM 08/30/18 03/29/24 History release cholecalciferol (vitamin D3) 125 5,000 unit PO DAILY 07/08/22 03/29/24 History mcg (5,000 unit) capsule cyanocobalamin (vitamin B-12) 1,000 mcg PO DAILY 07/08/22 03/29/24 History 1,000 mcg tablet empagliflozin 25 mg tablet 25 mg PO DAILY 07/08/22 03/29/24 History (Jardiance) levalbuterol HCl 1.25 mg/3 mL 1.25 mg inhalation Q4H PRN 07/08/22 03/29/24 History solution for nebulization Shortness Of Breath Or Wheezing levothyroxine 175 mcg tablet See Rx Instructions .Route .COMPLEX 07/08/22 03/29/24 History metformin 500 mg tablet,extended 1,000 mg PO BID 07/08/22 03/29/24 History release 24 hr trazodone 150 mg tablet 150 mg PO HS 07/08/22 03/29/24 History atorvastatin 40 mg tablet 40 mg PO QAM 05/07/23 03/29/24 History dulaglutide 3 mg/0.5 mL 3 mg subcut .QSUN 05/07/23 03/29/24 History subcutaneous pen injector (Trulicity) fluticasone fur. 100 mcg-umeclid 1 inh inhalation DAILY 05/07/23 03/29/24 History 62.5 mcg-vilant 25 mcg inhalat.powder (Trelegy Ellipta) albuterol sulfate 2.5 mg/3 mL 2.5 mg (3 mL) inhalation Q4H PRN 11/14/23 03/29/24 Rx (0.083 %) solution for nebulization bronchospasm #90 mL venlafaxine 75 mg capsule,extended 75 mg PO DAILY 03/29/24 03/29/24 History release 24 hr Allergies Allergy/AdvReac Type Severity Reaction Status Date / Time Cipro Allergy Severe sob Verified 06/10/16 09:25 ciprofloxacin Allergy Severe sob Verified 05/07/23 20:08 Quinolones Allergy Severe SOB Verified 05/07/23 20:08 amoxicillin Allergy Mild HIVES Verified 05/07/23 20:08 latex Allergy Unknown LATEX Verified 05/07/23 20:08 GLOVE POWDER Sulfa (Sulfonamide Allergy Unknown . Unverified 05/07/23 20:08 Antibiotics) [place] Allergy Unknown Difficulty Uncoded 05/07/23 20:08 breathing. Past Med/Surg History Problem List (Updated 03/29/24 @ 16:25 by THIERRY Brock) Community acquired pneumonia (Acute) Acute respiratory failure with hypoxia Medical History (Updated 03/29/24 @ 16:25 by THIERRY Brock) COPD (chronic obstructive pulmonary disease) Hypothyroidism Mood disorder Diabetes mellitus, type II HLD (hyperlipidemia) HTN (hypertension) Surgical History S/P tonsillectomy and adenoidectomy S/P removal of left ovary Family History Other Cancer Diabetes Hypertension Social History Smoking Status: Current every day smoker Tobacco Type: Cigarettes packs per day: 0.5; Cigarettes Per Day: 1 PACK/DAY; Second Hand Exposure: Yes; Do You Dip or Chew Tobacco: No; Tobacco Cessation Education Requested by Patient: No Hx Alcohol Use: No Hx Substance Use: No Preferred Language: Arabic Communication Ability: Effective Funder Required: No Beliefs That Will Affect Care: None marital status: Current Living Situation: Spouse current occupational status: unemployed Other Information That Helps Us Care for You: No Feels Safe at Home: No Is there a partner from a previous relationship who is making you feel unsafe now?: No Any Concerns about Your Family Situation: No Would You Like to Speak to Someone About Your Situation: No Safety Concerns: Feels Safe At This Time Assistive Devices: Glasses Physical Exam Vital Signs Vital Signs - 24 hr 03/29/24 10:15 03/29/24 10:30 03/29/24 10:32 Temperature 36.9 C Temperature Source Temporal Artery Scan Pulse Rate 79 71 Pulse Rate from SpO2 Sensor Respiratory Rate 18 Respiratory Effort / Characteristics Non-Labored Spontaneous Respiratory Depth Normal Blood Pressure 119/79 119/75 Blood Pressure Mean 92 84 Blood Pressure Position Sitting Pulse Oximetry 93 Oxygen Delivery Method Room Air Oxygen Flow Rate Sepsis Recent Fever Within 48 Hours No Sepsis New/Unexplained Change in Mental Status N/A Sepsis Action Taken by Nursing No Action Required 03/29/24 10:33 03/29/24 10:57 03/29/24 11:00 Temperature Temperature Source Pulse Rate 83 73 Pulse Rate from SpO2 Sensor 82 74 Respiratory Rate 19 15 Respiratory Effort / Characteristics Respiratory Depth Blood Pressure 116/75 Blood Pressure Mean 84 Blood Pressure Position Pulse Oximetry 92 92 Oxygen Delivery Method Room Air Room Air Oxygen Flow Rate Sepsis Recent Fever Within 48 Hours Sepsis New/Unexplained Change in Mental Status Sepsis Action Taken by Nursing 03/29/24 11:21 03/29/24 11:30 03/29/24 11:30 Temperature Temperature Source Pulse Rate 80 72 Pulse Rate from SpO2 Sensor 79 71 Respiratory Rate 19 20 Respiratory Effort / Characteristics Respiratory Depth Blood Pressure 108/75 Blood Pressure Mean 82 Blood Pressure Position Pulse Oximetry 89 L 92 Oxygen Delivery Method Room Air Nasal Cannula Oxygen Flow Rate 2 Sepsis Recent Fever Within 48 Hours Sepsis New/Unexplained Change in Mental Status Sepsis Action Taken by Nursing 03/29/24 12:00 03/29/24 12:03 03/29/24 14:09 Temperature Temperature Source Pulse Rate 75 85 Pulse Rate from SpO2 Sensor 74 83 Respiratory Rate 15 20 Respiratory Effort / Characteristics Respiratory Depth Blood Pressure 119/78 Blood Pressure Mean 97 Blood Pressure Position Pulse Oximetry 90 92 Oxygen Delivery Method Nasal Cannula Room Air Oxygen Flow Rate 2 Sepsis Recent Fever Within 48 Hours Sepsis New/Unexplained Change in Mental Status Sepsis Action Taken by Nursing VITAL SIGNS - Vital signs and nursing notes were reviewed. GENERAL -58-year-old female appearing their stated age, who is in no acute distress. Communicates well with provider and answers questions appropriately. Patient's family member at bedside. HEAD - Normocephalic, Atraumatic. EYES - PERRL with EOMI bilaterally. Sclera anicteric. Conjunctiva pink and moist with no injection noted. EARS -patient has some mild erythema and TM bulging of the right ear. Patient's left ear has some mild erythema in the ear canal the TM does not present with any bulging or discharge. NOSE - Midline and without cyanosis. No epistaxis or purulent drainage noted. Patient does sound to be congested. NECK - Neck with FROM. Supple to palpation. No lymphadenopathy noted. LUNGS - Chest wall symmetric without accessory muscle use, intercostals retractions, or central cyanosis. Patient has wheezing throughout all lerner, no notes of rales or rhonchi appreciated. CARDIAC - RRR with S1/S2. No murmur, rubs, or gallops appreciated. EXTREMITIES - No edema present. +5/5 strength noted in UE/LE bilaterally. NEUROLOGIC -Sensory intact to light touch throughout. PSYCH - A&Ox3 and cooperates fully with examiner. Pt is very pleasant and interacts well with examiner Course Administered Medications Enoxaparin Sodium (Enoxaparin Inj 40 Mg/0.4 Ml Syr) 40 mg SQ Q24H [facility] Stop: 04/28/24 15:22 Last Admin: 03/29/24 16:05 Dose: 40 mg Documented By: EZ Nicotine (Nicotine 21 Mg/24 Hr Tdsy) 1 patch TD QAM SHARI Stop: 04/28/24 15:14 Last Admin: 03/29/24 16:04 Dose: 1 patch Documented By: EZ Discontinued Medications Albuterol (Albut/Ipratrop 3mg/0.5mg Neb 3 Ml Vial) 3 ml INH NOW STA Stop: 03/29/24 10:32 Last Admin: 03/29/24 10:41 Dose: 3 ml Documented By: RUTHANN Albuterol (Albut/Ipratrop 3mg/0.5mg Neb 3 Ml Vial) 3 ml NEB NOW STA; Protocol Stop: 03/29/24 14:00 Last Admin: 03/29/24 14:09 Dose: 3 ml Documented By: RUTHANN Azithromycin (Azithromycin 250 Mg Tab) 500 mg PO NOW ONE Stop: 03/29/24 13:56 Last Admin: 03/29/24 14:09 Dose: 500 mg Documented By: RUTHANN Guaifenesin (Guaifenesin 600 Mg Tabcr) 600 mg PO ONE ONE Stop: 03/29/24 14:46 Last Admin: 03/29/24 16:05 Dose: 600 mg Documented By: EZ Ceftriaxone Sodium (Rocephin) 1,000 mg in 50 mls @ 100 mls/hr IV NOW STA Stop: 03/29/24 14:24 Last Admin: 03/29/24 13:59 Dose: Not Given Documented By: RUTHANN Ceftriaxone Sodium (Rocephin) 2,000 mg in 50 mls @ 100 mls/hr IV NOW STA Stop: 03/29/24 14:27 Last Infusion: 03/29/24 14:48 Dose: Infused Documented By: Admin: 03/29/24 14:09 Dose: 100 mls/hr Documented By: RUTHANN Ioversol (Optiray 320 125ml) 118 ml IV ONCE ONE Stop: 03/29/24 12:40 Last Admin: 03/29/24 12:40 Dose: 118 ml Documented By: KESHIA Methylprednisolone (Methylprednisolone 125 Mg/2 Ml Vial) 125 mg IV NOW STA Stop: 03/29/24 10:59 Last Admin: 03/29/24 11:05 Dose: 125 mg Documented By: RUTHANN Medical Decision Making Differential Diagnosis COPD exacerbation, influenza, COVID, RSV, bronchitis, otitis media, otitis externa, sinusitis, pneumonia, among others. Medical Records Attestation: I reviewed the patient's medical records. Home Medications was personally reviewed by me Laboratory Data Attestation: I reviewed the patient's lab results. 03/29/24 10:29 03/29/24 10:29 Lab Results 03/29/24 03/29/24 03/29/24 Range/Units 10:26 10:29 10:31 WBC 18.26 H (4.8-10.8) K/ul RBC 5.70 H (4.20-5.40) M/uL Hgb 15.7 (12.0-16.0) g/dl Hct 47.6 H (37.0-47.0) % MCV 83.5 (80.0-100.0) fL MCH 27.5 (25.0-34.0) pg MCHC 33.0 (32.0-36.0) g/dL RDW Std Deviation 40.6 (36.4-46.3) fL RDW Coeff of Musa 13.4 (11.5-14.5) % Plt Count 271 (130-400) K/uL MPV 9.8 (9.4-12.4) fL Immature Gran % (Auto) 1.1 % Neut % (Auto) 61.1 % Lymph % (Auto) 31.5 % Nash % (Auto) 4.4 % Eos % (Auto) 1.5 % Baso % (Auto) 0.4 % Neut # (Auto) 11.15 H (1.40-6.50) K/uL Lymph # (Auto) 5.76 H (1.20-3.40) K/uL Nash # (Auto) 0.80 H (0.11-0.59) K/uL Eos # (Auto) 0.27 (0.00-0.50) K/uL Baso # (Auto) 0.08 (0.00-0.20) K/uL Immature Gran # (Auto) 0.20 (0.01-0.20) K/uL D-Dimer 420 (0-500) ug/L FEU Sodium 138 (136-145) mmol/L Potassium 4.0 (3.5-5.1) mmol/L Chloride 102 (98-107) mmol/L Carbon Dioxide 28 (21-32) mmol/L Anion Gap 8 (3-11) BUN 15 (6-23) mg/dl Creatinine 0.53 L (0.6-1.2) mg/dl Est Cr Clr Drug Dosing 114.2 ml/min eGFR 108.48 BUN/Creatinine Ratio 28.3 H (10-20) Glucose 101 H (70-99(Fasting)) mg/dl Calcium 9.9 (8.6-10.3) mg/dl Total Bilirubin 0.5 (0.2-1.0) mg/dl AST 20 (13-39) U/L ALT 18 (7-52) U/L Alkaline Phosphatase 69 (34-104) U/L Troponin I High Sens 4.3 (0-14) pg/ml Total Protein 7.3 (6.0-8.3) gm/dl Albumin 4.3 (3.4-5.0) gm/dl Globulin 3.0 (2.5-4.0) gm/dl Albumin/Globulin Ratio 1.4 (0.9-2) Urine Color Yellow Urine Appearance Clear (Clear) Urine pH 5.0 (4.5-7.5) Ur Specific [place] 1.036 H (1.000-1.030) Urine Protein Negative (Negative) Urine Glucose (UA) 3+ H (Negative) Urine Ketones Negative (Negative) Urine Blood Negative (Negative) Urine Nitrite Negative (Negative) Urine Bilirubin Negative (Negative) Urine Urobilinogen Negative (Negative) Ur Leukocyte Esterase Negative (Negative) Adenovirus (PCR) Not Detected (NotDetected) B. pertussis DNA (PCR) Not Detected (NotDetected) B.parapertussis DNA PCR Not Detected (NotDetected) C. pneumoniae DNA (PCR) Not Detected (NotDetected) Coronavirus OC43 (PCR) Not Detected (NotDetected) Coronavirus HKU1 (PCR) Not Detected (NotDetected) Coronavirus 229E (PCR) Not Detected (NotDetected) SARS-CoV-2 (PCR) Not Detected (NotDetected) Coronavirus NL63 (PCR) Not Detected (NotDetected) Human Metapneumovir PCR Not Detected (NotDetected) Influenza Type A (PCR) Not Detected (NotDetected) Influenza Type B (PCR) Not Detected (NotDetected) M. pneumoniae (PCR) Not Detected (NotDetected) Parainfluenza 1 (PCR) Not Detected (NotDetected) Parainfluenza 2 (PCR) Not Detected (NotDetected) Parainfluenza 3 (PCR) Not Detected (NotDetected) Parainfluenza 4 (PCR) Not Detected (NotDetected) RSV (PCR) Not Detected (NotDetected) Entero/Rhino (PCR) Not Detected (NotDetected) Imaging Data Radiologist's Impression: Chest X-Ray 03/29/24 10:31 XR chest 1V portable CLINICAL HISTORY: Dyspnea COMPARISON STUDY: 11/14/2023 FINDINGS: Heart size and pulmonary vasculature are normal. There is stable mild stranding opacity at the left lung base. No new consolidation or pleural effusion. No pneumothorax. IMPRESSION: Stable exam. ACT 112: Negative or not required by law. Electronically signed by: Mj Nguyen M.D. 03/29/2024 10:52 AM Chest CTA 03/29/24 12:03 CT angio chest PE protocol CT DOSE: 731.87 mGy.cm HISTORY: 58 years-old Female with PE. Acute shortness of breath with chest pain and cough TECHNIQUE: Multiple CTA images of the chest were obtained after the intravenous administration of 118 ml Optiray. Coronal and sagittal MIPS were obtained from the axial data set and were submitted for review. All measurements were obtained according to NASCET criteria. A dose lowering technique was utilized adhering to the principles of ALARA. COMPARISON: CT chest 10/31/2017 FINDINGS: CTA: Heart is normal in size without pericardial effusion. Moderate coronary artery calcifications. Unremarkable thoracic aorta. No pulmonary emboli. CT CHEST: No lymphadenopathy. No pneumothorax or overt pulmonary edema. Patchy bilateral groundglass densities with areas of bibasilar mucous plugging and mild inferior segment lingula consolidation. No suspicious pulmonary nodules or masses. No acute upper abdominal abnormality. Hepatosplenomegaly with probable hepatic steatosis. 1.7 cm partially calcified left adrenal gland lesion redemonstrated, likely benign. No acute fracture. IMPRESSION: 1. No pulmonary emboli identified. 2. Bibasilar mucous plugging with scattered atelectasis. 3. Subsegmental consolidation of the inferior segment lingula with air bronchograms may represent additional atelectasis versus pneumonia. 4. No pleural effusion or lymphadenopathy. ACT 112: Negative or not required by law. The above report was generated using voice recognition software. It may contain grammatical, syntax or spelling errors. Electronically signed by: Torsten Peters M.D. 03/29/2024 1:19 PM [facility] Narrative Patient is a 58-year-old female who presents to the emergency department with complaints of shortness of breath, congestion, weakness, and cough. Patient states that she was seen by her primary care physician who sent her to the emergency department for a breathing treatment and workup. Patient states that she has a history of COPD and is supposed to use oxygen at night but notes that she does not. Patient denies any chest pain at this time. Patient was evaluated by myself and findings were noted in the physical exam above. Patient was ordered IV placement, lab work that included a troponin and D-dimer, upper respiratory viral panel, chest x-ray and DuoNeb. Patient was also ordered a dose of Solu-Medrol. Patient's lab work resulted with an elevated white blood cell count of 18.26. Patient had no indication of anemia with a normal hemoglobin of 15.7 and hematocrit of 47.6. Patient did not have any electrolyte imbalance noted. Patient's D-dimer was 420 and her troponin was 4.3. Patient's upper respiratory viral panel was negative for any findings. Patient's chest x- ray was completed and interpreted by radiology to show a mild stranding opacity at the left lung base no new consolidation or pleural effusion. No evidence of pneumothorax. Upon reevaluation the patient states that she is feeling better after the DuoNeb, however is still feeling like she is having difficulty breathing. Patient was 88% on room air and I placed her on 2 L of oxygen via nasal cannula. Patient was ordered a CTA of the chest at this time. Patient CTA was interpreted by radiology to show no pulmonary emboli but did note bibasilar mucous plugging with scattered atelectasis. Patient also had subsegmental consolidation of the inferior segment that may represent pneumonia. With the patient's potential pneumonia on CT as well as elevated white blood cell count and hypoxia, I discussed with the patient that it would be suggested that she stay in the hospital for further evaluation and management. I discussed with the patient that we would start her on some IV antibiotics and could do further breathing treatments. Patient verbalized understanding and was agreeable to the plan for admission. [facility] and give them a full report on the patient including her chief complaint, current status, and the results of her lab work and imaging. They verbalized understanding and agreed to accept this patient for admission under their service. Patient was ordered ceftriaxone and azithromycin as well as a subsequent DuoNeb at this time. [facility] and management of this patient. Impression Community acquired pneumonia Discharge Plan Visit Data Chief Complaint: Flu Like Symptoms Stated Complaint: SOB, WEAK, COUGH ED Provider: Divine Resendiz ED Midlevel Provider: Diana Silva Discharge Problem: Community acquired pneumonia Patient Disposition: Admitted As Inpatient Discharge Instructions Interventions: ED Discharge Assessment Last Done: 03/29/24 15:24
[2024-03-29] MEDS: OPTIRAY 320 125ml IV ONE (12:40)
--- NOTE | 2024-03-29 12:58 | Electrocardiogram Report ---
Test Reason : Blood Pressure : */* mmHG Vent. Rate : 70 BPM Atrial Rate : 70 BPM P-R Int : 152 ms QRS Dur : 84 ms QT Int : 388 ms P-R-T Axes : 53 45 41 degrees QTcB Int : 419 ms Normal sinus rhythm Normal ECG When compared with ECG of 14-Nov-2023 13:32, No significant change was found Confirmed by Robert Weller ([id number]) on 03/29/2024 12:58:39 PM Referred By: REFERRED SELF Confirmed By: Robert Weller
--- NOTE | 2024-03-29 13:22 | CT Scan Report ---
CT angio chest PE protocol CT DOSE: 731.87 mGy.cm HISTORY: 58 years-old Female with PE. Acute shortness of breath with chest pain and cough TECHNIQUE: Multiple CTA images of the chest were obtained after the intravenous administration of 118 ml Optiray. Coronal and sagittal MIPS were obtained from the axial data set and were submitted for review. All measurements were obtained according to NASCET criteria. A dose lowering technique was u tilized adhering to the principles of ALARA. COMPARISON: CT chest 10/31/2017 FINDINGS: CTA: Heart is normal in size without pericardial effusion. Moderate coronary artery calcifications. Unrema rkable thoracic aorta. No pulmonary emboli. CT CHEST: No lymphadenopathy. No pneumothorax or overt pulmonary edema. Patchy bilateral groundglass densities with areas of bibasilar mucous plugging and mild inferior segment lingula consolidation. No suspiciou s pulmonary nodules or masses. No acute upper abdominal abnormality. Hepatosplenomegaly with probable hepatic steatosis. 1.7 cm part ially calcified left adrenal gland lesion redemonstrated, likely benign. No acute fracture. IMPRESSION: 1. No pulmonary emboli identified. 2. Bibasilar mucous plugging with scattered atelectasis. 3. Subsegmental consolidation of the inferior segment lingula with air bronchograms may represent add itional atelectasis versus pneumonia. 4. No pleural effusion or lymphadenopathy. ACT 112: Negative or not required by law. The above report was generated using voice recognition software. It may contain grammatical, syntax o r spelling errors. Electronically signed by: Torsten Peters M.D. 03/29/2024 1:19 PM
[2024-03-29] MEDS: cefTRIAXone SODIUM 1,000 MG/50 ML BAG IV STA (13:59)
[2024-03-29] MEDS: AZITHROMYCIN 250 MG TAB PO ONE (14:09)
[2024-03-29] MEDS: ALBUT/IPRATROP 3MG/0.5MG NEB 3 ML VIAL NEB STA (14:09)
[2024-03-29] MEDS: cefTRIAXone SODIUM 2,000 MG/50 ML BAG IV STA (14:09)
--- NOTE | 2024-03-29 14:23 | History & Physical Report ---
Date of Service March 29, 2024 Assessment & Plan (1) Acute respiratory failure with hypoxia: (2) Community acquired pneumonia: (3) COPD (chronic obstructive pulmonary disease): (4) Hypothyroidism: (5) Mood disorder: (6) Diabetes mellitus, type II: (7) HTN (hypertension): (8) HLD (hyperlipidemia): Plan This is a 58-year-old female with PMH of COPD, ongoing tobacco use, hypertension, type 2 diabetes, hypothyroidism, dyslipidemia, mood disorder and other medical problems listed below who presents with ongoing shortness of breath and congestion x 3 weeks and was found to have acute hypoxic respiratory failure 2/2 CAP. Acute hypoxic respiratory failure CAP URI 3 weeks ago, completed prednisone course and Z yasmin last week without improvement, still with productive cough, SOB Hypoxic at 87-89% at home on room air, improved to 94% on 2L NC O2 (instructed to use 2L NC HS but non-compliant, does not have proper tubing at home) Afebrile, leukocytosis of 18K in setting of recent steroids, resp viral panel negative, procal pending CTA chest with bibasilar mucous plugging with scattered atelectasis, subsegmental consolidation of the inferior segment lingula with air bronchograms may represent additional atelectasis versus pneumonia. No pulmonary emboli Started on Rocephin/doxy for CAP, Duonebs PRN and Trelegy inhaler. 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 Continue venlafaxine, trazodone HS Hypothyroidism Continue levothyroxine HLD Continue statin DVT Ppx: SQ lovenox Code status: FULL PCP: June Dispo: Admitted to med/surg Patient seen in collaboration with Dr. Saenz. Please see addendum. I spent a total of 75 minutes coordinating, documenting, and providing care for this patient excluding time spent in the performance of separately billed services. History of Present Illness Chief Complaint: Shortness of breath, congestion Primary Care Provider: Jeb Queen MD This is a 58-year-old female with PMH of COPD, ongoing tobacco use, hypertension, type 2 diabetes, hypothyroidism, dyslipidemia, mood disorder and other medical problems listed below who presents with ongoing shortness of breath and congestion x 3 weeks. Patient started with typical cold symptoms 3 weeks ago including congestion and cough. Has had progressively worsening shortness of breath and a more productive cough that she does not feel able to clear. Endorsing pleuritic chest pain and general fatigue as well over the past week. Saw PCP and completed course of prednisone and azithromycin without any change symptoms. Has been routinely using her home Xopenex nebulizer as well as Trelegy inhaler. Has been smoking 1 ppd for many years but states she has been feeling too poorly over the past 5 days to smoke at all. Last subjective fever was 2 days ago. Intermittent chills. Endorsing pleuritic chest pain. No wheezing that she notes. No nausea, vomiting, abdominal pain, dysuria, diarrhea constipation. Compliant with home medications. Lives with and able to ambulate independently. Is prescribed 2 L nasal cannula O2 to use at night but has not been doing so because she is not the correct tubing at home. Has not needed daytime oxygen in the past but when she has been checking her pulse ox at home over the past 2 weeks, notes numbers primarily in the high 80s. Allergies Allergy/AdvReac Type Severity Reaction Status Date / Time Cipro Allergy Severe sob Verified 06/10/16 09:25 ciprofloxacin Allergy Severe sob Verified 05/07/23 20:08 Quinolones Allergy Severe SOB Verified 05/07/23 20:08 amoxicillin Allergy Mild HIVES Verified 05/07/23 20:08 latex Allergy Unknown LATEX Verified 05/07/23 20:08 GLOVE POWDER Sulfa (Sulfonamide Allergy Unknown . Unverified 05/07/23 20:08 Antibiotics) [place] Allergy Unknown Difficulty Uncoded 05/07/23 20:08 breathing. Home Medications Medication Instructions Recorded Confirmed Type albuterol sulfate 90 mcg/actuation 2 puff inhalation QID PRN 08/30/18 03/29/24 History aerosol inhaler (ProAir HFA) Shortness Of Breath aspirin 81 mg tablet,delayed 81 mg PO QAM 08/30/18 03/29/24 History release carvedilol 12.5 mg tablet 12.5 mg PO BID 08/30/18 03/29/24 History lisinopril 20 mg tablet 20 mg PO QAM 08/30/18 03/29/24 History omeprazole 20 mg capsule,delayed 20 mg PO QAM 08/30/18 03/29/24 History release cholecalciferol (vitamin D3) 125 5,000 unit PO DAILY 07/08/22 03/29/24 History mcg (5,000 unit) capsule cyanocobalamin (vitamin B-12) 1,000 mcg PO DAILY 07/08/22 03/29/24 History 1,000 mcg tablet empagliflozin 25 mg tablet 25 mg PO DAILY 07/08/22 03/29/24 History (Jardiance) levalbuterol HCl 1.25 mg/3 mL 1.25 mg inhalation Q4H PRN 07/08/22 03/29/24 History solution for nebulization Shortness Of Breath Or Wheezing levothyroxine 175 mcg tablet See Rx Instructions .Route .COMPLEX 07/08/22 03/29/24 History metformin 500 mg tablet,extended 1,000 mg PO BID 07/08/22 03/29/24 History release 24 hr trazodone 150 mg tablet 150 mg PO HS 07/08/22 03/29/24 History atorvastatin 40 mg tablet 40 mg PO QAM 05/07/23 03/29/24 History dulaglutide 3 mg/0.5 mL 3 mg subcut .QSUN 05/07/23 03/29/24 History subcutaneous pen injector (Trulicity) fluticasone fur. 100 mcg-umeclid 1 inh inhalation DAILY 05/07/23 03/29/24 History 62.5 mcg-vilant 25 mcg inhalat.powder (Trelegy Ellipta) albuterol sulfate 2.5 mg/3 mL 2.5 mg (3 mL) inhalation Q4H PRN 11/14/23 03/29/24 Rx (0.083 %) solution for nebulization bronchospasm #90 mL venlafaxine 75 mg capsule,extended 75 mg PO DAILY 03/29/24 03/29/24 History release 24 hr Past Med/Surg History Problem List (Updated 03/29/24 @ 16:25 by THIERRY Brock) Community acquired pneumonia (Acute) Acute respiratory failure with hypoxia Medical History (Updated 03/29/24 @ 16:25 by THIERRY Brock) COPD (chronic obstructive pulmonary disease) Hypothyroidism Mood disorder Diabetes mellitus, type II HLD (hyperlipidemia) HTN (hypertension) Surgical History S/P tonsillectomy and adenoidectomy S/P removal of left ovary Family History Other Cancer Diabetes Hypertension Social History Smoking Status: Current every day smoker Tobacco Type: Cigarettes packs per day: 0.5; Cigarettes Per Day: 1 PACK/DAY; Second Hand Exposure: Yes; Do You Dip or Chew Tobacco: No; Tobacco Cessation Education Requested by Patient: No Hx Alcohol Use: No Hx Substance Use: No Preferred Language: Luxembourgish Communication Ability: Effective 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 Physical Exam Physical Exam: General Appearance: WD/WN, vitals as above, NAD, sitting up in bed, pleasant, appears ill, conversational dyspnea Head: normocephalic, atraumatic Eyes: normal inspection, PERRL, conjunctivae normal, anicteric sclerae ENT: external ear and nose normal, oropharynx normal Neck: normal visual inspection, trachea midline, no thyromegaly Respiratory: normal respiratory effort, bibasilar rales, no wheeze, rales, rhonchi. No accessory muscle use Cardiovascular: regular rate, rhythm, normal peripheral pulses, no BLE edema. Vessels: no JVD Chest: normal inspection of chest Abdomen/GI: normal bowel sounds, soft, nontender, no hepatosplenomegaly Extremities/Musculoskeletal: no cyanosis or clubbing, extremities motor strength 5/5 Neurologic: PERRL, EOMI, accommodation nl, no face palsy, no dysarthria, CN's II-XI intact bilaterally and moves all extremities Psychiatric: A+Ox3, euthymic affect Skin: no rashes, normal color, warm/dry Results & Data Results & Data Vital Signs (Past 12 Hours) Vital Signs Temp Pulse Resp BP Pulse Ox O2 Del Method O2 Flow Rate 03/29/24 12:03 75 15 90 Nasal Cannula 2 03/29/24 12:00 119/78 03/29/24 11:30 108/75 03/29/24 11:30 72 20 92 Nasal Cannula 2 03/29/24 11:21 80 19 89 L Room Air 03/29/24 11:00 116/75 03/29/24 10:57 73 15 92 Room Air 03/29/24 10:33 83 19 92 Room Air 03/29/24 10:32 119/75 03/29/24 10:30 71 03/29/24 10:15 36.9 C 79 18 119/79 93 Room Air Laboratory Results Short CBC 03/29/24 Range/Units 10:29 WBC 18.26 H (4.8-10.8) K/ul Hgb 15.7 (12.0-16.0) g/dl Hct 47.6 H (37.0-47.0) % Plt Count 271 (130-400) K/uL BMP 03/29/24 10:29 Sodium 138 Potassium 4.0 Chloride 102 Carbon Dioxide 28 BUN 15 Creatinine 0.53 L Glucose 101 H Calcium 9.9 Liver Function 03/29/24 Range/Units 10:29 Total Bilirubin 0.5 (0.2-1.0) mg/dl AST 20 (13-39) U/L ALT 18 (7-52) U/L Alkaline Phosphatase 69 (34-104) U/L Albumin 4.3 (3.4-5.0) gm/dl Urine 03/29/24 Range/Units 10:31 Urine Color Yellow Urine Appearance Clear (Clear) Urine pH 5.0 (4.5-7.5) Ur Specific [place] 1.036 H (1.000-1.030) Urine Protein Negative (Negative) Urine Glucose (UA) 3+ H (Negative) Diagnostic Findings Chest X-Ray 03/29/24 10:31 XR chest 1V portable CLINICAL HISTORY: Dyspnea COMPARISON STUDY: 11/14/2023 FINDINGS: Heart size and pulmonary vasculature are normal. There is stable mild stranding opacity at the left lung base. No new consolidation or pleural effusion. No pneumothorax. IMPRESSION: Stable exam. ACT 112: Negative or not required by law. Electronically signed by: Mj Nguyen M.D. 03/29/2024 10:52 AM Chest CTA 03/29/24 12:03 CT angio chest PE protocol CT DOSE: 731.87 mGy.cm HISTORY: 58 years-old Female with PE. Acute shortness of breath with chest pain and cough TECHNIQUE: Multiple CTA images of the chest were obtained after the intravenous administration of 118 ml Optiray. Coronal and sagittal MIPS were obtained from the axial data set and were submitted for review. All measurements were obtained according to NASCET criteria. A dose lowering technique was utilized adhering to the principles of ALARA. COMPARISON: CT chest 10/31/2017 FINDINGS: CTA: Heart is normal in size without pericardial effusion. Moderate coronary artery calcifications. Unremarkable thoracic aorta. No pulmonary emboli. CT CHEST: No lymphadenopathy. No pneumothorax or overt pulmonary edema. Patchy bilateral groundglass densities with areas of bibasilar mucous plugging and mild inferior segment lingula consolidation. No suspicious pulmonary nodules or masses. No acute upper abdominal abnormality. Hepatosplenomegaly with probable hepatic steatosis. 1.7 cm partially calcified left adrenal gland lesion redemonstrated, likely benign. No acute fracture. IMPRESSION: 1. No pulmonary emboli identified. 2. Bibasilar mucous plugging with scattered atelectasis. 3. Subsegmental consolidation of the inferior segment lingula with air bronchograms may represent additional atelectasis versus pneumonia. 4. No pleural effusion or lymphadenopathy. ACT 112: Negative or not required by law. The above report was generated using voice recognition software. It may contain grammatical, syntax or spelling errors. Electronically signed by: Torsten Peters M.D. 03/29/2024 1:19 PM ECG Additional Comments: NSR at 70 bpm, no acute ST changes Code Status & VTE Plan VTE Prophylaxis Plan VTE Prophylaxis will be ordered: Yes Supervising Physician Co-Signing Physician Notes Attending addendum The patient was seen and examined in medical floor She was admitted with ongoing cough and shortness of breath Presented with acute hypoxic respiratory failure and noted to have CAP with COPD Still complaining of cough but no other significant symptoms On examination Lying in bed without any acute distress Hemodynamically stable and remains afebrile Chestdecreased breath sounds with occasional crackles but no wheezing HeartS1-S2, regular Abdomenbenign Extremitiesno edema Her labs, EKG and imaging studies reviewed Has CAP with 3-week history of URI and received antibiotic and asteroid as an outpatient without improvement Started on Rocephin and doxycycline and will continue nebulized bronchodilator Agree with assessment and plan as outlined above by Gris Villasenor PA-C and take the full responsibility of care in the hospital Dr Warren Saenz
--- OUTSIDE RECORDS SUMMARY | 2024-03-29 15:13 | External Medical Summary | Summary of Care ---
Author Name Unknown Organization [facility] Address [address] [place] [address] Phone [phone] Care Team Providers Care Wire Coiler Machine Operator Name Role Phone Jeb Queen MD Primary Care Provider [phone] Encounter Details Date Type Department Care Team (Late st Contact Info) Description 03/07/2024 Orders Only Outcomes Research Department [address] [place] [address] Pepper Meyer CHRA MyCode Research Other*[id number] Allergies Active Allergy Reactions Criticality Noted Date Comments Amoxicillin 07/11/2015 Rash per pt Sulfamethoxazole-Trimethopri m Hives 07/11/2015 Ciprofloxacin 01/04/2020 SOB Cephalexin 07/11/2015 Trouble breathing per pt Latex 07/11/2015 Pt reports allergy is the powder that is in latex gloves. Quinolones 01/30/1998 nausea,sweating and lightheaded Cipro - ? Trouble breathing documented as of this encounter (statuses as of 03/07/2024) Medications Aspirin 81 MG Tablet Take 1 Tablet by mouth in the morning. Active BD Pen Needle Delaney U/F 32G X 4 MM (Insulin Pen Needle)Indications :Type 2 diabetes mellitus with hemoglobin A1c goal of less than 7.0% ([facility]) Use up to 4 times daily with insulin 100 Each 5 2 Active Glucose Blood In Vitro StripIndications:T ype 2 diabetes mellitus with hemoglobin A1c goal of less than 7.0% ([facility]) Use as directed. 100 Strip 11 3 Active Compressor NebulizerIndicatio ns:COPD, group A, by GOLD 2017 classification ([facility]) Inhale via nebulizer. Use as [...] ns:COPD, group A, by GOLD 2017 classification ([facility]) Inhale 1 Ampule via nebulizer every 4 hours as needed for Wheezing. 810 mL 3 3 Active Trelegy Ellipta 100-62.5-25 MCG/ACT Aerosol Powder Breath Activated (Fluticasone-Umecl idinium-Vilanterol )Indications:COPD, group B, by GOLD 2017 classification ([facility]) Inhale 1 Puff by mouth in the morning. 180 Each 3 3 Active Carvedilol 12.5 MG Oral Tablet (Coreg) TAKE 1 TABLET BY MOUTH TWICE A DAY WITH BREAKFAST AND DINNER 180 Tablet 3 3 Active traZODone HCl 150 MG Oral Tablet (Desyrel)Indicatio ns:Panic disorder,Persisten t insomnia TAKE 1 TABLET BY MOUTH DAILY AT BEDTIME BY MOUTH 90 Tablet 2 4 Active Jardiance 25 MG Oral Tablet (Empagliflozin) TAKE 1 TABLET BY MOUTH EVERY DAY IN THE MORNING 90 Tablet 1 4 Active Levothyroxine Sodium 175 MCG Oral Tablet (Levoxyl)Indicatio ns:Acquired hypothyroidism TAKE 1/2 TAB BY MOUTH ON SUNDAYS, TAKE 1 TAB BY MOUTH ALL OTHER DAYS AT LEAST 30 MIN BEFORE BREAKFAST OR OTHER MEDICATION 90 Tablet 1 4 Active metFORMIN HCl ER 500 MG Oral Tablet Extended Release 24 Hour (Glucophage XR)Indications:Typ e 2 diabetes mellitus with hemoglobin A1c goal of less than 7.0% (HCC) TAKE 2 TABLETS BY MOUTH TWICE A DAY WITH MORNING AND EVENING MEAL 360 Tablet 4 Active Venlafaxine HCl ER 75 MG Oral Capsule Extended Release 24 Hour (Effexor XR) TAKE 1 CAPSULE BY MOUTH IN THE MORNING. DO NOT CUT, CRUSH OR CHEW. 90 Capsule 4 Active methylPREDNISolone 4 MG Oral Tablet Therapy Pack (Medrol Dosepack) follow package directions 21 Tablet 4 Active Omeprazole 20 MG Oral Capsule Delayed Release (PriLOSEC) TAKE 1 CAPSULE BY MOUTH EVERY DAY IN THE MORNING 90 Capsule 3 5 Active Lisinopril 20 MG Oral Tablet (Prinivil) TAKE 1 TABLET BY MOUTH EVERY DAY IN THE MORNING 90 Tablet 3 5 Active Trulicity 3 MG/0.5ML Subcutaneous Solution Auto-injector (Dulaglutide)Indic ations:Type 2 diabetes mellitus with hemoglobin A1c goal of less than 7.0% (HCC) INJECT 3 MG UNDER THE SKIN ONCE A WEEK. 6 mL 3 5 Active Atorvastatin Calcium 40 MG Oral Tablet (Lipitor)Indicatio ns:Type 2 diabetes mellitus with hemoglobin A1c goal of less than 7.0% (HCC) TAKE 1 TABLET BY MOUTH EVERY DAY IN THE MORNING 90 Tablet 3 5 Active documented as of this encounter (statuses as of 03/07/2024) Active Problems Problem Noted Date Diagnosed Date Moderate major depression 05/15/2023 COPD, group B, by GOLD 2017 classification 11/03 Overview: Per COPD GOLD Classification Recurrent major depressive disorder 07/07/2022 Food insecurity 06/02/2022 Overview: Per [facility] Protocol Acquired hypothyroidism 02/22/2019 Depression with anxiety 02/22/2019 HTN, goal below 130/80 02/22/2019 Dyslipidemia 02/22/2019 Psychogenic syncope 02/22/2019 Overview (02/22/2019): Work up negative as of 02/22/19 Type 2 diabetes mellitus wit h hemoglobin A1c goal of less than 7.0% 10/12/2017 Gastroesophageal reflux disease with esophagitis Panic disorder documented as of this encounter (statuses as of 03/07/2024) Resolved Problems Problem Noted Date Diagnosed Date Resolved Date Type 2 diabetes mellitus wit h diabetic polyneuropathy 07/07/2022 05/15/2023 COPD, group A, by GOLD 2017 classification 06/02/2022 11/06/2022 Overview: Per COPD GOLD Classification Morbid obesity due to excess calories 05/26/2022 05/26/2022 COPD, severity to be determined 02/22/2019 06/05/2022 Overview: Per COPD GOLD Classification Routine general medical exam ination at a health care facility 12/29/2013 02/22/2019 Overview (12/29/2013): 12/29-PCP ran late-pt unable to stay for appt Asthma with severity to be determined 08/16/2009 02/22/2019 Overview (06/04/2015): Per Asthma Taxonomy ICD-10 update of inactive term Asthma, non-allergic 03/18/2007 010 NONALLERGIC RHINITIS 03/18/2007 019 Chronic sinusitis 03/18/2007 02/22/2019 SKIN SENSATION DISTURB 03/04/199902/22 Major depressive disorder 01/30/1998 Overview (12/16/2016): ICD-10 update of inactive term CLASSICAL MIGRAINE WITHOU ME NTION OF INTRACTABLE MIGRAINE 02/22/2019 Asthma with severity to be determined 03/18/2007 Overview (06/04/2015): ICD-10 update of inactive term documented as of this encounter (statuses as of 03/07/2024) Immunizations Name Administration Dates Next Due COVID-19 mRNA, LNP-s, No Pre serve, 2-Dose Series (Gnodal) 07/11/2020,06/20/2020 Hepatitis B, 20+ yrs 10/11/2018,05/18/2018,04/09 Pneumococcal Conjugate Vacci ne, 20-valent ([id number]) 09/30/2022 Pneumococcal Polysaccharide PPV23 (Pneumovax) 01/23/2007 Seasonal Influenza, PF, 6 M & above, IM , (FluLaval or Fluzone) 01/07/2023,11/24/2020,01/17/2020 Seasonal Influenza, Trivalen t, (IIV3), PF, (Fluzone) 01/04/2024 TDAP (age 10 and older)(Boostrix) 01/17/2020 TDAP, Age 7 and older, IM (Adacel) 12/20/2010 Zoster Vaccine Recombinant (Shingrix) 05/14/2021 ,01/04/2020 [...] money to get more. Often true 09/16/2022 Childcare Answer Date Recorded Do you feel overwhelmed with taking care of a child, family member or friend? No 09/16/2022 Does your family need help f inding childcare? (Household - for ages 0-17 years) Not on file 09/16/2022 Clothing Answer Date Recorded Have you been unable to get clothing when it was really needed? Yes 09/16/2022 Is your family able to get c lothes or diapers when needed? (Household - for ages 0-17 years) Not on file 09/16/2022 Personal Safety Answer Date Recorded Do you feel unsafe or have concerns for your saf ety? No 09/16/2022 Do you have concerns for you r family's safety? (Household - for ages 0-17 years) Not on file 09/16/2022 Utilities Answer Date Recorded Do you have trouble paying y our heating, water, or electric bill? Yes 09/16/2022 Is your family able to pay t he heat, water, or electric bill? (Household - for ages 0-17 years) Not on file 09/16/2022 Does your family have access to good internet? (Household - for ages 0-17 years) Not on file 09/16/2022 Employment Status Answer Date Recorded Are you unemployed or without regular income? Ye s 09/16/2022 Does the household have a re gular source of income? (Household - for ages 0-17 years) Not on file 09/16/2022 Social Connections Answer Date Recorded How often do you feel lonely or isolated from th ose around you? Never 09/16/2022 Financial Resource Strain Answer Date R ecorded Do you have any trouble payi ng for your medications, or do you think you might in the future? Yes 09/16/2022 Does your family have troubl e paying for medicine? (Household - for ages 0-17 years) Not on file 09/16/2022 Transportation Needs Answer Date Record ed READ ONLY Do you have troubl e getting a ride to medical visits or work? Often True 09/16/2022 Does your family have a hard time getting a ride to doctors visits? (Household - for ages 0-17 years) Not on file 09/16/2022 Has lack of transportation k ept you from medical appointments, meetings, work, or from getting things needed for daily living? Check all that apply. (Adult - for ages 18 years and over) Not on file 09/16/2022 Do you (or your family) have trouble finding or paying for a ride (transportation)? (Household - for ages 0-17 years) Not on file 09/16/2022 Housing Stability Answer Date Recorded Do you currently live in a s helter or have no steady place to sleep at night? No 09/16/2022 READ ONLY Do you think you a re at risk of becoming homeless? No 09/16/2022 Does your family worry about paying for your home or becoming homeless? (Household - for ages 0-17 years) Not on file 0 09/16/2022 Are you homeless or worried that you might be in the future? (Adult - for ages 18 years and over) Not on file Are you (or your family) bandar eless or worried that you might be in the future? (Household - for ages 0-17 years) Not on file Food Insecurity Answer Date Recorded Do you need food for this week? Yes 09/16/2022 Are you able to get enough f ood for your family? (Household - for ages 0-17 years) Not on file 09/16/2022 Does your family need food t his week? (Household - for ages 0-17 years) Not on file 09/16/2022 Do you always have enough fo od for your family? (Household - for ages 0-17 years) Not on file 09/16/2022 Comments No Sex and Gender Information Value Date Recorded Sex Assigned at Female 07/10/2022 5:57 PM EDT Legal Sex Female 6:02 AM EST Gender Identity Female 07/10/2022 5:57 PM EDT Sexual Orientation Straight 07/10/2022 5: 57 PM EDT documented as of this encounter Plan of Treatment Upcoming Encounters Date Type Department Care Team (Late st Contact Info) Description 03/22/2024 2:00 PM EST Office Visit Orthopaedics [facility] [address] [place] [phone] Roxane Jeronimo MD [address] [place] [id number] Scheduled Orders Name Type Priority Associated Diagnoses Orde r Schedule MYCODE SUBSEQUENT ADULT Lab Routine MyCode Research Other*[id number] Every 6 Months for 2 Occurrences starting 03/07/2024 until 03/27/2025 Health Maintenance Due Date Last Done Comments DISCUSS TOBACCO CESSATION (REFER TO SMARTSET #1040) 1967 HIV Screening 1982 Alpha-1 Antitrypsin 1985 Hepatitis C Screening 1985 O2 ASSESSMENT COMPLETED IN PAST YEAR FOR COPD 1985 HPV/Co-Test 1997 Colonoscopy 2012 Fecal Occult Blood Test 2012 Sigmoidoscopy 2012 Cervical Cancer Screening 07/18/2018 Pap Smear 07/18/2018 07/19/2015, 05/06/1999 Mammogram 10/23/2019 10/22/2018, 09/22/2017 Diabetic Eye Exam 09/28/2022 09/28/2021, , 10/27/2017 Depression Monitoring 10/01/2023 09/30/2022 COVID-19 Vaccine ( season) 2023 07/11/2020, 06/20/2020, 05/31/2020 Cologuard 06/05/2024 06/05/2021, 04/0 06/2021, 05/28/2021 Colorectal Cancer Screening 06/05/2024 TSH 06/30/2024 07/01/2023, 12/24, 04/17/2022, Additional history exists HbA1c 07/03/2024 01/04/2024, 12/24, 09/11/2022, Additional history exists Diabetic Foot Exam 01/03/2025 01/04/2024, 0 09/30/2022, 05/14/2021, Additional history exists GFR 01/03/2025 01/04/2024, 12/24, 07/15/2022, Additional history exists Albumin/Creatinine Ratio 02/01/20252 024, 01/07/2023, 10/14/2021, Additional history exists Lipid Panel 01/03/2029 01/04/2024, 12/24, 05/09/2022, Additional history exists DTap/Tdap Vaccines (3 - Td or Tdap) 01/16/2030 01/17/2020, 12/20/2010 Hepatitis B Vaccine Completed 10/11/2018, 05/18/2018, 04/09/2018 Zoster Vaccines Completed 05/14/2021, 01/04/2020 Lung Cancer Screening Completed 08/01/2022, 018 Pneumococcal Vaccine: 50+ Years Completed 09/30/2022, 12/12/2014, 01/23/2007 Influenza Vaccine (FLU shot) Completed 12/2023, 01/07/2023, 11/24/2020, Additional history exists HPV (Gardasil) Vaccine Aged Out No lo nger eligible based on patient's age to complete this topic MENINGOCOCCAL (MENACTRA/MENVEO) Aged Out No longer eligible based on patient's age to complete this topic documented as of this encounter Medical Devices Not on filedocumented as of this encounter Visit Diagnoses Diagnosis MyCode Research Other*[id number] documented in this encounter Care Teams Wire Coiler Machine Operator Relationship Specialty Start Date End Date June, Jeb Barker MD PCP - General Family Medicine 08/05/22 documented as of this encounter
--- OUTSIDE RECORDS SUMMARY | 2024-03-29 15:13 | External Medical Summary | Summary of Care ---
Author Name Unknown Organization [facility] Address [address] [facility] [address] Phone [phone] Care Team Providers Care Communications Instructor Name Role Phone Jbe Queen MD Primary Care Provider [phone] Encounter Details Date Type Department Care Team (Late st Contact Info) Description 02/23/2024 Patient Reported Data Patient Survey Ortho [facility] Allergies Active Allergy Reactions Criticality Noted Date Comments Amoxicillin 07/11/2015 Rash per pt Sulfamethoxazole-Trimethopri m Hives 07/11/2015 Ciprofloxacin 01/04/2020 SOB Cephalexin 07/11/2015 Trouble breathing per pt Latex 07/11/2015 Pt reports allergy is the powder that is in latex gloves. Quinolones 01/30/1998 nausea,sweating and lightheaded Cipro - ? Trouble breathing documented as of this encounter (statuses as of 02/23/2024) Medications Aspirin 81 MG Tablet Take 1 Tablet by mouth in the morning. Active BD Pen Needle Delaney U/F 32G X 4 MM (Insulin Pen Needle)Indications :Type 2 diabetes mellitus with hemoglobin A1c goal of less than 7.0% ([facility]) Use up to 4 times daily with insulin 100 Each 5 2 Active Glucose Blood In Vitro StripIndications:T ype 2 diabetes mellitus with hemoglobin A1c goal of less than 7.0% ([facility]) Use as directed. 100 Strip 11 3 Active Compressor NebulizerIndicatio ns:COPD, group A, by GOLD 2017 classification ([facility]) Inhale via nebulizer. Use as directed. 1 [...] ns:COPD, group A, by GOLD 2017 classification ([facility]) Inhale 1 Ampule via nebulizer every 4 hours as needed for Wheezing. 810 mL 3 3 Active Trelegy Ellipta 100-62.5-25 MCG/ACT Aerosol Powder Breath Activated (Fluticasone-Umecl idinium-Vilanterol )Indications:COPD, group B, by GOLD 2017 classification ([facility]) Inhale 1 Puff by mouth in the morning. 180 Each 3 3 Active Dulaglutide 3 MG/0.5ML Subcutaneous Solution Pen-injector (Trulicity)Indicat ions:Type 2 diabetes mellitus with hemoglobin A1c goal of less than 7.0% ([facility]) Inject 3 mg under the skin once a week. 6 mL 3 3 Active Carvedilol 12.5 MG Oral Tablet (Coreg) TAKE 1 TABLET BY MOUTH TWICE A DAY WITH BREAKFAST AND DINNER 180 Tablet 3 3 Active Lisinopril 20 MG Oral Tablet (Prinivil) TAKE 1 TABLET BY MOUTH EVERY DAY IN THE MORNING 90 Tablet 3 3 Active Omeprazole 20 MG Oral Capsule Delayed Release (PriLOSEC) TAKE 1 CAPSULE BY MOUTH EVERY DAY IN THE MORNING 90 Capsule 2 4 Active traZODone HCl 150 MG Oral Tablet (Desyrel)Indicatio ns:Panic disorder,Persisten t insomnia TAKE 1 TABLET BY MOUTH DAILY AT BEDTIME BY MOUTH 90 Tablet 2 4 Active Atorvastatin Calcium 40 MG Oral Tablet (Lipitor)Indicatio ns:Type 2 diabetes mellitus with hemoglobin A1c goal of less than 7.0% ([facility]) TAKE 1 TABLET BY MOUTH EVERY DAY IN THE MORNING 90 Tablet 1 4 Active Jardiance 25 MG Oral Tablet [...] follow package directions 21 Tablet 4 Active documented as of this encounter (statuses as of 02/23/2024) Active Problems Problem Noted Date Diagnosed Date [...] as of this encounter (statuses as of 02/23/2024) Resolved Problems Problem Noted Date Diagnosed Date [...] as of this encounter (statuses as of 02/23/2024) Immunizations Name Administration Dates Next Due COVID-19 mRNA, LNP-s, No Pre serve, 2-Dose Series ([employer]) 07/11/2020,06/20/2020 Hepatitis B, 20+ yrs 10/11/2018,05/18/2018,04/09 Pneumococcal Conjugate Vacci ne, 20-valent ([id number]) 09/30/2022 Pneumococcal Polysaccharide PPV23 (Pneumovax) 01/23/2007 Seasonal [...] Care Team (Late st Contact Info) Description 03/01/2024 2:30 PM EST Office Visit Orthopaedics [facility] [address] [place] [id number] Roxane Jeronimo MD [address] [place] [address] Health Maintenance Due Date Last Done Comments DISCUSS TOBACCO CESSATION (REFER TO SMARTSET #3757) 1967 HIV Screening 1982 Alpha-1 Antitrypsin 1985 [...] 12/24, 07/15/2022, Additional history exists Albumin/Creatinine Ratio 02/01/2025 024, 01/07/2023, 10/14/2021, Additional history exists Lipid [...] filedocumented as of this encounter Care Teams Communications Instructor Relationship Specialty Start Date End Date June, Jeb Barker MD PCP - General Family Medicine 08/05/22 documented as of this encounter
--- OUTSIDE RECORDS SUMMARY | 2024-03-29 15:13 | External Medical Summary | Summary of Care ---
Author Name Unknown Organization [facility] Address [address] [facility] [place] [address] Phone [phone] Care Team Providers Care Legal Document Specialist Name Role Phone JuneGeremias MD Primary Care Provider [phone] Reason for Visit * Reason Comments eRx-Medication Refill Encounter Details Date Type Department Care Team (Late st Contact Info) Description 03/04/2024 Refill Merged With [facility] Radha Acevedo [address] [place] [address] Geremias Woody MD [address] [facility] [place] [address] Encounter for long-term (current) use of medications*; Type 2 diabetes mellitus with hemoglobin A1c goal of less than 7.0% ([facility]) Allergies Active Allergy Reactions Criticality Noted Date Comments Amoxicillin 07/11/2015 Rash per pt Sulfamethoxazole-Trimethopri m Hives 07/11/2015 Ciprofloxacin 01/04/2020 SOB Cephalexin 07/11/2015 Trouble breathing per pt Latex 07/11/2015 Pt reports allergy is the powder that is in latex gloves. Quinolones 01/30/1998 nausea,sweating and lightheaded Cipro - ? Trouble breathing documented as of this encounter (statuses as of 03/04/2024) Medications Aspirin 81 MG Tablet Take 1 Tablet by mouth in the morning. Active BD Pen Needle Delaney U/F 32G X 4 MM (Insulin Pen Needle)Indication s:Type 2 diabetes mellitus with hemoglobin A1c goal of less than 7.0% ([facility]) Use up to 4 times daily with insulin 100 Each 5 12/07/19 22 Active Glucose Blood In Vitro StripIndications: Type 2 diabetes mellitus with hemoglobin A1c goal of less than 7.0% ([facility]) Use as directed. 100 Strip 11 07/16/19 23 Active Compressor NebulizerIndicati ons:COPD, group A, by GOLD 2017 classification ([facility]) Inhale via nebulizer. Use as directed. 1 Each 1 07/23/19 23 Active Vitamin B-12 1000 MCG Oral Tablet (Cyanocobalamin) TAKE 1 TABLET BY MOUTH EVERY DAY IN THE MORNING 90 Tablet 1 08/13/19 23 Active Vitamin D3 125 MCG (5000 UT) Oral Capsule TAKE 1 CAPSULE BY MOUTH EVERY MORNING 90 Capsule 08/13/19 23 Active Albuterol Sulfate HFA 108 (90 Base) MCG/ACT Inhalation Aerosol SolutionIndicatio ns:Cough INHALE 2 PUFFS BY MOUTH 4 TIMES DAILY 18 g 2 08/16/19 23 Active Levalbuterol HCl 1.25 MG/3ML Inhalation Nebulization Solution (Xopenex)Indicati ons:COPD, group A, by GOLD 2017 classification ([facility]) Inhale 1 Ampule via nebulizer every 4 hours as needed for Wheezing. 810 mL 3 09/02/19 23 Active Trelegy Ellipta 100-62.5-25 MCG/ACT Aerosol Powder Breath Activated (Fluticasone-Umec lidinium-Vilanter ol)Indications:CO PD, group B, by GOLD 2017 classification ([facility]) Inhale 1 Puff by mouth in the morning. 180 Each 3 01/08/20 23 Active Carvedilol 12.5 MG Oral Tablet (Coreg) TAKE 1 TABLET BY MOUTH TWICE A DAY WITH BREAKFAST AND DINNER 180 Tablet 3 02/14/20 23 Active traZODone HCl 150 MG Oral Tablet (Desyrel)Indicati ons:Panic disorder,Persiste nt insomnia TAKE 1 TABLET BY MOUTH DAILY AT BEDTIME BY MOUTH 90 Tablet 2 06/15/19 24 Active Jardiance 25 MG Oral Tablet (Empagliflozin) TAKE 1 TABLET BY MOUTH EVERY DAY IN THE MORNING 90 Tablet 1 09/23/19 24 Active Levothyroxine Sodium 175 MCG Oral Tablet (Levoxyl)Indicati ons:Acquired hypothyroidism TAKE 1/2 TAB BY MOUTH ON SUNDAYS, TAKE 1 TAB BY MOUTH ALL OTHER DAYS AT LEAST 30 MIN BEFORE BREAKFAST OR OTHER MEDICATION 90 Tablet 1 12/06/19 24 Active metFORMIN HCl ER 500 MG Oral Tablet Extended Release 24 Hour (Glucophage XR)Indications:Ty pe 2 diabetes mellitus with hemoglobin A1c goal of less than 7.0% (HCC) TAKE 2 TABLETS BY MOUTH TWICE A DAY WITH MORNING AND EVENING MEAL 360 Tablet 12/29/19 24 Active Venlafaxine HCl ER 75 MG Oral Capsule Extended Release 24 Hour (Effexor XR) TAKE 1 CAPSULE BY MOUTH IN THE MORNING. DO NOT CUT, CRUSH OR CHEW. 90 Capsule 12/30/19 24 Active methylPREDNISolon e 4 MG Oral Tablet Therapy Pack (Medrol Dosepack) follow package directions 21 Tablet 02/02/20 24 Active Omeprazole 20 MG Oral Capsule Delayed Release (PriLOSEC) TAKE 1 CAPSULE BY MOUTH EVERY DAY IN THE MORNING 90 Capsule 3 03/04/19 25 Active Lisinopril 20 MG Oral Tablet (Prinivil) TAKE 1 TABLET BY MOUTH EVERY DAY IN THE MORNING 90 Tablet 3 03/04/19 25 Active Trulicity 3 MG/0.5ML Subcutaneous Solution Auto-injector (Dulaglutide)Greta cations:Type 2 diabetes mellitus with hemoglobin A1c goal of less than 7.0% (HCC) INJECT 3 MG UNDER THE SKIN ONCE A WEEK. 6 mL 3 03/04/19 25 Active Atorvastatin Calcium 40 MG Oral Tablet (Lipitor)Indicati ons:Type 2 diabetes mellitus with hemoglobin A1c goal of less than 7.0% (HCC) TAKE 1 TABLET BY MOUTH EVERY DAY IN THE MORNING 90 Tablet 3 03/04/19 25 Active Dulaglutide 3 MG/0.5ML Subcutaneous Solution Pen-injector (Trulicity)Indica tions:Type 2 diabetes mellitus with hemoglobin A1c goal of less than 7.0% (HCC) Inject 3 mg under the skin once a week. 6 mL 3 01/12/20 23 2024 Discontinued Lisinopril 20 MG Oral Tablet (Prinivil) TAKE 1 TABLET BY MOUTH EVERY DAY IN THE MORNING 90 Tablet 3 02/14/20 23 2024 Discontinued Omeprazole 20 MG Oral Capsule Delayed Release (PriLOSEC) TAKE 1 CAPSULE BY MOUTH EVERY DAY IN THE MORNING 90 Capsule 2 06/15/19 24 2024 Discontinued Atorvastatin Calcium 40 MG Oral Tablet (Lipitor)Indicati ons:Type 2 diabetes mellitus with hemoglobin A1c goal of less than 7.0% ([facility]) TAKE 1 TABLET BY MOUTH EVERY DAY IN THE MORNING 90 Tablet 1 09/23/19 24 2024 Discontinued documented as of this encounter (statuses as of 03/04/2024) Active Problems Problem Noted Date Diagnosed Date [...] as of this encounter (statuses as of 03/04/2024) Resolved Problems Problem Noted Date Diagnosed Date [...] as of this encounter (statuses as of 03/04/2024) Immunizations Name Administration Dates Next Due COVID-19 mRNA, LNP-s, No Pre serve, 2-Dose Series ([facility]) 07/11/2020,06/20/2020 Hepatitis B, 20+ yrs 10/11/2018,05/18/2018,04/09 Pneumococcal Conjugate Vacci ne, 20-valent ([id number]) 09/30/2022 Pneumococcal Polysaccharide PPV23 (Pneumovax) 01/23/2007 Seasonal [...] PM EDT documented as of this encounter Miscellaneous Notes * Telephone Encounter - Moiz Noriega, [facility] - 03/04/2024 12:48 PM EST Signed Prescriptions: Disp Refills Omeprazole 20 MG Oral Capsule Delayed Rele*90 Cap*3 Sig: TAKE 1 CAPSULE BY MOUTH EVERY DAY IN THE MORNINGAuthorizing Provider: GEREMIAS WOODY User: MOIZ NORIEGA Lisinopril 20 MG Oral Tablet (Prinivil) 90 Tab*3 Sig: TAKE 1 TABLET BY MOUTH EVERY DAY IN THE MORNINGAuthorizing Provider: GEREMIAS WOODY User: MOIZ NORIEGA Trulicity 3 MG/0.5ML Subcutaneous Solution*6 mL 3 Sig: INJECT 3 MG UNDER THE SKIN ONCE A WEEK.Authorizing Provider: GEREMIAS WOODY User: MOIZ NORIEGA Atorvastatin Calcium 40 MG Oral Tablet(Li*90 Tab*3 Sig: TAKE 1 TABLET BY MOUTH EVERY DAY IN THE MORNINGAuthorizing Provider: GEREMIAS WOODY User: MOIZ NORIEGA documented in this encounter Plan of Treatment Upcoming Encounters Date Type Department Care Team (Late st Contact Info) Description 03/22/2024 2:00 PM EST Office Visit Orthopaedics [facility] [address] [place] [address] Roxane Jeronimo MD [address] [place] [id number] Scheduled Orders Name Type Priority Associated Diagnoses Orde r Schedule MAGNESIUM Lab Routine Encounter for long-term (current) use of medications Expected: 03/04/2024, Expires: 03/04/2025 Health Maintenance Due Date Last Done Comments DISCUSS TOBACCO CESSATION (REFER TO SMARTSET #[id number]) 1965 HIV Screening 1982 Alpha-1 Antitrypsin 1985 [...] 12/24, 07/15/2022, Additional history exists Albumin/Creatinine Ratio 02/01/202502/01/2 024, 01/07/2023, 10/14/2021, Additional history exists Lipid [...] Diagnosis Encounter for long-term (current) use of medications- Primary Encounter for long-term (current) use of other medications Type 2 diabetes mellitus with hemoglobin A1c goal of less than 7.0% (HCC) documented in this encounter Care Teams Legal Document Specialist Relationship Specialty Start Date End Date June, Geremias Barker MD PCP - General Family Medicine 08/05/22 documented as of this encounter
--- OUTSIDE RECORDS SUMMARY | 2024-03-29 15:13 | External Medical Summary | Summary of Care ---
Author Name Unknown Organization [facility] Address [address] [facility] [address] Phone [phone] Care Team Providers Care Magazine Feeder Name Role Phone Jeb Queen MD Primary Care Provider [phone] Reason for Visit * Reason Comments Acute Encounter Details Date Type Department Care Team (Late st Contact Info) Description 03/18/2024 12:40 PM EST Telemedicine [facility] Radha Acevedo [address] [place] [address] Jeb Queen MD [address] [facility] [place] [address] Viral URI*; COPD, group A, by GOLD 2017 classification ([facility]); COPD exacerbation ([facility]); COPD, group B, by GOLD 2017 classification ([facility]); Type 2 diabetes mellitus with hemoglobin A1c goal of less than 7.0% ([facility]); Moderate major depression ([facility]) Allergies Active Allergy Reactions Criticality Noted Date Comments Amoxicillin 07/11/2015 Rash per pt Sulfamethoxazole-Trimethopri m Hives 07/11/2015 Ciprofloxacin 01/04/2020 SOB Cephalexin 07/11/2015 Trouble breathing per pt Latex 07/11/2015 Pt reports allergy is the powder that is in latex gloves. Quinolones 01/30/1998 nausea,sweating and lightheaded Cipro - ? Trouble breathing documented as of this encounter (statuses as of 03/18/2024) Medications Aspirin 81 MG Tablet Take 1 Tablet by mouth in the morning. Active BD Pen Needle Delaney U/F 32G X 4 MM (Insulin Pen Needle)Indication s:Type 2 diabetes mellitus with hemoglobin A1c goal of less than 7.0% ([facility]) Use up to 4 times daily with insulin 100 Each 5 022 Active Glucose Blood In Vitro StripIndications: Type 2 diabetes mellitus with hemoglobin A1c goal of less than 7.0% ([facility]) Use as directed. 100 Strip 11 023 Active Compressor NebulizerIndicati ons:COPD, group A, by GOLD 2017 classification ([facility]) Inhale via nebulizer. Use as directed. 1 Each 1 023 Active Vitamin B-12 1000 MCG Oral Tablet (Cyanocobalamin) TAKE 1 TABLET BY MOUTH EVERY DAY IN THE MORNING 90 Tablet 1 023 Active Vitamin D3 125 MCG (5000 UT) Oral Capsule TAKE 1 CAPSULE BY MOUTH EVERY MORNING 90 Capsule 1 023 Active Albuterol Sulfate HFA 108 (90 Base) MCG/ACT Inhalation Aerosol SolutionIndicatio ns:Cough INHALE 2 PUFFS BY MOUTH 4 TIMES DAILY 18 g 2 023 Active Trelegy Ellipta 100-62.5-25 MCG/ACT Aerosol Powder Breath Activated (Fluticasone-Umec lidinium-Vilanter ol)Indications:CO PD, group B, by GOLD 2017 classification ([facility]) Inhale 1 Puff by mouth in the morning. 180 Each 3 023 Active Carvedilol 12.5 MG Oral Tablet (Coreg) TAKE 1 TABLET BY MOUTH TWICE A DAY WITH BREAKFAST AND DINNER 180 Tablet 3 023 Active traZODone HCl 150 MG Oral Tablet (Desyrel)Indicati ons:Panic disorder,Persiste nt insomnia TAKE 1 TABLET BY MOUTH DAILY AT BEDTIME BY MOUTH 90 Tablet 2 024 Active Jardiance 25 MG Oral Tablet (Empagliflozin) TAKE 1 TABLET BY MOUTH EVERY DAY IN THE MORNING 90 Tablet 1 024 Active Levothyroxine Sodium 175 MCG Oral Tablet (Levoxyl)Indicati ons:Acquired hypothyroidism TAKE 1/2 TAB BY MOUTH ON SUNDAYS, TAKE 1 TAB BY MOUTH ALL OTHER DAYS AT LEAST 30 MIN BEFORE BREAKFAST OR OTHER MEDICATION 90 Tablet 1 024 Active metFORMIN HCl ER 500 MG Oral Tablet Extended Release 24 Hour (Glucophage XR)Indications:Ty pe 2 diabetes mellitus with hemoglobin A1c goal of less than 7.0% (HCC) TAKE 2 TABLETS BY MOUTH TWICE A DAY WITH MORNING AND EVENING MEAL 360 Tablet 024 Active Venlafaxine HCl ER 75 MG Oral Capsule Extended Release 24 Hour (Effexor XR) TAKE 1 CAPSULE BY MOUTH IN THE MORNING. DO NOT CUT, CRUSH OR CHEW. 90 Capsule 024 Active Omeprazole 20 MG Oral Capsule Delayed Release (PriLOSEC) TAKE 1 CAPSULE BY MOUTH EVERY DAY IN THE MORNING 90 Capsule 3 025 Active Lisinopril 20 MG Oral Tablet (Prinivil) TAKE 1 TABLET BY MOUTH EVERY DAY IN THE MORNING 90 Tablet 3 025 Active Trulicity 3 MG/0.5ML Subcutaneous Solution Auto-injector (Dulaglutide)Greta cations:Type 2 diabetes mellitus with hemoglobin A1c goal of less than 7.0% (HCC) INJECT 3 MG UNDER THE SKIN ONCE A WEEK. 6 mL 3 025 Active Atorvastatin Calcium 40 MG Oral Tablet (Lipitor)Indicati ons:Type 2 diabetes mellitus with hemoglobin A1c goal of less than 7.0% (HCC) TAKE 1 TABLET BY MOUTH EVERY DAY IN THE MORNING 90 Tablet 3 025 Active Levalbuterol HCl 1.25 MG/3ML Inhalation Nebulization Solution (Xopenex)Indicati ons:COPD, group A, by GOLD 2017 classification ([facility]) Inhale 1 Ampule via nebulizer every 4 hours as needed for Wheezing. 810 mL 3 025 Active Azithromycin 250 MG Oral Tablet (Zithromax)Indica tions:COPD, group A, by GOLD 2017 classification ([facility]),COPD exacerbation ([facility]) Take 2 tabs by mouth on the first day, then 1 tab daily on days two through five 6 Tablet 025 2024 Active predniSONE 10 MG Oral Tablet (Deltasone)Indica tions:COPD, group A, by GOLD 2017 classification ([facility]),COPD exacerbation ([facility]) Take 5 tabs for 2 days, 4 tabs for 2 days, 3 tabs for 2 days, 2 tabs for 2 days 1 tab for 2 days 30 Tablet 025 Active Levalbuterol HCl 1.25 MG/3ML Inhalation Nebulization Solution (Xopenex)Indicati ons:COPD, group A, by GOLD 2017 classification ([facility]) Inhale 1 Ampule via nebulizer every 4 hours as needed for Wheezing. 810 mL 3 023 2024 Discontinued(R efill) methylPREDNISolon e 4 MG Oral Tablet Therapy Pack (Medrol Dosepack) follow package directions 21 Tablet 024 2024 Discontinued documented as of this encounter (statuses as of 03/18/2024) Active Problems Problem Noted Date Diagnosed Date [...] as of this encounter (statuses as of 03/18/2024) Resolved Problems Problem Noted Date Diagnosed Date [...] as of this encounter (statuses as of 03/18/2024) Immunizations Name Administration Dates Next Due COVID-19 mRNA, LNP-s, No Pre serve, 2-Dose Series ([employer]) 07/11/2020,06/20/2020 Hepatitis B, 20+ yrs 10/11/2018,05/18/2018,04/09 Pneumococcal Conjugate Vacci ne, 20-valent ([id number]) 09/30/2022 Pneumococcal Polysaccharide PPV23 (Pneumovax) 01/23/2007 Seasonal [...] PM EDT documented as of this encounter Progress Notes * Jeb Queen MD - 03/18/2024 12:41 PM EST Images from the original note were not included. Assessment and Plan Likely viral illness with mild COPD exacerbation. Treat with antibiotics and steroids as below. Discussed OTC medications. 1. COPD, group A, by GOLD 2017 classification ([facility]) - Levalbuterol HCl 1.25 MG/3ML Inhalation Nebulization Solution (Xopenex); Inhale 1 Ampule via nebulizer every 4 hours as needed for Wheezing. Dispense: 810 mL; Refill: 3 - Azithromycin 250 MG Oral Tablet (Zithromax); Take 2 tabs by mouth on the first day, then 1 tab daily on days two through five Dispense: 6 Tablet; Refill: 0 - predniSONE 10 MG Oral Tablet (Deltasone); Take 5 tabs for 2 days, 4 tabs for 2 days, 3 tabs for 2days, 2 tabs for 2 days 1 tab for 2 days Dispense: 30 Tablet; Refill: 0 2. Viral URI (Primary) 3. COPD exacerbation ([facility]) - Azithromycin 250 MG Oral Tablet (Zithromax); Take 2 tabs by mouth on the first day, then 1 tab daily on days two through five Dispense: 6 Tablet; Refill: 0 - predniSONE 10 MG Oral Tablet (Deltasone); Take 5 tabs for 2 days, 4 tabs for 2 days, 3 tabs for 2days, 2 tabs for 2 days 1 tab for 2 days Dispense: 30 Tablet; Refill: 0 4. COPD, group B, by GOLD 2017 classification ([facility]) 5. Type 2 diabetes mellitus with hemoglobin A1c goal of less than 7.0% ([facility]) Well controlled with A1c 6.2. No changes to current regimen. 6. Moderate major depression ([facility]) Continue venlafaxine 75 mg daily. Wrap-Up Follow up as needed. History of Present Illness The patient is a 58 year old female with past medical history of type 2 diabetes, hypothyroidism, dyslipidemia, COPD, HTN, GERD who presents via video visit for acute. Patient with 72 hours of shortness of breath, cough, congestion, wheezing. No vomiting. recently ill and is on steroids and antibiotics. She started with symptoms shortly thereafter. Staying hydrated. Physical Exam There were no vitals filed for this visit. Physical Exam Physical Exam Constitutional: General: She is not in acute distress. Pulmonary: Effort: Pulmonary effort is normal. No respiratory distress. Neurological: General: No focal deficit present. Mental Status: She is alert. Patient location: HOME. I was in a hospital or clinic location. After connecting through televideo,patient was verified with two unique identifiers. Patient (or authorized legal authorization representative) was then informed that this was a Telemedicine visit and being conducted confidentially over secure lines. Methods to assure confidentiality were taken. Patient acknowledged consent and understanding of pr ivacy and security of the Telemedicine visit. The patient agreed to participate. This note has been completed in part utilizing [employer] Speech Voice Recognition Software. Due to technical limitations of the software, grammatical errors, random word insertions, prounoun errors, and incomplete sentences may occur. Any formal questions or concerns about the content, text, or information contained within the body of this dictation should be directly addressed to the provider for clarification. documented in this encounter Plan of Treatment Upcoming Encounters Date Type Department Care Team (Late st Contact Info) Description 03/22/2024 2:00 PM EST Office Visit Orthopaedics [facility] [address] [place] [id number] Roxane Jeronimo MD [address] [place] [phone] Health Maintenance Due Date Last Done Comments DISCUSS TOBACCO CESSATION (REFER TO SMARTSET #[id number]) 1965 HIV Screening 1982 Alpha-1 Antitrypsin 1985 [...] 2023 07/11/2020, 06/20/2020, 05/31/2020 Cologuard 06/05/2024 06/05/2021, 04/06/2021, 05/28/2021 Colorectal Cancer Screening 06/05/2024 TSH 06/30/2024 [...] as of this encounter Visit Diagnoses Diagnosis Viral URI- Primary Acute upper respiratory infections of unspecified site COPD, group A, by GOLD 2017 classification ([facility]) COPD exacerbation ([facility]) Obstructive chronic bronchitis with exacerbation COPD, group B, by GOLD 2017 classification ([facility]) Type 2 diabetes mellitus with hemoglobin A1c goal of less than 7.0% ([facility]) Moderate major depression ([facility]) Major depressive disorder, single episode, moderate documented in this encounter Care Teams Magazine Feeder Relationship Specialty Start Date End Date June, Jeb Barker MD PCP - General Family Medicine 08/05/22 documented as of this encounter
--- OUTSIDE RECORDS SUMMARY | 2024-03-29 15:13 | External Medical Summary | Summary of Care ---
Author Name Unknown Organization [facility] Address [address] [facility] [place] [address] Phone [phone] Care Team Providers Care Mold Hoister Name Role Phone Jeb Queen MD Primary Care Provider [phone] Encounter Details Date Type Department Care Team (Late st Contact Info) Description 03/15/2024 Population Health External Data Unspecified Department Allergies Active Allergy Reactions Criticality Noted Date Comments Amoxicillin 07/11/2015 Rash per pt Sulfamethoxazole-Trimethopri m Hives 07/11/2015 Ciprofloxacin 01/04/2020 SOB Cephalexin 07/11/2015 Trouble breathing per pt Latex 07/11/2015 Pt reports allergy is the powder that is in latex gloves. Quinolones 01/30/1998 nausea,sweating and lightheaded Cipro - ? Trouble breathing documented as of this encounter (statuses as of 03/15/2024) Medications Aspirin 81 MG Tablet Take 1 Tablet by mouth in the morning. Active BD Pen Needle Delaney U/F 32G X 4 MM (Insulin Pen Needle)Indications :Type 2 diabetes mellitus with hemoglobin A1c goal of less than 7.0% ([facility]) Use up to 4 times daily with insulin 100 Each 5 2 Active Glucose Blood In Vitro StripIndications:T ype 2 diabetes mellitus with hemoglobin A1c goal of less than 7.0% ([facility]) Use as directed. 100 Strip 11 3 Active Compressor NebulizerIndicatio ns:COPD, group A, by GOLD 2017 classification ([facility]) Inhale via nebulizer. Use as directed. 1 [...] 2017 classification ([facility]) Inhale 1 Ampule via nebulizer every 4 hours as needed for Wheezing. 810 mL 3 3 Active Trelegy Ellipta 100-62.5-25 MCG/ACT Aerosol Powder Breath Activated (Fluticasone-Umecl idinium-Vilanterol )Indications:COPD, group B, by GOLD 2017 classification ([facility]) Inhale 1 Puff by mouth in the [...] than 7.0% ([facility]) TAKE 2 TABLETS BY MOUTH TWICE A [...] as of this encounter (statuses as of 03/15/2024) Active Problems Problem Noted Date Diagnosed Date [...] as of this encounter (statuses as of 03/15/2024) Resolved Problems Problem Noted Date Diagnosed Date [...] as of this encounter (statuses as of 03/15/2024) Immunizations Name Administration Dates Next Due COVID-19 mRNA, LNP-s, No Pre serve, 2-Dose Series ([employer]) 07/11/2020,06/20/2020 Hepatitis B, 20+ yrs 10/11/2018,05/18/2018,04/09 Pneumococcal Conjugate Vacci ne, 20-valent ([id number]) 09/30/2022 Pneumococcal Polysaccharide PPV23 (Pneumovax) 01/23/2007 Seasonal [...] 03/22/2024 2:00 PM EST Office Visit Orthopaedics [facility] [address] [place] [phone] Roxane Jeronimo MD [address] [place] [address] Health Maintenance Due Date Last Done Comments DISCUSS TOBACCO CESSATION (REFER TO SMARTSET #[id number]) 1965 HIV Screening 1980 Alpha-1 Antitrypsin 1985 [...] filedocumented as of this encounter Care Teams Mold Hoister Relationship Specialty Start Date End Date June, Jeb Barker MD PCP - General Family Medicine 08/05/22 documented as of this encounter
--- OUTSIDE RECORDS SUMMARY | 2024-03-29 15:13 | External Medical Summary | Summary of Care ---
Author Name Unknown Organization [facility] Address [address] [place] [address] Phone [phone] Care Team Providers Care Plant Reliability Engineer Name Role Phone Jeb Queen MD Primary Care Provider [phone] Reason for Visit * Reason Onset Date Comments Appointment 03/01/2024 Encounter Details Date Type Department Care Team (Late st Contact Info) Description 03/01/2024 Telephone Orthopaedics [facility] [address] [facility] [place] [address] Services, Scheduling [address] [place] [address] Appointment Allergies Active Allergy Reactions Criticality Noted Date Comments Amoxicillin 07/11/2015 Rash per pt Sulfamethoxazole-Trimethopri m Hives 07/11/2015 Ciprofloxacin 01/04/2020 SOB Cephalexin 07/11/2015 Trouble breathing per pt Latex 07/11/2015 Pt reports allergy is the powder that is in latex gloves. Quinolones 01/30/1998 nausea,sweating and lightheaded Cipro - ? Trouble breathing documented as of this encounter (statuses as of 03/02/2024) Medications Aspirin 81 MG Tablet Take 1 Tablet by mouth in the morning. Active BD Pen Needle Delaney U/F 32G X 4 MM (Insulin Pen Needle)Indications :Type 2 diabetes mellitus with hemoglobin A1c goal of less than 7.0% ([facility]) Use up to 4 times daily with insulin 100 Each 5 2 Active Glucose Blood In Vitro StripIndications:T ype 2 diabetes mellitus with hemoglobin A1c goal of less than 7.0% ([facility]) Use as directed. 100 Strip 11 3 Active Compressor NebulizerIndicatio ns:COPD, group A, by GOLD 2017 classification ([facility]) Inhale via nebulizer. Use as directed. [...] group A, by GOLD 2017 classification ([facility]) Inhale 1 Ampule via nebulizer every 4 hours as needed for Wheezing. 810 mL 3 3 Active Trelegy Ellipta 100-62.5-25 MCG/ACT Aerosol Powder Breath Activated (Fluticasone-Umecl idinium-Vilanterol )Indications:COPD, group B, by GOLD 2017 classification ([facility]) Inhale 1 Puff by mouth in the morning. 180 Each 3 3 Active Dulaglutide 3 MG/0.5ML Subcutaneous Solution Pen-injector (Trulicity)Indicat ions:Type 2 diabetes mellitus with hemoglobin A1c goal of less than 7.0% ([facility]) Inject 3 mg under the skin [...] as of this encounter (statuses as of 03/02/2024) Active Problems Problem Noted Date Diagnosed Date [...] as of this encounter (statuses as of 03/02/2024) Resolved Problems Problem Noted Date Diagnosed Date [...] as of this encounter (statuses as of 03/02/2024) Immunizations Name Administration Dates Next Due COVID-19 mRNA, LNP-s, No Pre serve, 2-Dose Series ([employer]) 07/11/2020,06/20/2020 Hepatitis B, 20+ yrs 10/11/2018,05/18/2018,04/09 Pneumococcal Conjugate Vacci ne, 20-valent ([id number]) 09/30/2022 Pneumococcal Polysaccharide PPV23 (Pneumovax) 01/23/2007 Seasonal [...] encounter Miscellaneous Notes * Telephone Encounter - Ml Britt OSA - 03/02/2024 8:52 AM EST Called pt and got her scheduled from the referral, she was agreeable to coming to [facility] * Telephone Encounter - Viridiana Cuenca OSA - 03/01/2024 7:08 AM EST Pt called, she is sick and needed to cancel her appt for today. Nothing else available yet for scheduling and due to note in comments, please call to advise pt of new appt. She would need after 1:30pm due to her transportation. Gave her the 24-48hrs timeframe for a callback. Thanks. documented in this encounter Plan of Treatment Upcoming Encounters Date Type Department Care Team (Late st Contact Info) Description 03/22/2024 2:00 PM EST Office Visit Orthopaedics [facility] [address] [phone] Roxane Jeronimo MD [address] [place] [address] Health Maintenance Due Date Last Done Comments DISCUSS TOBACCO CESSATION (REFER TO SMARTSET #[id number]) 1965 HIV Screening 1982 Alpha-1 Antitrypsin 1985 [...] filedocumented as of this encounter Care Teams Plant Reliability Engineer Relationship Specialty Start Date End Date June, Jeb Barker MD PCP - General Family Medicine 08/05/22 documented as of this encounter
--- OUTSIDE RECORDS SUMMARY | 2024-03-29 15:13 | External Medical Summary | Summary of Care ---
Author Name Unknown Organization [facility] Address [address] [facility] [place] [address] Phone [phone] Care Team Providers Care Rotor Balancer Name Role Phone Jeb Queen MD Primary Care Provider [phone] Encounter Details Date Type Department Care Team (Late st Contact Info) Description 03/08/2024 Orders Only PATIENT PORTAL DO NOT DELETE THIS DEPT USED BY [place] [id number] Allergies Active Allergy Reactions Criticality Noted Date Comments Amoxicillin 07/11/2015 Rash per pt Sulfamethoxazole-Trimethopri m Hives 07/11/2015 Ciprofloxacin 01/04/2020 SOB Cephalexin 07/11/2015 Trouble breathing per pt Latex 07/11/2015 Pt reports allergy is the powder that is in latex gloves. Quinolones 01/30/1998 nausea,sweating and lightheaded Cipro - ? Trouble breathing documented as of this encounter (statuses as of 03/08/2024) Medications Aspirin 81 MG Tablet Take 1 [...] goal of less than 7.0% (HCC) Use as directed. 100 Strip 11 3 Active Compressor NebulizerIndicatio ns:COPD, group A, by GOLD 2017 classification ([facility]) Inhale via nebulizer. Use as [...] group A, by GOLD 2017 classification ([facility]) Inhale 1 Ampule via nebulizer every 4 hours as needed for Wheezing. 810 mL 3 3 Active Trelegy Ellipta 100-62.5-25 MCG/ACT Aerosol Powder Breath Activated (Fluticasone-Umecl idinium-Vilanterol )Indications:COPD, group B, by GOLD 2017 classification ([facility]) Inhale 1 Puff by mouth [...] A1c goal of less than 7.0% ([facility]) TAKE 2 TABLETS BY MOUTH [...] as of this encounter (statuses as of 03/08/2024) Active Problems Problem Noted Date Diagnosed Date [...] as of this encounter (statuses as of 03/08/2024) Resolved Problems Problem Noted Date Diagnosed Date [...] as of this encounter (statuses as of 03/08/2024) Immunizations Name Administration Dates Next Due COVID-19 mRNA, LNP-s, No Pre serve, 2-Dose Series ([employer]) 07/11/2020,06/20/2020 Hepatitis B, 20+ yrs 10/11/2018,05/18/2018,04/09 Pneumococcal Conjugate Vacci ne, 20-valent ([id number]) 09/30/2022 Pneumococcal Polysaccharide PPV23 (Pneumovax) 01/23/2007 Seasonal [...] 03/22/2024 2:00 PM EST Office Visit Orthopaedics [facility] [address] [place] [phone] Roxane Jeronimo MD [address] [place] [address] Health Maintenance Due Date Last Done Comments DISCUSS TOBACCO CESSATION (REFER TO SMARTSET #[id number]) 1965 HIV Screening 1982 Alpha-1 Antitrypsin 1985 [...] filedocumented as of this encounter Care Teams Rotor Balancer Relationship Specialty Start Date End Date June, Jeb Barker MD PCP - General Family Medicine 08/05/22 documented as of this encounter
--- OUTSIDE RECORDS SUMMARY | 2024-03-29 15:13 | External Medical Summary | Summary of Care ---
Author Name Unknown Organization [facility] Address [address] [facility] [place] [address] Phone [phone] Care Team Providers Care Strap Machine Operator Name Role Phone JuneGeremias MD Primary Care Provider [phone] Reason for Visit * Reason Comments eRx-Medication Refill Encounter Details Date Type Department Care Team (Late st Contact Info) Description [facility] [address] [phone] Geremias Woody MD [address] [facility] [place] [address] Type 2 diabetes mellitus with hemoglobin A1c goal of less than 7.0% ([facility]) Allergies Active Allergy Reactions Criticality Noted Date Comments Amoxicillin 07/11/2015 Rash per pt Sulfamethoxazole-Trimethopri m Hives 07/11/2015 Ciprofloxacin 01/04/2020 SOB Cephalexin 07/11/2015 Trouble breathing per pt Latex 07/11/2015 Pt reports allergy is the powder that is in latex gloves. Quinolones 01/30/1998 nausea,sweating and lightheaded Cipro - ? Trouble breathing documented as of this encounter (statuses as of 03/28/2024) Medications Aspirin 81 MG Tablet Take 1 Tablet by mouth in the morning. Active BD Pen Needle Delaney U/F 32G X 4 MM (Insulin Pen Needle)Indication s:Type 2 diabetes mellitus with hemoglobin A1c goal of less than 7.0% ([facility]) Use up to 4 times daily with insulin 100 Each 5 12/07/19 22 Active Glucose Blood In Vitro StripIndications: Type 2 diabetes mellitus with hemoglobin A1c goal of less than 7.0% ([facility]) Use as directed. 100 Strip 11 07/16/19 23 Active Compressor NebulizerIndicati ons:COPD, group A, by GOLD 2017 classification ([facility]) Inhale via nebulizer. Use as directed. 1 Each 1 07/23/19 23 Active Vitamin B-12 1000 MCG Oral Tablet (Cyanocobalamin) TAKE 1 TABLET BY MOUTH EVERY DAY IN THE MORNING 90 Tablet 1 08/13/19 23 Active Vitamin D3 125 MCG (5000 UT) Oral Capsule TAKE 1 CAPSULE BY MOUTH EVERY MORNING 90 Capsule 1 08/13/19 23 Active Albuterol Sulfate HFA 108 (90 Base) MCG/ACT Inhalation Aerosol SolutionIndicatio ns:Cough INHALE 2 PUFFS BY MOUTH 4 TIMES DAILY 18 g 2 08/16/19 23 Active Trelegy Ellipta 100-62.5-25 MCG/ACT Aerosol Powder Breath Activated (Fluticasone-Umec lidinium-Vilanter ol)Indications:CO PD, group B, by GOLD 2017 classification ([facility]) Inhale 1 Puff by mouth [...] MEDICATION 90 Tablet 1 12/06/19 24 Active Venlafaxine HCl ER 75 MG Oral Capsule Extended Release 24 Hour (Effexor XR) TAKE 1 CAPSULE BY MOUTH IN THE MORNING. DO NOT CUT, CRUSH OR CHEW. 90 Capsule 12/30/19 24 Active Omeprazole 20 MG Oral Capsule [...] A1c goal of less than 7.0% ([facility]) INJECT 3 MG UNDER THE SKIN ONCE A WEEK. 6 mL 3 03/04/19 25 Active Atorvastatin Calcium 40 MG Oral Tablet (Lipitor)Indicati ons:Type 2 diabetes mellitus with hemoglobin A1c goal of less than 7.0% ([facility]) TAKE 1 TABLET BY MOUTH EVERY DAY IN THE MORNING 90 Tablet 3 03/04/19 25 Active Levalbuterol HCl 1.25 MG/3ML Inhalation Nebulization Solution (Xopenex)Indicati ons:COPD, group A, by GOLD 2017 classification ([facility]) Inhale 1 Ampule via nebulizer every 4 hours as needed for Wheezing. 810 mL 3 03/18/19 25 Active predniSONE 10 MG Oral Tablet (Deltasone)Indica tions:COPD, group A, by GOLD 2017 classification ([facility]),COPD exacerbation (HCC) Take 5 tabs for 2 days, 4 tabs for 2 days, 3 tabs for 2 days, 2 tabs for 2 days 1 tab for 2 days 30 Tablet 03/18/19 25 Active metFORMIN HCl ER 500 MG Oral Tablet Extended Release 24 Hour (Glucophage XR)Indications:Ty pe 2 diabetes mellitus with hemoglobin A1c goal of less than 7.0% ([facility]) TAKE 2 TABLETS BY MOUTH TWICE A DAY WITH MORNING AND EVENING MEAL 360 Tablet 1 03/28/19 25 Active metFORMIN HCl ER 500 MG Oral Tablet Extended Release 24 Hour (Glucophage XR)Indications:Ty pe 2 diabetes mellitus with hemoglobin A1c goal of less than 7.0% ([facility]) TAKE 2 TABLETS BY MOUTH TWICE A DAY WITH MORNING AND EVENING MEAL 360 Tablet 12/29/19 24 2024 Discontinued documented as of this encounter (statuses as of 03/28/2024) Active Problems Problem Noted Date Diagnosed Date [...] as of this encounter (statuses as of 03/28/2024) Resolved Problems Problem Noted Date Diagnosed Date [...] as of this encounter (statuses as of 03/28/2024) Immunizations Name Administration Dates Next Due COVID-19 mRNA, LNP-s, No Pre serve, 2-Dose Series (Pfizer) 07/11/2020,06/20/2020 Hepatitis B, 20+ yrs 10/11/2018,05/18/2018,04/09 Pneumococcal Conjugate Vacci ne, 20-valent ([id number]) 09/30/2022 Pneumococcal Polysaccharide PPV23 (Pneumovax) 01/23/2007 Seasonal [...] s 09/16/2022 Does the household have a [facility] source of income? (Household - for ages [...] encounter Miscellaneous Notes * Telephone Encounter - Jael Raphael [facility] - 03/28/2024 8:41 AM ESTSigned Prescriptions: Disp Refills metFORMIN HCl ER 500 MG Oral Tablet Extend*360 Ta*1 Sig: TAKE 2 TABLETS BY MOUTH TWICE A DAY WITH MORNING AND EVENING MEALAuthorizing Provider: GEREMIAS WOODY User: JAEL RAPHAEL documented in this encounter Plan of Treatment Upcoming Encounters Date Type Department Care Team (Late st Contact Info) Description 03/29/2024 9:40 AM EST Office [facility] [place] [facility] [address] [phone] Jesus Manuel Hobbs PA-C [address] [place] [address] Health Maintenance Due Date Last Done Comments DISCUSS TOBACCO CESSATION (REFER TO SMARTSET #[id number]) 1965 HIV Screening 1982 Alpha-1 Antitrypsin 1985 [...] (HCC) documented in this encounter Care Teams Strap Machine Operator Relationship Specialty Start Date End Date June, Geremias Barker MD PCP - General Family Medicine 08/05/22 documented as of this encounter
--- OUTSIDE RECORDS SUMMARY | 2024-03-29 15:13 | External Medical Summary | Summary of Care ---
Author Name Unknown Organization [facility] [address] [facility] [address] Phone [phone] Care Team Providers Care Endoscopy Rn Name Role Phone Jeb Queen MD Primary Care Provider [phone] Encounter Details Date Type Department Care Team [...] ([facility]) Use up to 4 times daily with [...] ([facility]) TAKE 1 TABLET BY MOUTH EVERY DAY [...] mRNA, LNP-s, No Pre serve, 2-Dose Series ([employer]) 07/11/2020,06/20/2020 Hepatitis B, 20+ yrs 10/11/2018,05/18/2018,04/09 Pneumococcal Conjugate Vacci ne, 20-valent ([email or web address]) 09/30/2022 Pneumococcal Polysaccharide PPV23 (Pneumovax) 01/23/2007 Seasonal [...] 03/01/2024 2:30 PM EST Office Visit Orthopaedics [facility] [address] [place] [address] Roxane Jeronimo MD [address] [place] [address] Health Maintenance Due Date Last Done Comments DISCUSS TOBACCO CESSATION (REFER TO SMARTSET #[id number]) 1965 HIV Screening 1982 Alpha-1 Antitrypsin 1985 [...] filedocumented as of this encounter Care Teams Endoscopy Rn Relationship Specialty Start Date End Date June, Jeb Barker MD PCP - General Family Medicine 08/05/22 documented as of this encounter
--- OUTSIDE RECORDS SUMMARY | 2024-03-29 15:14 | External Medical Summary | Summary of Care ---
Author Name Unknown Organization [facility] Address [address] [facility] [address] Phone [phone] Care Team Providers Care Welding Teacher Name Role Phone Jeb Queen MD Primary Care Provider [phone] Encounter Details Date Type Department Care Team [...] of less than 7.0% ([facility]) Use up to 4 times daily with insulin 100 Each 5 2 Active Glucose Blood In Vitro StripIndications:T ype 2 diabetes mellitus with hemoglobin A1c goal of less than 7.0% ([facility]) Use as directed. 100 Strip 11 3 Active Compressor NebulizerIndicatio ns:COPD, group A, by GOLD 2017 classification ([facility]) Inhale via nebulizer. Use as directed. [...] by GOLD 2017 classification ([facility]) Inhale 1 Ampule via nebulizer every 4 hours as needed for Wheezing. 810 mL 3 3 Active Trelegy Ellipta 100-62.5-25 MCG/ACT Aerosol Powder Breath Activated (Fluticasone-Umecl idinium-Vilanterol )Indications:COPD, group B, by GOLD 2017 classification ([facility]) Inhale 1 Puff by mouth in the morning. 180 Each 3 3 Active Dulaglutide 3 MG/0.5ML Subcutaneous Solution Pen-injector (Trulicity)Indicat ions:Type 2 diabetes mellitus with hemoglobin A1c goal of less than 7.0% ([facility]) Inject 3 mg under the skin [...] of less than 7.0% ([facility]) TAKE 1 TABLET BY MOUTH EVERY [...] mRNA, LNP-s, No Pre serve, 2-Dose Series ([employer]) 07/11/2020,06/20/2020 Hepatitis B, 20+ yrs 10/11/2018,05/18/2018,04/09 Pneumococcal Conjugate Vacci ne, 20-valent ([id number]) 09/30/2022 Pneumococcal Polysaccharide PPV23 (Pneumovax) 01/23/2007 Seasonal [...] 03/01/2024 2:30 PM EST Office Visit Orthopaedics [facility] [address] [place] [address] Roxane Jeronimo MD [address] [address] Health Maintenance Due Date Last Done Comments DISCUSS TOBACCO CESSATION (REFER TO SMARTSET #[id number]) 1965 HIV Screening 1982 Alpha-1 Antitrypsin 1985 [...] filedocumented as of this encounter Care Teams Welding Teacher Relationship Specialty Start Date End Date June, Jeb Barker MD PCP - General Family Medicine 08/05/22 documented as of this encounter
--- OUTSIDE RECORDS SUMMARY | 2024-03-29 15:14 | External Medical Summary | Summary of Care ---
Author Name Unknown Organization [facility] Address [address] [facility] [address] Phone [phone] Care Team Providers Care Cloth Baler Name Role Phone Jeb Queen MD Primary Care Provider [phone] Reason for Referral * Evaluate & Treat - Unlimited Visits (Within 10 days (routine)) - Authorized Specialty Diagnoses / Procedures Referred By Contalex t Referred To Contact Sports Medicine / Orthopedics Diagnoses Pain and swelling of right wrist Jeffery Vargas PA-C [address] [place] [address] Phone: tel: fax: Roxane Jeronimo MD [address] [place] [address] Phone: tel: fax: Referral ID Status Reason Start Date Expiration Date Visits Requested Visits Authorized [id number] Authorized Specialty Services Required 4 [phone] Question Answer What body part is the patient being seen for? Forearm/Wrist What condition is the patient being seen for? Arthritis including related infection Referral Priority Within 10 days (routine) Where should this appointment be scheduled? [facility] Comments Requesting ultrasound-guided right wrist aspiration to rule out gout, Lyme, infection, thank you Encounter Details Date Type Department Care Team (Late st Contact Info) Description 02/22/2024 11:15 AM EST Telemedicine Orthopaedics [facility] [address] [place] [address] Jeffery Vargas PA-C [address] [place] [address] Pain and swelling of right wrist* Allergies Active Allergy Reactions Criticality Noted Date Comments Amoxicillin 07/11/2015 Rash per pt Sulfamethoxazole-Trimethopri m Hives 07/11/2015 Ciprofloxacin 01/04/2020 SOB Cephalexin 07/11/2015 Trouble breathing per pt Latex 07/11/2015 Pt reports allergy is the powder that is in latex gloves. Quinolones 01/30/1998 nausea,sweating and lightheaded Cipro - ? Trouble breathing documented as of this encounter (statuses as of 02/22/2024) Medications Aspirin 81 MG Tablet Take 1 Tablet by mouth in the morning. Active BD Pen Needle Delaney U/F 32G X 4 MM (Insulin Pen Needle)Indications :Type 2 diabetes mellitus with hemoglobin A1c goal of less than 7.0% ([facility]) Use up to 4 times daily with insulin 100 Each 5 2 Active Glucose Blood In Vitro StripIndications:T ype 2 diabetes mellitus with hemoglobin A1c goal of less than 7.0% ([facility]) Use as directed. 100 Strip 11 3 Active Compressor NebulizerIndicatio ns:COPD, group A, by GOLD 2017 classification ([facility]) Inhale via nebulizer. Use as directed. 1 [...] ns:COPD, group A, by GOLD 2017 classification ([facility]) Inhale 1 Ampule via nebulizer every 4 hours as needed for Wheezing. 810 mL 3 3 Active Trelegy Ellipta 100-62.5-25 MCG/ACT Aerosol Powder Breath Activated (Fluticasone-Umecl idinium-Vilanterol )Indications:COPD, group B, by GOLD 2017 classification ([facility]) Inhale 1 Puff by mouth in the morning. 180 Each 3 3 Active Dulaglutide 3 MG/0.5ML Subcutaneous Solution Pen-injector (Trulicity)Indicat ions:Type 2 diabetes mellitus with hemoglobin A1c goal of less than 7.0% ([facility]) Inject 3 mg under the skin once [...] hemoglobin A1c goal of less than 7.0% ([facility]) TAKE 1 TABLET BY MOUTH EVERY DAY [...] hemoglobin A1c goal of less than 7.0% ([facility]) TAKE 2 TABLETS BY MOUTH TWICE A [...] as of this encounter (statuses as of 02/22/2024) Active Problems Problem Noted Date Diagnosed Date [...] as of this encounter (statuses as of 02/22/2024) Resolved Problems Problem Noted Date Diagnosed Date [...] as of this encounter (statuses as of 02/22/2024) Immunizations Name Administration Dates Next Due COVID-19 mRNA, LNP-s, No Pre serve, 2-Dose Series (Pfizer) 07/11/2020,06/20/2020 Hepatitis B, 20+ yrs 10/11/2018,05/18/2018,04/09 Pneumococcal Conjugate Vacci ne, 20-valent ([email or web address]) 09/30/2022 Pneumococcal Polysaccharide PPV23 (Pneumovax) 01/23/2007 Seasonal [...] as of this encounter Progress Notes * Jeffery Vargas PA-C - 02/22/2024 11:15 AM EST After connecting to the patient via telephone, the patient was identified by name and date of . Patient was then informed that this was a telephone call only visit. The patient agreed to participate. Visit Disposition: Routine follow-up Total call duration was 3 minutes. Telephonic visit today to discuss MRI results of the right wrist. Patient was having pain and swelling and initially treated for a gouty arthropathy. The patient states she experienced very little relief with the steroid taper, bracing, ice, behavior modification and rest. MRI revealed chronic changes throughout the structures left wrist that I believe are enough to cause her symptoms by itself. With mentioned of inflammatory changes in the tissues of the wrist as well as fluid levels it would be appropriate to have the patient undergo an aspiration of the left wrist if possible and send the synovial fluid to rule out for crystals, Lyme pathology and infectious processes. The patient is in agreement. I did review with Dr. Jeronimo and she is in agreement. Failure to identify treatable medical pathology and I would refer to our hand specialist for discussion of treatment options, including corticosteroid injection. The patient is aware and in agreement. Has no other questions concerns. Satisfied with today's phone call. This chart was completed in part utilizing [employer] Speech Voice Recognition Software. Grammatical errors, random word insertions, prounoun errors, and incomplete sentences are an occasional consequence of this system due to software limitations, ambient noise, and hardware issues. Any formal questions or concerns about the content, text, or information contained within the body of this dictation should be directly addressed to the provider for clarification. documented in this encounter Plan of Treatment Scheduled Referrals Name Type Priority Associated Diagnoses Orde r Schedule SPORTS MEDICINE REFERRAL OP Referral Within 10 days (routine) Pain and swelling of right wrist Ordered: 02/22/2024 Health Maintenance Due Date Last Done Comments DISCUSS TOBACCO CESSATION (REFER TO SMARTEUSEBIO #[id number]) 1965 HIV Screening 1982 Alpha-1 Antitrypsin 1985 [...] 2023 07/11/2020, 06/20/2020, 05/31/2020 Cologuard 06/05/2024 06/05/2021, 0406/2021, 05/28/2021 Colorectal Cancer Screening 06/05/2024 TSH 06/30/2024 [...] as of this encounter Visit Diagnoses Diagnosis Pain and swelling of right wrist- Primary documented in this encounter Care Teams Cloth Baler Relationship Specialty Start Date End Date June, Jeb Barker MD PCP - General Family Medicine 08/05/22 documented as of this encounter
--- OUTSIDE RECORDS SUMMARY | 2024-03-29 15:14 | External Medical Summary | Summary of Care ---
Author Name Unknown Organization [facility] Address [address] [facility] [address] Phone [phone] Care Team Providers Care Magistrate Name Role Phone Jeb Queen MD Primary Care Provider [phone] Encounter Details Date Type Department Care Team [...] ([facility]) TAKE 1 TABLET BY MOUTH EVERY DAY [...] mRNA, LNP-s, No Pre serve, 2-Dose Series (Style[employer]) 07/11/2020,06/20/2020 Hepatitis B, 20+ yrs 10/11/2018,05/18/2018,04/09 Pneumococcal Conjugate Vacci ne, 20-valent ([id number]) 09/30/2022 Pneumococcal Polysaccharide PPV23 (Pneumovax) 01/23/2007 Seasonal [...] 03/01/2024 2:30 PM EST Office Visit Orthopaedics [facility] [address] [address] Roxane Jeronimo MD [address] [address] Health Maintenance Due Date Last Done Comments DISCUSS TOBACCO CESSATION (REFER TO SMARTSET #[id number]) 1965 HIV Screening 1982 Alpha-1 Antitrypsin 1985 [...] filedocumented as of this encounter Care Teams Magistrate Relationship Specialty Start Date End Date June, Jeb Barker MD PCP - General Family Medicine 08/05/22 documented as of this encounter
--- OUTSIDE RECORDS SUMMARY | 2024-03-29 15:14 | External Medical Summary | Summary of Care ---
Author Name Unknown Organization [facility] Address [address] [facility] [place] [address] Phone [phone] Care Team Providers Care Jet Dyeing Machine Tender Name Role Phone Jeb Queen MD Primary Care Provider [phone] Reason for Visit * Reason Onset Date Comments Test Results 02/09/2024 Encounter Details Date Type Department Care Team (Late st Contact Info) Description 02/09/2024 Telephone Orthopaedics [facility] [address] [place] [address] Jeffery Vargas PA-C [address] [place] [address] Test Results Allergies Active Allergy Reactions Criticality Noted Date Comments Amoxicillin 07/11/2015 Rash per pt Sulfamethoxazole-Trimethopri m Hives 07/11/2015 Ciprofloxacin 01/04/2020 SOB Cephalexin 07/11/2015 Trouble breathing per pt Latex 07/11/2015 Pt reports allergy is the powder that is in latex gloves. Quinolones 01/30/1998 nausea,sweating and lightheaded Cipro - ? Trouble breathing documented as of this encounter (statuses as of 02/16/2024) Medications Aspirin 81 MG Tablet Take 1 Tablet by mouth in the morning. Active BD Pen Needle Delaney U/F 32G X 4 MM (Insulin Pen Needle)Indications :Type 2 diabetes mellitus with hemoglobin A1c goal of less than 7.0% ([facility]) Use up to 4 times daily with insulin 100 Each 5 2 Active Glucose Blood In Vitro StripIndications:T ype 2 diabetes mellitus with hemoglobin A1c goal of less than 7.0% ([facility]) Use as directed. 100 Strip 11 3 Active Compressor NebulizerIndicatio ns:COPD, group A, by GOLD 2017 classification ([facility]) Inhale via nebulizer. Use as directed. [...] ns:COPD, group A, by GOLD 2017 classification ([facility]) Inhale 1 Ampule via nebulizer every 4 hours as needed for Wheezing. 810 mL 3 3 Active Trelegy Ellipta 100-62.5-25 MCG/ACT Aerosol Powder Breath Activated (Fluticasone-Umecl idinium-Vilanterol )Indications:COPD, group B, by GOLD 2017 classification ([facility]) Inhale 1 Puff by mouth in the morning. 180 Each 3 3 Active Dulaglutide 3 MG/0.5ML Subcutaneous Solution Pen-injector (Trulicity)Indicat ions:Type 2 diabetes mellitus with hemoglobin A1c goal of less than 7.0% ([facility]) Inject 3 mg under the skin once [...] as of this encounter (statuses as of 02/16/2024) Active Problems Problem Noted Date Diagnosed Date [...] as of this encounter (statuses as of 02/16/2024) Resolved Problems Problem Noted Date Diagnosed Date [...] as of this encounter (statuses as of 02/16/2024) Immunizations Name Administration Dates Next Due COVID-19 mRNA, LNP-s, No Pre serve, 2-Dose Series ([employer]Force) 07/11/2020,06/20/2020 Hepatitis B, 20+ yrs 10/11/2018,05/18/2018,04/09 Pneumococcal Conjugate Vacci ne, 20-valent ([id number]) 09/30/2022 Pneumococcal Polysaccharide PPV23 (Pneumovax) 01/23/2007 Seasonal [...] 18 years and over) Not on file 07/25/202 3 Are you (or your family) bandar eless [...] encounter Miscellaneous Notes * Telephone Encounter - Anaya Mosher MED GABRIEL - 02/16/2024 9:03 AM EST Called and spoke with patient, states she is still having significant pain. Advised her to continue with ice, elevation, rest, NSAIDs., Was able to move patients MRI up as well to 02/17 at 11am and advised her to keep her follow up as scheduled for 02/21 to review results. * Telephone Encounter - Eunice Meléndez OSA - 02/15/2024 8:13 AM EST Pt is trying to get mri moved up but in the meantime she is asking what she can do about the pain and swelling. * Telephone Encounter - Jessi Gibbs OSA - 02/10/2024 1:33 PM EST Pt calling in again and she is not happy. She wants to know her lab results. Does not understand why it is taking so long for Sam to get back with her. She also stated that the prednisone he prescribe for her did not work. * Telephone Encounter - Melinda Morrell OSA - 02/09/2024 1:04 PM EST Pt calling in would like to discuss pt lab results with Jeffery as well would liek to let him know that the prednisone didn't help as well as shed like please advise Best call back for pt is [phone] documented in this encounter Plan of Treatment Upcoming Encounters Date Type Department Care Team (Late st Contact Info) Description 02/18/2024 11:00 AM EST Imaging Radiology [address] [address] 02/22/2024 11:15 AM EST Telemedicine Orthopaedics [facility] [address] [address] [place] PA[place] [address] [place] [address] Health Maintenance Due Date Last Done Comments DISCUSS TOBACCO CESSATION (REFER TO SMARTSET #[id number]) 1965 HIV Screening 1982 Alpha-1 Antitrypsin 1985 [...] Cancer Screening Completed 08/01/2022, 018 Pneumococcal Vaccine: Pediatrics (0 to 5 Years) [...] filedocumented as of this encounter Care Teams Jet Dyeing Machine Tender Relationship Specialty Start Date End Date June, Jeb Barker MD PCP - General Family Medicine 08/05/22 documented as of this encounter
--- OUTSIDE RECORDS SUMMARY | 2024-03-29 15:14 | External Medical Summary | Summary of Care ---
Author Name Unknown Organization [facility] Address [address] [facility] [address] Phone [phone] Care Team Providers Care Black Ash Burner Operator Name Role Phone Jeb Queen MD Primary Care Provider [phone] Encounter Details Date Type Department Care Team [...] hemoglobin A1c goal of less than 7.0% ([facility]) Use up to 4 times daily with insulin 100 Each 5 2 Active Glucose Blood In Vitro StripIndications:T ype 2 diabetes mellitus with hemoglobin A1c goal of less than 7.0% ([facility]) Use as directed. 100 Strip 11 3 Active Compressor NebulizerIndicatio ns:COPD, group A, by GOLD 2017 classification ([facility]) Inhale via nebulizer. Use as [...] ns:COPD, group A, by GOLD 2017 classification ([facility]) Inhale 1 Ampule via nebulizer every 4 hours as needed for Wheezing. 810 mL 3 3 Active Trelegy Ellipta 100-62.5-25 MCG/ACT Aerosol Powder Breath Activated (Fluticasone-Umecl idinium-Vilanterol )Indications:COPD, group B, by GOLD 2017 classification ([facility]) Inhale 1 Puff by mouth in the morning. 180 Each 3 3 Active Dulaglutide 3 MG/0.5ML Subcutaneous Solution Pen-injector (Trulicity)Indicat ions:Type 2 diabetes mellitus with hemoglobin A1c goal of less than 7.0% ([facility]) Inject 3 mg under the [...] hemoglobin A1c goal of less than 7.0% ([facility]) TAKE 1 TABLET BY MOUTH [...] mRNA, LNP-s, No Pre serve, 2-Dose Series (Sogou) 07/11/2020,06/20/2020 Hepatitis B, 20+ yrs 10/11/2018,05/18/2018,04/09 Pneumococcal Conjugate Vacci ne, 20-valent ([id number]) 09/30/2022 Pneumococcal Polysaccharide PPV23 (Pneumovax) 01/23/2007 Seasonal [...] 03/01/2024 2:30 PM EST Office Visit Orthopaedics [facility] [address] [address] Roxane Jeronimo MD [address] [address] Health Maintenance Due Date Last Done Comments DISCUSS TOBACCO CESSATION (REFER TO SMARTSET #6679) 1965 HIV Screening 1982 Alpha-1 Antitrypsin 1985 [...] filedocumented as of this encounter Care Teams Black Ash Burner Operator Relationship Specialty Start Date End Date June, Jeb Barker MD PCP - General Family Medicine 08/05/22 documented as of this encounter
--- OUTSIDE RECORDS SUMMARY | 2024-03-29 15:14 | External Medical Summary | Summary of Care ---
Author Name Unknown Organization [facility] Address [address] [facility] [address] Phone [phone] Care Team Providers Care Development Geologist Name Role Phone Jeb Queen MD Primary Care Provider [phone] Encounter Details Date Type Department Care Team [...] mRNA, LNP-s, No Pre serve, 2-Dose Series ([employer]) 07/11/2020,06/20/2020 Hepatitis B, 20+ yrs 10/11/2018,05/18/2018,04/09 Pneumococcal Conjugate Vacci ne, 20-valent ([id number]) 09/30/2022 Pneumococcal Polysaccharide PPV23 (Pneumovax) 01/23/2007 Seasonal [...] 03/01/2024 2:30 PM EST Office Visit Orthopaedics [facility] [address] [address] Roxane Jeronimo MD [address] [address] Health Maintenance Due Date Last Done Comments DISCUSS TOBACCO CESSATION (REFER TO SMARTSET #[id number]) 1965 HIV Screening 1982 Alpha-1 Antitrypsin 1985 [...] filedocumented as of this encounter Care Teams Development Geologist Relationship Specialty Start Date End Date June, Jeb Barker MD PCP - General Family Medicine 08/05/22 documented as of this encounter
--- OUTSIDE RECORDS SUMMARY | 2024-03-29 15:14 | External Medical Summary | Summary of Care ---
Author Name Unknown Organization [facility] Address [address] [facility] [address] Phone [phone] Care Team Providers Care Building Official Name Role Phone Jeb Queen MD Primary Care Provider [phone] Encounter Details Date Type Department Care Team [...] hemoglobin A1c goal of less than 7.0% ([facility]) Use up to 4 times daily with insulin 100 Each 5 2 Active Glucose Blood In Vitro StripIndications:T ype 2 diabetes mellitus with hemoglobin A1c goal of less than 7.0% ([facility]) Use as directed. 100 Strip 11 3 Active Compressor NebulizerIndicatio ns:COPD, group A, by GOLD 2017 classification ([facility]) Inhale via nebulizer. Use as [...] ns:COPD, group A, by GOLD 2017 classification ([facility]) Inhale 1 Ampule via nebulizer every 4 hours as needed for Wheezing. 810 mL 3 3 Active Trelegy Ellipta 100-62.5-25 MCG/ACT Aerosol Powder Breath Activated (Fluticasone-Umecl idinium-Vilanterol )Indications:COPD, group B, by GOLD 2017 classification ([facility]) Inhale 1 Puff by mouth in the morning. 180 Each 3 3 Active Dulaglutide 3 MG/0.5ML Subcutaneous Solution Pen-injector (Trulicity)Indicat ions:Type 2 diabetes mellitus with hemoglobin A1c goal of less than 7.0% ([facility]) Inject 3 mg under the [...] hemoglobin A1c goal of less than 7.0% ([facility]) TAKE 1 TABLET BY MOUTH [...] mRNA, LNP-s, No Pre serve, 2-Dose Series ([employer]) 07/11/2020,06/20/2020 Hepatitis B, 20+ yrs 10/11/2018,05/18/2018,04/09 Pneumococcal Conjugate Vacci ne, 20-valent ([id number]) 09/30/2022 Pneumococcal Polysaccharide PPV23 (Pneumovax) 01/23/2007 Seasonal [...] 03/01/2024 2:30 PM EST Office Visit Orthopaedics [facility] [address] [address] Roxane Jeronimo MD [address] [address] Health Maintenance Due Date Last Done Comments DISCUSS TOBACCO CESSATION (REFER TO SMARTSET #1215) 1965 HIV Screening 1982 Alpha-1 Antitrypsin 1985 [...] filedocumented as of this encounter Care Teams Building Official Relationship Specialty Start Date End Date June, Jeb Barker MD PCP - General Family Medicine 08/05/22 documented as of this encounter
--- OUTSIDE RECORDS SUMMARY | 2024-03-29 15:14 | External Medical Summary | Summary of Care ---
Author Name Unknown Organization [facility] Address [address] [facility] [address] Phone [phone] Care Team Providers Care Charcoal Kiln Burner Name Role Phone Jeb Queen MD Primary Care Provider [phone] Encounter Details Date Type Department Care Team [...] of less than 7.0% ([facility]) Use up to 4 times daily with insulin 100 Each 5 2 Active Glucose Blood In Vitro StripIndications:T ype 2 diabetes mellitus with hemoglobin A1c goal of less than 7.0% ([facility]) Use as directed. 100 Strip 11 3 Active Compressor NebulizerIndicatio ns:COPD, group A, by GOLD 2017 classification ([facility]) Inhale via nebulizer. Use as directed. 1 [...] by GOLD 2017 classification ([facility]) Inhale 1 Ampule via nebulizer every 4 hours as needed for Wheezing. 810 mL 3 3 Active Trelegy Ellipta 100-62.5-25 MCG/ACT Aerosol Powder Breath Activated (Fluticasone-Umecl idinium-Vilanterol )Indications:COPD, group B, by GOLD 2017 classification ([facility]) Inhale 1 Puff by mouth in the morning. 180 Each 3 3 Active Dulaglutide 3 MG/0.5ML Subcutaneous Solution Pen-injector (Trulicity)Indicat ions:Type 2 diabetes mellitus with hemoglobin A1c goal of less than 7.0% ([facility]) Inject 3 mg under the skin once [...] of less than 7.0% ([facility]) TAKE 1 TABLET BY MOUTH EVERY DAY [...] mRNA, LNP-s, No Pre serve, 2-Dose Series ([employer]) 07/11/2020,06/20/2020 Hepatitis B, 20+ yrs 10/11/2018,05/18/2018,04/09 Pneumococcal Conjugate Vacci ne, 20-valent ([id number]) 09/30/2022 Pneumococcal Polysaccharide PPV23 (Pneumovax) 01/23/2007 Seasonal [...] [facility] [address] [address] Roxane Jeronimo MD [address] [address] Health Maintenance Due Date Last Done Comments DISCUSS TOBACCO CESSATION (REFER TO SMARTSET #6233) 1965 HIV Screening 1982 Alpha-1 Antitrypsin 1985 [...] filedocumented as of this encounter Care Teams Charcoal Kiln Burner Relationship Specialty Start Date End Date June, Jeb Barker MD PCP - General Family Medicine 08/05/22 documented as of this encounter
--- OUTSIDE RECORDS SUMMARY | 2024-03-29 15:15 | External Medical Summary | Summary of Care ---
Author Name Unknown Organization [facility] Address [address] [facility] [address] Phone [phone] Care Team Providers Care Crocheter Name Role Phone Jeb Queen MD Primary Care Provider [phone] Encounter Details Date Type Department Care Team (Late st Contact Info) Description 02/11/2024 Patient Reported Data Patient Survey Ortho OBERD [...] as of this encounter (statuses as of 02/11/2024) Medications Aspirin 81 MG Tablet Take 1 Tablet by mouth in the morning. Active BD Pen Needle Delaney U/F 32G X 4 MM (Insulin Pen Needle)Indications :Type 2 diabetes mellitus with hemoglobin A1c goal of less than 7.0% ([facility]) Use up to 4 times daily with insulin 100 Each 5 2 Active Glucose Blood In Vitro StripIndications:T ype 2 diabetes mellitus with hemoglobin A1c goal of less than 7.0% ([facility]) Use as directed. 100 Strip 11 3 Active Compressor NebulizerIndicatio ns:COPD, group A, by GOLD 2017 classification ([facility]) Inhale via nebulizer. Use as [...] group A, by GOLD 2017 classification ([facility]) Inhale 1 Ampule via nebulizer every 4 hours as needed for Wheezing. 810 mL 3 3 Active Trelegy Ellipta 100-62.5-25 MCG/ACT Aerosol Powder Breath Activated (Fluticasone-Umecl idinium-Vilanterol )Indications:COPD, group B, by GOLD 2017 classification ([facility]) Inhale 1 Puff by mouth in the morning. 180 Each 3 3 Active Dulaglutide 3 MG/0.5ML Subcutaneous Solution Pen-injector (Trulicity)Indicat ions:Type 2 diabetes mellitus with hemoglobin A1c goal of less than 7.0% ([facility]) Inject 3 mg under the [...] A1c goal of less than 7.0% ([facility]) TAKE 1 TABLET BY MOUTH [...] as of this encounter (statuses as of 02/11/2024) Active Problems Problem Noted Date Diagnosed Date [...] as of this encounter (statuses as of 02/11/2024) Resolved Problems Problem Noted Date Diagnosed Date [...] as of this encounter (statuses as of 02/11/2024) Immunizations Name Administration Dates Next Due COVID-19 mRNA, LNP-s, No Pre serve, 2-Dose Series ([employer]) 07/11/2020,06/20/2020 Hepatitis B, 20+ yrs 10/11/2018,05/18/2018,04/09 Pneumococcal Conjugate Vacci ne, 20-valent ([id number]) 09/30/2022 Pneumococcal Polysaccharide PPV23 (Pneumovax) 01/23/2007 Seasonal [...] Care Team (Late st Contact Info) Description 02/13/2024 9:30 AM EST [facility] [address] [place] [address] 02/22/2024 11:15 AM EST Telemedicine Orthopaedics [facility] [address] [address] Jeffery Vargas PA-C [address] [address] Health Maintenance Due Date Last Done Comments DISCUSS TOBACCO CESSATION (REFER TO SMARTSET #2255) 1965 HIV Screening 1980 Alpha-1 Antitrypsin 1985 [...] filedocumented as of this encounter Care Teams Crocheter Relationship Specialty Start Date End Date June, Jeb Barker MD PCP - General Family Medicine 08/05/22 documented as of this encounter
--- OUTSIDE RECORDS SUMMARY | 2024-03-29 15:15 | External Medical Summary | Summary of Care ---
Author Name Unknown Organization [facility] Address [address] [facility] [address] Phone [phone] Care Team Providers Care Software Sales Consultant Name Role Phone Jeb Queen MD Primary Care Provider [phone] Encounter Details Date Type Department Care Team [...] hemoglobin A1c goal of less than 7.0% ([facility]) Use up to 4 times daily with insulin 100 Each 5 2 Active Glucose Blood In Vitro StripIndications:T ype 2 diabetes mellitus with hemoglobin A1c goal of less than 7.0% ([facility]) Use as directed. 100 Strip 11 3 Active Compressor NebulizerIndicatio ns:COPD, group A, by GOLD 2017 classification ([facility]) Inhale via nebulizer. Use as [...] ns:COPD, group A, by GOLD 2017 classification ([facility]) Inhale 1 Ampule via nebulizer every 4 hours as needed for Wheezing. 810 mL 3 3 Active Trelegy Ellipta 100-62.5-25 MCG/ACT Aerosol Powder Breath Activated (Fluticasone-Umecl idinium-Vilanterol )Indications:COPD, group B, by GOLD 2017 classification ([facility]) Inhale 1 Puff by mouth in the morning. 180 Each 3 3 Active Dulaglutide 3 MG/0.5ML Subcutaneous Solution Pen-injector (Trulicity)Indicat ions:Type 2 diabetes mellitus with hemoglobin A1c goal of less than 7.0% ([facility]) Inject 3 mg under the [...] hemoglobin A1c goal of less than 7.0% ([facility]) TAKE 1 TABLET BY MOUTH [...] mRNA, LNP-s, No Pre serve, 2-Dose Series ([employer]) 07/11/2020,06/20/2020 Hepatitis B, 20+ yrs 10/11/2018,05/18/2018,04/09 Pneumococcal Conjugate Vacci ne, 20-valent ([id number]) 09/30/2022 Pneumococcal Polysaccharide PPV23 (Pneumovax) 01/23/2007 Seasonal [...] Description 02/13/2024 9:30 AM EST [facility] [address] [place] [address] 02/22/2024 11:15 AM EST Telemedicine Orthopaedics [facility] [address] [address] Jeffery Vargas PA-C [address] [address] Health Maintenance Due Date Last Done Comments DISCUSS TOBACCO CESSATION (REFER TO SMARTSET #6948) 1965 HIV Screening 1980 Alpha-1 Antitrypsin 1985 [...] filedocumented as of this encounter Care Teams Software Sales Consultant Relationship Specialty Start Date End Date June, Jeb Barker MD PCP - General Family Medicine 08/05/22 documented as of this encounter
--- OUTSIDE RECORDS SUMMARY | 2024-03-29 15:15 | External Medical Summary | Summary of Care ---
Author Name Unknown Organization [facility] Address [address] [facility] [address] Phone [phone] Care Team Providers Care Elastic Attacher Zigzag Name Role Phone Jeb Queen MD Primary Care Provider [phone] Encounter Details Date Type Department Care Team [...] goal of less than 7.0% ([facility]) Use up to 4 times daily with insulin 100 Each 5 2 Active Glucose Blood In Vitro StripIndications:T ype 2 diabetes mellitus with hemoglobin A1c goal of less than 7.0% ([facility]) Use as directed. 100 Strip 11 3 Active Compressor NebulizerIndicatio ns:COPD, group A, by GOLD 2017 classification ([facility]) Inhale via nebulizer. Use as [...] A, by GOLD 2017 classification ([facility]) Inhale 1 Ampule via nebulizer every 4 hours as needed for Wheezing. 810 mL 3 3 Active Trelegy Ellipta 100-62.5-25 MCG/ACT Aerosol Powder Breath Activated (Fluticasone-Umecl idinium-Vilanterol )Indications:COPD, group B, by GOLD 2017 classification ([facility]) Inhale 1 Puff by mouth in the morning. 180 Each 3 3 Active Dulaglutide 3 MG/0.5ML Subcutaneous Solution Pen-injector (Trulicity)Indicat ions:Type 2 diabetes mellitus with hemoglobin A1c goal of less than 7.0% ([facility]) Inject 3 mg under the skin [...] goal of less than 7.0% ([facility]) TAKE 1 TABLET BY MOUTH EVERY [...] mRNA, LNP-s, No Pre serve, 2-Dose Series ([employer]) 07/11/2020,06/20/2020 Hepatitis B, 20+ yrs 10/11/2018,05/18/2018,04/09 Pneumococcal Conjugate Vacci ne, 20-valent ([id number]) 09/30/2022 Pneumococcal Polysaccharide PPV23 (Pneumovax) 01/23/2007 Seasonal [...] Description 02/13/2024 9:30 AM EST [facility] [address] [place] [address] 02/22/2024 11:15 AM EST Telemedicine Orthopaedics [facility] [address] [place] [address] Jeffery Vargas PA-C [address] [address] Health Maintenance Due Date Last Done Comments DISCUSS TOBACCO CESSATION (REFER TO SMARTSET #5237) 1965 HIV Screening 1980 Alpha-1 Antitrypsin 1985 [...] filedocumented as of this encounter Care Teams Elastic Attacher Zigzag Relationship Specialty Start Date End Date June, Jeb Barker MD PCP - General Family Medicine 08/05/22 documented as of this encounter
--- OUTSIDE RECORDS SUMMARY | 2024-03-29 15:16 | External Medical Summary | Summary of Care ---
Author Name Unknown Organization [facility] Address [address] [facility] [address] Phone [phone] Care Team Providers Care Clock And Watch Hands Dipper Name Role Phone Jeb Queen MD Primary Care Provider [phone] Reason for Visit * Reason Comments Outpatient Testing Encounter Details Date Type Department Care Team (Late st Contact Info) Description 02/02/2024 2:50 PM EST Laboratory [facility], [facility] [address] [facility] [address] [facility] [address] [place] [facility] [place] [address] Acute idiopathic gout of right wrist; Type 2 diabetes mellitus with hemoglobin A1c goal of less than 7.0% ([facility]); Encounter for long-term (current) drug use Allergies Active Allergy Reactions Criticality Noted Date Comments Amoxicillin 07/11/2015 Rash per pt Sulfamethoxazole-Trimethopri m Hives 07/11/2015 Ciprofloxacin 01/04/2020 SOB Cephalexin 07/11/2015 Trouble breathing per pt Latex 07/11/2015 Pt reports allergy is the powder that is in latex gloves. Quinolones 01/30/1998 nausea,sweating and lightheaded Cipro - ? Trouble breathing documented as of this encounter (statuses as of 02/02/2024) Medications Aspirin 81 MG Tablet Take 1 Tablet by mouth in the morning. Active BD Pen Needle Delaney U/F 32G X 4 MM (Insulin Pen Needle)Indications :Type 2 diabetes mellitus with hemoglobin A1c goal of less than 7.0% ([facility]) Use up to 4 times daily with insulin 100 Each 5 2 Active Glucose Blood In Vitro StripIndications:T ype 2 diabetes mellitus with hemoglobin A1c goal of less than 7.0% ([facility]) Use as directed. 100 Strip 11 3 Active Compressor NebulizerIndicatio ns:COPD, group A, by GOLD 2017 classification ([facility]) Inhale via nebulizer. Use as directed. 1 [...] ns:COPD, group A, by GOLD 2017 classification ([facility]) Inhale 1 Ampule via nebulizer every 4 hours as needed for Wheezing. 810 mL 3 3 Active Trelegy Ellipta 100-62.5-25 MCG/ACT Aerosol Powder Breath Activated (Fluticasone-Umecl idinium-Vilanterol )Indications:COPD, group B, by GOLD 2017 classification ([facility]) Inhale 1 Puff by mouth in the morning. 180 Each 3 3 Active Dulaglutide 3 MG/0.5ML Subcutaneous Solution Pen-injector (Trulicity)Indicat ions:Type 2 diabetes mellitus with hemoglobin A1c goal of less than 7.0% ([facility]) Inject 3 mg under the skin once [...] as of this encounter (statuses as of 02/02/2024) Active Problems Problem Noted Date Diagnosed Date [...] as of this encounter (statuses as of 02/02/2024) Resolved Problems Problem Noted Date Diagnosed Date [...] as of this encounter (statuses as of 02/02/2024) Immunizations Name Administration Dates Next Due COVID-19 mRNA, LNP-s, No Pre serve, 2-Dose Series ([employer]) 07/11/2020,06/20/2020 Hepatitis B, 20+ yrs 10/11/2018,05/18/2018,04/09 Pneumococcal Conjugate Vacci ne, 20-valent ([id number]) 09/30/2022 Pneumococcal Polysaccharide PPV23 (Pneumovax) 01/23/2007 Seasonal [...] 18 years and over) Not on file 3 Are you (or your family) bandar [...] as of this encounter Plan of Treatment Pending Results Name Type Priority Associated Diagnoses Date /Time URIC ACID Lab Routine Acute idiopathic gout of right wrist 02/02/2024 2:37 PM EST ALBUMIN / CREATININE RATIO, URINE Lab Routine Type 2 diabetes mellitus with hemoglobin A1c goal of less than 7.0% (HCC) Encounter for long-term (current) drug use 02/02/2024 2:38 PM EST Health Maintenance Due Date Last Done Comments DISCUSS TOBACCO CESSATION (REFER TO SMARTSET #2359) 1965 HIV Screening 1982 Alpha-1 Antitrypsin 1985 Hepatitis C Screening 1985 O2 ASSESSMENT COMPLETED IN PAST YEAR FOR COPD 1985 HPV/Co-Test 1997 Colonoscopy 2012 Fecal Occult Blood Test 2012 Sigmoidoscopy 2012 Cervical Cancer Screening 07/18/2018 Pap Smear 07/18/2018 07/19/2015, 05/06/1999 Mammogram 10/23/2019 10/22/2018, 09/22/2017 Diabetic Eye Exam 09/28/2022 09/28/2021, , 10/27/2017 Depression Monitoring 10/01/2023 09/30/2022 COVID-19 Vaccine ( season) 2023 07/11/2020, 06/20/2020, 05/31/2020 Albumin/Creatinine Ratio 01/08/2024 023, 10/14/2021, 01/04/2020, Additional history exists Cologuard 06/05/2024 06/05/2021, 06/2021, 05/28/2021 Colorectal Cancer Screening 06/05/2024 TSH 06/30/2024 07/01/2023, 12/24, 04/17/2022, Additional history exists HbA1c 07/03/2024 01/04/2024, 12/24, 09/11/2022, Additional history exists Diabetic Foot Exam 01/03/2025 01/04/2024, 0 09/30/2022, 05/14/2021, Additional history exists GFR 01/03/2025 01/04/2024, 12/24, 07/15/2022, Additional history exists Lipid Panel 01/03/2029 01/04/2024, [...] as of this encounter Visit Diagnoses Diagnosis Acute idiopathic gout of right wrist Type 2 diabetes mellitus with hemoglobin A1c goal of less than 7.0% ([facility]) Encounter for long-term (current) drug use Encounter for long-term (current) use of other medications documented in this encounter Care Teams Clock And Watch Hands Dipper Relationship Specialty Start Date End Date June, Jeb Barker MD [address] [place] [address] PCP - General Family Medicine 08/05/22 documented as of this encounter
--- OUTSIDE RECORDS SUMMARY | 2024-03-29 15:16 | External Medical Summary | Summary of Care ---
Author Name Unknown Organization [facility] Address [address] [facility] [address] Phone [phone] Care Team Providers Care Product Lead Name Role Phone Jeb Queen MD Primary Care Provider [phone] Encounter Details Date Type Department Care Team (Late st Contact Info) Description 02/02/2024 Patient Reported Data Patient Survey Ortho OBERD [...] hemoglobin A1c goal of less than 7.0% ([facility]) Use up to 4 times daily with insulin 100 Each 5 2 Active Glucose Blood In Vitro StripIndications:T ype 2 diabetes mellitus with hemoglobin A1c goal of less than 7.0% ([facility]) Use as directed. 100 Strip 11 3 Active Compressor NebulizerIndicatio ns:COPD, group A, by GOLD 2017 classification ([facility]) Inhale via nebulizer. Use as directed. [...] ns:COPD, group A, by GOLD 2017 classification ([facility]) Inhale 1 Ampule via nebulizer every 4 hours as needed for Wheezing. 810 mL 3 3 Active Trelegy Ellipta 100-62.5-25 MCG/ACT Aerosol Powder Breath Activated (Fluticasone-Umecl idinium-Vilanterol )Indications:COPD, group B, by GOLD 2017 classification ([facility]) Inhale 1 Puff by mouth in the morning. 180 Each 3 3 Active Dulaglutide 3 MG/0.5ML Subcutaneous Solution Pen-injector (Trulicity)Indicat ions:Type 2 diabetes mellitus with hemoglobin A1c goal of less than 7.0% ([facility]) Inject 3 mg under the skin once [...] hemoglobin A1c goal of less than 7.0% ([facility]) TAKE 1 TABLET BY MOUTH EVERY DAY [...] CRUSH OR CHEW. 90 Capsule 4 Active documented as of this encounter [...] mRNA, LNP-s, No Pre serve, 2-Dose Series ([employer]) 07/11/2020,06/20/2020 Hepatitis B, 20+ yrs 10/11/2018,05/18/2018,04/09 Pneumococcal Conjugate Vacci ne, 20-valent ([id number]) 09/30/2022 Pneumococcal Polysaccharide PPV23 (Pneumovax) 01/23/2007 Seasonal [...] Team (Late st Contact Info) Description 02/02/2024 2:00 PM EST Office Visit Orthopaedics [facility] [address] [place] [address] Jeffery Vargas PA-C [address] [place] [address] Health Maintenance Due Date Last Done Comments DISCUSS TOBACCO CESSATION (REFER TO SMARTSET #1587) 1965 HIV Screening 1982 Alpha-1 Antitrypsin 1985 [...] 01/04/2020, Additional history exists Cologuard 06/05/2024 06/05/2021, 04/0 [...] filedocumented as of this encounter Care Teams Product Lead Relationship Specialty Start Date End Date June, Jeb Barker MD [address] [facility] [address] PCP - General Family Medicine 08/05/22 documented as of this encounter
--- OUTSIDE RECORDS SUMMARY | 2024-03-29 15:16 | External Medical Summary | Summary of Care ---
Author Name Unknown Organization [facility] Address [address] [facility] [address] Phone [phone] Care Team Providers Care Child Caregiver Name Role Phone Jeb Queen MD Primary Care Provider [phone] Encounter Details Date Type Department Care Team [...] A1c goal of less than 7.0% ([facility]) Use up to 4 times daily with insulin 100 Each 5 2 Active Glucose Blood In Vitro StripIndications:T ype 2 diabetes mellitus with hemoglobin A1c goal of less than 7.0% ([facility]) Use as directed. 100 Strip 11 3 Active Compressor NebulizerIndicatio ns:COPD, group A, by GOLD 2017 classification ([facility]) Inhale via nebulizer. Use as [...] group A, by GOLD 2017 classification ([facility]) Inhale 1 Ampule via nebulizer every 4 hours as needed for Wheezing. 810 mL 3 3 Active Trelegy Ellipta 100-62.5-25 MCG/ACT Aerosol Powder Breath Activated (Fluticasone-Umecl idinium-Vilanterol )Indications:COPD, group B, by GOLD 2017 classification ([facility]) Inhale 1 Puff by mouth in the morning. 180 Each 3 3 Active Dulaglutide 3 MG/0.5ML Subcutaneous Solution Pen-injector (Trulicity)Indicat ions:Type 2 diabetes mellitus with hemoglobin A1c goal of less than 7.0% ([facility]) Inject 3 mg under the [...] A1c goal of less than 7.0% ([facility]) TAKE 1 TABLET BY MOUTH [...] mRNA, LNP-s, No Pre serve, 2-Dose Series (fitogram) 07/11/2020,06/20/2020 Hepatitis B, 20+ yrs 10/11/2018,05/18/2018,04/09 Pneumococcal Conjugate Vacci ne, 20-valent ([id number]) 09/30/2022 Pneumococcal Polysaccharide PPV23 (Pneumovax) 01/23/2007 Seasonal [...] Description 02/13/2024 9:30 AM EST [facility] [address] [place] [address] 02/22/2024 11:15 AM EST Telemedicine [facility] [address] [place] [address] Jeffery Vargas PA-C [address] [place] [address] Health Maintenance Due Date Last Done Comments DISCUSS TOBACCO CESSATION (REFER TO SMARTSET #5878) 1965 HIV Screening 1982 Alpha-1 Antitrypsin 1985 [...] filedocumented as of this encounter Care Teams Child Caregiver Relationship Specialty Start Date End Date June, Jeb Barker MD PCP - General Family Medicine 08/05/22 documented as of this encounter
--- OUTSIDE RECORDS SUMMARY | 2024-03-29 15:16 | External Medical Summary | Summary of Care ---
Author Name Unknown Organization [facility] Address [address] [facility] [address] Phone [phone] Care Team Providers Care Real Estate Underwriter Name Role Phone Jeb Queen MD Primary Care Provider [phone] Reason for Referral * Precert (Within 10 days (routine)) - Authorized Specialty Diagnoses / Procedures Referred By Contac t Referred To Contact Radiology Diagnoses Pain and swelling of right wrist Procedures MRI WRIST RIGHT WO CONTRAST Jeffery Vargas PA-C [address] [place] [address] Phone: tel: fax: Referral ID Status Reason Start Date Expiration Date V isits Requested Visits Authorized [id number] Authorized 02/11/[phone] Encounter Details Date Type Department Care Team (Late st Contact Info) Description 02/10/2024 Orders Only Orthopaedics [facility] [address] [place] [address] Jeffery Vargas PA-C [address] [place] [address] Pain and swelling of right wrist* Allergies Active Allergy Reactions Criticality Noted Date Comments Amoxicillin 07/11/2015 Rash per pt Sulfamethoxazole-Trimethopri m Hives 07/11/2015 Ciprofloxacin 01/04/2020 SOB Cephalexin 07/11/2015 Trouble breathing per pt Latex 07/11/2015 Pt reports allergy is the powder that is in latex gloves. Quinolones 01/30/1998 nausea,sweating and lightheaded Cipro - ? Trouble breathing documented as of this encounter (statuses as of 02/10/2024) Medications Aspirin 81 MG Tablet Take 1 Tablet by mouth in the morning. Active BD Pen Needle Delaney U/F 32G X 4 MM (Insulin Pen Needle)Indications :Type 2 diabetes mellitus with hemoglobin A1c goal of less than 7.0% ([facility]) Use up to 4 times daily with insulin 100 Each 5 2 Active Glucose Blood In Vitro StripIndications:T ype 2 diabetes mellitus with hemoglobin A1c goal of less than 7.0% ([facility]) Use as directed. 100 Strip 11 3 Active Compressor NebulizerIndicatio ns:COPD, group A, by GOLD 2017 classification ([facility]) Inhale via nebulizer. Use as directed. 1 [...] A, by GOLD 2017 classification ([facility]) Inhale 1 Ampule via nebulizer every 4 hours as needed for Wheezing. 810 mL 3 3 Active Trelegy Ellipta 100-62.5-25 MCG/ACT Aerosol Powder Breath Activated (Fluticasone-Umecl idinium-Vilanterol )Indications:COPD, group B, by GOLD 2017 classification ([facility]) Inhale 1 Puff by mouth in the [...] as of this encounter (statuses as of 02/10/2024) Active Problems Problem Noted Date Diagnosed Date [...] as of this encounter (statuses as of 02/10/2024) Resolved Problems Problem Noted Date Diagnosed Date [...] as of this encounter (statuses as of 02/10/2024) Immunizations Name Administration Dates Next Due COVID-19 mRNA, LNP-s, No Pre serve, 2-Dose Series ([employer]) 07/11/2020,06/20/2020 Hepatitis B, 20+ yrs 10/11/2018,05/18/2018,04/09 Pneumococcal Conjugate Vacci ne, 20-valent ([id number]) 09/30/2022 Pneumococcal Polysaccharide PPV23 (Pneumovax) 01/23/2007 Seasonal [...] s 09/16/2022 Does the household have a [facility] source of income? (Household - for ages [...] 5:57 PM EDT Sexual Orientation Straight 07/10/2022 5 :57 PM EDT documented as of this encounter Progress Notes * Jeffery Vargas PA-C - 02/10/2024 2:09 PM EST I spoke with the patient is seen in the telephonic to advise that her uric acid levels are within normal limits. Treating the patient provisionally for suspected gout changes in the right wrist secondary to pain and swelling. We ordered a course of steroid taper with a Medrol Dosepak and bracing. The patient states she has not experienced any relief and continues to have pain and swelling in the right wrist. States it had no negative affect on her sugars. We also discussed the potential for to still be a gout diagnosis even with regular uric acid levels. I would like to obtain an MRI to rule out any type of further pathology that would benefit from conservative treatment. The patient is in a greement and I have placed an order accordingly. We will utilize a telephonic visit to discuss results. The patient denies any fevers or chills. Denies any new injury or fall. Images of plain film radiographs on file. This chart was completed in part utilizing [employer] Voice Recognition Software. Grammatical errors, random [...] in this encounter Plan of Treatment Scheduled Orders Name Type Priority Associated Diagnoses Orde r Schedule MRI WRIST RIGHT WO CONTRAST Medical Imaging Routine Pain and swelling of right wrist Expected: 02/11/2024, Expires: 03/12/2025 Health Maintenance Due Date Last Done Comments DISCUSS TOBACCO CESSATION (REFER TO SMARTSET #0594) 1965 HIV Screening 1982 Alpha-1 Antitrypsin 1985 [...] 2023 07/11/2020, 06/20/2020, 05/31/2020 Cologuard 06/05/2024 06/05/2021, 06/2021, 05/28/2021 Colorectal Cancer [...] Primary documented in this encounter Care Teams Real Estate Underwriter Relationship Specialty Start Date End Date June, Jeb Barker MD [address] [place] [address] PCP - General Family Medicine 08/05/22 documented as of this encounter
--- OUTSIDE RECORDS SUMMARY | 2024-03-29 15:16 | External Medical Summary | Summary of Care ---
Author Name Unknown Organization [facility] Address [address] [facility] [place] [address] Phone [phone] Care Team Providers Care Inspector Balance Wheel Motion Name Role Phone Jeb Queen MD Primary Care Provider [phone] Reason for Visit * Reason Comments New Problem R wrist * Evaluate & Treat - Unlimited Visits (Within 10 days (routine)) - Authorized Specialty Diagnoses / Procedures Referred By Darrin t Referred To Contact Orthopaedic Surgery / Orthopedics Diagnoses De Quervain's tenosynovitis, right Jeb Queen MD [address] [place] [address] [place] [address] Phone: tel: fax: Referral ID Status Reason Start Date Expiration Date Visits Requested Visits Authorized [id number] Authorized Specialty Services Required 02/01/2024 [id number] Encounter Details Date Type Department Care Team (Late st Contact Info) Description 02/02/2024 2:00 PM EST Office Visit Orthopaedics [facility] [address] [facility] [place] [address] Jeffery Vargas PA-C [address] [place] [address] Acute idiopathic gout of right wrist* Allergies Active Allergy Reactions [...] A1c goal of less than 7.0% ([facility]) Use up to 4 times daily with insulin 100 Each 5 2 Active Glucose Blood In Vitro StripIndications:T ype 2 diabetes mellitus with hemoglobin A1c goal of less than 7.0% ([facility]) Use as directed. 100 Strip 11 3 Active Compressor NebulizerIndicatio ns:COPD, group A, by GOLD 2017 classification ([facility]) Inhale via nebulizer. Use as directed. [...] group A, by GOLD 2017 classification ([facility]) Inhale 1 Ampule via nebulizer every 4 hours as needed for Wheezing. 810 mL 3 3 Active Trelegy Ellipta 100-62.5-25 MCG/ACT Aerosol Powder Breath Activated (Fluticasone-Umecl idinium-Vilanterol )Indications:COPD, group B, by GOLD 2017 classification ([facility]) Inhale 1 Puff by mouth in [...] yrs 10/11/2018,05/18/2018,04/09 Pneumococcal Conjugate Vacci ne, 20-valent ([id number]) 09/30/2022 Pneumococcal Polysaccharide PPV23 (Pneumovax) 01/23/2007 Seasonal [...] 09/16/2022 Does the household have a re lar source of income? (Household - for ages [...] on file Are you (or your family) banadr eless or worried that you might be [...] Progress Notes * Jeffery Vargas PA-C - 02/02/2024 1:52 PM EST Subjective Lisa Zambrano is a 58 year old female. Chief Complaint Patient presents with New Problem R wrist HPI: Established patient with a new referral for right wrist and forearm pain times 2 months. Points directly towards the wrist and carpal bones and reports that it radiates in his circumferential fashion. Admits to swelling throughout the wrist as well. Denies any radiating symptoms into the hand fingers or thumb. Denies numbness or tingling. Denies any injury or fall. Has been wearing a wrist brace with no relief. Has also placed ice topically with little improvement in symptoms. Denies any fevers or chills. Again no injury or fall. Will need x-rays today. PMH: Patient Active Problem List Diagnosis Gastroesophageal reflux disease with esophagitis Panic disorder Type 2 diabetes mellitus with hemoglobin A1c goal of less than 7.0% ([facility]) Acquired hypothyroidism Depression with anxiety HTN, goal below 130/80 Dyslipidemia Psychogenic syncope Food insecurity Recurrent major depressive disorder (HCC) COPD, group B, by GOLD 2017 classification ([facility]) Moderate major depression ([facility]) Current Outpatient Medications Medication Sig Dispense Refill Aspirin 81 MG Tablet Take 1 Tablet by mouth in the morning. BD Pen Needle Delaney U/F 32G X 4 MM (Insulin Pen Needle) Use up to 4 times daily with insulin 100 Each 5 Glucose Blood In Vitro Strip Use as directed. 100 Strip 11 Compressor Nebulizer Inhale via nebulizer. Use as directed. 1 Each 1 Vitamin B-12 1000 MCG Oral Tablet (Cyanocobalamin) TAKE 1 TABLET BY MOUTH EVERY DAY IN THE MORNING 90 Tablet 1 Vitamin D3 125 MCG (5000 UT) Oral Capsule TAKE 1 CAPSULE BY MOUTH EVERY MORNING 90 Capsule 1 Albuterol Sulfate HFA 108 (90 Base) MCG/ACT Inhalation Aerosol Solution INHALE 2 PUFFS BY MOUTH 4 TIMES DAILY 18 g 2 Levalbuterol HCl 1.25 MG/3ML Inhalation Nebulization Solution (Xopenex) Inhale 1 Ampule via nebulizer every 4 hours as needed for Wheezing. 810 mL 3 Trelegy Ellipta 100-62.5-25 MCG/ACT Aerosol Powder Breath Activated (Pcyvfbyapqf-Oygkbkcoqkxz-Rczajtxhtk) Inhale 1 Puff by mouth in the morning. 180 Each 3 Dulaglutide 3 MG/0.5ML Subcutaneous Solution Pen-injector (Zang) Inject 3 mg under the skin once a week. 6 mL 3 Carvedilol 12.5 MG Oral Tablet (Coreg) TAKE 1 TABLET BY MOUTH TWICE A DAY WITH BREAKFAST AND [id number] Tablet 3 Lisinopril 20 MG Oral Tablet (Prinivil) TAKE 1 TABLET BY MOUTH EVERY DAY IN THE MORNING 90 Tablet 3 Omeprazole 20 MG Oral Capsule Delayed Release (PriLOSEC) TAKE 1 CAPSULE BY MOUTH EVERY DAY IN THE MORNING 90 Capsule 2 traZODone HCl 150 MG Oral Tablet (Desyrel) TAKE 1 TABLET BY MOUTH DAILY AT BEDTIME BY MOUTH 90 Tablet 2 Atorvastatin Calcium 40 MG Oral Tablet (Lipitor) TAKE 1 TABLET BY MOUTH EVERY DAY IN THE MORNING 90Tablet 1 Jardiance 25 MG Oral Tablet (Empagliflozin) TAKE 1 TABLET BY MOUTH EVERY DAY IN THE MORNING 90 Tablet 1 Levothyroxine Sodium 175 MCG Oral Tablet (Levoxyl) TAKE 1/2 TAB BY MOUTH ON SUNDAYS, TAKE 1 TAB BY MOUTH ALL OTHER DAYS AT LEAST 30 MIN BEFORE BREAKFAST OR OTHER MEDICATION 90 Tablet 1 metFORMIN HCl ER 500 MG Oral Tablet Extended Release 24 Hour (Glucophage XR) TAKE 2 TABLETS BY MOUTH TWICE A DAY WITH MORNING AND EVENING MEAL 360 Tablet 0 Venlafaxine HCl ER 75 MG Oral Capsule Extended Release 24 Hour (Effexor XR) TAKE 1 CAPSULE BY MOUTHIN THE MORNING. DO NOT CUT, CRUSH OR CHEW. 90 Capsule 0 No current facility-administered medications for this visit. Past Medical History: Diagnosis Date Acquired hypothyroidism Anxiety Asthma, severity to be determined COPD, severity to be determined ([facility]) 02/22/2019 Depression Depression with anxiety 02/22/2019 Diabetes ([facility]) DM type 2, goal: symptom mgmt ([facility]) 10/12/2017 Dyslipidemia 02/22/2019 HTN (hypertension) HTN, goal below 130/80 02/22/2019 Past Surgical History: Procedure Laterality Date LIGATE/CUT OVIDUCT(S) 1992 Tubal Ligation REMOVAL OF OVARY(S) left REMOVE TONSILS & ADENOIDS, UNDER 12 Tonsillectomy/Adenoids,<14 Y/O SINUS SURGERY PROCEDURE NEC Review of patient's allergies indicates: Allergen Reactions Amoxicillin Rash per pt Bactrim [Sulfamethoxazole-Trimethoprim] Hives Ciprofloxacin SOB Keflex [Cephalexin] Trouble breathing per pt Latex Pt reports allergy is the powder that is in latex gloves. Quinolones nausea,sweating and lightheaded Cipro - ? Trouble breathing Family History Problem Relation Name Age of Onset Hypertension Mother Other (osteoporosis) Mother Cancer Father ?retinoblastoma Heart Disorder Father [place] Stroke Father Cancer Grandmother (Paternal) Diabetes Grandmother (Maternal) Asthma Grandmother (Maternal) emphysema Hypertension Other Mental Disorder Other depression Stroke Grandfather (Paternal) Family Status Relation Status Mo Alive Fa PGMA (Not Specified) MGMA (Not Specified) Other (Not Specified) Other (Not Specified) PGFA (Not Specified) Social History Socioeconomic History Marital status: Spouse name: Not on file Number of children: Not on file Years of education: Not on file Highest education level: Not on file Occupational History Not on file Tobacco Use Smoking status: Every Day Current packs/day: 1.00 Average packs/day: 1 pack/day for 30.0 years (30.0 ttl pk-yrs) Types: Cigarettes Passive exposure: Never Smokeless tobacco: Never Vaping Use Vaping status: Never Used Substance and Sexual Activity Alcohol use: No Drug use: No Sexual activity: Yes Partners: Male control/protection: Surgical Other Topics Concern Not on file Social History Narrative [employer] [place] INFORMATION ENVIRONMENTAL HISTORY: Type of Home: Two Story Type of Heating System: Oil, Forced air and [place] Air Conditioning: Yes Bedrooms and Living room Basement: Unfinished, Dampness, Water Problems and No evidence mold, mildew Home have cockroaches: No Irritants in the home: Scented Candles, Scented air fresheners and Potpourri Patient's bedroom location: Floor: second Type of meri: Hardwood Beds: Number: 1 Type of beds: Mattress and Box spring Pillows: Number: 3 Type of pillows: Feather (down) Bedroom contains: Minimal items Pets: 1 cat(s), 2 dog(s) and 1 hamster(s) Lives on a farm: No Works at [employer]; significant dust exposures Entered by: Gio Adan MD 03/18/2007 Social Needs Financial Resource Strain: High Risk (09/16/2022) Financial Resource Strain Do you have any trouble paying for your medications, or do you think you might in the future? (Adult - for ages 18 years and over): Yes Does your family have trouble paying for medicine? (Household - for ages 0-17 years): Not on file Food Insecurity: Food Insecurity Present (09/16/2022) Food Insecurity Do you need food for this week? (Adult - for ages 18 years and over): Yes Are you able to get enough food for your family? (Household - for ages 0-17 years): Not on file Does your family need food this week? (Household - for ages 0-17 years): Not on file Do you always have enough food for your family? (Household - for ages 0-17 years): Not on file Transportation Needs: Unmet Transportation Needs (09/16/2022) Transportation Needs Do you have trouble getting a ride to medical visits or work? (Adult - for ages 18 years and over):Often True Does your family have a hard time getting a ride to doctors visits? (Household - for ages 0-17 years): Not on file Has lack of transportation kept you from medical appointments, meetings, work, or from getting things needed for daily living? Check all that apply. (Adult - for ages 18 years and over): Not on file Do you (or your family) have trouble finding or paying for a ride (transportation)? (Household - for ages 0-17 years): Not on file Social Connections: Socially Integrated (09/16/2022) Social Connections How often do you feel lonely or isolated from those around you? (Adult - for ages 18 years and over): Never Housing Stability: Low Risk (09/16/2022) Housing Stability Do you currently live in a prison or have no steady place to sleep at night? (Adult - for ages 18 years and over): No Do you think you are at risk of becoming homeless? (Adult - for ages 18 years and over): No Does your family worry about paying for your home or becoming homeless? (Household - for ages 0-17 years): Not on file Are you homeless or worried that you might be in the future? (Adult - for ages 18 years and over): Not on file Are you (or your family) homeless or worried that you might be in the future? (Household - for ages0-17 years): Not on file Objective LMP 04/15/1999 complete review of systems negative General: alert and oriented x3 female, no acute distress, appears currently stated age, pleasant, well nourished, here with her Skin: Right upper extremity including wrist does reveal swelling appreciated most dorsally. It doesnot radiate into the hand fingers or thumb nor into the forearm. The right upper extremity and wrist does not reveal any erythema, ecchymosis, abrasion, laceration, skin breakdown otherwise Neurovascular: Right upper extremity reveals distal pulses +2, capillary refill is under 2 seconds,good sensation light touch, +5 mid level game designer strength, axillary median ulnar radial nerve assess fully intact Musculoskeletal: Exam of the right upper extremity including wrist forearm and elbow performed. There is rather notable tenderness throughout the carpal bones well dorsal and volar aspect. There is decreased range of motion secondary to pain reported by the patient. There is no palpable gross deformity. There is no one location that is more tender than the next, such as increased localized snuffbox tenderness. Mild tenderness throughout the CMC joint and 1st dorsal compartment but again most impressive throughout the primarily dorsal and secondary volar carpal bones. The thumb and fingers reveal active motion in all surrounding tendinous structures appear to be intact throughout the hand fingers thumb and wrist. Elbow is atraumatic. X-rays of the patient's right wrist three views were obtained. Fairly well- preserved joint spaces throughout. There is some early blunting of joint edges in the 1st CMC joint. Some sclerotic and cystic change of the scaphoid. No acute findings such as fracture dislocation subluxation. Unable to identify any type of obvious cystic change or masses in the bone. Personal interpretation and documentation regarding today's plain film radiographs performed by myself. ASSESSMENT/PLAN: There are no diagnoses linked to this encounter. Impression: Right wrist pain and swelling secondary to possible gout Plan: Today 's findings were discussed with the patient. They were educated regarding their diagnosis. Multiple treatment options discussed and agreed upon, including continued use of a wrist brace, ice, lab value for uric acid level and lastly we discussed the opportunity for a systemic corticosteroid. The patient does have an A1c of 6.2. She states she has taken oral steroid in the past with noadverse reactions or exacerbations on her daily glucose levels. Nonetheless, will continue to monitor symptoms and daily glucose levels as needed. Would transfer to prescription NSAID, such as indomethacin or colchicine if unable to tolerate the system steroid due to increased glucose levels. Telephonic visit 09/01 days to discuss results. Failure to improve and I would MRI of the right wrist. The patient has no other questions or concerns. Pleased with today 's care. Call sooner if needed. This chart was completed in part utilizing [employer] Speech Voice Recognition Software. Grammatical errors, random word insertions, prounoun errors, and incomplete sentences are an occasional consequence of this system due to software limitations, ambient noise, and hardware issues. Any formal questions or concerns about the content, text, or information contained within the body of this dictation should be directly addressed to the provider for clarification. Jeffery Vargas PA-C documented in this encounter Nursing Notes * Barbra Sprague LPN - 02/02/2024 1:45 PM EST R hand dominant pt presents for new concern, pain and swelling in R forearm, wrist x 2-3 months, isbecoming more severe. Tried ice, (became more painful), wrist brace. documented in this encounter Plan of Treatment Upcoming Encounters Date Type Department Care Team (Late st Contact Info) Description 02/02/2024 2:50 PM EST Laboratory Laboratory, [facility] [address] [place] [id number] [facility] [address] [place] [address] Acute idiopathic gout of right wrist; Type 2 diabetes mellitus with hemoglobin A1c goal of less than 7.0% (HCC); Encounter for long-term (current) drug use Pending Results Name Type Priority Associated Diagnoses Date /Time XR WRIST 3 OR MORE VIEWS Medical Imaging Routine 02/02/2024 2:13 PM EST URIC ACID Lab Routine Acute idiopathic gout of right wrist 02/02/2024 2:37 PM EST Scheduled Orders Name Type Priority Associated Diagnoses Orde r Schedule URIC ACID Lab Routine Acute idiopathic gout of right wrist Expected: 02/02/2024, Expires: 02/01/2025 Health Maintenance Due Date Last Done Comments DISCUSS TOBACCO CESSATION (REFER TO SMARTSET #[id number]) 1967 HIV Screening 1982 Alpha-1 Antitrypsin 1985 [...] Diagnoses Diagnosis Acute idiopathic gout of right wrist- Primary Acute idiopathic gout of right wrist Type 2 diabetes mellitus with hemoglobin A1c goal of less than 7.0% ([facility]) Encounter for long-term (current) drug use Encounter for long-term (current) use of other medications documented in this encounter Care Teams Inspector Balance Wheel Motion Relationship Specialty Start Date End Date June, Jeb Barker MD [address] [place] [address] PCP - General Family Medicine 08/05/22 documented as of this encounter
--- OUTSIDE RECORDS SUMMARY | 2024-03-29 15:16 | External Medical Summary | Summary of Care ---
Author Name Unknown Organization [facility] Address [address] [facility] [address] Phone [phone] Care Team Providers Care Childcare Administrator Name Role Phone Jeb Queen MD Primary Care Provider [phone] Encounter Details Date Type Department Care Team [...] less than 7.0% ([facility]) Inject 3 mg under the skin once [...] less than 7.0% ([facility]) TAKE 1 TABLET BY MOUTH EVERY DAY [...] mRNA, LNP-s, No Pre serve, 2-Dose Series ([email or web address]) 07/11/2020,06/20/2020 Hepatitis B, 20+ yrs 10/11/2018,05/18/2018,04/09 Pneumococcal Conjugate Vacci ne, 20-valent ([email or web address]) 09/30/2022 Pneumococcal Polysaccharide PPV23 (Pneumovax) 01/23/2007 Seasonal [...] 02/02/2024 2:00 PM EST Office Visit Orthopaedics [facility] [address] [place] [address] Jeffery Vargas PA-C [address] [place] [address] Health Maintenance Due Date Last Done Comments DISCUSS TOBACCO CESSATION (REFER TO SMARTSET #[id number]) 1965 HIV Screening 1982 Alpha-1 Antitrypsin 1985 [...] filedocumented as of this encounter Care Teams Childcare Administrator Relationship Specialty Start Date End Date June, Jeb Barker MD [address] [facility] [place] [address] PCP - General Family Medicine 08/05/22 documented as of this encounter
--- OUTSIDE RECORDS SUMMARY | 2024-03-29 15:16 | External Medical Summary | Summary of Care ---
Author Name Unknown Organization [facility] Address [address] [facility] [address] Phone [phone] Care Team Providers Care Social Sciences Chair Name Role Phone Jeb Queen MD Primary Care Provider [phone] Encounter Details Date Type Department Care Team [...] goal of less than 7.0% ([facility]) Use up to 4 times daily with insulin 100 Each 5 2 Active Glucose Blood In Vitro StripIndications:T ype 2 diabetes mellitus with hemoglobin A1c goal of less than 7.0% ([facility]) Use as directed. 100 Strip 11 3 Active Compressor NebulizerIndicatio ns:COPD, group A, by GOLD 2017 classification ([facility]) Inhale via nebulizer. Use as [...] A, by GOLD 2017 classification ([facility]) Inhale 1 Ampule via nebulizer every 4 hours as needed for Wheezing. 810 mL 3 3 Active Trelegy Ellipta 100-62.5-25 MCG/ACT Aerosol Powder Breath Activated (Fluticasone-Umecl idinium-Vilanterol )Indications:COPD, group B, by GOLD 2017 classification ([facility]) Inhale 1 Puff by mouth in the morning. 180 Each 3 3 Active Dulaglutide 3 MG/0.5ML Subcutaneous Solution Pen-injector (Trulicity)Indicat ions:Type 2 diabetes mellitus with hemoglobin A1c goal of less than 7.0% ([facility]) Inject 3 mg under the [...] goal of less than 7.0% ([facility]) TAKE 1 TABLET BY MOUTH [...] mRNA, LNP-s, No Pre serve, 2-Dose Series ([employer]) 07/11/2020,06/20/2020 Hepatitis B, 20+ yrs 10/11/2018,05/18/2018,04/09 Pneumococcal Conjugate Vacci ne, 20-valent ([id number]) 09/30/2022 Pneumococcal Polysaccharide PPV23 (Pneumovax) 01/23/2007 Seasonal [...] Description 02/13/2024 9:30 AM EST [facility] [address] [address] 02/22/2024 11:15 AM EST Telemedicine Orthopaedics [facility] [address] [place] [address] Jeffery Vargas PA-C [address] [address] Health Maintenance Due Date Last Done Comments DISCUSS TOBACCO CESSATION (REFER TO SMARTSET #[id number]) 1965 HIV Screening 1982 Alpha-1 Antitrypsin 1985 [...] filedocumented as of this encounter Care Teams Social Sciences Chair Relationship Specialty Start Date End Date June, Jeb Barker MD PCP - General Family Medicine 08/05/22 documented as of this encounter
--- OUTSIDE RECORDS SUMMARY | 2024-03-29 15:16 | External Medical Summary | Summary of Care ---
Author Name Unknown Organization [facility] Address [address] [facility] [address] Phone [phone] Care Team Providers Care Environmental Sciences Professor Name Role Phone Jeb Queen MD Primary Care Provider [phone] Encounter Details Date Type Department Care Team [...] than 7.0% ([facility]) TAKE 1 TABLET BY MOUTH [...] mRNA, LNP-s, No Pre serve, 2-Dose Series ([employer]) 07/11/2020,06/20/2020 Hepatitis B, 20+ yrs 10/11/2018,05/18/2018,04/09 Pneumococcal Conjugate Vacci ne, 20-valent ([email or web address]) 09/30/2022 Pneumococcal Polysaccharide PPV23 (Pneumovax) 01/23/2007 Seasonal [...] 02/02/2024 2:00 PM EST Office Visit Orthopaedics [facility] [address] [place] [address] Jeffery Vargas PA-C [address] [place] [address] Health Maintenance Due Date Last Done Comments DISCUSS TOBACCO CESSATION (REFER TO SMARTSET #[id number]) 1965 HIV Screening 1982 Alpha-1 Antitrypsin 1985 [...] filedocumented as of this encounter Care Teams Environmental Sciences Professor Relationship Specialty Start Date End Date June, Jeb Barker MD [address] [facility] [place] [address] PCP - General Family Medicine 08/05/22 documented as of this encounter
[2024-03-29] MEDS ORDERED: DEXTROSE 50% 50 ML SYRINGE IV PRN (15:17)
[2024-03-29] MEDS ORDERED: CARBOHYDRATES FOR HYPOGLYCEMIA PO PRN (15:17)
[2024-03-29] MEDS ORDERED: GLUCOSE 40% GEL 15 GM TUBE PO PRN (15:17)
[2024-03-29] MEDS ORDERED: GLUCOSE 10 TAB/TUBE PO PRN (15:17)
[2024-03-29] MEDS ORDERED: GLUCAGON FOR INJ 1 MG VIAL SQ PRN (15:17)
--- OUTSIDE RECORDS SUMMARY | 2024-03-29 15:17 | External Medical Summary | Summary of Care ---
Author Name Unknown Organization [facility] Address [address] [facility] [address] Phone [phone] Care Team Providers Care Doughnut Machine Operator Helper Name Role Phone Jeb Queen MD Primary Care Provider [phone] Encounter Details Date Type Department Care Team [...] hemoglobin A1c goal of less than 7.0% ([facility]) Use up to 4 times daily with insulin 100 Each 5 2 Active Glucose Blood In Vitro StripIndications:T ype 2 diabetes mellitus with hemoglobin A1c goal of less than 7.0% ([facility]) Use as directed. 100 Strip 11 3 Active Compressor NebulizerIndicatio ns:COPD, group A, by GOLD 2017 classification ([facility]) Inhale via nebulizer. Use as directed. [...] ns:COPD, group A, by GOLD 2017 classification ([facility]) Inhale 1 Ampule via nebulizer every 4 hours as needed for Wheezing. 810 mL 3 3 Active Trelegy Ellipta 100-62.5-25 MCG/ACT Aerosol Powder Breath Activated (Fluticasone-Umecl idinium-Vilanterol )Indications:COPD, group B, by GOLD 2017 classification ([facility]) Inhale 1 Puff by mouth in the morning. 180 Each 3 3 Active Dulaglutide 3 MG/0.5ML Subcutaneous Solution Pen-injector (Trulicity)Indicat ions:Type 2 diabetes mellitus with hemoglobin A1c goal of less than 7.0% ([facility]) Inject 3 mg under the skin [...] hemoglobin A1c goal of less than 7.0% ([facility]) TAKE 1 TABLET BY MOUTH EVERY [...] mRNA, LNP-s, No Pre serve, 2-Dose Series (Respicardia) 07/11/2020,06/20/2020 Hepatitis B, 20+ yrs 10/11/2018,05/18/2018,04/09 Pneumococcal Conjugate Vacci ne, 20-valent ([id number]) 09/30/2022 Pneumococcal Polysaccharide PPV23 (Pneumovax) 01/23/2007 Seasonal [...] 02/02/2024 2:00 PM EST Office Visit Orthopaedics [facility] [address] [place] [address] Jeffery Vargas PA-C [address] [place] [address] Health Maintenance Due Date Last Done Comments DISCUSS TOBACCO CESSATION (REFER TO SMARTSET #[id number]) 1965 HIV Screening 1982 Alpha-1 Antitrypsin 1985 [...] filedocumented as of this encounter Care Teams Doughnut Machine Operator Helper Relationship Specialty Start Date End Date June, Jeb Barker MD [address] [facility] [place] [address] PCP - General Family Medicine 08/05/22 documented as of this encounter
--- OUTSIDE RECORDS SUMMARY | 2024-03-29 15:17 | External Medical Summary ---
Author Name Unknown Address Unknown Organization [id number]:[facility] [place] - [address] [address] Laboratory Report Ordering Provider Test Date Status ELAN MARTIN 02/02/2024 14:37:07 Final Observation Date Value Abnormality Reference (Units ) Status Uric Acid 02/02/2024 14:37:07 3.9 2.4-5.7 (m g/dL) Final Performing Location [facility] [place] - [address] [place] [address]
--- OUTSIDE RECORDS SUMMARY | 2024-03-29 15:17 | External Medical Summary | Summary of Care ---
Author Name Unknown Organization [facility] Address [address] [facility] [address] Phone [phone] Care Team Providers Care Spectrograph Operator Name Role Phone Jeb Queen MD Primary Care Provider [phone] Encounter Details Date Type Department Care Team [...] mRNA, LNP-s, No Pre serve, 2-Dose Series ([employer]) 07/11/2020,06/20/2020 Hepatitis B, 20+ yrs 10/11/2018,05/18/2018,04/09 Pneumococcal Conjugate Vacci ne, 20-valent ([id number]) 09/30/2022 Pneumococcal Polysaccharide PPV23 (Pneumovax) 01/23/2007 Seasonal [...] 02/02/2024 2:00 PM EST Office Visit Orthopaedics [facility] [address] [place] [address] Jeffery Vargas PA-C [address] [place] [address] Health Maintenance Due Date Last Done Comments DISCUSS TOBACCO CESSATION (REFER TO SMARTSET #1189) 1965 HIV Screening 1982 Alpha-1 Antitrypsin 1985 [...] filedocumented as of this encounter Care Teams Spectrograph Operator Relationship Specialty Start Date End Date June, Jeb Barker MD [address] [facility] [place] [address] PCP - General Family Medicine 08/05/22 documented as of this encounter
--- OUTSIDE RECORDS SUMMARY | 2024-03-29 15:17 | External Medical Summary ---
Author Name Unknown Address Unknown Organization [id number]:[facility] [place] - [address] [address] Laboratory Report Ordering Provider Test Date Status LAZARA BRENNAN 02/02/2024 14:38:31 Final Normal: <30 mg/g creatinine< br/>High: 30-300 mg/g creatinine
Very High: >300 mg/g creatinine
Nephrotic: >2200 mg/g creatinine Observation Date Value Abnormality Reference (Units) Status Albumin, Urine 02/02/2024 14:38:31 <1.20 (mg/dL) Final Creatinine, Urine 02/02/2024 14:38:31 35 (mg/dL) Final ALBUMIN/CREATININE RATIO, HIDE 02/02/2024 14:38:31 Uninterpretable Albumin/Creatinine ratio due to very low albumin and creatinine values. <30 (mg/g Creat) Final Performing Location [facility] [place] - [address] [place] [address]
--- OUTSIDE RECORDS SUMMARY | 2024-03-29 15:17 | External Medical Summary | Summary of Care ---
Author Name Unknown Organization [facility] Address [address] [place] [address] Phone [phone] Care Team Providers Care Yeast Washer Name Role Phone Jeb Queen MD Primary Care Provider [phone] Reason for Referral * Evaluate & Treat - Unlimited Visits (Within 10 days (routine)) - Authorized Specialty Diagnoses / Procedures Referred By Darrin yadav Referred To Contact Orthopaedic Surgery / Orthopedics Diagnoses De Quervain's tenosynovitis, right Jeb Queen MD [address] [address] Phone: tel: fax: Referral ID Status Reason Start Date Expiration Date Visits Requested Visits Authorized [id number] Authorized Specialty Services Required 02/01/2024 [id number] Question Answer Referral Priority Within 10 days (routine) Where should this appointment be scheduled? [facility] What body part is the patient being seen for? Forearm/Wrist What condition is the patient being seen for? Sprain/Strain/Tear/Other Comments De Quervains tenosynovitis Reason for Visit * Reason Onset Date Comments Referral 02/01/2024 Encounter Details Date Type Department Care Team (Late st Contact Info) Description 02/01/2024 Telephone [facility] [address] [phone] Jeb Queen MD [address] [address] Referral Allergies Active Allergy Reactions Criticality Noted Date Comments Amoxicillin 07/11/2015 Rash per pt Sulfamethoxazole-Trimethopri m Hives 07/11/2015 Ciprofloxacin 01/04/2020 SOB Cephalexin 07/11/2015 Trouble breathing per pt Latex 07/11/2015 Pt reports allergy is the powder that is in latex gloves. Quinolones 01/30/1998 nausea,sweating and lightheaded Cipro - ? Trouble breathing documented as of this encounter (statuses as of 02/01/2024) Medications Aspirin 81 MG Tablet Take 1 Tablet by mouth in the morning. Active BD Pen Needle Delaney U/F 32G X 4 MM (Insulin Pen Needle)Indications :Type 2 diabetes mellitus with hemoglobin A1c goal of less than 7.0% ([facility]) Use up to 4 times daily with insulin 100 Each 5 2 Active Glucose Blood In Vitro StripIndications:T ype 2 diabetes mellitus with hemoglobin A1c goal of less than 7.0% ([facility]) Use as directed. 100 Strip 11 3 Active Compressor NebulizerIndicatio ns:COPD, group A, by GOLD 2017 classification ([facility]) Inhale via nebulizer. Use as directed. [...] ns:COPD, group A, by GOLD 2017 classification ([facility]) Inhale 1 Ampule via nebulizer every 4 hours as needed for Wheezing. 810 mL 3 3 Active Trelegy Ellipta 100-62.5-25 MCG/ACT Aerosol Powder Breath Activated (Fluticasone-Umecl idinium-Vilanterol )Indications:COPD, group B, by GOLD 2017 classification (H[facility]) Inhale 1 Puff by mouth in the [...] hemoglobin A1c goal of less than 7.0% ([facility]) TAKE 1 TABLET BY MOUTH EVERY DAY [...] hemoglobin A1c goal of less than 7.0% ([facility]) TAKE 2 TABLETS BY MOUTH TWICE A DAY WITH MORNING AND EVENING MEAL 360 Tablet 4 Active Venlafaxine HCl ER 75 MG Oral Capsule Extended Release 24 Hour (Effexor XR) TAKE 1 CAPSULE BY MOUTH IN THE MORNING. DO NOT CUT, CRUSH OR CHEW. 90 Capsule 11/06/202 4 Active documented as of this encounter (statuses as of 02/01/2024) Active Problems Problem Noted Date Diagnosed Date [...] as of this encounter (statuses as of 02/01/2024) Resolved Problems Problem Noted Date Diagnosed Date [...] as of this encounter (statuses as of 02/01/2024) Immunizations Name Administration Dates Next Due COVID-19 mRNA, LNP-s, No Pre serve, 2-Dose Series ([employer]) 07/11/2020,06/20/2020 Hepatitis B, 20+ yrs 10/11/2018,05/18/2018,04/09 Pneumococcal Conjugate Vacci ne, 20-valent ([id number]) 09/30/2022 Pneumococcal Polysaccharide PPV23 (Pneumovax) 01/23/2007 Seasonal [...] encounter Miscellaneous Notes * Telephone Encounter - Jeb Queen MD - 02/01/2024 5:44 PM EST Referral placed. Jeb Queen MD * Telephone Encounter - Cyril Cuellar OSA - 02/01/2024 7:21 AM EST Pt calling stating she saw Dr Queen on 01/03. Pt states she mentioned about the pain her R wrist pain. Pt states she tried icing the area and wearing a wrist brace, but nothing is helping. Pt states the pain is unbearable now. Pt asking for a referral to Orthopedics. Please advise pt at [phone]. documented in this encounter Plan of Treatment Scheduled Referrals Name Type Priority Associated Diagnoses Order Schedule ORTHOPAEDICS REFERRAL OP Referral Within 10 days (routine) De Quervain's tenosynovitis, right Ordered: 02/01/2024 Health Maintenance Due Date Last Done Comments DISCUSS TOBACCO CESSATION (REFER TO SMARTSET #7930) 1965 HIV Screening 1982 Alpha-1 Antitrypsin 1985 [...] as of this encounter Visit Diagnoses Diagnosis De Quervain's tenosynovitis, right- Primary Radial styloid tenosynovitis documented in this encounter Care Teams Yeast Washer Relationship Specialty Start Date End Date June, Jeb Barker MD [address] [place] [address] PCP - General Family Medicine 08/05/22 documented as of this encounter
--- OUTSIDE RECORDS SUMMARY | 2024-03-29 15:17 | External Medical Summary | Summary of Care ---
Author Name Unknown Organization [facility] Address [address] [facility] [address] Phone [phone] Care Team Providers Care Ornamental Iron Worker Helper Name Role Phone Jeb Queen MD Primary Care Provider [phone] Encounter Details Date Type Department Care Team [...] goal of less than 7.0% ([facility]) Use up to 4 times daily with insulin 100 Each 5 2 Active Glucose Blood In Vitro StripIndications:T ype 2 diabetes mellitus with hemoglobin A1c goal of less than 7.0% ([facility]) Use as directed. 100 Strip 11 3 Active Compressor NebulizerIndicatio ns:COPD, group A, by GOLD 2017 classification ([facility]) Inhale via nebulizer. Use as directed. 1 [...] A, by GOLD 2017 classification ([facility]) Inhale 1 Ampule via nebulizer every 4 hours as needed for Wheezing. 810 mL 3 3 Active Trelegy Ellipta 100-62.5-25 MCG/ACT Aerosol Powder Breath Activated (Fluticasone-Umecl idinium-Vilanterol )Indications:COPD, group B, by GOLD 2017 classification ([facility]) Inhale 1 Puff by mouth in the morning. 180 Each 3 3 Active Dulaglutide 3 MG/0.5ML Subcutaneous Solution Pen-injector (Trulicity)Indicat ions:Type 2 diabetes mellitus with hemoglobin A1c goal of less than 7.0% ([facility]) Inject 3 mg under the skin once [...] goal of less than 7.0% ([facility]) TAKE 1 TABLET BY MOUTH EVERY DAY [...] mRNA, LNP-s, No Pre serve, 2-Dose Series ([employer]) 07/11/2020,06/20/2020 Hepatitis B, 20+ yrs 10/11/2018,05/18/2018,04/09 Pneumococcal Conjugate Vacci ne, 20-valent ([id number]) 09/30/2022 Pneumococcal Polysaccharide PPV23 (Pneumovax) 01/23/2007 Seasonal [...] 02/02/2024 2:00 PM EST Office Visit Orthopaedics [facility] [address] [place] [address] Jeffery Vargas PA-C [address] [place] [address] Health Maintenance Due Date Last Done Comments DISCUSS TOBACCO CESSATION (REFER TO SMARTSET #0929) 1965 HIV Screening 1982 Alpha-1 Antitrypsin 1985 [...] filedocumented as of this encounter Care Teams Ornamental Iron Worker Helper Relationship Specialty Start Date End Date June, Jeb Barker MD [address] [facility] [address] PCP - General Family Medicine 08/05/22 documented as of this encounter
--- OUTSIDE RECORDS SUMMARY | 2024-03-29 15:17 | External Medical Summary | Summary of Care ---
Author Name Unknown Organization [facility] Address [address] [facility] [address] Phone [phone] Care Team Providers Care Charhouse Worker Name Role Phone Jeb Queen MD Primary Care Provider [phone] Encounter Details Date Type Department Care Team [...] A1c goal of less than 7.0% ([facility]) Use up to 4 times daily with insulin 100 Each 5 2 Active Glucose Blood In Vitro StripIndications:T ype 2 diabetes mellitus with hemoglobin A1c goal of less than 7.0% ([facility]) Use as directed. 100 Strip 11 3 Active Compressor NebulizerIndicatio ns:COPD, group A, by GOLD 2017 classification ([facility]) Inhale via nebulizer. Use as directed. [...] group A, by GOLD 2017 classification ([facility]) Inhale 1 Ampule via nebulizer every 4 hours as needed for Wheezing. 810 mL 3 3 Active Trelegy Ellipta 100-62.5-25 MCG/ACT Aerosol Powder Breath Activated (Fluticasone-Umecl idinium-Vilanterol )Indications:COPD, group B, by GOLD 2017 classification ([facility]) Inhale 1 Puff by mouth in the morning. 180 Each 3 3 Active Dulaglutide 3 MG/0.5ML Subcutaneous Solution Pen-injector (Trulicity)Indicat ions:Type 2 diabetes mellitus with hemoglobin A1c goal of less than 7.0% ([facility]) Inject 3 mg under the skin once [...] A1c goal of less than 7.0% ([facility]) TAKE 1 TABLET BY MOUTH EVERY DAY [...] mRNA, LNP-s, No Pre serve, 2-Dose Series ([employer]) 07/11/2020,06/20/2020 Hepatitis B, 20+ yrs 10/11/2018,05/18/2018,04/09 Pneumococcal Conjugate Vacci ne, 20-valent ([id number]) 09/30/2022 Pneumococcal Polysaccharide PPV23 (Pneumovax) 01/23/2007 Seasonal [...] 02/02/2024 2:00 PM EST Office Visit Orthopaedics [facility] [address] [place] [address] Jeffery Vargas PA-C [address] [place] [address] Health Maintenance Due Date Last Done Comments DISCUSS TOBACCO CESSATION (REFER TO SMARTSET #7727) 1965 HIV Screening 1980 Alpha-1 Antitrypsin 1985 [...] filedocumented as of this encounter Care Teams Charhouse Worker Relationship Specialty Start Date End Date June, Jeb Barker MD [address] [facility] [place] [address] PCP - General Family Medicine 08/05/22 documented as of this encounter
--- OUTSIDE RECORDS SUMMARY | 2024-03-29 15:17 | External Medical Summary | Summary of Care ---
Author Name Unknown Organization [facility] Address [address] [place] [address] Phone [phone] Care Team Providers Care Public Relations Counselor Name Role Phone Jeb Queen MD Primary Care Provider [phone] Reason for Referral * Evaluate & Treat - Unlimited Visits (Within 10 days (routine)) - Authorized Specialty Diagnoses / Procedures Referred By Darrin yadav Referred To Contact Orthopaedic Surgery / Orthopedics Diagnoses De Quervain's tenosynovitis, right Jeb Queen MD [address] [address] Phone: tel: fax: Referral ID Status Reason Start Date Expiration Date Visits Requested Visits Authorized [id number] Authorized Specialty Services Required 02/01/[phone] [...] (Late st Contact Info) Description 02/01/2024 Telephone [facility] [address] [address] Jeb [...] hemoglobin A1c goal of less than 7.0% ([facility]) Use up to 4 times daily with insulin 100 Each 5 2 Active Glucose Blood In Vitro StripIndications:T ype 2 diabetes mellitus with hemoglobin A1c goal of less than 7.0% ([facility]) Use as directed. 100 Strip 11 3 Active Compressor NebulizerIndicatio ns:COPD, group A, by GOLD 2017 classification ([facility]) Inhale via nebulizer. Use as [...] ns:COPD, group A, by GOLD 2017 classification ([facility]) Inhale 1 Ampule via nebulizer [...] hemoglobin A1c goal of less than 7.0% ([facility]) TAKE 1 TABLET BY MOUTH [...] hemoglobin A1c goal of less than 7.0% ([facility]) TAKE 2 TABLETS BY MOUTH [...] mRNA, LNP-s, No Pre serve, 2-Dose Series ([employer]) 07/11/2020,06/20/2020 Hepatitis B, 20+ yrs 10/11/2018,05/18/2018,04/09 Pneumococcal Conjugate Vacci ne, 20-valent ([id number]) 09/30/2022 Pneumococcal Polysaccharide PPV23 (Pneumovax) 01/23/2007 Seasonal [...] encounter Miscellaneous Notes * Telephone Encounter - Chante Khan OSA - 02/02/2024 10:41 AM EST Patient has been notified of the message. Patient has no further questions. Pt transferred to Orthopedics for scheduling due to hard block when attempting schedule in response to pt answers to questions. Transferred to [facility] in ortho scheduling. * Telephone Encounter - Jeb Queen MD [...] referral to Orthopedics. Please advise pt at [phone]. documented in this encounter Plan of Treatment Upcoming Encounters Date Type Department Care Team (Late st Contact Info) Description 02/02/2024 2:00 PM EST Office Visit Orthopaedics [facility] [address] [address] Jeffery Vargas PA-C [address] [address] Scheduled Referrals Name Type Priority Associated Diagnoses Order Schedule ORTHOPAEDICS REFERRAL OP Referral Within 10 days (routine) De Quervain's tenosynovitis, right Ordered: 02/01/2024 Health Maintenance Due Date Last Done Comments DISCUSS TOBACCO CESSATION (REFER TO SMARTSET #3067) 1965 HIV Screening 1980 Alpha-1 Antitrypsin 1985 [...] tenosynovitis documented in this encounter Care Teams Public Relations Counselor Relationship Specialty Start Date End Date June, Jeb Barker MD [address] [place] [address] PCP - General Family Medicine 08/05/22 documented as of this encounter
--- OUTSIDE RECORDS SUMMARY | 2024-03-29 15:17 | External Medical Summary | Summary of Care ---
Author Name Unknown Organization [facility] Address [address] [place] [address] Phone [phone] Care Team Providers Care Cash Applications Representative Name Role Phone Jeb Queen MD Primary Care Provider [phone] Reason for Visit * Reason Onset Date Comments Follow Up Patient is here for a follow up.Patient has concerns about pain and swelling in her R wrist, hand, and 3 fingers for the past week. She has taken tylenol and ibuprofen with no relief. Medication Administration 01/04/2024 Flu an d/or Pneumo Inj Encounter Details Date Type Department Care Team (Latest Contact Info) Description 01/04/2024 12:40 PM EST Office Visit [place] [address] [place] [address] Jeb Queen MD [address] [place] [address] Type 2 diabetes mellitus with hemoglobin A1c goal of less than 7.0% ([facility])*; HTN, goal below 130/80; De Quervain's tenosynovitis, right; COPD, group B, by GOLD 2017 classification ([facility]); Dyslipidemia; Depression with anxiety; Acquired hypothyroidism; Gastroesophageal reflux disease with esophagitis without hemorrhage; DM type 2 nursing care encounter ([facility]); Need for prophylactic vaccination and inoculation against [...] as of this encounter (statuses as of 01/10/2024) Medications Aspirin 81 MG Tablet Take 1 Tablet by mouth in the morning. Active BD Pen Needle Delaney U/F 32G X 4 MM (Insulin Pen Needle)Indications :Type 2 diabetes mellitus with hemoglobin A1c goal of less than 7.0% ([facility]) Use up to 4 times daily with insulin 100 Each 5 12/07/19 22 Active Glucose Blood In Vitro StripIndications:T ype 2 diabetes mellitus with hemoglobin A1c goal of less than 7.0% ([facility]) Use as directed. 100 Strip 11 07/16/19 23 Active Compressor NebulizerIndicatio ns:COPD, group A, by [...] morning. 180 Each 3 01/08/20 23 Active Dulaglutide 3 MG/0.5ML Subcutaneous Solution Pen-injector (Trulicity)Indicat ions:Type 2 diabetes mellitus with hemoglobin A1c goal of less than 7.0% (HCC) Inject 3 mg under the skin once a week. 6 mL 3 01/12/20 23 Active Carvedilol 12.5 MG Oral Tablet (Coreg) TAKE 1 TABLET BY MOUTH TWICE A DAY WITH BREAKFAST AND DINNER 180 Tablet 3 02/14/20 23 Active Lisinopril 20 MG Oral Tablet (Prinivil) TAKE 1 TABLET BY MOUTH EVERY DAY IN THE MORNING 90 Tablet 3 02/14/20 23 Active Omeprazole 20 MG Oral Capsule Delayed Release (PriLOSEC) TAKE 1 CAPSULE BY MOUTH EVERY DAY IN THE MORNING 90 Capsule 2 06/15/19 24 Active traZODone HCl 150 MG Oral Tablet (Desyrel)Indicatio ns:Panic disorder,Persisten t insomnia TAKE 1 TABLET BY MOUTH DAILY AT BEDTIME BY MOUTH 90 Tablet 2 06/15/19 24 Active Atorvastatin Calcium 40 MG Oral Tablet (Lipitor)Indicatio ns:Type 2 diabetes mellitus with hemoglobin A1c goal of less than 7.0% (HCC) TAKE 1 TABLET BY MOUTH EVERY DAY IN THE MORNING 90 Tablet 1 09/23/19 24 Active Jardiance 25 MG Oral Tablet [...] OR CHEW. 90 Capsule 12/30/19 24 Active hydroCHLOROthiazid e 12.5 MG Oral TabletIndications: HTN, goal below 130/80 Take 1 Tablet by mouth in the morning. 90 Tablet 3 05/15/19 24 024 Discontin ued(Medic ation List Clean Up) Dulaglutide 1.5 MG/0.5ML Subcutaneous Solution Pen-injector (Trulicity)Indicat ions:Type 2 diabetes mellitus with hemoglobin A1c goal of less than 7.0% ([facility]) Inject 1.5 mg under the skin once a week. 6 mL 3 10/05/19 24 024 Discontin ued(Medic ation/Dos e Changed) Nitrofurantoin Monohyd Macro 100 MG Oral Capsule (Macrobid)Indicati ons:Suspected UTI Take 1 Capsule by mouth in the morning and 1 Capsule before bedtime. Do all this for 7 days. With food until gone. 14 Capsule 11/02/19 24 024 Discontin ued(Medic ation List Clean Up) documented as of this encounter (statuses as of 01/10/2024) Active Problems Problem Noted Date Diagnosed Date [...] as of this encounter (statuses as of 01/10/2024) Resolved Problems Problem Noted Date Diagnosed Date Resolved Date Type 2 diabetes mellitus wit h diabetic polyneuropathy 07/07/2022 05/15/2023 COPD, group A, by GOLD 2017 classification 06/02/2022 11/06/2022 Overview: Per COPD GOLD Classification Morbid obesity due to excess calories 05/26/2022 05/26/2022 COPD, severity to be determined 02/22/2019 06/05/2022 Overview: Per COPD GOLD Classification Routine general medical exam ination at a [facility] 12/29/2013 02/22/2019 Overview (12/29/2013): 12/29-PCP [...] as of this encounter (statuses as of 01/10/2024) Immunizations Name Administration Dates Next Due COVID-19 mRNA, LNP-s, No Pre serve, 2-Dose Series (Polimetrix) 07/11/2020,06/20/2020 Hepatitis B, 20+ yrs 10/11/2018,05/18/2018,04/09 Pneumococcal Conjugate Vacci ne, 20-valent ([id number]) 09/30/2022 Pneumococcal Polysaccharide PPV23 (Pneumovax) 01/23/2007 Seasonal [...] PM EDT documented as of this encounter Last Filed Vital Signs Vital Sign Reading Time Taken Comments Blood Pressure 106/60 01/04/2024 12:34 PM EST Pulse - - Temperature 36.4 C (97.5 F) 01/04/2024 12:[address] Respiratory Rate 16 01/04/2024 12:34 PM EST Oxygen Saturation - - Inhaled Oxygen Concentration - - Weight 73.3 kg (161 lb 8 oz) 01/04/2024 12:34 PM EST Height - - Body Mass Index 27.72 11/20/2022 9:12 AM EDT documented in this encounter Patient Instructions * Patient Instructions* Anaya Lund LPN - 01/04/2024 12:44 PM EST Diabetes: Keeping Feet Healthy Inspect your feet every day for signs of a problem. Diabetes can damage nerves in your feet and cause neuropathy. This condition makes it hard for you to feel injuries or sore spots. Diabetes can also change blood flow, making it harder for small problems, like a blister, to heal properly. In fact, minor injuries can quickly become serious infections that send you to the hospital. Practice self-care to protect your feet and keep them healthy. Take Special Care Inspect your feet daily for problems such as redness, blisters, cracks, dry skin, or numbness. Use a mirror to see the bottoms of your feet. Or, ask for help. Manage your diabetes. Monitor and control your blood sugar. Take all your medications as prescribed. Avoid walking barefoot, even indoors. Wash your feet with warm water and mild soap. Dry well, especially between toes. Dont treat corns or calluses yourself. Talk to your doctor or restorative coordinator (a doctor who specializes in foot care) if you need assistance trimming your toenails. Use moisturizing cream or lotion if you have dry skin, but dont use it between toes. Dont use heating pads on your feet. If you have neuropathy, you could get a burn and not feel it. Stop smoking. Smoking restricts blood flow and can make it harder for wounds to heal. Have Regular Checkups Foot problems can develop quickly. So be sure to follow your healthcare teams schedule for regular checkups. During office visits, take off your shoes and socks as soon as you get in the exam room. Ask your healthcare provider to examine your feet for problems. This will make it easier to find and treat small skin irritations before they get worse. Regular checkups can also help keep track of the blood flow and feeling in your feet. If you have neuropathy, you may need to have checkups more often. Wear Proper Footwear Wearing proper footwear is very important. If areas of your feet have been damaged by too much pressure, your healthcare provider may recommend changing your footwear. In some cases, avoiding high heels or tight work boots may be all thats needed. Or, your healthcare provider may recommend special shoes or custom inserts. These help protect your feet and keep existing irritations from getting worse. If you need special footwear, ask your healthcare provider if you qualify for [employer] diabetic shoe program. Make Sure Shoes and Socks Fit Any pair of shoes--new or old--should feel comfortable as soon as you put them on. There shouldnt be any rubbing when you walk. Wear the right shoe for any activity. For instance, a running shoe is designed to keep your feet injury-free while jogging. Buy shoes at the end of the day, when your feet are larger. Make sure they provide support without feeling too loose. Make sure your socks fit, t oo. Wear soft, seamless, well-padded socks for activity. Cotton or microfiber socks are best to help to absorb sweat. To protect your feet, avoid shoes that are open-toed or open-heeled. If you have questions about what kinds of shoes and socks are best, talk to your healthcare team. Get Regular Exercise Regular exercise improves blood flow in your feet. It also increases foot strength and flexibility.Gentle exercises, like walking or riding a stationary bicycle, are best. You can also do special foot exercises. Just be sure to talk with your healthcare provider before starting any exercise program. Also mention if any exercise causes pain, redness, or other signs of foot problems. Note: If you have any kind of break in the skin of your foot or ankle, keep the area clean. Then call your doctor--especially if the area doesnt appear to be healing. [phone] [employer], [address] [place] [address], [place] [address]. All rights reserved. This information is not intended as a substitute for professional medical care. Always follow your healthcare professional's instructions. documented in this encounter Progress Notes * Jeb Queen MD - 01/04/2024 12:45 PM EST Images from the original note were not included. Assessment and Plan 1. Type 2 diabetes mellitus with hemoglobin A1c goal of less than 7.0% ([facility]) (Primary) A1c 6.2. Continue metformin, jardiance, trulicity. Await A1c. Patient pushing to discontinue eithermetformin or jardiance to decrease pill burden. - TELEMEDICINE DIABETIC EYE - HEMOGLOBIN A1C; Future 2. HTN, goal below 130/80 Blood pressure low normal. Discontinue HCTZ per patient preference. - COMPREHENSIVE METABOLIC PANEL; Future 3. De Quervain's tenosynovitis, right Right wrist pain and positive finklesteins. Brace. Heat/ice. 4. COPD, group B, by GOLD 2017 classification ([facility]) Patient discontinued trelegy on her own. Encouraged her to restart daily. 5. Dyslipidemia Continue statin. 6. Depression with anxiety Patient considering discontinuation of effexor as she feels well and wants to decrease pill burden. 7. Acquired hypothyroidism Continue levothyroxine. 8. Gastroesophageal reflux disease with esophagitis without hemorrhage Continue omeprazole. 9. DM type 2 nursing care encounter ([facility]) - DIABETES FOOT EXAM 10. Need for prophylactic vaccination and inoculation against influenza - INFLUENZA VAC, TRIVALENT, (IIV3), PF, 0.5 ML (FLUZONE) Wrap-Up Follow up in 6 months. History of Present Illness The patient is a 58 year old female with past medical history of type 2 diabetes, hypothyroidism, dyslipidemia, COPD, HTN, depression who presents for follow up. Patient presents for routine follow up. She had lab work completed today that it was not yet resulted. She has a history of type 2 diabetes currently on Trulicity, Jardiance, metformin. Weight is down 25 lb in the last year. She also has a history of hypertension currently on lisinopril, hydrochlorothiazide, carvedilol. Blood pressure is 106/60 in office today. She was interested in decreasing pill burden in his wondering if she can discontinue 1 of her blood pressure medications. She has a history of hypothyroidism currently on levothyroxine. She also has a history of GERD on omeprazole. Shehas a history of COPD and denies significant shortness of breath though does note a chronic cough. She discontinued her Trelegy on her own. She was has a history of depression for which she takes Effexor daily. She reports symptoms are stable from a mood perspective. Physical Exam Vitals: 01/04/24 1234 Temp: 36.4 C (97.5 F) Resp: 16 BP: 106/60 Physical Exam Physical Exam Vitals reviewed. Constitutional: General: She is not in acute distress. Pulmonary: Effort: Pulmonary effort is normal. No respiratory distress. Musculoskeletal: Cervical back: Neck supple. Comments: Unable to make fist with right hand. Lymphadenopathy: Cervical: No cervical adenopathy. Neurological: General: No focal deficit present. Mental Status: She is alert. Psychiatric: Mood and Affect: Mood normal. Behavior: Behavior normal. This note has been completed in part utilizing [employer] Speech Voice Recognition Software. Due to technical limitations of the software, grammatical errors, random word insertions, prounoun errors, and incomplete sentences may occur. Any formal questions or concerns about the content, text, or information contained within the body of this dictation should be directly addressed to the provider for clarification. Anaya Em LPN - 01/04/2024 12:42 PM EST DM Foot Exam completed today. Provider aware. Anaya Lund LPN Socks and Shoes Removed for Annual Diabetic Foot Screening RIGHT FOOT: No Reddened, Cracking, Or Open Areas Noted. RIGHT Dorsalis Pedis Pulse: Palpable RIGHT Posterior Tibial Pulse: Palpable RIGHT Monofilament:Patient reports feeling monofilament pressure on plantar surface of foot LEFT FOOT: No Reddened, Cracking or Open Areas Noted. LEFT Dorsalis Pedis Pulse: Palpable LEFT Posterior Tibial Pulse: Palpable LEFT Monofilament:Patient reports feeling monofilament pressure on plantar surface of foot Do you need diabetic shoes: No Pre-Administration Time Out Procedure Performed: Yes Patient Identified (Ask Name/Date of ): Yes Does the patient have a fever greater than 101 degrees today? No Patient allergic to latex? No Has the patient ever fainted after receiving an injection? No VFC Stock: No Immunization(s) verified: Yes, Immunization Name: Flu, VIS Sheet(s) given: Yes Verified Side and Site: Yes Verified Shot(s) with Parent(s)/Patient: Yes documented in this encounter Nursing Notes * Anaya Lund LPN - 01/04/2024 12:38 PM EST The patient has been properly identified by confirmation of name and date of . Chief Complaint Patient presents with Follow Up Patient is here for a follow up. Patient has concerns about pain and swelling in her R wrist, hand, and 3 fingers for the past week.She has taken tylenol and ibuprofen with no relief. documented in this encounter Miscellaneous Notes * Addendum Note - Belia Whittington OSA - 01/10/2024 11:05 AM ESTAddended by: BELIA WHITTINGTON on: 01/10/2024 11:05 AM Modules accepted: Orders documented in this encounter Plan of Treatment Scheduled Orders Name Type Priority Associated Diagnoses Orde r Schedule COMPREHENSIVE METABOLIC PANEL Lab Routine HTN, goal below 130/80 Expected: 07/03/2024 (Approximate), Expires: 01/03/2025 HEMOGLOBIN A1C Lab Routine Type 2 diabetes mellitus with hemoglobin A1c goal of less than 7.0% (HCC) Expected: 07/03/2024 (Approximate), Expires: 01/03/2025 Health Maintenance Due Date Last Done Comments DISCUSS TOBACCO CESSATION (REFER TO SMARTSET #[id number]) 1967 HIV Screening 1982 Alpha-1 Antitrypsin 1985 Hepatitis C Screening 1985 HPV/Co-Test 1997 Colonoscopy 2012 Fecal Occult Blood Test 2012 Sigmoidoscopy 2012 Cervical Cancer Screening 07/18/2018 Pap Smear 07/18/2018 07/19/2015, 05/06/1999 Mammogram 10/23/2019 10/22/2018, 09/22/2017 Diabetic Eye Exam 09/28/2022 09/28/2021, , 10/27/2017 Depression Monitoring 10/01/2023 09/30/2022 COVID-19 Vaccine ( season) 2023 07/11/2020, 06/20/2020, 05/31/2020 Albumin/Creatinine Ratio 01/08/2024 023, 10/14/2021, 01/04/2020, Additional history exists O2 ASSESSMENT COMPLETED IN PAST YEAR FOR COPD 01/08/2024 01/07/2023 Cologuard 06/05/2024 06/05/2021, 04/0 06/2021, 05/28/2021 [...] goal of less than 7.0% (HCC)- Primary HTN, goal below 130/80 Unspecified essential hypertension De Quervain's tenosynovitis, right Radial styloid tenosynovitis COPD, group B, by GOLD 2017 classification (HCC) Dyslipidemia Other and unspecified hyperlipidemia Depression with anxiety Dysthymic disorder Acquired hypothyroidism Unspecified hypothyroidism Gastroesophageal reflux disease with esophagitis without hemorrhage DM type 2 nursing care encounter (HCC) Type II or unspecified type diabetes mellitus without mention of complication, not stated as uncontrolled Need for prophylactic vaccination and inoculation against influenza documented in this encounter Care Teams Cash Applications Representative Relationship Specialty Start Date End Date June, Jeb Barker MD [address] [place] [place] [address] PCP - General Family Medicine 08/05/22 documented as of this encounter
--- OUTSIDE RECORDS SUMMARY | 2024-03-29 15:17 | External Medical Summary | Summary of Care ---
Author Name Unknown Organization [facility] Address [address] [place] [place] [address] Phone [phone] Care Team Providers Care General Inspector Name Role Phone Jeb Queen MD Primary Care Provider [phone] Reason for Visit * Reason Onset Date Comments Test Results 01/13/2024 Encounter Details Date Type Department Care Team (Late st Contact Info) Description 01/13/2024 Telephone [facility] [address] [place] [address] Jeb Queen MD [address] [place] [address] Test Results Allergies Active Allergy Reactions Criticality Noted Date Comments Amoxicillin 07/11/2015 Rash per pt Sulfamethoxazole-Trimethopri m Hives 07/11/2015 Ciprofloxacin 01/04/2020 SOB Cephalexin 07/11/2015 Trouble breathing per pt Latex 07/11/2015 Pt reports allergy is the powder that is in latex gloves. Quinolones 01/30/1998 nausea,sweating and lightheaded Cipro - ? Trouble breathing documented as of this encounter (statuses as of 01/14/2024) Medications Aspirin 81 MG Tablet Take 1 Tablet by mouth in the morning. Active BD Pen Needle Delaney U/F 32G X 4 MM (Insulin Pen Needle)Indications :Type 2 diabetes mellitus with hemoglobin A1c goal of less than 7.0% ([facility]) Use up to 4 times daily with insulin 100 Each 5 10/14/202 2 Active Glucose Blood In Vitro StripIndications:T ype 2 diabetes mellitus with hemoglobin A1c goal of less than 7.0% ([facility]) Use as directed. 100 Strip 11 3 Active Compressor NebulizerIndicatio ns:COPD, group A, by GOLD 2017 classification ([facility]) Inhale via nebulizer. Use as [...] ns:COPD, group A, by GOLD 2017 classification ([facility]) Inhale 1 Ampule via nebulizer every 4 hours as needed for Wheezing. 810 mL 3 3 Active Trelegy Ellipta 100-62.5-25 MCG/ACT Aerosol Powder Breath Activated (Fluticasone-Umecl idinium-Vilanterol )Indications:COPD, group B, by GOLD 2017 classification ([facility]) Inhale 1 Puff by mouth in the morning. 180 Each 3 3 Active Dulaglutide 3 MG/0.5ML Subcutaneous Solution Pen-injector (Trulicity)Indicat ions:Type 2 diabetes mellitus with hemoglobin A1c goal of less than 7.0% ([facility]) Inject 3 mg under the [...] as of this encounter (statuses as of 01/14/2024) Active Problems Problem Noted Date Diagnosed Date [...] as of this encounter (statuses as of 01/14/2024) Resolved Problems Problem Noted Date Diagnosed Date [...] as of this encounter (statuses as of 01/14/2024) Immunizations Name Administration Dates Next Due COVID-19 mRNA, LNP-s, No Pre serve, 2-Dose Series (Sazze) 07/11/2020,06/20/2020 Hepatitis B, 20+ yrs 10/11/2018,05/18/2018,04/09 Pneumococcal Conjugate Vacci ne, 20-valent ([id number]) 09/30/2022 Pneumococcal Polysaccharide PPV23 (Pneumovax) 01/23/2007 Seasonal [...] encounter Miscellaneous Notes * Telephone Encounter - Apple Luevano LPN - 01/14/2024 2:02 PM EST Patient has been informed of below message and verbalized understanding. * Telephone Encounter - Jeb Queen MD - 01/13/2024 1:23 PM EST Lab work reviewed. Would recommend patient remains on metformin, atorvastatin, and jardiance as diabetes is under excellent control on this medication regimen. If she is pushing to stop a medication,can stop jardiance and we will monitor A1c moving forward. If A1c rises, we will need to restart. Jeb Queen MD * Telephone Encounter - Anaya Unger LPN - 01/13/2024 10:45 AM EST Pt calling about labs complete 01/03. She inquiring if she will need to continue her Metformin? She would also like to know if there are other meds she could stop? Like atorvastatin Please advise. * Telephone Encounter - Eden Lopez OSA - 01/13/2024 10:43 AM EST Reason for patient's call: lab results Caller was transferred to [place] at the nurse line. documented in this encounter Plan of Treatment Health Maintenance Due Date Last Done Comments DISCUSS TOBACCO CESSATION (REFER TO SMARTSET #[id number]) 1967 HIV Screening 1982 Alpha-1 Antitrypsin 1985 [...] filedocumented as of this encounter Care Teams General Inspector Relationship Specialty Start Date End Date June, Jeb Barker MD [address] [place] [address] PCP - General Family Medicine 08/05/22 documented as of this encounter
--- OUTSIDE RECORDS SUMMARY | 2024-03-29 15:18 | External Medical Summary | Summary of Care ---
Author Name Unknown Organization [facility] Address [address] [place] [address] Phone [phone] Care Team Providers Care Local Az Truck Driver Name Role Phone Geremias Woody MD Primary Care Provider [phone] Reason for Visit * Reason Comments eRx-Medication Refill Encounter Details Date Type Department Care Team (Late st Contact Info) Description 12/05/2023 Refill [facility] [address] [place] [address] Geremias Woody MD [address] [place] [address] Acquired hypothyroidism Allergies Active Allergy Reactions Criticality Noted Date Comments Amoxicillin 07/11/2015 Rash per pt Sulfamethoxazole-Trimethopri m Hives 07/11/2015 Ciprofloxacin 01/04/2020 SOB Cephalexin 07/11/2015 Trouble breathing per pt Latex 07/11/2015 Pt reports allergy is the powder that is in latex gloves. Quinolones 01/30/1998 nausea,sweating and lightheaded Cipro - ? Trouble breathing documented as of this encounter (statuses as of 12/06/2023) Medications Medication Sig Dispensed Refills Start Date End Date Status Aspirin 81 MG Tablet Take 1 Tablet by mouth in the morning. Active BD Pen Needle Delaney U/F 32G X 4 MM (Insulin Pen Needle)Indications: Type 2 diabetes mellitus with hemoglobin A1c goal of less than 7.0% ([facility]) Use up to 4 times daily with insulin 100 Each 5 2 Active Glucose Blood In Vitro StripIndications:Ty pe 2 diabetes mellitus with hemoglobin A1c goal of less than 7.0% ([facility]) Use as directed. 100 Strip 11 3 Active Compressor NebulizerIndication s:COPD, group A, by GOLD 2017 classification ([facility]) Inhale via nebulizer. Use [...] s:COPD, group A, by GOLD 2017 classification ([facility]) Inhale 1 Ampule via nebulizer every 4 hours as needed for Wheezing. 810 mL 3 3 Active Trelegy Ellipta 100-62.5-25 MCG/ACT Aerosol Powder Breath Activated (Fluticasone-Umecli dinium-Vilanterol)I ndications:COPD, group B, by GOLD 2017 classification ([facility]) Inhale 1 Puff by mouth in the morning. 180 Each 3 3 Active Dulaglutide 3 MG/0.5ML Subcutaneous Solution Pen-injector (Trulicity)Indicati ons:Type 2 diabetes mellitus with hemoglobin A1c goal of less than 7.0% ([facility]) Inject 3 mg under the skin once a week. 6 mL 3 3 Active Carvedilol 12.5 MG Oral Tablet (Coreg) TAKE 1 TABLET BY MOUTH TWICE A DAY WITH BREAKFAST AND DINNER 180 Tablet 3 3 Active Lisinopril 20 MG Oral Tablet (Prinivil) TAKE 1 TABLET BY MOUTH EVERY DAY IN THE MORNING 90 Tablet 3 3 Active hydroCHLOROthiazide 12.5 MG Oral TabletIndications:H TN, goal below 130/80 Take 1 Tablet by mouth in the morning. 90 Tablet 3 4 Active Venlafaxine HCl ER 75 MG Oral Capsule Extended Release 24 Hour (Effexor XR) TAKE 1 CAPSULE BY MOUTH IN THE MORNING. DO NOT CUT, CRUSH OR CHEW. 90 Capsule 2 4 Active Omeprazole 20 MG Oral Capsule Delayed Release (PriLOSEC) TAKE 1 CAPSULE BY MOUTH EVERY DAY IN THE MORNING 90 Capsule 2 4 Active traZODone HCl 150 MG Oral Tablet (Desyrel)Indication s:Panic disorder,Persistent insomnia TAKE 1 TABLET BY MOUTH DAILY AT BEDTIME BY MOUTH 90 Tablet 2 4 Active metFORMIN HCl ER 500 MG Oral Tablet Extended Release 24 Hour (Glucophage XR)Indications:Type 2 diabetes mellitus with hemoglobin A1c goal of less than 7.0% ([facility]) TAKE 2 TABLETS BY MOUTH TWICE A DAY WITH MORNING AND EVENING MEAL 360 Tablet 1 4 Active Atorvastatin Calcium 40 MG Oral Tablet (Lipitor)Indication s:Type 2 diabetes mellitus with hemoglobin A1c goal of less than 7.0% ([facility]) TAKE 1 TABLET BY MOUTH EVERY DAY IN THE MORNING 90 Tablet 1 4 Active Jardiance 25 MG Oral Tablet (Empagliflozin) TAKE 1 TABLET BY MOUTH EVERY DAY IN THE MORNING 90 Tablet 1 4 Active Dulaglutide 1.5 MG/0.5ML Subcutaneous Solution Pen-injector (Trulicity)Indicati ons:Type 2 diabetes mellitus with hemoglobin A1c goal of less than 7.0% ([facility]) Inject 1.5 mg under the skin once a week. 6 mL 3 4 Active Levothyroxine Sodium 175 MCG Oral Tablet (Levoxyl)Indication s:Acquired hypothyroidism TAKE 1/2 TAB BY MOUTH ON SUNDAYS, TAKE 1 TAB BY MOUTH ALL OTHER DAYS AT LEAST 30 MIN BEFORE BREAKFAST OR OTHER MEDICATION 90 Tablet 1 4 Active Levothyroxine Sodium 175 MCG Oral Tablet (Levoxyl)Indication s:Acquired hypothyroidism TAKE 1/2 TAB BY MOUTH ON SUNDAYS, TAKE 1 TAB BY MOUTH ALL OTHER DAYS AT LEAST 30 MIN BEFORE BREAKFAST OR OTHER MEDICATION 90 Tablet 1 4 12/06/19 24 Discontinued documented as of this encounter (statuses as of 12/06/2023) Active Problems Problem Noted Date Diagnosed Date [...] as of this encounter (statuses as of 12/06/2023) Resolved Problems Problem Noted Date Diagnosed Date [...] as of this encounter (statuses as of 12/06/2023) Immunizations Name Administration Dates Next Due COVID-19 mRNA, LNP-s, No Pre serve, 2-Dose Series (Pfizer) 07/11/2020,06/20/2020 Hepatitis B, 20+ yrs 10/11/2018,05/18/2018,04/09 Pneumococcal Conjugate Vacci ne, 20-valent ([id number]) 09/30/2022 Pneumococcal Polysaccharide PPV23 (Pneumovax) 01/23/2007 Seasonal Influenza, PF, 6 M & above, IM , (FluLaval or Fluzone) 01/07/2023,11/24/2020,01/17/2020 TDAP (age 10 and older)(Boostrix) 01/17/2020 TDAP, [...] y our heating, water, or electric bill? (Adult - for ages 18 years and over) Not on file 09/17/2023 Is your family able to pay t he heat, water, or electric bill? (Household - for ages 0-17 years) Not on file 09/17/2023 Does your family have access to good internet? (Household - for ages 0-17 years) Not on file 09/17/2023 Employment Status Answer Date Recorded Are you unemployed or without regular income? Ye s 09/16/2022 Does the household have a re gular source of income? (Household - for ages 0-17 years) Not on file 09/16/2022 Social Connections Answer Date Recorded How often do you feel lonely or isolated from those around you? (Adult - for ages 18 years and over) Not on file 09/17/2023 Financial Resource Strain Answer Date R ecorded [...] ages 0-17 years) Not on file 09/16/2022 Sex and Gender Information Value Date Recorded Sex Assigned at Female 07/10/2022 5:57 PM EDT Gender Identity Female 07/10/2022 5:57 PM EDT Sexual Orientation Straight 07/10/2022 5: 57 PM EDT Job Start Date Occupation Industry Not on file Not on file Not on file documented as of this encounter Miscellaneous Notes * Telephone Encounter - Heidi López [facility] - 12/06/2023 10:19 PM EDTSigned Prescriptions: Disp Refills Levothyroxine Sodium 175 MCG Oral Tablet (*90 Tab*1 Sig: TAKE 1/2 TAB BY MOUTH ON SUNDAYS, TAKE 1 TAB BY MOUTH ALL OTHER DAYS AT LEAST 30 MIN BEFORE BREAKFAST OR OTHER MEDICATIONAuthorizing Provider: GEREMIAS WOODY User: HEIDI LÓPEZ documented in this encounter Plan of Treatment Health Maintenance Due Date Last Done Comments DISCUSS TOBACCO CESSATION (REFER TO SMARTSET #8908) 1967 HIV Screening 1982 Alpha-1 Antitrypsin 1985 Hepatitis C Screening 1985 HPV/Co-Test 1997 Colonoscopy 2012 Fecal Occult Blood Test 2012 Sigmoidoscopy 2012 Cervical Cancer Screening 07/18/2018 Pap Smear 07/18/2018 07/19/2015, 05/06/1999 Mammogram 10/23/2019 10/22/2018, 09/22/2017 Diabetic Eye Exam 09/28/2022 09/28/2021, , 10/27/2017 HbA1c 07/08/2023 01/07/2023, 08/24, 05/09/2022, Additional history exists B-12 09/12/2023 09/11/2022, 04/23, 02/14/2021, Additional history exists Depression Monitoring 10/01/2023 09/30/2022 Diabetic Foot Exam 10/01/2023 09/30/2022, 0 05/14/2021, 04/05/2020, Additional history exists COVID-19 Vaccine ( season) 2023 07/11/2020, 06/20/2020, 05/31/2020 Influenza Vaccine (FLU shot) (#1) 2023 01/07/2023, 11/24/2020, 01/17/2020 Albumin/Creatinine Ratio 01/08/2024 023, 10/14/2021, 01/04/2020, Additional history exists GFR 01/08/2024 01/07/2023, 06/24, 05/09/2022, Additional history exists O2 ASSESSMENT COMPLETED IN PAST YEAR FOR COPD 01/08/2024 01/07/2023 Cologuard 06/05/2024 06/05/2021, 04/0 06/2021, 05/28/2021 Colorectal Cancer Screening 06/05/2024 TSH 06/30/2024 07/01/2023, 12/24, 04/17/2022, Additional history exists Lipid Panel 01/08/2028 01/07/2023, 04/23, 02/14/2021, Additional history exists DTap/Tdap Vaccines (3 - Td or Tdap) 01/16/2030 01/17/2020, 12/20/2010 Hepatitis B Vaccine Completed 10/11/2018, 05/18/2018, 04/09/2018 Zoster Vaccines Completed 05/14/2021, 01/04/2020 Lung Cancer Screening Completed 08/01/2022, 018 Pneumococcal Vaccine: Pediatrics (0 to 5 Years) and At-Risk Patients (6 to 64 Years) Completed 09/30/2022, 12/12/2014, 01/23/2007 HPV (Gardasil) Vaccine Aged Out No lo nger eligible based on patient's age to complete this topic MENINGOCOCCAL (MENACTRA/MENVEO) Aged Out No longer eligible based on patient's age to complete this topic documented as of this encounter Medical Devices Not on filedocumented as of this encounter Visit Diagnoses Diagnosis Acquired hypothyroidism Unspecified hypothyroidism documented in this encounter Care Teams Local Az Truck Driver Relationship Specialty Start Date End Date June, Geremias Barker MD [address] [place] [address] PCP - General Family Medicine 08/05/22 documented as of this encounter
--- OUTSIDE RECORDS SUMMARY | 2024-03-29 15:18 | External Medical Summary ---
Author Name Unknown Address Unknown Organization [id number]:[facility] [place] [address] [place] [address] Laboratory Report Ordering Provider Test Date Status LAZARA BRENNAN 01/04/2024 11:16:09 Final Observation Date Value Abnormality Reference (Units ) Status Vitamin B12 01/04/2024 11:16:09 [id number] (pg/mL) Final Performing Location [facility] - [address] [place] [address]
--- OUTSIDE RECORDS SUMMARY | 2024-03-29 15:18 | External Medical Summary ---
Author Name Unknown Address Unknown Organization K01:[facility] [place] [address] [place] [address] Laboratory Report Ordering Provider Test Date Status LAZARA BRENNAN 01/04/2024 11:16:09 Final Observation Date Value Abnormality Reference (Units ) Status HbA1C 01/04/2024 11:16:09 6.2 Above high normal 4. 0-5.6 (%) Final The use of HbA1c to monitor glycemic status is based on normal hemoglobin and HbA composition. This test should not be used in patients with abnormal hemoglobin that affects the half life of the red blood cell or the in vivo glycation rates. Glucose, estimated average 01/04/2024 11:16:09 131 Above high normal <126 (mg/dL) Luke saleh Performing Location [facility] [place] [address] [place] [address]
--- OUTSIDE RECORDS SUMMARY | 2024-03-29 15:18 | External Medical Summary | Summary of Care ---
Author Name Unknown Organization [facility] Address [address] [place] [address] Phone [phone] Care Team Providers Care Casting Wheel Operator Helper Name Role Phone Jeb Queen MD Primary Care Provider [phone] Reason for Visit * Reason Onset Date Comments Emergency Department Follow-Up 11/18/2023 Encounter Details Date Type Department Care Team (Late st Contact Info) Description 11/18/2023 Telephone [facility] [address] [place] [address] Jeb Queen MD [address] [place] [address] Emergency Department Follow-Up Allergies Active Allergy Reactions Criticality Noted Date Comments Amoxicillin 07/11/2015 Rash per pt Sulfamethoxazole-Trimethopri m Hives 07/11/2015 Ciprofloxacin 01/04/2020 SOB Cephalexin 07/11/2015 Trouble breathing per pt Latex 07/11/2015 Pt reports allergy is the powder that is in latex gloves. Quinolones 01/30/1998 nausea,sweating and lightheaded Cipro - ? Trouble breathing documented as of this encounter (statuses as of 11/23/2023) Medications Medication Sig Dispensed Refills Start Date [...] for Wheezing. 810 mL 3 09/01/2022 Active Trelegy Ellipta 100-62.5-25 MCG/ACT Aerosol Powder Breath Activated (Fluticasone-Umeclidi nium-Vilanterol)Indic ations:COPD, group B, by GOLD 2017 classification ([facility]) Inhale 1 Puff by mouth in the morning. 180 Each 3 01/07/2023 Active Dulaglutide 3 MG/0.5ML Subcutaneous Solution Pen-injector (Trulicity)Indication s:Type 2 diabetes mellitus with hemoglobin A1c goal of less than 7.0% ([facility]) Inject 3 mg under the skin once a week. 6 mL 3 01/11/2023 Active Carvedilol 12.5 MG Oral Tablet (Coreg) TAKE 1 TABLET BY MOUTH TWICE A DAY WITH BREAKFAST AND DINNER 180 Tablet 3 02/13/2023 Active Lisinopril 20 MG Oral Tablet (Prinivil) TAKE 1 TABLET BY MOUTH EVERY DAY IN THE MORNING 90 Tablet 3 02/13/2023 Active hydroCHLOROthiazide 12.5 MG Oral TabletIndications:HTN , goal below 130/80 Take 1 Tablet by mouth in the morning. 90 Tablet 3 05/15/2023 Active Venlafaxine HCl ER 75 MG Oral Capsule Extended Release 24 Hour (Effexor XR) TAKE 1 CAPSULE BY MOUTH IN THE MORNING. DO NOT CUT, CRUSH OR CHEW. 90 Capsule 2 06/15/2023 Active Omeprazole 20 MG Oral Capsule Delayed Release (PriLOSEC) TAKE 1 CAPSULE BY MOUTH EVERY DAY IN THE MORNING 90 Capsule 2 06/15/2023 Active traZODone HCl 150 MG Oral Tablet (Desyrel)Indications: Panic disorder,Persistent insomnia TAKE 1 TABLET BY MOUTH DAILY AT BEDTIME BY MOUTH 90 Tablet 2 06/15/2023 Active metFORMIN HCl ER 500 MG Oral Tablet Extended Release 24 Hour (Glucophage XR)Indications:Type 2 diabetes mellitus with hemoglobin A1c goal of less than 7.0% ([facility]) TAKE 2 TABLETS BY MOUTH TWICE A DAY WITH MORNING AND EVENING MEAL 360 Tablet 1 08/19/2023 Active Levothyroxine Sodium 175 MCG Oral Tablet (Levoxyl)Indications: Acquired hypothyroidism TAKE 1/2 TAB BY MOUTH ON SUNDAYS, TAKE 1 TAB BY MOUTH ALL OTHER DAYS AT LEAST 30 MIN BEFORE BREAKFAST OR OTHER MEDICATION 90 Tablet 1 08/26/2023 Active Atorvastatin Calcium 40 MG Oral Tablet (Lipitor)Indications: Type 2 diabetes mellitus with hemoglobin A1c goal of less than 7.0% ([facility]CC) TAKE 1 TABLET BY MOUTH EVERY DAY IN THE MORNING 90 Tablet 1 09/23/2023 Active Jardiance 25 MG Oral Tablet (Empagliflozin) TAKE 1 TABLET BY MOUTH EVERY DAY IN THE MORNING 90 Tablet 1 09/23/2023 Active Dulaglutide 1.5 MG/0.5ML Subcutaneous Solution Pen-injector (Trulicity)Indication s:Type 2 diabetes mellitus with hemoglobin A1c goal of less than 7.0% ([facility]) Inject 1.5 mg under the skin once a week. 6 mL 3 10/05/2023 Active documented as of this encounter (statuses as of 11/23/2023) Active Problems Problem Noted Date Diagnosed Date [...] as of this encounter (statuses as of 11/23/2023) Resolved Problems Problem Noted Date Diagnosed Date [...] as of this encounter (statuses as of 11/23/2023) Immunizations Name Administration Dates Next Due COVID-19 mRNA, LNP-s, No Pre serve, 2-Dose Series (Pfizer) 07/11/2020,06/20/2020 Hepatitis B, 20+ yrs 10/11/2018,05/18/2018,04/09 Pneumococcal Conjugate Vacci ne, 20-valent ([id number]) 09/30/2022 Pneumococcal Polysaccharide PPV23 (Pneumovax) 01/23/2007 Seasonal [...] encounter Miscellaneous Notes * Telephone Encounter - Betty Unger OSA - 11/23/2023 3:36 PM EDT Tried to call patient and the phone just rang and rang and rang and then said that my call could not be completed at this time and to try again later. Also tried the number for her and it would not go through * Telephone Encounter - Opal Francis OSA - 11/19/2023 4:13 PM EDT Patient calling in to check on the status of previous message. Patient Called within 48 hour timeframe. Reminded patient of 48 hour turn-around time. Pt calling for ER f/u visit, she was to hear back from the office about an appt but has not heard anything back. She will only have a ride to get in to clinic tomorrow 11/19. * Telephone Encounter - Cee Kitchen OSA - 11/18/2023 1:25 PM EDT Patient needs ED Follow-up. Did patient decline to see other providers in their home clinic? : NO If New Patient - Were surrounding clinics offered? N/A Please see call details. 1. When were you seen for this problem? 11/14/23 2. What provider did you see for this problem? Pt seen in ED 3. What medications are you presently taking? Prednisone & azithromycin 4. What is it that is no better? Pt states she is not feeling any better and refused admission to hospital the the time of ED documented in this encounter Plan of Treatment Health Maintenance Due Date Last Done Comments DISCUSS TOBACCO CESSATION (REFER TO SMARTSET #1517) 1967 HIV Screening 1982 Alpha-1 Antitrypsin 1985 Hepatitis C Screening 1985 HPV/Co-Test 1997 Colonoscopy 2012 Fecal Occult Blood Test 2012 Sigmoidoscopy 2012 Cervical Cancer Screening 07/18/2018 Pap Smear 07/18/2018 07/19/2015, 05/06/1999 Mammogram 10/23/2019 10/22/2018, 09/22/2017 Diabetic Eye Exam 09/28/2022 09/28/2021, , 10/27/2017 HbA1c 07/08/2023 01/07/2023, 07/, 05/09/2022, Additional history exists B-12 09/12/2023 09/11/2022, 0308/2022, 02/14/2021, Additional history exists Depression Monitoring 10/01/2023 [...] filedocumented as of this encounter Care Teams Casting Wheel Operator Helper Relationship Specialty Start Date End Date June, Jeb Barker MD [address] [facility] [place] [address] PCP - General Family Medicine 08/05/22 documented as of this encounter
--- OUTSIDE RECORDS SUMMARY | 2024-03-29 15:18 | External Medical Summary | Summary of Care ---
Author Name Unknown Organization [facility] Address [address] [place] [place] [address] Phone [phone] Care Team Providers Care Zinc Plate Grainer Name Role Phone Jeb Queen MD Primary Care Provider [phone] Encounter Details Date Type Department Care Team (Late st Contact Info) Description 01/01/2024 Orders Only PATIENT PORTAL DO NOT DELETE [...] as of this encounter (statuses as of 01/01/2024) Medications Aspirin 81 MG Tablet Take 1 [...] ns:COPD, group A, by GOLD 2017 classification ([facility]) Inhale via nebulizer. Use as [...] ns:COPD, group A, by GOLD 2017 classification ([facility]) Inhale 1 Ampule via nebulizer every 4 hours as needed for Wheezing. 810 mL 3 3 Active Trelegy Ellipta 100-62.5-25 MCG/ACT Aerosol Powder Breath Activated (Fluticasone-Umecl idinium-Vilanterol )Indications:COPD, group B, by GOLD 2017 classification ([facility]) Inhale 1 Puff by mouth in the morning. 180 Each 3 3 Active Dulaglutide 3 MG/0.5ML Subcutaneous Solution Pen-injector ([facility])Indicat ions:Type 2 diabetes mellitus with hemoglobin A1c goal of less than 7.0% ([facility]) Inject 3 mg under the skin once a week. 6 mL 3 3 Active Carvedilol 12.5 MG Oral Tablet (Coreg) TAKE 1 TABLET BY MOUTH TWICE A DAY WITH BREAKFAST AND DINNER 180 Tablet 3 3 Active Lisinopril 20 MG Oral Tablet (Prinivil) TAKE 1 TABLET BY MOUTH EVERY DAY IN THE MORNING 90 Tablet 3 3 Active hydroCHLOROthiazid e 12.5 MG Oral TabletIndications: HTN, goal below 130/80 Take 1 Tablet by mouth in the morning. 90 Tablet 3 4 Active Omeprazole 20 MG Oral Capsule [...] Active Dulaglutide 1.5 MG/0.5ML Subcutaneous Solution Pen-injector (Trulicity)Indicat [...] as of this encounter (statuses as of 01/01/2024) Active Problems Problem Noted Date Diagnosed Date [...] as of this encounter (statuses as of 01/01/2024) Resolved Problems Problem Noted Date Diagnosed Date [...] as of this encounter (statuses as of 01/01/2024) Immunizations Name Administration Dates Next Due COVID-19 mRNA, LNP-s, No Pre serve, 2-Dose Series ([place]) 07/11/2020,06/20/2020 Hepatitis B, 20+ yrs 10/11/2018,05/18/2018,04/09 Pneumococcal Conjugate Vacci ne, 20-valent ([id number]) 09/30/2022 Pneumococcal Polysaccharide PPV23 (Pneumovax) 01/23/2007 Seasonal [...] as of this encounter Plan of Treatment Health Maintenance [...] filedocumented as of this encounter Care Teams Zinc Plate Grainer Relationship Specialty Start Date End Date June, Jeb Barker MD [address] [place] [address] PCP - General Family Medicine 08/05/22 documented as of this encounter
--- OUTSIDE RECORDS SUMMARY | 2024-03-29 15:18 | External Medical Summary | Summary of Care ---
Author Name Unknown Organization [facility] Address [address] [place] [address] Phone [phone] Care Team Providers Care Robotics Mechanic Name Role Phone Geremias Woody MD Primary Care Provider [phone] Reason for Visit * Reason Comments eRx-Medication Refill Encounter Details Date Type Department Care Team (Late st Contact Info) Description 12/29/2023 Refill [facility] [address] [place] [address] Geremias Woody MD [address] [place] [address] Allergies Active Allergy Reactions Criticality [...] ons:COPD, group A, by GOLD 2017 classification ([facility] [...] ons:COPD, group A, by GOLD 2017 classification ([facility]) Inhale 1 Ampule via nebulizer every 4 hours as needed for Wheezing. 810 mL 3 09/02/19 23 Active Trelegy Ellipta 100-62.5-25 MCG/ACT Aerosol Powder Breath Activated (Fluticasone-Umec lidinium-Vilanter ol)Indications:CO PD, group B, by GOLD 2017 classification ([facility] [...] MORNING 90 Tablet 3 02/14/20 23 Active hydroCHLOROthiazi de 12.5 MG Oral TabletIndications :HTN, goal below 130/80 Take 1 Tablet by mouth in the morning. 90 Tablet 3 05/15/19 24 Active Omeprazole 20 MG Oral Capsule [...] MORNING 90 Tablet 1 09/23/19 24 Active Dulaglutide 1.5 MG/0.5ML Subcutaneous Solution Pen-injector (Trulicity)Indica tions:Type 2 diabetes mellitus with hemoglobin A1c goal of less than 7.0% (HCC) Inject 1.5 mg under the skin once a week. 6 mL 3 10/05/19 24 Active Levothyroxine Sodium 175 MCG Oral [...] OR CHEW. 90 Capsule 12/30/19 24 Active Venlafaxine HCl ER 75 MG Oral Capsule Extended Release 24 Hour (Effexor XR) TAKE 1 CAPSULE BY MOUTH IN THE MORNING. DO NOT CUT, CRUSH OR CHEW. 90 Capsule 2 06/15/19 24 2023 Discontinued documented as of this encounter (statuses [...] yrs 10/11/2018,05/18/2018,04/09 Pneumococcal Conjugate Vacci ne, 20-valent ([id number]) 09/30/2022 Pneumococcal Polysaccharide PPV23 (Pneumovax) 01/23/2007 Seasonal [...] encounter Miscellaneous Notes * Telephone Encounter - Jennyfer Sawyer CPhT - 01/01/2024 3:08 PM EST Received message from [facility] regarding patient needing an appointment and labs. Call Placed, Pt was agreeable to set up both an office visit and lab appointment. Patient's lab appointment is walk in andoffice visit is I transferred to scheduling for further assistance. Thank you, Jennyfer Sawyer CPhT Youth Counselor [facility] ([facility]) 01/01/2024,3:08 PM * Telephone Encounter - Golden Coronado RPh - 12/30/2023 1:17 PM ESTSigned Prescriptions: Disp Refills Venlafaxine HCl ER 75 MG Oral Capsule Exte*90 Cap*0 Sig: TAKE 1 CAPSULE BY MOUTH IN THE MORNING. DO NOT CUT, CRUSH OR CHEW. Authorizing Provider: GEREMIAS WOODY User: GOLDEN CORONADO * Telephone Encounter - Golden Coronado RPh - 12/30/2023 1:15 PM EST Provided 90 days supply with 0 refill. Per refill protocol patient should have routine labs on filewithin past year. Reviewed AMP report, Care Gaps/Health Maintenance, medications list, and for any routine labs typically ordered for this patient. Lab orders placed. Please contact patient to schedule office visit with PRIMARY CARE and advise of labs ordered for blood draw AND URINE specimen (patient will have to be able to void to provide sample). Recommend patient to fast if able for labs. Patient may still have water and regular medications. Advise to obtainlabs before requesting the next refill. Last Visit: 01/07/2023 (in office), 05/15/2023 (telemedicine) Next Visit: Visit date not found Thank You, Golden Coronado, Pharm-D Clinical Pharmacist [facility] ([facility]) [phone] 12/30/2023, 1:15 PM documented in this encounter Plan of Treatment Upcoming Encounters Date Type Department Care Team (Late st Contact Info) Description 01/04/2024 12:00 PM EST [facility] [place] [address] [facility] [address] [place], [place] [address] [place] [address] 01/04/2024 12:40 PM EST Office Visit [facility] [place] [address] [phone] JuneGeremias MD [address] [place] [address] Health Maintenance Due Date Last Done Comments DISCUSS TOBACCO CESSATION (REFER TO SMARTSET #7004) 1967 HIV Screening 1982 Alpha-1 Antitrypsin 1985 [...] filedocumented as of this encounter Care Teams Robotics Mechanic Relationship Specialty Start Date End Date June, Geremias Barker MD [address] [place] [facility] [place] [facility] [place] [id number] PCP - General Family Medicine 08/05/22 documented as of this encounter
--- OUTSIDE RECORDS SUMMARY | 2024-03-29 15:18 | External Medical Summary ---
Author Name Unknown Address Unknown Organization [id number]:[facility] [place] [address] [place] [address] Laboratory Report Ordering Provider Test Date Status LAZARA BRENNAN 01/04/2024 11:16:09 Final Observation Date Value Abnormality Reference (Units ) Status BUN 01/04/2024 11:16:09 12 6-20 (mg/dL) Final Creatinine 01/04/2024 11:16:09 0.6 0.5-1.0 (mg/dL) Final Glomerular filtration rate/1.73 sq M.predicted [Volume Rate/Area] in Serum, Plasma or Blood by Creatinine-based formula (CKD-EPI) 01/04/2024 11:16:09 >90 >=60 (mL/min) Final eGFR is calculated based on the CKD-EPI 2020 equation. Sodium 01/04/2024 11:16:09 141 135-146 (m mol/L) Final Potassium 01/04/2024 11:16:09 4.1 3.5-5.1 (m mol/L) Final Cl 01/04/2024 11:16:09 100 98-107 (mm ol/L) Final CO2 01/04/2024 11:16:09 29 22-32 (mmo l/L) Final Anion gap 01/04/2024 11:16:09 12 7-15 (mmol /L) Final Glucose 01/04/2024 11:16:09 100 70-120 (mg /dL) Final Albumin 01/04/2024 11:16:09 4.5 3.8-5.0 (g /dL) Final AST (Aspartate aminotransferase) 01/04/2024 11:16:09 20 10-35 (U/L) Final Alk Phos 01/04/2024 11:16:09 100 35-130 (U/ L) Final Bilirubin, Total 01/04/2024 11:16:09 0.5 <=1 .2 (mg/dL) Final Calcium 01/04/2024 11:16:09 10.2 8.4-10.2 ( mg/dL) Final Protein 01/04/2024 11:16:09 6.8 6.0-8.3 (g /dL) Final ALT (Alanine aminotransferase) 01/04/2024 11:16:09 18 10-35 (U/L) Final Performing Location [facility] [place] [address] [facility] [address]
--- OUTSIDE RECORDS SUMMARY | 2024-03-29 15:18 | External Medical Summary ---
Author Name Unknown Address Unknown Organization K01:[facility] [place] [facility] [address] [facility] [address] [place] [address] Laboratory Report Ordering Provider Test Date Status MIKALAZARA 01/04/2024 11:16:09 Final Observation Date Value Abnormality Reference (Units ) Status Triglyceride 01/04/2024 11:16:09 138 <=174 ( mg/dL) Final Triglyceride Reference Range s (mg/dL):
<150 Acceptable
150-174 Borderline high
175-499 High
>=500 Very high Cholesterol 01/04/2024 11:16:09 120 <200 (mg /dL) Final Total Cholesterol Reference Ranges (mg/dL):
<200 Desirable
200-239 Borderline high
>=240 High HDL 01/04/2024 11:16:09 32 Below low normal >49 (mg/dL) Final HDL Cholesterol Reference Ra nges (mg/dL):
>=60 High (Desirable)
<50 Low (Undesirable) For Females
<40 Low (Undesirable) For Males NON-HDL CHOLESTEROL 01/04/2024 11:16:09 88 <=159 (mg/dL) Final Non-HDL Cholesterol Referenc e Range (mg/dL):
<100 Target level for high risk ASCVD patient
<130 Optimal for general population
130-159 Near optimal for general population
160-189 Borderline High
190-219 High
>=220 Very High LDL, (calculated) 01/04/2024 11:16:09 60 <= 129 (mg/dL) Final LDL Cholesterol Reference Ra nges (mg/dL):
<70 Target level for high risk ASCVD patient
<100 Optimal for general population
100-129 Near optimal for general population
130-159 Borderline high
160-189 High
>=190 Very high Performing Location [facility] [place] - [address] [facility] [address]
--- OUTSIDE RECORDS SUMMARY | 2024-03-29 15:18 | External Medical Summary | Summary of Care ---
Author Name Unknown Organization [facility] Address [address] [place] [address] Phone [phone] Care Team Providers Care Test Center Manager Name Role Phone Geremias Woody MD Primary Care Provider [phone] Reason for Visit * Reason Comments eRx-Medication Refill Encounter Details Date Type Department Care Team (Late st Contact Info) Description 12/28/2023 Refill [facility] [address] [place] [address] Geremias Woody MD [address] [place] [address] Encounter for long-term (current) drug use*; Type 2 diabetes mellitus with hemoglobin A1c goal of less than 7.0% ([facility]); Dyslipidemia; Gastroesophageal reflux disease with esophagitis, unspecified whether hemorrhage Allergies Active Allergy Reactions Criticality Noted Date Comments Amoxicillin 07/11/2015 Rash per pt Sulfamethoxazole-Trimethopri m Hives 07/11/2015 Ciprofloxacin 01/04/2020 SOB Cephalexin 07/11/2015 Trouble breathing per pt Latex 07/11/2015 Pt reports allergy is the powder that is in latex gloves. Quinolones 01/30/1998 nausea,sweating and lightheaded Cipro - ? Trouble breathing documented as of this encounter (statuses as of 12/30/2023) Medications Medication Sig Dispensed Refills Start Date [...] CRUSH OR CHEW. 90 Capsule 2 4 12/30/19 24 Discontinued metFORMIN HCl ER 500 MG Oral Tablet Extended Release 24 Hour (Glucophage XR)Indications:Type 2 diabetes mellitus with hemoglobin A1c goal of less than 7.0% (HCC) TAKE 2 TABLETS BY MOUTH TWICE A DAY WITH MORNING AND EVENING MEAL 360 Tablet 1 4 12/29/19 24 Discontinued documented as of this encounter (statuses as of 12/30/2023) Active Problems Problem Noted Date Diagnosed Date [...] as of this encounter (statuses as of 12/30/2023) Resolved Problems Problem Noted Date Diagnosed Date [...] as of this encounter (statuses as of 12/30/2023) Immunizations Name Administration Dates Next Due COVID-19 mRNA, LNP-s, No Pre serve, 2-Dose Series (Pfizer) 07/11/2020,06/20/2020 Hepatitis B, 20+ yrs 10/11/2018,05/18/2018,04/09 Pneumococcal Conjugate Vacci ne, 20-valent ([id number]) 09/30/2022 Pneumococcal Polysaccharide PPV23 (Pneumovax) 01/23/2007 Seasonal [...] encounter Miscellaneous Notes * Telephone Encounter - Alma Frazier - 12/30/2023 4:31 PM EST Received message from [facility] regarding patient needing labs. Patient was notified. Successfully contacted patient and provided [facility] message. * Telephone Encounter - Mika Triplett [facility] - 12/29/2023 10:21 AM ESTSigned Prescriptions: Disp Refills metFORMIN HCl ER 500 MG Oral Tablet Extend*360 Ta*0 Sig: TAKE 2 TABLETS BY MOUTH TWICE A DAY WITH MORNING AND EVENING MEAL Authorizing Provider: GEREMIAS WOODY Ordering User: MIKA TRIPLETT * Telephone Encounter - Mika Triplett RPh - 12/29/2023 10:18 AM EST Provided 90 days supply with 0 refill(s). Per refill protocol patient should have routine labs on file within past year. Reviewed AMP report, Care Gaps/Health Maintenance, medications list, and for any routine labs typically ordered for this patient. Lab orders placed. Please contact patient to advise of labs ordered for blood draw AND URINE specimen (patient will have to be able to void to provide sample). Recommend patient to fast if able for labs. Patient may still have water and regular medications. Advise to obtain labs before requesting the next refill.+ Thank you, Mika Triplett, PharmD Clinical Pharmacist [facility] ([facility]) 12/29/23 10:18 AM [phone] documented in this encounter Plan of Treatment Scheduled Orders Name Type Priority Associated Diagnoses Orde r Schedule HEMOGLOBIN A1C Lab Routine Type 2 diabetes mellitus with hemoglobin A1c goal of less than 7.0% (HCC) Encounter for long-term (current) drug use Expected: 01/05/2024 (Approximate), Expires: 12/28/2024 LIPID PANEL WITH DIRECT LDL IF TG IS HIGH Lab Routine Type 2 diabetes mellitus with hemoglobin A1c goal of less than 7.0% (HCC) Encounter for long-term (current) drug use Dyslipidemia Expected: 01/05/2024 (Approximate), Expires: 12/28/2024 VITAMIN B12 Lab Routine Type 2 diabetes mellitus with hemoglobin A1c goal of less than 7.0% (HCC) Encounter for long-term (current) drug use Gastroesophageal reflux disease with esophagitis, unspecified whether hemorrhage Expected: 01/05/2024 (Approximate), Expires: 12/28/2024 ALBUMIN / CREATININE RATIO, URINE Lab Routine Type 2 diabetes mellitus with hemoglobin A1c goal of less than 7.0% (HCC) Encounter for long-term (current) drug use Expected: 12/29/2023, Expires: 12/28/2024 COMPREHENSIVE METABOLIC PANEL Lab Routine Type 2 diabetes mellitus with hemoglobin A1c goal of less than 7.0% (HCC) Encounter for long-term (current) drug use Expected: 01/05/2024 (Approximate), Expires: 12/28/2024 Health Maintenance Due Date Last Done Comments DISCUSS TOBACCO CESSATION (REFER TO SMARTSET #2345) 1965 HIV Screening 1982 Alpha-1 Antitrypsin 1985 [...] Visit Diagnoses Diagnosis Encounter for long-term (current) drug use- Primary Encounter for long-term (current) use of other medications Type 2 diabetes mellitus with hemoglobin A1c goal of less than 7.0% (HCC) Dyslipidemia Other and unspecified hyperlipidemia Gastroesophageal reflux disease with esophagitis, unspecified whether hemorrhage documented in this encounter Care Teams Test Center Manager Relationship Specialty Start Date End Date June, Geremias Barker MD [address] [place] [address] PCP - General Family Medicine 08/05/22 documented as of this encounter
--- OUTSIDE RECORDS SUMMARY | 2024-03-29 15:18 | External Medical Summary | Summary of Care ---
Author Name Unknown Organization [facility] Address [address] [place] [address] Phone [phone] Care Team Providers Care Architecture Internship Name Role Phone Jeb Queen MD Primary Care Provider [phone] Reason for Visit * Reason Comments Outpatient Testing Encounter Details Date Type Department Care Team (Late st Contact Info) Description 01/04/2024 12:00 PM EST Laboratory Laboratory, [place] [address] [place] [address] [place] [address] [place] [address] Type 2 diabetes mellitus with hemoglobin A1c goal of less than 7.0% ([facility]); Encounter for long-term (current) drug use; Dyslipidemia; Gastroesophageal reflux disease with esophagitis, unspecified [...] as of this encounter (statuses as of 01/04/2024) Medications Aspirin 81 MG Tablet Take 1 Tablet by mouth in the morning. Active BD Pen Needle Delaney U/F 32G X 4 MM (Insulin Pen Needle)Indications :Type 2 diabetes mellitus with hemoglobin A1c goal of less than 7.0% ([facility]) Use up to 4 times daily with insulin 100 Each 5 2 Active Glucose Blood In Vitro StripIndications:T ype 2 diabetes mellitus with hemoglobin A1c goal of less than 7.0% ([facility]) Use as directed. 100 Strip 11 3 Active Compressor NebulizerIndicatio ns:COPD, group A, by GOLD 2017 classification ([facility]) Inhale via nebulizer. Use as directed. [...] ns:COPD, group A, by GOLD 2017 classification ([facility]) Inhale 1 Ampule via nebulizer every 4 hours as needed for Wheezing. 810 mL 3 3 Active Trelegy Ellipta 100-62.5-25 MCG/ACT Aerosol Powder Breath Activated (Fluticasone-Umecl idinium-Vilanterol )Indications:COPD, group B, by GOLD 2017 classification ([facility]) Inhale 1 Puff by mouth in the morning. 180 Each 3 3 Active Dulaglutide 3 MG/0.5ML Subcutaneous Solution Pen-injector (Trulicity)Indicat ions:Type 2 diabetes mellitus with hemoglobin A1c goal of less than 7.0% ([facility]) Inject 3 mg under the skin [...] as of this encounter (statuses as of 01/04/2024) Active Problems Problem Noted Date Diagnosed Date [...] as of this encounter (statuses as of 01/04/2024) Resolved Problems Problem Noted Date Diagnosed Date [...] as of this encounter (statuses as of 01/04/2024) Immunizations Name Administration Dates Next Due COVID-19 mRNA, LNP-s, No Pre serve, 2-Dose Series (Pfizer) 07/11/2020,06/20/2020 Hepatitis B, 20+ yrs 10/11/2018,05/18/2018,04/09 Pneumococcal Conjugate Vacci ne, 20-valent ([id number]) 09/30/2022 Pneumococcal Polysaccharide PPV23 (Pneumovax) 01/23/2007 Seasonal [...] Team (Late st Contact Info) Description 01/04/2024 12:40 PM EST Office Visit [facility] [address] [place] [facility] [place] [id number] Jeb Queen MD [address] [place] [facility] [place] [address] Pending Results Name Type Priority Associated Diagnoses Date /Time HEMOGLOBIN A1C Lab Routine Type 2 diabetes mellitus with hemoglobin A1c goal of less than 7.0% (HCC) Encounter for long-term (current) drug use 01/04/2024 11:16 AM EST LIPID PANEL WITH DIRECT LDL IF TG IS HIGH Lab Routine Type 2 diabetes mellitus with hemoglobin A1c goal of less than 7.0% ([facility]) Encounter for long-term (current) drug use Dyslipidemia 01/04/2024 11:16 AM EST VITAMIN B12 Lab Routine Type 2 diabetes mellitus with hemoglobin A1c goal of less than 7.0% (HCC) Encounter for long-term (current) drug use Gastroesophageal reflux disease with esophagitis, unspecified whether hemorrhage 01/04/2024 11:16 AM EST COMPREHENSIVE METABOLIC PANEL Lab Routine Type 2 diabetes mellitus with hemoglobin A1c goal of less than 7.0% (HCC) Encounter for long-term (current) drug use 01/04/2024 11:16 AM EST Health Maintenance Due Date Last Done Comments DISCUSS TOBACCO CESSATION (REFER TO SMARTSET #5394) 1965 HIV Screening 1982 Alpha-1 Antitrypsin 1985 [...] hemoglobin A1c goal of less than 7.0% ([facility]) Encounter for long-term (current) drug use Encounter for long-term (current) use of other medications Dyslipidemia Other and unspecified hyperlipidemia Gastroesophageal reflux disease with esophagitis, unspecified whether hemorrhage documented in this encounter Care Teams Architecture Internship Relationship Specialty Start Date End Date June, Jeb Barker MD [address] [facility] [place] [address] PCP - General Family Medicine 08/05/22 documented as of this encounter
--- OUTSIDE RECORDS SUMMARY | 2024-03-29 15:18 | External Medical Summary | Summary of Care ---
Author Name Unknown Organization [facility] Address [address] [place] [address] Phone [phone] Care Team Providers Care Chick Sexer Name Role Phone Jeb Queen MD Primary Care Provider [phone] Reason for Visit * Reason Onset Date [...] Description 01/04/2024 12:40 PM EST Office Visit [place] [address] [place] [address] Jeb Queen MD [address] [place] [address] Type 2 diabetes mellitus with hemoglobin A1c goal of less than 7.0% ([facility])*; HTN, goal below 130/80; De Quervain's tenosynovitis, right; COPD, group B, by GOLD 2017 classification ([facility]); Dyslipidemia; Depression with anxiety; Acquired hypothyroidism; Gastroesophageal reflux disease with esophagitis without hemorrhage; DM type 2 nursing care encounter ([facility]); Need for prophylactic vaccination and inoculation against [...] less than 7.0% ([facility]) Use up to 4 times daily with insulin 100 Each 5 12/07/19 22 Active Glucose Blood In Vitro StripIndications:T ype 2 diabetes mellitus with hemoglobin A1c goal of less than 7.0% ([facility]) Use as directed. 100 Strip 11 07/16/19 23 Active Compressor NebulizerIndicatio ns:COPD, group A, by GOLD 2017 classification ([facility] [...] ns:COPD, group A, by GOLD 2017 classification ([facility]) Inhale 1 Ampule via nebulizer every 4 hours as needed for Wheezing. 810 mL 3 09/02/19 23 Active Trelegy Ellipta 100-62.5-25 MCG/ACT Aerosol Powder Breath Activated (Fluticasone-Umecl idinium-Vilanterol )Indications:COPD, group B, by GOLD 2017 classification ([facility] [...] less than 7.0% ([facility]) Inject 1.5 mg under the skin once [...] Routine general medical exam ination at a [facility] care facility 12/29/2013 02/22/2019 Overview (12/29/2013): 12/29-PCP [...] mRNA, LNP-s, No Pre serve, 2-Dose Series (IIZI group) 07/11/2020,06/20/2020 Hepatitis B, 20+ yrs 10/11/2018,05/18/2018,04/09 Pneumococcal Conjugate Vacci ne, 20-valent ([id number]) 09/30/2022 Pneumococcal Polysaccharide PPV23 (Pneumovax) 01/23/2007 Seasonal [...] calluses yourself. Talk to your doctor or optic fibre drawer (a doctor who specializes in foot care) [...] the area doesnt appear to be healing. [id number] [employer], [address] [place] [address], [place] [address]. All rights reserved. This information is not intended as a substitute for professional medical care. Always follow your healthcare professional's instructions. documented in this encounter Progress Notes * Jeb Queen MD - 01/04/2024 12:45 PM EST Images from the original note were not included. Assessment and Plan 1. Type 2 diabetes mellitus with hemoglobin A1c goal of less than 7.0% ([facility]) (Primary) A1c 6.2. Continue metformin, jardiance, trulicity. [...] COPD, group B, by GOLD 2017 classification ([facility]) Patient discontinued trelegy on her own. Encouraged her to restart daily. 5. Dyslipidemia Continue statin. 6. Depression with anxiety Patient considering discontinuation of effexor as she feels well and wants to decrease pill burden. 7. Acquired hypothyroidism Continue levothyroxine. 8. Gastroesophageal reflux disease with esophagitis without hemorrhage Continue omeprazole. 9. DM type 2 nursing care encounter ([facility]) - DIABETES FOOT EXAM 10. Need for [...] note has been completed in part utilizing [employer] Speech Voice Recognition Software. Due to technical [...] with no relief. documented in this encounter Plan of Treatment [...] Comments DISCUSS TOBACCO CESSATION (REFER TO SMARTSET #0757) 1965 HIV Screening 1982 Alpha-1 Antitrypsin 1985 Hepatitis C Screening 1985 HPV/Co-Test 1997 Colonoscopy 2012 Fecal Occult Blood Test 2012 Sigmoidoscopy 2012 Cervical Cancer Screening 07/18/2018 Pap Smear 07/18/2018 07/19/2015, 05/06/1999 Mammogram 10/23/2019 10/22/2018, 09/22/2017 Diabetic Eye Exam 09/28/2022 09/28/2021, , 10/27/2017 HbA1c 07/08/2023 01/07/2023, 08/24, 05/09/2022, Additional history exists Depression Monitoring 10/01/2023 09/30/2022 COVID-19 Vaccine ( season) 2023 07/11/2020, 06/20/2020, 05/31/2020 Albumin/Creatinine Ratio 01/08/2024 023, 10/14/2021, 01/04/2020, Additional history exists GFR 01/08/2024 01/07/2023, 06/24, 05/09/2022, Additional history exists O2 ASSESSMENT COMPLETED IN PAST YEAR FOR COPD 01/08/2024 01/07/2023 Cologuard 06/05/2024 06/05/2021, 04/0 06/2021, 05/28/2021 Colorectal Cancer Screening 06/05/2024 TSH 06/30/2024 07/01/2023, 12/24, 04/17/2022, Additional history exists Diabetic Foot Exam 01/03/2025 01/04/2024, 0 09/30/2022, 05/14/2021, Additional history exists Lipid Panel 01/08/2028 01/07/2023, [...] goal of less than 7.0% ([facility])- Primary HTN, goal below 130/80 Unspecified essential [...] influenza documented in this encounter Care Teams Chick Sexer Relationship Specialty Start Date End Date June, Jeb Barker MD [address] [place] [facility] [place] [address] PCP - General Family Medicine 08/05/22 documented as of this encounter
[2024-03-29] MEDS ORDERED: guaiFENesin/CODEINE 100MG/10MG 5ML UDC PO PRN (15:23)
[2024-03-29] MEDS ORDERED: ACETAMINOPHEN 325 MG TAB PO PRN (15:23)
[2024-03-29] MEDS ORDERED: ALBUTEROL HFA 8 GM INHALER INH PRN (15:23)
[2024-03-29] MEDS ORDERED: ONDANSETRON INJ 2 MG/ML 2 ML VIAL IV PRN (15:23)
[2024-03-29] MEDS ORDERED: POLYETHYLENE (MIRALAX) 17 GM PACK PO PRN (15:23)
[2024-03-29] MEDS ORDERED: MELATONIN 3 MG TAB PO PRN (15:23)
[2024-03-29] MEDS ORDERED: ALBUTEROL 0.083% NEBU SOLN 3 ML VIAL INH PRN (15:23)
[2024-03-29] MEDS ORDERED: LEVALBUTEROL 1.25 MG/3 ML NEB INH PRN (15:23)
[2024-03-29] MEDS: NICOTINE 21 MG/24 HR TDSY TD SCH (16:04)
[2024-03-29] MEDS: guaiFENesin 600 MG TABCR PO ONE (16:05)
[2024-03-29] MEDS: ENOXAPARIN INJ 40 MG/0.4 ML SYR SQ SCH (16:05)
[2024-03-29] MEDS ORDERED: ALBUT/IPRATROP 3MG/0.5MG NEB 3 ML VIAL NEB PRN (16:09)
[2024-03-29] MEDS: INSULIN ASPART PER UNIT CHARGE SC SCH (17:11)
[2024-03-29] MEDS: SODIUM CHLOR 7% 4 ML NEB NEB SCH (20:01)
[2024-03-29 20:15] VITALS: TEMP 97.7
[2024-03-29] MEDS: carvediloL 12.5 MG TAB PO SCH (21:16)
[2024-03-29] MEDS: guaiFENesin 600 MG TABCR PO SCH (21:17)
[2024-03-29] MEDS: DOXYCYCLINE HYCLATE 100 MG CAP PO SCH (21:17)
[2024-03-29] MEDS: traZODone HCL 50 MG TAB PO SCH (21:17)
[2024-03-30] MEDS: LEVOTHYROXINE SODIUM 175 MCG TABLET PO SCH (05:56)
[2024-03-30 06:26] LABS: Hematocrit (blood only) 45.3 % (37.0-47.0); Mean Corpuscular Hemoglobin 27.4 pg (25.0-34.0); Mean Corpuscular Hgb Conc 33.1 g/dL (32.0-36.0); Mean Corpuscular Volume 82.7 fL (80.0-100.0); Mean Platelet Volume 9.8 fL (9.4-12.4); Platelet Count 237 K/uL (130-400); RDW Coefficient of Variation 13.4 % (11.5-14.5); RDW Standard Deviation 39.9 fL (36.4-46.3); Red Blood Count 5.48 M/uL (4.20-5.40); White Blood Count 22.21 K/ul (4.8-10.8)
[2024-03-30 06:46] LABS: BUN Creatinine Ratio 40.4 (10-20); Calcium 10.4 mg/dl (8.6-10.3); Creatinine Clr Calc Pharmacy 116.4 ml/min; Potassium 4.1 mmol/L (3.5-5.1)
[2024-03-30 07:50] VITALS: BP 121/79; RESP 16
[2024-03-30 08:13] VITALS: PULSE 85; O2SAT 92
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
[2024-03-30] MEDS: ASPIRIN 81 MG ECTAB PO SCH (08:37)
[2024-03-30] MEDS: ATORVASTATIN 40 MG TAB PO SCH (08:38)
[2024-03-30] MEDS: CHOLECALCIFEROL 125 MCG (5,000 UNITS) TAB PO SCH (08:38)
[2024-03-30] MEDS: FLUTICASONE FUROATE 100MCG 14 PUFFS/INHALER INH SCH (08:39)
[2024-03-30] MEDS: CYANOCOBALAMIN (B-12) 500 MCG TABLET PO SCH (08:39)
[2024-03-30] MEDS: PANTOprazole 40 MG TAB PO SCH (08:40)
[2024-03-30] MEDS: VENLAFAXINE HCL XR 75 MG CAPXR PO SCH (08:40)
[2024-03-30] MEDS: lisinopril 20 MG TAB PO SCH (08:40)
[2024-03-30] MEDS: UMECLIDINIUM/VILANTEROL 62.5/25MCG 7 PUFFS/INHALER INH SCH (08:41)
[2024-03-30] MEDS ORDERED: UMECLIDINIUM/VILANTEROL 62.5/25MCG 7 PUFFS/INHALER INH SCH (09:00)
[2024-03-30] MEDS ORDERED: NON-FORMULARY MEDICATION (Fluticasone-Umeclidin-Vilanter [Trelegy Ellipta] 100-62.5-25 mcg INH SCH ×2 (09:00)
[2024-03-30] MEDS ORDERED: FLUTICASONE FUROATE 100MCG 14 PUFFS/INHALER INH SCH (09:00)
[2024-03-30] MEDS: predniSONE 20 MG TAB PO SCH (09:32)
[2024-03-30] MEDS ORDERED: cefTRIAXone SODIUM 2,000 MG/50 ML BAG IV SCH (14:15)
[2024-03-31 11:16] LABS: Estimated Average Glucose 140 mg/dl; Hemoglobin A1C 6.5 % (4.5-5.6)
[2024-04-03] MEDS ORDERED: LEVOTHYROXINE SODIUM 175 MCG TABLET PO SCH (06:30)
== END 2024-03-30 10:00 | disposition home or self-care (01) | DRG 193 ==
LOC: ED 10:06 → SUATTDRO 14:15 → 3W 14:15